=== PATIENT | female | born 1945 | race Caucasian/White ===

== ENCOUNTER → 2018-01-29 09:02 | Outpatient (CLI) | payer OTHER, SELFPAY ==
[2018-01-29 10:05] LABS: Cholesterol 148 mg/dL (140-199); Glucose 90 mg/dL (80-110); HDL Cholesterol 53 mg/dL (40-60); LDL Cholesterol Calculated 70 mg/dL (<100); Triglycerides 124 mg/dL (35-150)
== END ==
PROVIDERS: Visit Provider Family Medicine
DX: R73.01 Impaired fasting glucose (principal); E78.5 Hyperlipidemia, unspecified
CPT/HCPCS: 36415; 80061; 82947

== ENCOUNTER → 2018-02-14 09:23 | Outpatient (CLI) | payer OTHER, SELFPAY ==
[2018-02-14 10:52] LABS: Alanine Aminotransferase 28 IU/L (9-52); Albumin 4.6 g/dL (3.5-5.0); Albumin Globulin Ratio 1.6 (1.0-2.8); Alkaline Phosphatase 63 U/L (38-126); Aspartate Aminotransferase 48 IU/L (14-36); BUN Creatinine Ratio 26.7 (6-22); Bilirubin Total 0.5 mg/dL (0.2-1.3); Blood Urea Nitrogen 24 mg/dL (7-17); Calcium 10.2 mg/dL (8.4-10.2); Carbon Dioxide 33 mmol/L (22-32); Chloride 99 mmol/L (98-107); Estimated Glomerular Filt Rate > 60.0 mL/min (>60); Globulin 2.8 g/dL (1.7-4.1); Glucose 91 mg/dL (80-110); HEMOLYSIS < 15 (0-50); Potassium 4.3 mmol/L (3.4-5.1); Sodium 144 mmol/L (137-145); Total Protein 7.4 g/dL (6.3-8.2)
[2018-02-14 11:23] LABS: Thyroid Stimulating Hormone 1.51 uIU/mL (0.47-4.68)
[2018-02-14 20:11] LABS: Hemoglobin A1C% w Est Avg Glu 5.6 % (4.0-6.0)
== END ==
PROVIDERS: PCP Registered Nurse; Visit Provider Registered Nurse
DX: E66.9 Obesity, unspecified (principal); E03.9 Hypothyroidism, unspecified; I10 Essential (primary) hypertension
CPT/HCPCS: 36415; 80053; 83036; 84443

== ENCOUNTER → 2018-03-28 09:11 | Outpatient (CLI) | payer OTHER, SELFPAY ==
--- NOTE | 2018-03-28 09:14 | DI.MG.S_ITS ---
BILATERAL DIGITAL SCREENING MAMMOGRAM 3D/2D WITH CAD: 03/28/2018 CLINICAL: Routine screening. Comparison is made to exams dated: 03/16/2017 mammogram, 03/05/2015 mammogram, and 03/07/2016 mammogram - [facility]. The tissue of both breasts is heterogeneously dense. This may lower the sensitivity of mammography. Current study was also evaluated with a Computer Aided Detection (CAD) system. There are stable benign post operative findings in the left breast. There also is a benign biopsy clip in the right breast. No significant masses, calcifications, or other findings are seen in either breast. There has been no significant interval change. IMPRESSION: There is no mammographic evidence of malignancy. A 1 year screening mammogram is recommended. NOTE: For mammograms, a report in lay terms will be sent to the patient. Approximately 15% of breast malignancies will not be visualized mammographically. In the management of a palpable breast mass, a negative mammogram must not discourage biopsy of a clinically suspicious lesion. Electronically Signed By: Manuel mejias/sheila:03/28/2018 12:32:00 letter sent: Normal Exam ACR BI-RADS Category 2: Benign Finding(s) 3342F
== END ==
PROVIDERS: PCP Registered Nurse; Visit Provider Registered Nurse
DX: Z12.31 Encounter for screening mammogram for malignant neoplasm of breast (principal)
CPT/HCPCS: 77063; 77067

== ENCOUNTER → 2018-05-25 08:53 | Outpatient (CLI) | payer MEDICARE, SELFPAY ==
[2018-05-25 10:09] LABS: Alanine Aminotransferase 37 IU/L (9-52); Aspartate Aminotransferase 31 IU/L (14-36)
== END ==
PROVIDERS: PCP Registered Nurse; Visit Provider Registered Nurse
DX: R74.8 Abnormal levels of other serum enzymes (principal)
CPT/HCPCS: 36415; 84450; 84460

== ENCOUNTER → 2018-06-29 12:21 | Outpatient (CLI) | payer MEDICARE, SELFPAY ==
--- NOTE | 2018-06-29 12:24 | DI.RAD.S_ITS ---
PROCEDURE: XR KNEE RT 3V INDICATIONS: Right knee pain TECHNIQUE: 3 views of the knee were acquired. COMPARISON: [facility], KNEE 3V RIGHT, 04/11/2017, 20:53. [facility], KNEE 3V RIGHT, 07/01/2010, 11:15. FINDINGS: Bones: No fractures or dislocations but there is mild to moderate medial compartment joint space narrowing, consistent with mild to moderate osteoarthritis in this area. No trauma found. No suspicious bony lesions. Soft tissues: No joint effusion. No suspicious soft tissue calcifications. 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 Dictated by: Pacheco Eden M.D. on 06/29/2018 at 13:29 Approved by: Pacheco Eden M.D. on 06/29/2018 at 13:30
== END ==
PROVIDERS: PCP Registered Nurse; Visit Provider Registered Nurse
DX: M25.561 Pain in right knee (principal); M17.11 Unilateral primary osteoarthritis, right knee
CPT/HCPCS: 73562

== ENCOUNTER → 2018-10-09 09:38 | Outpatient (CLI) | payer MEDICARE, SELFPAY ==
[2018-10-09 11:41] LABS: Creatinine Urine Random 84.4 mg/dL
[2018-10-09 11:48] LABS: Microalbumi Creatinin Ratio Ur 7.1 ug/mg CR (<30); Microalbumin Urine Random < 0.6 mg/dL (0-1.6)
== END ==
PROVIDERS: PCP Registered Nurse; Visit Provider Registered Nurse
DX: I10 Essential (primary) hypertension (principal)
CPT/HCPCS: 82043; 82570

== ENCOUNTER → 2019-02-26 12:17 | Outpatient (CLI) | payer MEDICARE, SELFPAY ==
[2019-02-26 14:50] LABS: Thyroid Stimulating Hormone 1.65 uIU/mL (0.47-4.68)
== END ==
PROVIDERS: PCP Registered Nurse; Visit Provider Nurse Practitioner
DX: E03.9 Hypothyroidism, unspecified (principal)
CPT/HCPCS: 36415; 84443

== ENCOUNTER 2019-03-19 08:39 | Emergency (ER) | payer MEDICARE, SELFPAY ==
--- NOTE | 2019-03-19 08:43 | ED.ABDPAIN ---
HPI - Abdominal Pain General Chief Complaint: Abdominal Pain Stated Complaint: irritable bowel syndrome Time Seen by Provider: 03/19/19 08:42 Source: patient Mode of arrival: Ambulatory Limitations: no limitations History of Present Illness HPI narrative: 73-year-old female former smoker with history of IBS presents with a few days of episodes of generalized abdominal cramping pain. She denies provocation, palliation or radiation. She denies any fever chills or vomiting but has been nauseated. She denies any change in bowel habits nor urinary complaints such as dysuria, frequency or urgency. She states that her symptoms started after eating a bunch of fried food on Monday, food which she knows she should not eat. Her normal medications for IBS are not working. MD complaint: abdominal pain Onset (ago): day(s) Pain Consistency: intermittent Location: diffuse Severity: moderate Quality: cramping Radiation: none Relieving factors: nothing Exacerbating factors: nothing Associated symptoms: nausea Related Data Home Medications Medication Instructions Recorded Confirmed ASPIRIN (Aspirin Low Dose) 81 mg PO QDAY #0 07/01/10 01/30/19 B-complex with vitamin C 1 tab PO DAILY 02/14/18 01/30/19 ascorbic acid (vitamin C) 500 mg mg PO cap 02/14/18 01/30/19 capsule ryjumil-[id number]-bsoy tab PO tab 02/14/18 01/30/19 cholecalciferol (vitamin D3) 1,000 1,000 unit PO DAILY 02/14/18 01/30/19 unit capsule omega-3 fatty acids 1,000 mg 1,000 mg PO DAILY 02/14/18 01/30/19 capsule Previous Rx's Medication Instructions Recorded valacyclovir 1 gram tablet 1,000 mg PO Q DAY #90 tab 03/21/18 cholestyramine (with sugar) 4 gram 4 gram PO BID PRN #20 each 07/06/18 powder for susp in a packet omeprazole 20 mg capsule,delayed 20 mg PO DAILY #90 cap 07/06/18 release simvastatin 10 mg tablet 10 mg PO Q DAY #90 tab 07/11/18 diazepam 5 mg tablet 5 mg PO .COMPLEX PRN #2 tab 01/30/19 levothyroxine 25 mcg tablet 25 mcg PO DAILY #90 tab 02/26/19 dicyclomine 20 mg tablet 20 mg PO QID PRN #60 tab 03/15/19 hyoscyamine sulfate 0.125 mg PO BID-QID PRN #20 tab 03/19/19 Allergies Allergy/AdvReac Type Severity Reaction Status Date / Time codeine [CODEINE] Allergy Mild NAUSEA, Verified 01/30/19 09:18 VOMITING morphine [MORPHINE] Allergy Mild VOMITING Verified 01/30/19 09:18 Review of Systems Constitutional Constitutional: Denies chills, Denies fatigue, Denies fever(s), Denies frequent falls, Denies lethargy and Denies weakness Eyes Eyes: Denies change in vision, Denies eye discharge, Denies irritation and Denies loss of vision ENT Ears, Nose, Mouth, and Throat: Denies change in voice, Denies dizziness, Denies neck pain, Denies sore throat and Denies throat swelling Cardiovascular Cardiovascular: Denies chest pain, Denies irregular heart rhythm, Denies lightheadedness, Denies palpitations, Denies dyspnea, Denies dyspnea on exertion and Denies orthopnea Respiratory Respiratory: Denies cough, Denies dyspnea, Denies dyspnea on exertion and Denies wheezing Gastrointestinal Gastrointestinal: Reports abdominal pain, Denies change in bowel habits, Denies diarrhea, Reports nausea and Denies vomiting Genitourinary Genitourinary: Denies hematuria, Denies flank pain, Denies urinary incontinence and Denies urinary urgency Musculoskeletal Musculoskeletal: Denies back pain, Denies muscle weakness, Denies neck pain, Denies numbness and Denies tingling Integumentary/Breasts Skin/Breast: Denies pruritus, Denies erythema, Denies rash and Denies wounds Neurologic Neurologic: Denies behavioral changes, Denies confusion, Denies dizziness, Denies frequent falls, Denies loss of vision, Denies numbness, Denies tingling and Denies weakness Psychiatric Psychiatric: Denies anxiety, Denies behavioral changes, Denies confusion, Denies depression, Denies homicidal ideation and Denies suicidal ideation Endocrine Endocrine: Denies fatigue, Denies flushing and Denies palpitations Hematologic/Lymphatic Hematologic/Lymphatic: Denies easy bruising Allergic/Immunologic Allergic/Immunologic: Denies urticaria, Denies throat swelling and Denies wheezing Patient History Medical History Abnormal Pap smear of cervix (Resolved ~2009) Anxiety (Chronic) Carpal tunnel syndrome (Chronic ~2006) Chicken pox (Resolved ~1950) Depression (Chronic) Diverticular disease (Chronic) Foot pain (Chronic ~2012) Hearing loss (Chronic ~11/2014) Herpes (Resolved) Hyperlipidemia (Chronic) Hypertension (Chronic) Kidney disease (Chronic) Macular degeneration (Chronic) Measles (Resolved) Osteoarthritis (Chronic) Rheumatoid arthritis (Chronic) Surgical History Anesthesia (Resolved) Fractures (Resolved ~1980) History of carpal tunnel repair (~2006) History of esophagogastroduodenoscopy (EGD) (12/12/16) History of neck surgery (Resolved ~1993) History of shoulder surgery (Resolved ~1993) Left fibular fracture (Resolved ~2015) Status post arthroscopy (~2007) Status post breast biopsy (~1993) Status post breast biopsy (10/01/12) Status post breast biopsy (10/02/13) Status post bunionectomy (12/18/12) Status post hysterectomy (~1980) Status post rotator cuff repair (~2007) Family History Brother Age: 76 Hypertension Father Leukemia Pneumonia Mother No problems noted. Grandmother Diabetes mellitus Social History Smoking Status: Former smoker alcohol intake: former substance use type: does not use Smoking Status: Former smoker Exam Narrative Exam Narrative: GENERAL: [73] year old patient appears stated age. Well-nourished, well-developed patient, in mild distress. HEAD: Atraumatic. Normocephalic. EYES: Pupils equal round and reactive. Extraocular motions intact. No scleral icterus. No injection or drainage. ENT: Nose without bleeding, purulent drainage. Throat without erythema, tonsillar hypertrophy or exudate. Airway patent. NECK: Trachea midline. Non tender CARDIOVASCULAR: Regular rate and rhythm without murmurs, gallops, or rubs. RESPIRATORY: Clear to auscultation. Breath sounds equal bilaterally. No wheezes, rales, or rhonchi. GASTROINTESTINAL: Abdomen soft, non-tender, nondistended. EXTREMITIES: No edema or joint tenderness. BACK: Nontender without deformity or crepitance. No flank tenderness. NEURO: AOx3. SKIN: No rash or erythema of visible areas Initial Vital Signs Initial Vital Signs: Vital Signs Temperature 97.5 F L 03/19/19 08:59 Pulse Rate 90 03/19/19 08:59 Respiratory Rate 13 03/19/19 08:59 Blood Pressure 119/71 03/19/19 08:59 Pulse Oximetry 99 03/19/19 08:59 Course Orders Ordered: ED Orders 03/19/19 09:20 Complete Blood Count AUTO DIFF Stat Comprehensive Metabolic Panel Stat Lipase Stat 03/19/19 09:52 XR acute abdomen series Stat Discontinued Medications Sodium Chloride (Normal Saline 0.9%) 1,000 mls @ 1,000 mls/hr IV BOLUS ONE Stop: 03/19/19 10:50 Last Infusion: 03/19/19 12:33 Dose: 1,000 mls/hr Documented by: Admin: 03/19/19 10:39 Dose: 1,000 mls/hr Documented by: BTONER Vital Signs Vital signs: Vital Signs - 8 hr 03/19/19 08:59 03/19/19 11:58 Temperature 97.5 F L Pulse Rate 90 67 Respiratory Rate 13 17 Blood Pressure 119/71 Blood Pressure [Right Arm] 121/60 Pulse Oximetry 99 96 MDM - Abdominal Pain Lab Data Result diagrams: 03/19/19 09:20 03/19/19 09:20 Labs: Lab Results 03/19/19 03/19/19 Range/Units 09:20 09:20 WBC 11.0 (4.5-11.0) X10^3/uL RBC 4.59 (4.0-5.2) X10^6/uL Hgb 15.0 (12.0-16.0) g/dL Hct 44.4 (36-46) % MCV 96.9 (80-100) fL MCH 32.8 (26-34) PG MCHC 33.8 (30-36) % RDW 13.2 (11.6-14.8) % Plt Count 329 (150-400) X10^3/uL Neut % (Auto) 57.3 (50-75) % Lymph % (Auto) 33.7 (25-40) % Morton % (Auto) 6.5 (3-14) % Eos % (Auto) 1.6 L (2-4) % Baso % (Auto) 0.9 (0-2) % Neut # (Auto) 6300 (3721-1379) /uL Lymph # (Auto) 3700 (8259-3737) /uL Morton # (Auto) 700 (0-900) /uL Eos # (Auto) 200 (0-450) /uL Baso # (Auto) 100 (0-100) /uL Sodium 140 (137-145) mmol/L Potassium 3.9 (3.4-5.1) mmol/L Chloride 102 (98-107) mmol/L Carbon Dioxide 27 (22-32) mmol/L BUN 18 H (7-17) mg/dL Creatinine 0.90 (0.52-1.04) mg/dL Estimated GFR > 60.0 (>60) mL/min BUN/Creatinine Ratio 20.0 (6-22) Glucose 104 (80-110) mg/dL Calcium 10.0 (8.4-10.2) mg/dL Total Bilirubin 0.9 (0.2-1.3) mg/dL AST 29 (14-36) IU/L ALT 16 (<35) IU/L Alkaline Phosphatase 74 (38-126) U/L Total Protein 7.7 (6.3-8.2) g/dL Albumin 4.7 (3.5-5.0) g/dL Globulin 3.0 (1.7-4.1) g/dL Albumin/Globulin Ratio 1.6 (1.0-2.8) Lipase 105 (23-300) U/L Imaging Data Abdominal x-ray: Radiologist's impression: [address] [id number] XRay Report Signed Patient: Ninfa Aranda RUBI#: [id number] : 5Acct:[id number] Age/Sex: 73 / FDate of Service: 03/19/19 Loc: ED Accession Number: [id number] Procedure: XR acute abdomen series Ordering Provider: Tl Mann D.O. PROCEDURE: XR ACUTE ABDOMEN SERIES INDICATIONS: Abdominal pain TECHNIQUE: One view chest and two views of the abdomen were acquired. COMPARISON: [facility], ABDOMEN ACUTE SERIES, 02/05/2016, 10:29. FINDINGS: Surgical changes and devices: Surgical clips project over the left apex. Chest: Lungs are clear. Heart size is normal. No pleural effusions. No pneumoperitoneum. Abdomen: Bowel gas pattern is normal. No suspicious calcifications. Visualized solid organ contours appear normal. Bones: No suspicious bony lesions. IMPRESSION: No acute process. Dictated by: Elizabeth Padilla M.D. on 03/19/2019 at 10:26 Approved by: Elizabeth Padilla M.D. on 03/19/2019 at 10:27 [facility] Narrative Medical decision making narrative: Multiple etiologies for patient's symptoms considered including: [IBS versus gallbladder disease versus bowel obstruction versus other] Patient's symptoms improved or duration of stay with above-stated therapies. Findings and discharge diagnosis discussed with patient/family followed by verbalization of understanding Return precautions discussed with patient/family whom verbalize understanding. Discharge Plan Departure Patient Disposition: Home Clinical Impression: IBS (irritable bowel syndrome) Qualifiers: Irritable bowel syndrome type: unspecified Qualified Code(s): K58.9 - Irritable bowel syndrome without diarrhea Discharge Date/Time: 03/19/19 12:34 Instructions: DI for Abdominal Pain-Adult Activity Restrictions/Additional Instructions: 1. Drink plenty of fluids with frequent small sips. 2. For the next 24 hours a clear liquid diet is advised. After that please employ a brat diet which would include bananas, rice, apples, toast. 3. Please take medications as directed. DO NOT TAKE THIS NEW PRESCRIPTION WITH YOUR DICYCLOMINE, they work similarly and could result in overdose if taking togther. Please stop the dicyclomine for the next few days and try this new prescription instead. 4. Please follow-up with your doctor in the next 1-2 days. Call the office for an appointment. 5. Please return to the emergency Department for any worsening or persistent symptoms, such as increasing pain or fever. Prescriptions: New hyoscyamine sulfate 0.125 mg tablet 0.125 mg PO BID-QID PRN (Reason: dyspepsia) Qty: 20 RF: 0 No Action ASPIRIN (Aspirin Low Dose) 81 mg PO QDAY Qty: 0 RF: 0 valacyclovir 1 gram tablet 1,000 mg PO Q DAY Qty: 90 RF: 3 simvastatin [Zocor] 10 mg tablet 10 mg PO Q DAY Qty: 90 RF: 3 diazepam 5 mg tablet 5 mg PO .COMPLEX PRN (Reason: anxiety) Qty: 2 RF: 0 levothyroxine 25 mcg tablet 25 mcg PO DAILY Qty: 90 RF: 3 dicyclomine 20 mg tablet 20 mg PO QID PRN (Reason: abdominal discomfort) Qty: 60 RF: 0 cholestyramine (with sugar) 4 gram powder in packet 4 gram PO BID PRN (Reason: ingestion of fatty meal) Qty: 20 RF: 0 omeprazole 20 mg capsule,delayed release(DR/EC) 20 mg PO DAILY Qty: 90 RF: 3 ascorbic acid (vitamin C) 500 mg capsule PO RF: 0 omega-3 fatty acids [Fish Oil Concentrate] 1,000 mg capsule 1,000 mg PO DAILY RF: 0 cholecalciferol (vitamin D3) 1,000 unit capsule 1,000 unit PO DAILY RF: 0 B-complex with vitamin C [Super B Complex-Vitamin C] tablet 1 tab PO DAILY RF: 0 strhtqi-jifbfqqfx-yeoe tablet PO RF: 0 Referrals: Lizabeth Rico ARNP [Primary Care Provider] -
[2019-03-19 08:59] VITALS: BP 119/71; PULSE 90; RESP 13; TEMP 36.4; O2SAT 99
--- NOTE | 2019-03-19 09:52 | DI.RAD.S_ITS ---
PROCEDURE: XR ACUTE ABDOMEN SERIES INDICATIONS: Abdominal pain TECHNIQUE: One view chest and two views of the abdomen were acquired. COMPARISON: [facility], , ABDOMEN ACUTE SERIES, 02/05/2016, 10:29. FINDINGS: Surgical changes and devices: Surgical clips project over the left apex. Chest: Lungs are clear. Heart size is normal. No pleural effusions. No pneumoperitoneum. Abdomen: Bowel gas pattern is normal. No suspicious calcifications. Visualized solid organ contours appear normal. Bones: No suspicious bony lesions. IMPRESSION: No acute process. Dictated by: Elizabeth Padilla M.D. on 03/19/2019 at 10:26 Approved by: Elizabeth Padilla M.D. on 03/19/2019 at 10:27
[2019-03-19 10:01] LABS: Add Manual Diff / Slide Review NO; Basophils Absolute Auto 100 /uL (0-100); Basophils Percent Auto 0.9 % (0-2); Eosinophils Absolute Auto 200 /uL (0-450); Eosinophils Percent Auto 1.6 % (2-4); Hematocrit 44.4 % (36-46); Lymphocytes Absolute Auto 3700 /uL (1100-4500); Lymphocytes Percent Auto 33.7 % (25-40); Mean Corpuscular HGB Conc 33.8 % (30-36); Mean Corpuscular Hemoglobin 32.8 PG (26-34); Mean Corpuscular Volume 96.9 fL (80-100); Monocytes Absolute Auto 700 /uL (0-900); Monocytes Percent Auto 6.5 % (3-14); Neutrophils Absolute Auto 6300 /uL (1500-7000); Neutrophils Percent Auto 57.3 % (50-75); Platelet Count 329 X10^3/uL (150-400); Red Blood Cell Count 4.59 X10^6/uL (4.0-5.2); Red Cell Distribution Width 13.2 % (11.6-14.8)
[2019-03-19 10:06] LABS: Alanine Aminotransferase 16 IU/L (<35); Albumin 4.7 g/dL (3.5-5.0); Albumin Globulin Ratio 1.6 (1.0-2.8); Alkaline Phosphatase 74 U/L (38-126); Aspartate Aminotransferase 29 IU/L (14-36); Bilirubin Total 0.9 mg/dL (0.2-1.3); Blood Urea Nitrogen 18 mg/dL (7-17); Carbon Dioxide 27 mmol/L (22-32); Chloride 102 mmol/L (98-107); Estimated Glomerular Filt Rate > 60.0 mL/min (>60); Glucose 104 mg/dL (80-110); HEMOLYSIS 27 (0-50); Lipase 105 U/L (23-300); Potassium 3.9 mmol/L (3.4-5.1); Sodium 140 mmol/L (137-145); Total Protein 7.7 g/dL (6.3-8.2)
[2019-03-19] MEDS: SODIUM CHLORIDE 0.9% 1,000 ML 1000 ML IV (10:39)
[2019-03-19 11:58] VITALS: BP 121/60; PULSE 67; RESP 17; O2SAT 96
== END 2019-03-19 12:34 | disposition home or self-care (01) ==
PROVIDERS: Emergency Provider Emergency Medicine; PCP Registered Nurse
DX: K58.9 Irritable bowel syndrome, unspecified (principal)
CPT/HCPCS: 36415; 74022; 80053; 83690; 85025; 96360; 99284

== ENCOUNTER → 2019-04-05 07:55 | Outpatient (CLI) | payer MEDICARE, SELFPAY ==
--- NOTE | 2019-04-05 | DI.MG.S_ITS ---
BILATERAL DIGITAL SCREENING MAMMOGRAM 3D/2D WITH CAD: 04/05/2019 CLINICAL: Routine screening. Comparison is made to exams dated: 03/16/2017 mammogram, 03/28/2018 mammogram, 03/07/2016 mammogram, 03/05/2015 mammogram, and 03/03/2014 mammogram - [facility]. The tissue of both breasts is heterogeneously dense. This may lower the sensitivity of mammography. Current study was also evaluated with a Computer Aided Detection (CAD) system. There is a biopsy clip in the right breast. There also are benign post operative findings in the left breast. No significant masses, calcifications, or other findings are seen in either breast. There has been no significant interval change. IMPRESSION: There is no mammographic evidence of malignancy. A 1 year screening mammogram is recommended. This exam was interpreted at Station ID: [id number]. NOTE: For mammograms, a report in lay terms will be sent to the patient. Approximately 15% of breast malignancies will not be visualized mammographically. In the management of a palpable breast mass, a negative mammogram must not discourage biopsy of a clinically suspicious lesion. Electronically Signed By: Doiran morgan/sheila:04/05/2019 13:32:54 letter sent: Normal Exam ACR BI-RADS Category 2: Benign Finding(s) 3342F
== END ==
PROVIDERS: PCP Registered Nurse; Visit Provider Registered Nurse
DX: Z12.31 Encounter for screening mammogram for malignant neoplasm of breast (principal)
CPT/HCPCS: 77063; 77067

== ENCOUNTER 2019-09-04 08:44 | Emergency (ER) | payer MEDICARE, SELFPAY ==
[2019-09-04 08:45] VITALS: BP 141/73; PULSE 78; RESP 20; TEMP 36.4; O2SAT 97; BMI 32.5
--- NOTE | 2019-09-04 08:49 | ED_ITS ---
HPI - General Adult General Chief complaint: Fall Stated complaint: Fall Time Seen by Provider: 09/04/19 08:45 Source: patient Mode of arrival: Wheelchair Limitations: no limitations History of Present Illness HPI narrative: 73-year-old female brought in by wheelchair after the patient was leaving the doctor's office here at the hospital and slipped. Injured her right upper leg. Patient states she had a recent diagnosis of a hamstring injury and she thinks that she may have her to that more. Does not appear that she fell completely to the ground or hit her head. Not on anticoagulation. Was unable to walk after the fall. No ankle or knee pain. No back pain. Difficult to obtain specific HPI or review of systems secondary to patient's discomfort. Related Data Home Medications Medication Instructions Recorded Confirmed ASPIRIN (Aspirin Low Dose) 81 mg PO QDAY #0 07/01/10 08/27/19 B-complex with vitamin C 1 tab PO DAILY 02/14/18 08/27/19 ascorbic acid (vitamin C) 500 mg mg PO cap 02/14/18 08/27/19 capsule [id number]-qrrmdnxdf-fdfv tab PO tab 02/14/18 08/27/19 cholecalciferol (vitamin D3) 25 1,000 unit PO DAILY 02/14/18 08/27/19 mcg (1,000 unit) capsule omega-3 fatty acids 1,000 mg 1,000 mg PO DAILY 02/14/18 08/27/19 capsule Previous Rx's Medication Instructions Recorded omeprazole 20 mg capsule,delayed 20 mg PO DAILY #90 cap 07/06/18 release hyoscyamine sulfate 0.125 mg PO BID-QID PRN #20 tab 03/19/19 levothyroxine 25 mcg tablet 25 mcg PO DAILY #90 tab 04/22/19 simvastatin 10 mg tablet 10 mg PO Q DAY #90 tab 04/22/19 cholestyramine (with sugar) 4 gram 4 gram PO BID PRN #20 each 04/30/19 powder for susp in a packet valacyclovir 1 gram tablet 1,000 mg PO Q DAY #90 tab 06/28/19 dicyclomine 20 mg tablet See Rx Instructions .ROUTE 07/29/19 .COMPLEX #60 tablet cyclobenzaprine 10 mg PO TID PRN #14 tab 09/04/19 ondansetron 4 mg PO Q6H PRN #14 tab 09/04/19 oxycodone-acetaminophen [Percocet] 1 tab PO Q4-6H PRN #14 tab 09/04/19 Allergies Allergy/AdvReac Type Severity Reaction Status Date / Time codeine [CODEINE] Allergy Mild NAUSEA, Verified 08/27/19 14:51 VOMITING morphine [MORPHINE] Allergy Mild VOMITING Verified 08/27/19 14:51 Review of Systems Constitutional Constitutional: Denies headache(s) ENT Ears, Nose, Mouth, and Throat: Denies headache(s) Musculoskeletal Comments: Right upper leg pain Integumentary/Breasts Skin/Breast: Denies lesions and Denies rash Neurologic Neurologic: Denies headache(s) Hematologic/Lymphatic Hematologic/Lymphatic: Denies easy bleeding and Denies easy bruising Patient History Medical History Abnormal Pap smear of cervix (Resolved ~2009) Anxiety (Chronic) Carpal tunnel syndrome (Chronic ~2006) Chicken pox (Resolved ~1949) Depression (Chronic) Diverticular disease (Chronic) Foot pain (Chronic ~2012) Hearing loss (Chronic ~11/2014) Herpes (Resolved) Hyperlipidemia (Chronic) Hypertension (Chronic) Kidney disease (Chronic) Macular degeneration (Chronic) Measles (Resolved) Osteoarthritis (Chronic) Rheumatoid arthritis (Chronic) Surgical History Anesthesia (Resolved) Fractures (Resolved ~1980) History of carpal tunnel repair (~2006) History of esophagogastroduodenoscopy (EGD) (12/12/16) History of neck surgery (Resolved ~1993) History of shoulder surgery (Resolved ~1993) Left fibular fracture (Resolved ~2015) Status post arthroscopy (~2007) Status post breast biopsy (~1993) Status post breast biopsy (10/01/12) Status post breast biopsy (10/02/13) Status post bunionectomy (12/18/12) Status post hysterectomy (~1980) Status post rotator cuff repair (~2007) Family History Brother Age: 76 Hypertension Father Leukemia Pneumonia Mother No problems noted. Grandmother Diabetes mellitus Social History Smoking Status: Former smoker alcohol intake: former substance use type: does not use Smoking Status: Former smoker Substance Use Type: does not use Exam Initial Vital Signs Initial Vital Signs: Vital Signs Temperature 97.6 F 09/04/19 08:45 Pulse Rate 78 09/04/19 08:45 Respiratory Rate 20 09/04/19 08:45 Blood Pressure 141/73 H 09/04/19 08:45 Pulse Oximetry 97 09/04/19 08:45 Const General: No comfortable (Uncomfortable) Limitations: other limitations (Pain) Resp Effort & Inspection: normal respiratory effort Skin Lesions: no lesions Rashes: no rashes Extrem Other: Right ankle and right knee unremarkable. Patient not tender to palpation in the anterior portion of the right thigh however does have tenderness to palpation posteriorly. Initially unable to do hip exam secondary to patient's discomfort Psych Appearance: grossly normal and well kempt Procedures Orthopedic Splinting/Casting Injury #1: Side: right Lower Extremity Injury Location: knee Lower Extremity Immobilizer: knee immobilizer Other Orthopedic Equipment: walker Post splinting neuro exam: no change Post splinting vascular exam: no change Placed by: Nursing Course Orders Ordered: ED Orders 09/04/19 08:47 XR femur RT min 2V Stat XR hip w pel if done RT 2V Stat Discontinued Medications Cyclobenzaprine HCl (Flexeril) 10 mg PO NOW ONE Stop: 09/04/19 09:57 Last Admin: 09/04/19 10:01 Dose: 10 mg Documented by: EDUARDO Hydromorphone HCl (Dilaudid) 1 mg IM NOW ONE Stop: 09/04/19 08:51 Last Admin: 09/04/19 09:21 Dose: 1 mg Documented by: EDUARDO Vital Signs Vital signs: Vital Signs - 8 hr 09/04/19 08:45 09/04/19 09:25 09/04/19 10:10 Temperature 97.6 F Pulse Rate 78 72 65 Respiratory Rate 20 18 16 Blood Pressure 141/73 H Blood Pressure [Right Arm] 114/62 120/58 L Pulse Oximetry 97 93 93 Medical Decision Making Imaging Data Extremity x-ray #1: Radiologist's Impression: [address] [address] XRay Report Signed Patient: Ninfa Aranda#: [id number] : 5Acct:[id number] Age/Sex: 73 / FDate of Service: 09/04/19 Loc: ED Accession Number: [id number] Procedure: XR hip w pel if done RT 2V Ordering Provider: Tru Flores D.O. PROCEDURE: XR HIP W PEL IF DONE RT 2V INDICATIONS: Pain after fall TECHNIQUE: AP pelvis with lateral view(s) of the right hip(s). COMPARISON: None. FINDINGS: Bones: No fractures or dislocations. Pelvic ring appears intact. No suspicious bony lesions. Soft tissues: The visualized bowel gas pattern is normal. No suspicious soft tissue calcifications. IMPRESSION: No evidence acute bony abnormality of the pelvis and right hip. If clinical suspicion and/or symptoms persist, further assessment with repeat plain films, or advanced imaging (e.g., CT, MRI, or bone scan) may be helpful for further assessment. Dictated by: Matti Zepeda M.D. on 09/04/2019 at 9:39 Approved by: Matti Zepeda M.D. on 09/04/2019 at 9:40 Extremity x-ray #2: Radiologist's Impression: [place] [address] XRay Report Signed Patient: Ninfa Aranda R#: [id number] : 5Acct:[id number] Age/Sex: 73 / FDate of Service: 09/04/19 Loc: ED Accession Number: [id number] Procedure: XR femur RT min 2V Ordering Provider: Tru Flores D.O. PROCEDURE: XR FEMUR RT MIN 2V INDICATIONS: pain after fall TECHNIQUE: 2 views of the femur were acquired. COMPARISON: None. FINDINGS: Bones: No fractures or dislocations. No suspicious bony lesions. Soft tissues: No suspicious soft tissue calcifications or masses. IMPRESSION: No evidence acute bony abnormality of the right femur. If clinical suspicion and/or symptoms persist, further assessment with repeat plain films, or advanced imaging (e.g., CT, MRI, or bone scan) may be helpful for further assessment. Dictated by: Matti Zepeda M.D. on 09/04/2019 at 9:35 Approved by: Matti Zepeda M.D. on 09/04/2019 at 9:37 MDM Narrative Medical decision making narrative: No fractures were noted on the x-rays. Was difficult to obtain a complete hamstring exam secondary to patient's discomfort. Does appear that she has tenderness over the mid muscle belly of the semi tendinosis muscle. Given the fact there were no fractures patient can ambulate as normal. She was placed in a knee immobilizer for comfort and given crutches. Will treat with pain medications. She was given return precautions and follow- up instructions. She expressed understanding and agreement. Discharge Plan Departure Patient Disposition: Home Clinical Impression: Right hamstring muscle strain Qualifiers: Encounter type: initial encounter Qualified Code(s): S76.311A - Strain of muscle, fascia and tendon of the posterior muscle group at thigh level, right thigh, initial encounter Instructions: Hamstrings Strain Activity Restrictions/Additional Instructions: You can use the knee immobilizer and a walker as needed. There were no fractures on any of the x-rays so you can walk on your right leg as tolerated. Recommend you contact your primary provider for a follow-up so that a more thorough exam can be performed after the initial pain at the injury has improved and so that you can discuss any potential further radiologic studies such as an MRI and potential referrals to see specialist such as Orthopedics. You can use the pain medication as needed. They were electronically transmitted to [facility] Prescriptions: New oxycodone-acetaminophen [Percocet] 5-325 mg tablet 1 tab PO Q4-6H PRN (Reason: pain) Qty: 14 RF: 0 ondansetron 4 mg tablet,disintegrating 4 mg PO Q6H PRN (Reason: nausea and vomiting) Qty: 14 RF: 0 cyclobenzaprine 10 mg tablet 10 mg PO TID PRN (Reason: muscle spasm) Qty: 14 RF: 0 No Action ASPIRIN (Aspirin Low Dose) 81 mg PO QDAY Qty: 0 RF: 0 levothyroxine 25 mcg tablet 25 mcg PO DAILY Qty: 90 RF: 3 simvastatin [Zocor] 10 mg tablet 10 mg PO Q DAY Qty: 90 RF: 3 cholestyramine (with sugar) 4 gram powder in packet 4 gram PO BID PRN (Reason: ingestion of fatty meal) Qty: 20 RF: 1 valacyclovir 1 gram tablet 1,000 mg PO Q DAY Qty: 90 RF: 3 dicyclomine 20 mg tablet See Rx Instructions .ROUTE .COMPLEX Qty: 60 RF: 0 omeprazole 20 mg capsule,delayed release(DR/EC) 20 mg PO DAILY Qty: 90 RF: 3 ascorbic acid (vitamin C) 500 mg capsule PO RF: 0 omega-3 fatty acids [Fish Oil Concentrate] 1,000 mg capsule 1,000 mg PO DAILY RF: 0 cholecalciferol (vitamin D3) 1,000 unit capsule 1,000 unit PO DAILY RF: 0 B-complex with vitamin C [Super B Complex-Vitamin C] tablet 1 tab PO DAILY RF: 0 nmrvzgf-trckegski-bgqx tablet PO RF: 0 hyoscyamine sulfate 0.125 mg tablet 0.125 mg PO BID-QID PRN (Reason: dyspepsia) Qty: 20 RF: 0 Referrals: Lizabeth Rico ARNP [Primary Care Provider] -
[2019-09-04] MEDS: HYDROMORPHONE 1 MG INJ IM ×2 (09:21→11:14)
[2019-09-04 09:25] VITALS: BP 114/62; PULSE 72; RESP 18; O2SAT 93
[2019-09-04] MEDS: CYCLOBENZAPRINE 10 MG TABLET PO (10:01)
[2019-09-04 10:10] VITALS: BP 120/58; PULSE 65; RESP 16; O2SAT 93
--- NOTE | 2019-09-04 10:14 | PC.NURSE ---
Pt reports pain 10/10 in right hamstring area. IM dilaudid given in Right Deltoid. Pt reported some relief, though now having spasms. MD notified and orders for muscle relaxer/given. Imaging back/reviewed. Spouse at bedside
[2019-09-04 11:10] VITALS: BP 114/65; PULSE 69; RESP 18; O2SAT 92
[2019-09-04] MEDS: ONDANSETRON 4 MG ODT SL ×2 (11:44→12:31)
--- NOTE | 2019-09-04 11:44 | PC.NURSE ---
Pt feeling naueated,Dr Flores ordered 4mg zofran ODT
[2019-09-04 11:57] VITALS: BP 113/58; PULSE 63; RESP 12; O2SAT 93
--- NOTE | 2019-09-04 12:32 | PC.NURSE ---
Pt began vomiting,Dr Flores ordered 4mg odt zofran
[2019-09-04 12:55] VITALS: BP 115/75; PULSE 65; RESP 16; O2SAT 96
== END 2019-09-04 13:05 | disposition home or self-care (01) ==
PROVIDERS: Emergency Provider Emergency Medicine; PCP Registered Nurse
DX: S76.311A Strain of muscle, fascia and tendon of the posterior muscle group at thigh level, right thigh, initial encounter (principal); W19.XXXA Unspecified fall, initial encounter
CPT/HCPCS: 73502; 73552; 96372; 99283; 99284; J1170

== ENCOUNTER 2019-09-12 07:02 | Inpatient (IN) | payer MEDICARE, SELFPAY ==
[2019-09-12] VITALS (16 sets, daily range): BP systolic 111–139; BP diastolic 55–74; PULSE 81–96; RESP 7–35; TEMP 36.1–37.2; O2SAT 88–98; BMI 33.6
--- NOTE | 2019-09-12 07:28 | ED_ITS ---
HPI - SOB/Dyspnea General Chief Complaint: Shortness of Breath/Dyspnea Stated Complaint: trouble breathing x1 day Time Seen by Provider: 09/12/19 07:07 Source: patient Mode of arrival: Ambulatory Limitations: no limitations History of Present Illness HPI Narrative: Patient is 73-year-old female who presents with sudden-onset shortness of breath which started last evening around 10:00 p.m.. She denies any traveling fever chills or cough. She says she has difficult time breathing worse with exertion but is having hard time at rest as well. She was seen and evaluated here 1 week ago for a pulled hamstring after she slipped at the doctor's office she has been in a knee immobilizer since then. She has been mo ving around. She is also complaining of some right-sided chest pain as well. MD Complaint: shortness of breath Onset (ago): hour(s) Severity: moderate Treatment prior to arrival: none Related Data Home oxygen amount: none Home Medications Medication Instructions Recorded Confirmed B-complex with vitamin C 1 tab PO DAILY 02/14/18 09/12/19 ascorbic acid (vitamin C) 500 mg 500 mg PO DAILY cap 02/14/18 09/12/19 capsule dquqgxd-dadrevxcr-awkj 1 tab PO DAILY tab 02/14/18 09/12/19 cholecalciferol (vitamin D3) 25 1,000 unit PO DAILY 02/14/18 09/12/19 mcg (1,000 unit) capsule omega-3 fatty acids 1,000 mg 1,000 mg PO DAILY 02/14/18 09/12/19 capsule simvastatin [Zocor] 10 mg PO QAM 09/12/19 09/12/19 Previous Rx's Medication Instructions Recorded omeprazole 20 mg capsule,delayed 20 mg PO DAILY #90 cap 07/06/18 release hyoscyamine sulfate 0.125 mg PO BID-QID PRN #20 tab 03/19/19 levothyroxine 25 mcg tablet 25 mcg PO DAILY #90 tab 04/22/19 cholestyramine (with sugar) 4 gram 4 gram PO BID PRN #20 each 04/30/19 powder for susp in a packet valacyclovir 1 gram tablet 1,000 mg PO Q DAY #90 tab 06/28/19 dicyclomine 20 mg tablet See Rx Instructions .ROUTE 07/29/19 .COMPLEX #60 tablet ondansetron 4 mg PO Q6H PRN #14 tab 09/04/19 cyclobenzaprine 10 mg tablet 10 mg PO TID PRN #14 tab 09/06/19 oxycodone-acetaminophen 5 mg-325 1 tab PO Q4-6H PRN #14 tab 09/06/19 mg tablet Allergies Allergy/AdvReac Type Severity Reaction Status Date / Time codeine [CODEINE] Allergy Mild NAUSEA, Verified 09/06/19 08:10 VOMITING morphine [MORPHINE] Allergy Mild VOMITING Verified 09/06/19 08:10 Review of Systems Review of Systems Narrative: GENERAL: Denies chills, fatigue, malaise, fever, sweats, travel HEENT: Denies sinus pain, ear pain, sore throat, difficulty swallowing, neck pain RESPIRATORY: See HPI CARDIOVASCULAR: Denies chest pain, palpitations, orthopnea, edema GASTROINTESTINAL: Denies nausea, vomiting, abdominal pain, diarrhea, constipation, melena. : Denies dysuria, frequency, incontinence, hematuria, urinary retention, flank pain. MUSCULOSKELETAL: Denies weakness, joint pain, or bony pain SKIN: No rash, no erythema, no pruritus NEUROLOGIC: Denies weakness, dizziness, headache, numbness, change in speech, confusion PSYCHIATRIC: No concerning psychosocial issues. 12 point review of systems is negative except for those stated above and HPI Patient History Medical History Abnormal Pap smear of cervix (Resolved ~2009) Anxiety (Chronic) Carpal tunnel syndrome (Chronic ~2006) Chicken pox (Resolved ~1949) Depression (Chronic) Diverticular disease (Chronic) Foot pain (Chronic ~2012) Hearing loss (Chronic ~11/2014) Herpes (Resolved) Hyperlipidemia (Chronic) Hypertension (Chronic) Kidney disease (Chronic) Macular degeneration (Chronic) Measles (Resolved) Osteoarthritis (Chronic) Rheumatoid arthritis (Chronic) Surgical History Anesthesia (Resolved) Fractures (Resolved ~1980) History of carpal tunnel repair (~2006) History of esophagogastroduodenoscopy (EGD) (12/12/16) History of neck surgery (Resolved ~1993) History of shoulder surgery (Resolved ~1993) Left fibular fracture (Resolved ~2015) Status post arthroscopy (~2007) Status post breast biopsy (~1993) Status post breast biopsy (10/01/12) Status post breast biopsy (10/02/13) Status post bunionectomy (12/18/12) Status post hysterectomy (~1980) Status post rotator cuff repair (~2007) Family History Brother Age: 76 Hypertension Father Leukemia Pneumonia Mother No problems noted. Grandmother Diabetes mellitus Social History Smoking Status: Former smoker alcohol intake: former substance use type: does not use Smoking Status: Former smoker Substance Use Type: does not use Exam Initial Vital Signs Initial Vital Signs: Vital Signs Pulse Rate 94 H 09/12/19 07:15 Respiratory Rate 24 09/12/19 07:15 Blood Pressure 139/64 09/12/19 07:15 Pulse Oximetry 94 09/12/19 07:15 GENERAL: Alert elderly female in mild distress HEENT: Head atraumatic,EOMI, pupils reactive, face symmetric, moist mucous membranes CARDIOVASCULAR: Regular rate and rhythm without murmurs, rubs or gallops. RESPIRATORY: Decreased breath sounds bilaterally no wheezing rales mild tachypnea ABDOMEN: Soft, nontender. Normoactive bowel sounds all 4 quadrants. No guarding or rebound. EXTREMITIES: Normal range of motion, no clubbing or edema. Neurovascularly intact. Right leg in knee immobilizer minimal swelling distal pedal pulse int act NEUROLOGICAL: Alert and oriented x4.Normal gait and speech. Cranial nerves II through XII grossly intact. SKIN: Warm, dry, no laceration, no petechiae, no rashes or lesions. Course Orders Ordered: ED Orders 09/12/19 07:23 Complete Blood Count AUTO DIFF Stat Comprehensive Metabolic Panel Stat Lipase Stat NT-proBNP (BNP-Adult 18+) Stat Partial Thromboplastin Time Stat Prothrombin Time INR Stat Troponin & CK Cardiac Panel Stat 09/12/19 07:26 XR chest 1V Stat 09/12/19 09:11 CT angio chest PE protocol Stat 09/12/19 15:45 PTT [Partial Thromboplastin Time] Q6H 09/12/19 21:45 PTT [Partial Thromboplastin Time] Q6H 09/13/19 03:45 PTT [Partial Thromboplastin Time] Q6H 09/13/19 05:00 Hemoglobin and Hematocrit DAILY Heparin Sodium/Dextrose (Heparin Drip) 25,000 unit in 500 mls @ 24 mls/hr IV CONT MALACHI; Protocol Last Admin: 09/12/19 09:57 Dose: 1,200 units/hr, 24 mls/hr Documented by: CHIDI Discontinued Medications Heparin Sodium (Porcine) (Heparin) 5,800 unit 80 unit/kg (5800 unit) IV NOW ONE Stop: 09/12/19 09:36 Last Admin: 09/12/19 09:58 Dose: 5,800 unit Documented by: CHIDI Hydromorphone HCl (Dilaudid) 0.5 mg IV NOW ONE Stop: 09/12/19 07:27 Last Admin: 09/12/19 07:38 Dose: 0.5 mg Documented by: CATHIE Hydromorphone HCl (Dilaudid) 0.5 mg IV NOW ONE Stop: 09/12/19 09:12 Last Admin: 09/12/19 09:18 Dose: 0.5 mg Documented by: CATHIE Hydromorphone HCl (Dilaudid) 0.5 mg IV NOW ONE Stop: 09/12/19 11:54 Last Admin: 09/12/19 11:57 Dose: 0.5 mg Documented by: CHIDI Ondansetron HCl (Zofran) 4 mg IV NOW ONE Stop: 09/12/19 07:27 Last Admin: 09/12/19 07:38 Dose: 4 mg Documented by: CATHIE Vital Signs Vital signs: Vital Signs - 8 hr 09/12/19 07:15 09/12/19 07:28 09/12/19 07:30 Temperature 97.0 F L Pulse Rate 94 H 96 H 81 Respiratory Rate 24 22 22 Blood Pressure 139/64 Blood Pressure [Left Arm] 139/64 120/55 L Pulse Oximetry 94 94 88 L 09/12/19 07:45 09/12/19 07:52 09/12/19 08:15 Temperature Pulse Rate 93 H 92 H 93 H Respiratory Rate 17 7 L 24 Blood Pressure Blood Pressure [Left Arm] 125/61 125/61 113/62 Pulse Oximetry 95 95 98 09/12/19 08:49 09/12/19 09:13 09/12/19 10:15 Temperature Pulse Rate 85 89 96 H Respiratory Rate 17 26 H 35 H Blood Pressure Blood Pressure [Left Arm] 125/60 126/67 111/73 Pulse Oximetry 94 98 96 MDM - SOB/Dyspnea Lab Data Attestation: I reviewed the patient's lab results. Result diagrams: 09/12/19 07:23 09/12/19 07:23 Labs: Lab Results 09/12/19 09/12/19 09/12/19 Range/Units 07:23 07:23 07:23 WBC 9.6 (4.5-11.0) X10^3/uL RBC 4.11 (4.0-5.2) X10^6/uL Hgb 13.7 (12.0-16.0) g/dL Hct 39.9 (36-46) % MCV 96.9 (80-100) fL MCH 33.2 (26-34) PG MCHC 34.3 (30-36) % RDW 13.8 (11.6-14.8) % Plt Count 321 (150-400) X10^3/uL Neut % (Auto) 51.7 (50-75) % Lymph % (Auto) 36.6 (25-40) % [place] % (Auto) 7.8 (3-14) % Eos % (Auto) 3.5 (2-4) % Baso % (Auto) 0.4 (0-2) % Neut # (Auto) 5000 (3195-1975) /uL Lymph # (Auto) 3500 (1506-1041) /uL [place] # (Auto) 700 (0-900) /uL Eos # (Auto) 300 (0-450) /uL Baso # (Auto) 0 (0-100) /uL PT 13.1 H (10.1-12.7) SECONDS INR 1.1 (0.9-1.3) APTT 36 (26.4-36.2) SECONDS Sodium 140 (137-145) mmol/L Potassium 4.1 (3.4-5.1) mmol/L Chloride 103 (98-107) mmol/L Carbon Dioxide 27 (22-32) mmol/L BUN 24 H (7-17) mg/dL Creatinine 0.94 (0.52-1.04) mg/dL Estimated GFR 58.2 L (>60) mL/min BUN/Creatinine Ratio 25.5 H (6-22) Glucose 115 H (80-110) mg/dL Calcium 10.1 (8.4-10.2) mg/dL Total Bilirubin 0.8 (0.2-1.3) mg/dL AST 24 (14-36) IU/L ALT 14 (<35) IU/L Alkaline Phosphatase 76 (38-126) U/L Total Creatine Kinase 47 (30-135) U/L CK-MB (CK-2) TNP CK-MB (CK-2) Rel Index TNP Troponin I < 0.012 (0.01-0.034) ng/mL NT-Pro-B Natriuret Pep 38 (<125) pg/mL Total Protein 8.0 (6.3-8.2) g/dL Albumin 4.4 (3.5-5.0) g/dL Globulin 3.6 (1.7-4.1) g/dL Albumin/Globulin Ratio 1.2 (1.0-2.8) Lipase 140 (23-300) U/L Imaging Data Chest x-ray: Radiologist's Impression: PROCEDURE: XR CHEST 1V INDICATIONS: short of breath TECHNIQUE: One view of the chest was acquired. COMPARISON: [facility], , CHEST 2 VIEW, 05/22/2017, 20:12. FINDINGS: Surgical changes and devices: None. Lungs and pleura: Lungs are reduced in volume but no pneumonia is found. No pleural effusions or pneumothorax. Mediastinum: Mediastinal contours appear normal. Heart size is normal. Bones and chest wall: No suspicious bony lesions. Overlying soft tissues appear unremarkable. IMPRESSION: Reduced inspiration, no pneumonia. Dictated by: Pacheco Eden M.D. on 09/12/2019 at 8:10 CT scan - chest: Radiologist's Impression: PROCEDURE: CT ANGIO CHEST PE PROTOCOL INDICATIONS: short of breath TECHNIQUE: After the administration of intravenous contrast, 2 mm thick sections acquired from the pulmonary apices to the posterior costophrenic angles. 3-dimensional maximum intensity projection (MIP) coronal and sagittal reformats were then acquired through the thorax. For radiation dose reduction, the following was used: automated exposure control, adjustment of mA and/or kV according to patient size. COMPARISON: [facility], CT, PE STUDY (CTA CHEST), 05/24/2017, 8:31. [facility], CR, XR CHEST 1V, 09/12/2019, 7:46. FINDINGS: Image quality: Excellent. Pulmonary arteries: Segmental and subsegmental pulmonary emboli in the right lung, (4/52, 51, 31). Mild to moderate emboli burden. RV: 3.7 cm diameter. LV: 4.8 cm diameter. RV LV ratio: 0.8. Lungs and pleura: Moderate basilar dependent airspace opacity. Small pulmonary nodule measuring 3 mm, (5/74), unchanged. No pleural effusions or pneumothorax. Central and peripheral airways are patent. Mediastinum: Heart size is normal, without pericardial effusion. No mediastinal or hilar adenopathy. Thoracic aorta is normal in caliber and enhancement. Esophagus is normal in caliber, without hiatal hernia. Bones and chest wall: No suspicious bony lesions. Bone island in the right h umerus. Ribs and thoracic spine appear intact throughout. No axillary or supraclavicular adenopathy. Abdomen: Visualized upper abdominal solid organs appear normal in the early arterial phase of enhancement. Small well circumscribed hepatic hypodensities are unchanged and have the appearance of benign cyst or hemangioma. Gallbladder is distended. IMPRESSION: 1.Segmental and subsegmental pulmonary emboli in the right lung. Mild to moderate emboli burden. No right heart strain demonstrated. 2. Moderate basilar dependent airspace opacities. This most likely represents atelectasis. Pneumonia could have a similar appearance. Dictated by: Dorian Almanza M.D. on 09/12/2019 at 9:13 ECG Data Attestation: I personally reviewed and interpreted this ECG as follows: Prior ECG tracings: not available for review Interpretation: Sinus rhythm artifact noted rate [address] changes no T-wave inversions no priors to compare MDM Narrative Medical decision making narrative: The patient is hemodynamically stable without signs a right sided heart strain. She does require some oxygen level drops to 89% while resting. I spoken with Dr. sethi who agrees for observation. Discharge Plan Departure Patient Disposition: Admitted as Observation Clinical Impression: Pulmonary emboli Qualifiers: Pulmonary embolism type: multiple subsegmental (without acute cor pulmonale) Qualified Code(s): I26.94 - Multiple subsegmental pulmonary emboli without acute cor pulmonale Admit Date/Time: 09/12/19 10:58 Admit Provider: Edward Sethi
[2019-09-12 07:35] LABS: Add Manual Diff / Slide Review NO; Basophils Absolute Auto 0 /uL (0-100); Basophils Percent Auto 0.4 % (0-2); Eosinophils Absolute Auto 300 /uL (0-450); Eosinophils Percent Auto 3.5 % (2-4); Hematocrit 39.9 % (36-46); Hemoglobin 13.7 g/dL (12.0-16.0); Lymphocytes Absolute Auto 3500 /uL (1100-4500); Lymphocytes Percent Auto 36.6 % (25-40); Mean Corpuscular HGB Conc 34.3 % (30-36); Mean Corpuscular Hemoglobin 33.2 PG (26-34); Mean Corpuscular Volume 96.9 fL (80-100); Monocytes Absolute Auto 700 /uL (0-900); Monocytes Percent Auto 7.8 % (3-14); Neutrophils Absolute Auto 5000 /uL (1500-7000); Neutrophils Percent Auto 51.7 % (50-75); Platelet Count 321 X10^3/uL (150-400); Red Blood Cell Count 4.11 X10^6/uL (4.0-5.2); Red Cell Distribution Width 13.8 % (11.6-14.8); White Blood Cell Count 9.6 X10^3/uL (4.5-11.0)
[2019-09-12] MEDS: HYDROMORPHONE 0.5 MG INJ IV ×4 (07:38→17:36)
[2019-09-12] MEDS: ONDANSETRON 4 MG/2 ML INJ IV (07:38)
[2019-09-12 07:39] LABS: INR 1.1 (0.9-1.3); Prothrombin Time 13.1 SECONDS (10.1-12.7)
[2019-09-12 07:41] LABS: PTT Partial Thromboplastin Tim 36 SECONDS (26.4-36.2)
[2019-09-12 07:43] LABS: Alanine Aminotransferase 14 IU/L (<35); Albumin 4.4 g/dL (3.5-5.0); Albumin Globulin Ratio 1.2 (1.0-2.8); Alkaline Phosphatase 76 U/L (38-126); Aspartate Aminotransferase 24 IU/L (14-36); BUN Creatinine Ratio 25.5 (6-22); Bilirubin Total 0.8 mg/dL (0.2-1.3); Blood Urea Nitrogen 24 mg/dL (7-17); Calcium 10.1 mg/dL (8.4-10.2); Carbon Dioxide 27 mmol/L (22-32); Chloride 103 mmol/L (98-107); Creatine Kinase 47 U/L (30-135); Estimated Glomerular Filt Rate 58.2 mL/min (>60); Globulin 3.6 g/dL (1.7-4.1); Glucose 115 mg/dL (80-110); HEMOLYSIS < 15 (0-50); Lipase 140 U/L (23-300); Potassium 4.1 mmol/L (3.4-5.1); Sodium 140 mmol/L (137-145)
[2019-09-12 07:55] LABS: NT-proBNP (BNP-Adult 18+) 38 pg/mL (<125); Troponin I < 0.012 ng/mL (0.01-0.034)
--- NOTE | 2019-09-12 09:11 | DI.CT.S_ITS ---
PROCEDURE: CT ANGIO CHEST PE PROTOCOL INDICATIONS: short of breath TECHNIQUE: After the administration of intravenous contrast, 2 mm thick sections acquired from the pulmonary apices to the posterior costophrenic angles. 3-dimensional maximum intensity projection (MIP) coronal and sagittal reformats were then acquired through the thorax. For radiation dose reduction, the following was used: automated exposure control, adjustment of mA and/or kV according to patient size. COMPARISON: [facility], CT, PE STUDY (CTA CHEST), 05/24/2017, 8:31. [facility], CR, XR CHEST 1V, 09/12/2019, 7:46. FINDINGS: Image quality: Excellent. Pulmonary arteries: Segmental and subsegmental pulmonary emboli in the right lung, (4/52, 51, 31). Mild to moderate emboli burden. RV: 3.7 cm diameter. LV: 4.8 cm diameter. RV LV ratio: 0.8. Lungs and pleura: Moderate basilar dependent airspace opacity. Small pulmonary nodule measuring 3 mm, (5/74), unchanged. No pleural effusions or pneumothorax. Central and peripheral airways are patent. Mediastinum: Heart size is normal, without pericardial effusion. No mediastinal or hilar adenopathy. Thoracic aorta is normal in caliber and enhancement. Esophagus is normal in caliber, without hiatal hernia. Bones and chest wall: No suspicious bony lesions. Bone island in the right humerus. Ribs and thoracic spine appear intact throughout. No axillary or supraclavicular adenopathy. Abdomen: Visualized upper abdominal solid organs appear normal in the early arterial phase of enhancement. Small well circumscribed hepatic hypodensities are unchanged and have the appearance of benign cyst or hemangioma. Gallbladder is distended. IMPRESSION: 1.Segmental and subsegmental pulmonary emboli in the right lung. Mild to moderate emboli burden. No right heart strain demonstrated. 2. Moderate basilar dependent airspace opacities. This most likely represents atelectasis. Pneumonia could have a similar appearance. Dictated by: Dorian Almanza M.D. on 09/12/2019 at 9:13 Approved by: Dorian Almanza M.D. on 09/12/2019 at 9:27
[2019-09-12] MEDS: HEPARIN DRIP 25,000 UNIT/500 ML IV.SOLN 24 UNIT IV (09:57)
[2019-09-12] MEDS: HEPARIN 5,000 UNIT/ML VIAL 5800 UNIT IV (09:58)
--- NOTE | 2019-09-12 11:39 | PC.NURSE ---
report called to Nayeli at 1322 and she was busy. To call me back.
--- NOTE | 2019-09-12 12:05 | PC.NURSE ---
patient complained of burning in left AC IV so I discontinued it.
--- NOTE | 2019-09-12 12:44 | DI.ECHO.S_ITS ---
[facility]---------+ [facility] +---------+ : : [address] : : : : [id number] : : : : Phone: [phone] Echocardiogram Report + + :Name: JAY MONTE Study Date: 09/12/2019 Height: 58 in : :[facility] Weight: 160 lb: : Gender: Female BSA: 1.7 m2 : :: 1945 Age: 73 yrs : :Reason For Study: Bilateral PE, Eval right heart starin : :Ordering Physician: Isa : :Hospitalist Performed By: Julianne Kong : :Referring: SUSAN TRUJILLO : + + Interpretation Summary The left ventricular ejection fraction is normal. There are no focal wall motion abnormalities. Diastolic parameters suggest a relaxation abnormality of the left ventricle, consistent with probable normal filling pressures. The left ventricular cavity is small. RV size is within normal limits but may be borderline dilated given patient's body habitus and comparing to the LV size. Right ventricular systolic function is mildly reduced. Pulmonary artery pressures cannot be estimated because of the lack of a measurable TR jet velocity but the IVC suggests a CVP of around 3 mmHg. There is no prior echocardiogram noted for this patient. Procedure: A two-dimensional transthoracic echocardiogram with color flow and Doppler was performed. The study quality was technically adequate. There is no prior echocardiogram noted for this patient. The patient was in normal sinus rhythm during the exam. Left Ventricle: The left ventricular cavity is small. There is normal left ventricular wall thickness. The ejection fraction is estimated to be 60-65%. The left ventricular ejection fraction is normal. There are no focal wall motion abnormalities. Diastolic parameters suggest a relaxation abnormality of the left ventricle, consistent with probable normal filling pressures. Right Ventricle: RV size is within normal limits but may be borderline dilated given patient's body habitus and comparing to the LV size. Right ventricular systolic function is mildly reduced. Atria: The left atrial size is normal. The right atrium is normal in size. There is no Doppler evidence for an interatrial shunt. Mitral Valve: The mitral valve is normal in structure and function. There is trace mitral regurgitation. Aortic Valve: The aortic valve is trileaflet. The aortic valve opens well. There is no aortic valve stenosis. No aortic regurgitation is present. Tricuspid Valve: The tricuspid valve is normal in structure and function. There is a trace or physiologic amount of tricuspid regurgitation. Pulmonary artery pressures cannot be estimated because of the lack of a measurable TR jet velocity but the IVC suggests a CVP of around 3 mmHg. Pulmonic Valve: The pulmonic valve is not well seen, but is grossly normal. There is no pulmonic valvular regurgitation. Great Vessels: The aortic root is normal size. The dimensions of the ascending aorta are normal. The IVC is of normal diameter and collapses greater than 50% with a sniff. This suggests a low right atrial pressure of 3 mm Hg. Pericardium/ Pleura There is no pericardial effusion. There is no pleural effusion. MMode/2D Measurements & Calculations LVIDd: 3.7 cm LVOT diam: 2.0 cm LVIDs: 2.4 cm Ao root diam: 2.8 cm FS: 35.2 % asc Aorta Diam: 2.7 cm IVSd: 0.78 cm Ao Arch Diam (Prox Trans): 1.9 cm LVPWd: 0.69 cm LV llanes. diameter/BSA (cm/m^2): 2.2 LV sys. diameter/BSA (cm/m^2): 1.4 LA A2 area: 13.7 cm2 RA long axis: 3.6 cm LA A4 area: 11.1 cm2 RA area: 7.8 cm2 LA length (vol): 4.2 cm RA vol: 14.3 ml LA vol: 31.2 ml RA : 8.6 ml/m2 LA vol index: 18.9 ml/m2 IVC diam: 0.76 cm RVD1 (basal): 2.6 cm TAPSE: 1.4 cm Doppler Measurements & Calculations Ao V2 max: 134.0 cm/sec LVOT Max Gurinder: 100.6 cm/sec Ao V2 mean: 88.4 cm/sec LV V1 max P.1 mmHg Ao max P.2 mmHg LV V1 VTI: 16.5 cm Ao mean P.6 mmHg DEBRA(I,D): 2.3 cm2 Ao V2 VTI: 21.9 cm DEBRA(V,D): 2.3 cm2 sev ratio: 0.75 DEBRA indexed to BSA (cm^2/m^2): 1.4 MV E max gurinder: 54.1 cm/sec PA V2 max: 70.8 cm/sec MV A max gurinder: 88.3 cm/sec PA V2 mean: 48.1 cm/sec MV E/A: 0.61 PA mean P.1 mmHg Med Peak E' Gurinder: 4.6 cm/sec E/E' med: 11.7 Lat Peak E' Gurinder: 8.6 cm/sec E/E' lat: 6.3 E/e' average: 9.0 MV dec time: 0.23 sec SV(LVOT): 50.1 ml Electronically signed by: Danis Willson M.D. on Reading Physician:09/12/2019 08:26 PM
--- NOTE | 2019-09-12 13:19 | PC.NURSE ---
Pt to room 214 via stretcher from ER and transferred to bed via slider board. Pt is awake alert and oriented. Denies nausea or shortness of breath. States she has pain to her right lower chest with deep inspiration. Trialed O2 off but Pt O2 sat decreases to mid eighties with any movement or speech. Pt oriented to room, call light, bed controls and tv controls. Pt bed alarm for safety and Pt agrees not to try and get up with out assistance and understands that she is on bedrest. Pt able to void via bedpan. Dr. Sethi in to see Pt and discuss care plan. Pt now having an echo performed and denies needs at this time.
--- NOTE | 2019-09-12 13:53 | P.HP_ITS ---
History of Present Illness History of Present Illness Date Patient Seen: 09/12/19 Time Patient Seen: 12:30 Chief complaint: trouble breathing x1 day Narrative: This is a 73 year old female with PMH of hypothyroidism, HLD, IBS, recent R hamstring injury in knee immobilizer who presented with acute onset of shortness of breath and pleuritic chest pain starting yesterday evening. It continued this morning and she felt like she couldn't breathe so decided to come into the ED. Chest pain is right-sided, lateral, and without radiation. It is worse with inspiration. Nothing seems to make it better except for pain medication given in the ED, which still did not last very long. She denies any palpitations but does feel short of breath currently at rest. She denies any prior history of blood clots, and due to the recent hamstring injury she has not been as mobile as she usually is. She does complain of some a bilateral lower extremity swelling as well as calf pain, with the right being slightly worse than the left. She denies any fevers, chills, headache, vision changes, dyspnea on exertion prior to last evening, recent palpitations, nausea, vomiting, abdominal pain. In the emergency room, vitals were notable for mild tachypnea with a rate into the 30s and mild hypoxemia into the upper 80s responsive to minimal supplemental oxygen. EKG showed normal sinus rhythm. Chest x-ray was unremarkable except for reduced lung volumes. CTA chest showed segmental and subsegmental pulmonary emboli in the right lung. Mild to moderate embolic burden, but No right heart strain demonstrated. There are also moderate basilar dependent airspace opacities likely appliance service representative of atelectasis. Initial laboratory evaluation was unremarkable including basic chemistries, CBC. Her troponin was negative, and her BNP was 38. Patient was admitted to the medicine service under observation status for pulmonary embolism, with mild hypoxia. Patient History Medical History Abnormal Pap smear of cervix (Resolved ~2009) Anxiety (Chronic) Carpal tunnel syndrome (Chronic ~2006) Chicken pox (Resolved ~1949) Depression (Chronic) Diverticular disease (Chronic) Foot pain (Chronic ~2012) Hearing loss (Chronic ~11/2014) Herpes (Resolved) Hyperlipidemia (Chronic) Hypertension (Chronic) Kidney disease (Chronic) Macular degeneration (Chronic) Measles (Resolved) Osteoarthritis (Chronic) Rheumatoid arthritis (Chronic) Surgical History Anesthesia (Resolved) Fractures (Resolved ~1980) History of carpal tunnel repair (~2006) History of esophagogastroduodenoscopy (EGD) (12/12/16) History of neck surgery (Resolved ~1993) History of shoulder surgery (Resolved ~1993) Left fibular fracture (Resolved ~2015) Status post arthroscopy (~2007) Status post breast biopsy (~1993) Status post breast biopsy (10/01/12) Status post breast biopsy (10/02/13) Status post bunionectomy (12/18/12) Status post hysterectomy (~1980) Status post rotator cuff repair (~2007) Family & Social History Family History Brother Age: 76 Hypertension Father Leukemia Pneumonia Mother No problems noted. Grandmother Diabetes mellitus Safety & Behavioral: Feels Safe in Current Yes Environment Been Physically Hurt or No Threatened By a Person Suicidal Ideation Description None Suicide Plan Description No Plan Tobacco & Substance use: Smoking Status Former smoker alcohol intake former alcohol intake frequency holiday/special occasion Substance Use Type does not use Meds Home Medications and Allergies Home Medications Medication Instructions Recorded Confirmed Type B-complex with vitamin C 1 tab PO DAILY 02/14/18 09/12/19 History ascorbic acid (vitamin C) 500 mg 500 mg PO DAILY cap 02/14/18 09/12/19 History capsule [id number] 1 tab PO DAILY tab 02/14/18 09/12/19 History cholecalciferol (vitamin D3) 25 1,000 unit PO DAILY 02/14/18 09/12/19 History mcg (1,000 unit) capsule omega-3 fatty acids 1,000 mg 1,000 mg PO DAILY 02/14/18 09/12/19 History capsule omeprazole 20 mg capsule,delayed 20 mg PO DAILY #90 cap 07/06/18 09/12/19 Rx release hyoscyamine sulfate 0.125 mg PO BID-QID PRN #20 tab 03/19/19 09/12/19 Rx levothyroxine 25 mcg tablet 25 mcg PO DAILY #90 tab 04/22/19 09/12/19 Rx cholestyramine (with sugar) 4 gram 4 gram PO BID PRN #20 each 04/30/19 09/12/19 Rx powder for susp in a packet valacyclovir 1 gram tablet 1,000 mg PO Q DAY #90 tab 06/28/19 09/12/19 Rx dicyclomine 20 mg tablet See Rx Instructions .ROUTE 07/29/19 09/12/19 Rx .COMPLEX #60 tablet ondansetron 4 mg PO Q6H PRN #14 tab 09/04/19 09/12/19 Rx cyclobenzaprine 10 mg tablet 10 mg PO TID PRN #14 tab 09/06/19 09/12/19 Rx oxycodone-acetaminophen 5 mg-325 1 tab PO Q4-6H PRN #14 tab 09/06/19 09/12/19 Rx mg tablet simvastatin [Zocor] 10 mg PO QAM 09/12/19 09/12/19 History Allergies Allergy/AdvReac Type Severity Reaction Status Date / Time codeine [CODEINE] Allergy Mild NAUSEA, Verified 09/06/19 08:10 VOMITING morphine [MORPHINE] Allergy Mild VOMITING Verified 09/06/19 08:10 Review of Systems Review of Systems Narrative: All other systems reviewed with the patient and are negative unless otherwise stated. Exam Vital Signs (past 8 hours): - 09/12/19 07:15 09/12/19 07:28 09/12/19 07:30 Temperature 97.0 F L Pulse Rate 94 H 96 H 81 Respiratory Rate 24 22 22 Blood Pressure 139/64 Blood Pressure [Left Arm] 139/64 120/55 L Pulse Oximetry 94 94 88 L 09/12/19 07:45 09/12/19 07:52 09/12/19 08:15 Temperature Pulse Rate 93 H 92 H 93 H Respiratory Rate 17 7 L 24 Blood Pressure Blood Pressure [Left Arm] 125/61 125/61 113/62 Pulse Oximetry 95 95 98 09/12/19 08:49 09/12/19 09:13 09/12/19 10:15 Temperature Pulse Rate 85 89 96 H Respiratory Rate 17 26 H 35 H Blood Pressure Blood Pressure [Left Arm] 125/60 126/67 111/73 Pulse Oximetry 94 98 96 09/12/19 11:30 09/12/19 12:05 09/12/19 12:10 Temperature 98.0 F Pulse Rate 81 83 86 Respiratory Rate 31 H 18 20 Blood Pressure 121/74 Blood Pressure [Left Arm] 116/64 118/63 Pulse Oximetry 93 94 95 09/12/19 13:51 Temperature Pulse Rate 81 Respiratory Rate 31 H Blood Pressure 116/64 Blood Pressure [Left Arm] Pulse Oximetry 93 Oxygen Delivery Method Nasal Cannula Oxygen Flow Rate 2 Narrative Exam Narrative: GENERAL APPEARANCE: Well developed, well nourished, in no acute distress. SKIN: Inspection of the skin reveals no rashes, ulcerations or petechiae. HEENT: Normocephalic atraumatic, extraocular muscles are intact, oropharynx is clear and mucous membranes are moist, neck is supple without adenopathy NECK: Supple and symmetric. There was no thyroid enlargement, and no tenderness, or masses were felt. CHEST: Normal AP diameter and normal contour without any kyphoscoliosis. LUNGS: Auscultation of the lungs revealed no wheezes, rhonchi, or rales. CARDIOVASCULAR: There was a regular rate and rhythm without any murmurs, gallops, rubs. Peripheral pulses were 2+ and symmetric. ABDOMEN: Soft and nontender with normal bowel sounds. No ascites was noted. MUSCULOSKELETAL: Bilateral calf tenderness with right greater than left. Muscle strength and tone were normal. EXTREMITIES: No cyanosis, clubbing or edema. NEUROLOGIC: Alert and oriented x 3. Normal affect. Gait was normal. Strength is +5/5 in the Upper Extremities and Lower Extremities Bilaterally. Sensation to touch was normal. Objective ECG Impression: Normal sinus rhythm Labs Result Diagrams: 09/12/19 07:23 09/12/19 07:23 Labs: Laboratory Results - last 24 hr 09/12/19 09/12/19 09/12/19 07:23 07:23 07:23 WBC 9.6 RBC 4.11 Hgb 13.7 Hct 39.9 MCV 96.9 MCH 33.2 MCHC 34.3 RDW 13.8 Plt Count 321 Neut % (Auto) 51.7 Lymph % (Auto) 36.6 [place] % (Auto) 7.8 Eos % (Auto) 3.5 Baso % (Auto) 0.4 Neut # (Auto) 5000 Lymph # (Auto) 3500 [place] # (Auto) 700 Eos # (Auto) 300 Baso # (Auto) 0 PT 13.1 H INR 1.1 APTT 36 Sodium 140 Potassium 4.1 Chloride 103 Carbon Dioxide 27 BUN 24 H Creatinine 0.94 Estimated GFR 58.2 L BUN/Creatinine Ratio 25.5 H Glucose 115 H Calcium 10.1 Total Bilirubin 0.8 AST 24 ALT 14 Alkaline Phosphatase 76 Total Creatine Kinase 47 CK-MB (CK-2) TNP CK-MB (CK-2) Rel Index TNP Troponin I < 0.012 NT-Pro-B Natriuret Pep 38 Total Protein 8.0 Albumin 4.4 Globulin 3.6 Albumin/Globulin Ratio 1.2 Lipase 140 Assessment & Plan Assessment & Plan narrative: This is a 73 year old female with PMH of hypothyroidism, HLD, IBS, recent R hamstring injury in knee immobilizer who presented with acute onset of shortness of breath and pleuritic chest pain starting yesterday evening. Patient was admitted to the medicine service under observation status for pulmonary embolism, with mild hypoxia. 1. Acute hypoxic respiratory failure, present on admission -likely secondary to pulmonary embolism in combination with her atelectasis. She seems to desaturate more with movement but is still requiring minimal supplemental oxygen at rest. -will work to treat her pleuritic chest pain, treat underlying pulmonary embolism, and encourage incentive spirometry. -supplemental oxygen to maintain an oxygen greater than 90%, but no greater than 96% while on supplemental therapy. 2. Pulmonary embolism, acute, present on admission - CTA chest showed segmental and subsegmental pulmonary emboli in the right lung. Mild to moderate embolic burden, but No right heart strain demonstrated. There are also moderate basilar dependent airspace opacities likely appliance service representative of atelectasis. -initial troponin negative -echocardiogram currently pending -patient was started on heparin infusion the emergency room. Repeat PTT was 192. Therapeutic Lovenox will be started once heparin infusion is off for an hour given elevated PTT result. -continue therapeutic Lovenox at 1 milligram/kilogram b.i.d. -transition to Eliquis or Xarelto likely tomorrow assuming unremarkable TTE. -will check bilateral venous lower extremity ultrasound to evaluate for DVT. 3. Hypothyroidism,, chronic -patient is currently without symptoms of hypothyroidism -will continue home levothyroxine at 25 mcg 4. Right hamstring injury -continue pain management with Tylenol as needed, cyclobenzaprine as needed, and oxycodone 5-10 mg q.3 hours as needed both for hamstring as well as pleuritic chest pain. Code: Patient with POLST form stating DNR with comfort measures, however current discussion with patient she would be interested in resuscitation and possible intubation if needed and there is a chance of recovery. Will leave patient as full code. Surrogate decision maker she states is her partner, Camila Oconnor. DVT: Now on Lovenox Dispo: Admitted under observation status for pulmonary embolism. Quality VTE Deep Vein Thrombosis/Pulmonary Embolism Present on Admission: Yes
--- NOTE | 2019-09-12 13:57 | DI.US.S_ITS ---
PROCEDURE: US PERIPH VENOUS LOW EXTREM BI INDICATIONS: DVT TECHNIQUE: Real-time imaging, as well as color and pulse Doppler interrogation, were performed of the deep veins of both legs from the inguinal ligament to the popliteal fossa. COMPARISON: None. FINDINGS: Right: The common femoral, femoral and popliteal veins are normally compressible, and free of intraluminal thrombus. Color and pulse Doppler demonstrate normal phasic intravascular flow. There is normal augmentation response to distal compression maneuver. Left: The common femoral, femoral and popliteal veins are normally compressible, and free of intraluminal thrombus. Color and pulse Doppler demonstrate normal phasic intravascular flow. There is normal augmentation response to distal compression maneuver. IMPRESSION: No evidence of deep vein thrombosis of the bilateral lower extremities. Dictated by: Logan Roach M.D. on 09/12/2019 at 15:52 Approved by: Logan Roach M.D. on 09/12/2019 at 15:55
[2019-09-12] MEDS: OXYCODONE IR 10 MG TABLET PO ×3 (15:04→22:36)
[2019-09-12 16:18] LABS: PTT Partial Thromboplastin Tim 192 SECONDS (26.4-36.2)
[2019-09-12] MEDS: ENOXAPARIN 80 MG/0.8 ML SYRINGE 75 MG SUBCUT ×2 (17:36→20:55)
[2019-09-12] MEDS: HYDROMORPHONE 2 MG INJ 1 MG IV (21:58)
[2019-09-13] VITALS (10 sets, daily range): BP systolic 109–124; BP diastolic 62–73; PULSE 84–93; RESP 18–20; TEMP 36.6–37.3; O2SAT 76–94
[2019-09-13] MEDS: OXYCODONE IR 10 MG TABLET PO ×2 (02:30→05:39)
--- NOTE | 2019-09-13 02:45 | PC.NURSE ---
Addendum entered by Lizett Uribe R.N. 09/13/19 05:44: Able to sleep after taking Flexeril. States pain this morning is 9/10 so medicated with Oxycodone. Addendum entered by Lizett Uribe R.N. 09/13/19 03:30: Continues to have pain with deep breathing so medicated with Flexeril Original Note: Patient is alert and oriented. Breath sounds with inspiratory crackles in bilateral middle lobes and diminished with crackles in right LL. Oxygen at 2.5L/min per NC with sat of 91% at rest but drops to 75% with activity; on continuous oximetry. Has stabbing 10/10 pain with deep breathing; medicated with Oxycodone. HRR; telemetry reading was SR. Denies nausea. BT present and abdomen is soft; patient reports she has not had a BM x 6 days. Voiding per bedpan without dysuria, frequency or urgency. Is able to move self in bed. Currently is not getting out of bed so gait is not assessed. Recent injury to right hamstring making it difficult to walk. Fall risk score is high; bed alarm is activated.
[2019-09-13] MEDS: CYCLOBENZAPRINE 10 MG TABLET PO ×3 (03:28→16:02)
[2019-09-13] MEDS: LEVOTHYROXINE 25 MCG TABLET PO (05:39)
[2019-09-13 06:07] LABS: Add Manual Diff / Slide Review NO; Basophils Absolute Auto 100 /uL (0-100); Basophils Percent Auto 0.7 % (0-2); Eosinophils Absolute Auto 300 /uL (0-450); Eosinophils Percent Auto 2.5 % (2-4); Hemoglobin 12.6 g/dL (12.0-16.0); Lymphocytes Absolute Auto 3300 /uL (1100-4500); Lymphocytes Percent Auto 26.4 % (25-40); Mean Corpuscular Hemoglobin 32.8 PG (26-34); Mean Corpuscular Volume 96.5 fL (80-100); Monocytes Absolute Auto 1200 /uL (0-900); Monocytes Percent Auto 9.3 % (3-14); Neutrophils Absolute Auto 7600 /uL (1500-7000); Neutrophils Percent Auto 61.1 % (50-75); Platelet Count 321 X10^3/uL (150-400); Red Blood Cell Count 3.84 X10^6/uL (4.0-5.2); Red Cell Distribution Width 13.4 % (11.6-14.8); White Blood Cell Count 12.4 X10^3/uL (4.5-11.0)
[2019-09-13 06:11] LABS: BUN Creatinine Ratio 22.9 (6-22); Blood Urea Nitrogen 22 mg/dL (7-17); Calcium 9.4 mg/dL (8.4-10.2); Carbon Dioxide 27 mmol/L (22-32); Chloride 99 mmol/L (98-107); Estimated Glomerular Filt Rate 56.8 mL/min (>60); Glucose 106 mg/dL (80-110); HEMOLYSIS < 15 (0-50); Potassium 4.1 mmol/L (3.4-5.1); Sodium 134 mmol/L (137-145)
[2019-09-13] MEDS: ENOXAPARIN 80 MG/0.8 ML SYRINGE 75 MG SUBCUT ×2 (08:20→20:40)
[2019-09-13] MEDS: OXYCODONE IR 5 MG TABLET PO ×2 (08:21→16:02)
[2019-09-13] MEDS: SIMVASTATIN 10 MG TABLET PO (08:21)
[2019-09-13] MEDS: SODIUM CHLORIDE 0.9% FLUSH 10 ML IV ×2 (08:22→20:40)
--- NOTE | 2019-09-13 12:51 | PC.NURSE ---
Day shift note: Patient sitting up in bed, O2 at 1.5 L via NC, O2 sats between 90-94%. Occasional desat to 88% while repositioning in bed, self resolves. C/O pain to right anterior chest, described as an ache and sharp with inspiration. States breathing effort is unchanged from day of admission. Speaking in full sentences. Medicated with Oxycodone 5 mg and Flexeril as needed with adequate relief. Performing IS. NSR on TELE. Decreased PO intake, encourage fluid intake. Pillow supporting RLE due to discomfort to right hamstring, states has been present for weeks, unchanged. CMS intact. Discussed options for BM. Using Bedpan in bed, able to change positions independently. Call light within reach, calls appropriately for staff assist. at bedside for lunch, providing supportive care.
--- NOTE | 2019-09-13 13:59 | PM.PN.1 ---
Subjective Subjective Date Patient Seen: 09/13/19 Time Patient Seen: 14:00 Interval history: This is a 73 year old female with PMH of hypothyroidism, HLD, IBS, recent R hamstring injury in knee immobilizer who presented with acute onset of shortness of breath and pleuritic chest pain found to have R lung PE with moderate clot burden and hypoxemia. She still compains of R pleuritic chest pain and shortness of breath. Pain medications somewhat help, but she still has pain upon minimal inspiration. Oxygenation improves with deep breathing, but this is difficult due to pain and she is still requiring 1.5 L at rest. She has been started on Lovenox. PT was ordered today given R hamstring injury. Changed to inpatient status. Exam Vital Signs (past 8 hours): - 09/13/19 08:12 09/13/19 09:18 09/13/19 11:45 Temperature 98.8 F Pulse Rate 88 91 H Respiratory Rate 20 20 Blood Pressure 116/72 124/73 Pulse Oximetry 93 90 L 92 Oxygen Delivery Method Nasal Cannula Oxygen Flow Rate 1.5 Narrative Exam Narrative: GENERAL APPEARANCE: Well developed, well nourished, in no acute distress. SKIN: Inspection of the skin reveals no rashes, ulcerations or petechiae. HEENT: Normocephalic atraumatic, extraocular muscles are intact, oropharynx is clear and mucous membranes are moist, neck is supple without adenopathy NECK: Supple and symmetric. There was no thyroid enlargement, and no tenderness, or masses were felt. CHEST: Normal AP diameter and normal contour without any kyphoscoliosis. LUNGS: Auscultation of the lungs revealed no wheezes, rhonchi, or rales. CARDIOVASCULAR: There was a regular rate and rhythm without any murmurs, gallops, rubs. Peripheral pulses were 2+ and symmetric. ABDOMEN: Soft and nontender with normal bowel sounds. No ascites was noted. MUSCULOSKELETAL: Bilateral calf tenderness with right greater than left. Muscle strength and tone were normal. EXTREMITIES: No cyanosis, clubbing or edema. NEUROLOGIC: Alert and oriented x 3. Normal affect. Gait was normal. Strength is +5/5 in the Upper Extremities and Lower Extremities Bilaterally. Sensation to touch was normal. Objective Labs Result Diagrams: 09/13/19 05:35 09/13/19 05:35 Labs: Laboratory Results - last 24 hr 09/12/19 09/13/19 09/13/19 15:46 05:35 05:35 WBC 12.4 H RBC 3.84 L Hgb 12.6 Hct 37.0 MCV 96.5 MCH 32.8 MCHC 34.0 RDW 13.4 Plt Count 321 Neut % (Auto) 61.1 Lymph % (Auto) 26.4 [place] % (Auto) 9.3 Eos % (Auto) 2.5 Baso % (Auto) 0.7 Neut # (Auto) 7600 H Lymph # (Auto) 3300 [place] # (Auto) 1200 H Eos # (Auto) 300 Baso # (Auto) 100 APTT 192 H* D Sodium 134 L Potassium 4.1 Chloride 99 Carbon Dioxide 27 BUN 22 H Creatinine 0.96 Estimated GFR 56.8 L BUN/Creatinine Ratio 22.9 H Glucose 106 Calcium 9.4 Assessment & Plan Assessment & Plan narrative: This is a 73 year old female with PMH of hypothyroidism, HLD, IBS, recent R hamstring injury in knee immobilizer who presented with acute onset of shortness of breath and pleuritic chest pain starting yesterday evening. Patient was admitted to the medicine service under observation status for pulmonary embolism, with mild hypoxia. 1. Acute hypoxic respiratory failure, present on admission -likely secondary to pulmonary embolism in combination with her atelectasis due to pleuritic pain. She seems to desaturate more with movement but is still requiring minimal supplemental oxygen at rest. -will work to treat her pleuritic chest pain, treat underlying pulmonary embolism, and encourage incentive spirometry. -supplemental oxygen to maintain an oxygen greater than 90%, but no greater than 96% while on supplemental therapy. 2. Pulmonary embolism, acute, present on admission - CTA chest showed segmental and subsegmental pulmonary emboli in the right lung. Mild to moderate embolic burden, but No right heart strain demonstrated. There are also moderate basilar dependent airspace opacities likely abrasives sales representative of atelectasis. -initial troponin negative -echocardiogram showing possible decrease in R systolic function. Discussed with cardiology building construction superintendent whom recommended repeat echocardiogram in a couple of months. If she develops hemodynamic instability or severe hypoxemia, could consider transfer for possible interventional therapy but not at this time. -patient was started on heparin infusion the emergency room. Repeat PTT was 192. Therapeutic Lovenox will be started once heparin infusion is off for an hour given elevated PTT result. Will repeat coags tomorrow. -continue therapeutic Lovenox at 1 milligram/kilogram b.i.d. -transition to Eliquis or Xarelto prior to discharge. -US LE negative for DVT. 3. Hypothyroidism,, chronic -patient is currently without symptoms of hypothyroidism -will continue home levothyroxine at 25 mcg 4. Right hamstring injury -continue pain management with Tylenol as needed, cyclobenzaprine as needed, and oxycodone 5-10 mg q.3 hours as needed both for hamstring as well as pleuritic chest pain. Code: Patient with POLST form stating DNR with comfort measures, however current discussion with patient she would be interested in resuscitation and possible intubation if needed and there is a chance of recovery. Will leave patient as full code. Surrogate decision maker she states is her partner, Spencer Oconnor. DVT: Now on Lovenox Dispo: Changed to inpatient for PE with hypoxemia. Quality VTE Deep Vein Thrombosis/Pulmonary Embolism Present on Admission: Yes
--- NOTE | 2019-09-13 14:00 | CM.DANOTE ---
Addendum entered by Stephanie Mak LPN 09/13/19 14:22: See that Dr. Sethi did order PT this afternoon. Will be following up tomorrow. Original Note: Discharge Planning/Care Management DCP: assessment: case received and met with pt during Team Bedside Rounds. Introduced self and role. Pt is a 73 year old female who admitted yesterday to care of hospitalist team. PCP: Dr. Austin Dunne. Pt confirms she is now established with Dr. Dunne as prior PCP is leaving the practice. [facility] Admission status: INPT: confirmed by UR RN Manuel Pt notes she is typically functionally independent in the community; this only changing with a recent injury to her R hamstring (see template below for more details). Dr. Sethi states he is treating pt for PE with hypoxia and anticipates pt will be here this weekend. P: will be following. Unclear yet if PT is involved. Advanced directive, confirm from FAMILY Start: 09/12/19 13:23 Freq: Q24H Status: Active Protocol: Document 09/12/19 14:32 CM (Rec: 09/12/19 14:33 CM [id number]) Advance Directive, confirm on record Time 14:32 Person contacted PT-states her advanced directive is on file w/clinic Copy received No CM Discharge Assessment Start: 09/13/19 13:54 Freq: Status: Active Protocol: Document 09/13/19 13:54 ITV (Rec: 09/13/19 14:00 ITV [id number]) Discharge Planning Assessment Advance Directives? Yes: POLST History Provided By Patient Prior Living Arrangements House Household Members significant other Comment Spencer Oconnor. Is patient alert and oriented? Yes DME Already Rented / Owned FWW / Walker Comment has been using a 4ww, issued to her in the ER after an injury to her R hamstring. She also has a splint for that leg which is in her hospital room. Review Status In Process
[2019-09-13] MEDS: ACETAMINOPHEN 325 MG TABLET 650 MG PO (16:02)
--- NOTE | 2019-09-13 16:41 | PC.NURSE ---
Addendum entered by Nataly Stanley R.N. 09/13/19 23:17: Benadryl given to pt per request for itching. Now resting quietly in bed without signs of distress or discomfort. 1.5L oxygen per NC continuous pulse oximeter 92%. Addendum entered by Nataly Stanley R.N. 09/13/19 18:05: Spouse visiting with pt. Pt's pain reassessed @ 10/10. Offered additional narcotics which pt declines at this time. Original Note: Pt awake and alert in bed. 02 @ 1.5 Liters with oxygen saturation level 94% per continuous monitor. Admits to right rib cage/thoracic pain 11/10. Administered meds as per emar. Pt is able to change own positions in bed. Bed rest.
[2019-09-13] MEDS: diphenhydrAMINE 25 MG TABLET PO (19:05)
[2019-09-14] VITALS (11 sets, daily range): BP systolic 118–148; BP diastolic 57–71; PULSE 81–92; RESP 16–20; TEMP 36.2–37.2; O2SAT 73–96
--- NOTE | 2019-09-14 00:06 | PC.NURSE ---
Addendum entered by Lizett Uribe R.N. 09/14/19 02:49: Discovered that O2 extension tubing had become disconnected. Once reconnected, able to reduce oxygen back to 1.5L/min. Addendum entered by Lizett Uribe R.N. 09/14/19 02:42: Continues to desat down into 70's with 30 second rebound back to low 90's with cycle repeating about every 2 minutes. Have now titrated up to 6L/min. Patient is not mouth breathing. Denies any worsening SOB and is able to speak in complete sentences and shows no sign or respiratory distress. RT contacted and will be up to assess patient. Addendum entered by Lizett Uribe R.N. 09/14/19 02:01: Oximetry alarming frequently with sats dropping down as low as 73% but rebounds back to > 90% with deep breathing. Oxygen increased and is now on 4L/min. Medicated with Oxycodone for 6/10 right chest/rib pain. Original Note: Bed alarm going off and found patient [facility] to bathroom; states she had to urinate urgently. Had removed oxygen and when back to bed RA sat was initially 84%. Placed back on oxygen at 1.5L/min with sat now at 93%; is on continuous oximetry. Patient is alert and oriented. Breath sounds diminished throughout. Still states having pain with deep breathing but declines offer of pain medication. HRR with last recorded telemetry reading of SR. Denies nausea. Still has not had BM and states it has now been 7 days; will accept prune juice in a.m. Has muscle weakness/difficulty walking related to right hamstring injury. Fall risk score is high and bed alarm is activated.
[2019-09-14] MEDS: OXYCODONE IR 5 MG TABLET PO ×3 (02:00→14:41)
[2019-09-14 05:56] LABS: Add Manual Diff / Slide Review NO; Basophils Absolute Auto 100 /uL (0-100); Basophils Percent Auto 1.3 % (0-2); Eosinophils Absolute Auto 300 /uL (0-450); Eosinophils Percent Auto 3.5 % (2-4); Hematocrit 35.9 % (36-46); Hemoglobin 12.1 g/dL (12.0-16.0); Lymphocytes Absolute Auto 2700 /uL (1100-4500); Lymphocytes Percent Auto 28.3 % (25-40); Mean Corpuscular HGB Conc 33.6 % (30-36); Mean Corpuscular Hemoglobin 32.7 PG (26-34); Mean Corpuscular Volume 97.3 fL (80-100); Monocytes Absolute Auto 800 /uL (0-900); Monocytes Percent Auto 8.7 % (3-14); Neutrophils Absolute Auto 5600 /uL (1500-7000); Neutrophils Percent Auto 58.2 % (50-75); Platelet Count 346 X10^3/uL (150-400); Red Blood Cell Count 3.69 X10^6/uL (4.0-5.2); Red Cell Distribution Width 13.1 % (11.6-14.8); White Blood Cell Count 9.7 X10^3/uL (4.5-11.0)
[2019-09-14 06:01] LABS: INR 1.2 (0.9-1.3); Prothrombin Time 13.6 SECONDS (10.1-12.7)
[2019-09-14 06:04] LABS: PTT Partial Thromboplastin Tim 41 SECONDS (26.4-36.2)
[2019-09-14 06:06] LABS: BUN Creatinine Ratio 16.5 (6-22); Blood Urea Nitrogen 15 mg/dL (7-17); Calcium 9.3 mg/dL (8.4-10.2); Carbon Dioxide 32 mmol/L (22-32); Chloride 100 mmol/L (98-107); Estimated Glomerular Filt Rate > 60.0 mL/min (>60); Glucose 116 mg/dL (80-110); HEMOLYSIS < 15 (0-50); Potassium 4.4 mmol/L (3.4-5.1); Sodium 136 mmol/L (137-145)
[2019-09-14] MEDS: LEVOTHYROXINE 25 MCG TABLET PO (06:10)
[2019-09-14] MEDS: SIMVASTATIN 10 MG TABLET PO (09:14)
[2019-09-14] MEDS: CYCLOBENZAPRINE 10 MG TABLET PO ×3 (09:14→21:48)
[2019-09-14] MEDS: ENOXAPARIN 80 MG/0.8 ML SYRINGE 75 MG SUBCUT ×2 (09:15→21:48)
[2019-09-14] MEDS: SODIUM CHLORIDE 0.9% FLUSH 10 ML IV ×2 (09:15→21:49)
--- NOTE | 2019-09-14 11:05 | PT.IIE ---
Surgical History (Last Reviewed 09/12/19 @ 07:31 by Marilou Negro DO) Anesthesia (Resolved) Fractures (Resolved ~1980) History of carpal tunnel repair (~2006) History of esophagogastroduodenoscopy (EGD) (12/12/16) History of neck surgery (Resolved ~1993) History of shoulder surgery (Resolved ~1993) Left fibular fracture (Resolved ~2015) Status post arthroscopy (~2007) Status post breast biopsy (~1993) Status post breast biopsy (10/01/12) Status post breast biopsy (10/02/13) Status post bunionectomy (12/18/12) Status post hysterectomy (~1980) Status post rotator cuff repair (~2007) Medical History (Last Reviewed 09/12/19 @ 07:31 by Marilou Negro DO) Abnormal Pap smear of cervix (Resolved ~2009) Anxiety (Chronic) Carpal tunnel syndrome (Chronic ~2006) Chicken pox (Resolved ~1949) Depression (Chronic) Diverticular disease (Chronic) Foot pain (Chronic ~2012) Hearing loss (Chronic ~11/2014) Herpes (Resolved) Hyperlipidemia (Chronic) Hypertension (Chronic) Kidney disease (Chronic) Macular degeneration (Chronic) Measles (Resolved) Osteoarthritis (Chronic) Rheumatoid arthritis (Chronic) Physical Therapy Inpatient Evaluation/Re-Eval M1 PT/OT-IP Prior Functional Status Start: 09/14/19 12:50 Freq: NEEDED Status: Active Protocol: Document 09/14/19 11:05 AB (Rec: 09/14/19 13:13 AB [id number]) Medical Review Prior Functional Status Medical History Reviewed Yes Communication able to make needs known Mobility and Gait pt stated that she is independent with all mobilities and ambulation without AD Prior Functional Level (Other details) pt stated that a few weeks ago , she stepped on to the end of the garden hose and head a snap behind her R leg but did not think anything was wrong until she felt pain. stated that it was getting better but then when she went to see her primary doctor, she had a lot of pain on her RLE that she kind of slipped but she did not fall on the floor but was against a wall. pt was brought to the ER and was sent home with a R knee immobilizer for hamstring strain and a FWW. pt stated that she got a referral to see an orthopedic doctor but then started to has SOB a few days ago until currently admitted here in the hospital for R lung PE. Social History Household Members spouse,significant other Living Arrangements House Number of Floors (Floors) One Floor Number of Stairs To Enter/Railing? 2 platform steps to enter Home Environment High Toilet,Walk in Shower, Built-In Shower Seat Home Equipment Hand Held Shower,Grab Bars Near Toilet,Grab Bars In Shower M2 PT-IP Current Condition Start: 09/14/19 12:50 Freq: NEEDED Status: Active Protocol: Document 09/14/19 11:05 AB (Rec: 09/14/19 13:13 AB [id number]) Physical Therapy Current Condition Current Condition Evaluation Date 09/14/19 Treatment Diagnosis PE; generalized weakness Onset Date 09/12/19 Precautions Brace R knee immobilizer: as needed per ER MD order dated 09/04/19 Weight Bearing Status Weight Bearing Status Weight Bear as Tolerated Allowed Weight Bearing Amount (enter % RLE WBAT per ER MD order dated or #) (%) 09/04/19 M3 PT-IP Subjective Start: 09/14/19 12:50 Freq: NEEDED Status: Active Protocol: Document 09/14/19 11:05 AB (Rec: 09/14/19 13:13 AB [id number]) Subjective Physical Therapy Visit Type Type Initial Evaluation Visit Start Time 11:03 Visit Stop Time 11:43 Total Visit Minutes 40 Notes pt admitted for PE on R lung. pt started on levonox at ~ 1730. PT eval order received and informed MD regarding initiating PT and pt has not received Levonox for at least 48 hours yet. MD cleared pt and wants PT to start. Talked to nurse and stated that pt's INR is therapeutic level and is also ready for PT to start. Number of SHANK STITCHER Visits 0 Physical Therapy Visit Comments Patient Comments pt agreeable to do PT and wants to walk to the toilet and not use the bedpan Therapy Pain Assessment Pain When Pain Assessed During Mobility Pain Present Pain Present Pain Reported Location Right Chest Scale Used pain scale not stated Pain Behaviors Holding Area,[place] Pain Management Techniques Modification of Treatment,Re- positioning,Timing of Activity with Medications M4 PT-IP Mobility and Gait Start: 09/14/19 12:50 Freq: NEEDED Status: Active Protocol: Document 09/14/19 11:05 AB (Rec: 09/14/19 13:13 AB [id number]) PT-Bed Mobility Assessment Supine to Sit Supine to Sit Standby Assistance,Head of Bed Elevated Scooting Scooting to Edge of Bed Standby Assistance PT-Transfer Assessment Sit to and From Stand Sit to and from Stand Minimal Assistance,1 Person Assistance,Use of Upper Extremities Equipment Transfer Assistive Device Front Wheeled Walker Orthotic/Prosthetic Devices or Brace: No Transfers Transfer Destination Toilet Transfer Technique ambulated using FWW Transfer Ability Level of Assist Minimal Assistance,1 Person Assistance,Use of Upper Extremities Comments Mobility Comments assisted pt with putting R knee immobilizer on. completed supine to sit SBA with HOB elevated. pt can be impulsive. pt was able to sit on EOB SBA. completed sit to stand min A and cues and ambulated to the toilet using FWW min A and cues. completed sit to stand from the toilet using grab bar min A and ambulated to the chair using FWW min A. positioned pt on chair. O2 sat 94%. call light and table placed within reach . Gait Assessment Gait Gait Assistance Required: Minimum Assistance Distance (Feet) 10 Able to Maintain Weight Bearing Status Yes During Gait Assistive Devices Assistive Device Gait Belt,Front Wheeled Walker Orthotic/Prosthetic Devices or Brace: No Gait Deviations General Gait Pattern Decreased Stride Length, Decreased Feet Clearance Factors Limiting Gait Function Factors Limiting Gait Function Decreased Activity Tolerance, Decreased Strength,Pain,Poor Balance,Poor Safety Awareness, Respiratory Distress PT-Balance Assessment Sitting Balance and Reactions Static Sitting Balance Ability Good Dynamic Sitting Balance Ability Good Standing Balance and Reactions Static Standing Balance Ability Fair Dynamic Standing Balance Ability Fair Device Used FWW M5 PT-IP Objective Assessments Start: 09/14/19 12:50 Freq: NEEDED Status: Active Protocol: Document 09/14/19 11:05 AB (Rec: 09/14/19 13:13 AB [id number]) Orientation Orientation/Cognition Level of Alertness Alert Orientation Name,Place,Situation Language Function Ability Hard of Hearing Gross Range of Motion Lower Extremity ROM Assessment Within Functional Limits Strength Lower Extremity Strength Assessment Within Functional Limits Coordination Assessment Gross Coordination Gross Coordination WNL Sensation Assessment Sensation Gross Sensation WNL Muscle Tone Muscle Tone WNL Yes M6 PT-IP Treatment Start: 09/14/19 12:50 Freq: NEEDED Status: Active Protocol: Document 09/14/19 11:05 AB (Rec: 09/14/19 13:13 AB [id number]) Physical Therapy Treatment Education Education Provided Safety M7 PT-IP Assessment and Plan Start: 09/14/19 12:50 Freq: NEEDED Status: Active Protocol: Document 09/14/19 11:05 (Rec: 09/14/19 13:13 AB [id number]) PT Summary Assessment and Plan Potential Rehabilitation Potential Good Status of Condition at Evaluation Stable Summary Impairments Pain,ROM,Strength,Balance, Coordination,Sensation,Tone, Cognition,Bed Mobility, Transfers,Gait,Activity Tolerance Assessment Summary pt requiring min A with mobility but with decrease activity tolerance with c/o R chest pain with mobility . O2 sat stable at 90-94% with O2 on. pt will likely progress during hospital stay. will conduct caregiver training if needed and will complete stair climbing training. pt will need a f/u consult for her hamstring strain and pt is concerned that it is worse since she re-injured it. pt will required either homehealth PT or outpt PT depending on level of mobility and tolerance upon d/c. Goals Bed Mobility Goal Independent Transfer Goal Independent,Front Wheeled Walker Gait Goal Independent,Front Wheel Walker Gait Distance 150 Other Goals up/down 2 platform steps using FWW SBA Days to Meet Goals 5 Frequency of Treatment Frequency Of Treatment Once a Day Treatment Plan Physical Therapy Treatment Plan Bed Mobility Training,Transfer Training,Gait Training, Therapeutic Exercise,Balance Retraining,Discharge Planning, Hot or Cold Pack,Neuromuscular Re-ed Recommendations To Nursing Amount of Assist Needed 1 Person Assist Discharge Recommendations PT Discharge Recommendations Home with Assistance,Home Health,Outpatient PT Transportation Needs at Discharge Private Vehicle
--- NOTE | 2019-09-14 12:37 | CM.DPC ---
Addendum entered by Stephanie Mak LPN 09/14/19 12:49: Confirmed that admission status is INPT: as of 09/11: confirmed by UR RN team. Original Note: DCP: continued: Met with pt and her partner Wu (Spencer) at bedside during Team Bedside Rounds. Dr. Joshua gave ok for pt to have PT (had been on hold/see her note). Hermelinda was updated and did still have questions and was going to follow up with Dr. Joshua later. Full dx and POC remain in process. Dr. Joshua told pt her would be back later today to see her and had a clearer plan. P: follow again tomorrow. Pt is planning d/c to home setting when stable for same but will follow as needs at d/c are clearer.
--- NOTE | 2019-09-14 15:23 | PC.NURSE ---
Day shift note: Received patient on O2 at 1.5 L via NC, noted during lunch while sitting in chair O2 sats 98%. Decreased O2 at 1L via NC, O2 sat 94% at rest. Ambulated from chair to BR with FWW, steady gait. Reports breathing effort, slightly improved from previous day. Encouraging PO fluids and IS use while in bed. Calls appropriately for staff assistance. Notified Dr. Joshua regarding last BM, new orders obtained.
[2019-09-14] MEDS: polyethylene glycoL 3350 17 GM POWD.PACK PO (15:59)
[2019-09-14] MEDS: BISACODYL 5 MG TABLET 10 MG PO (15:59)
--- NOTE | 2019-09-14 16:14 | PM.PN.1 ---
Subjective Subjective Date Patient Seen: 09/14/19 Interval history: This is a 73 year old female with PMH of hypothyroidism, HLD, IBS, recent R hamstring injury in knee immobilizer who presented with acute onset of shortness of breath and pleuritic chest pain found to have R lung PE with moderate clot burden and hypoxemia. We were able to wean down O2 to 1 L at rest. She has significant right pleuritic chest pain. PT to see patient for R hamstring injury. Additionally patient has been constipated with no BM for the past 5-7 days after started on Percocet for her hamstring injury. Exam Vital Signs (past 8 hours): - 09/14/19 08:51 09/14/19 13:00 09/14/19 15:30 Temperature 98.2 F 98.8 F Pulse Rate 85 92 H Respiratory Rate 16 19 Blood Pressure 138/58 L 119/60 Pulse Oximetry 92 96 93 Oxygen Delivery Method Nasal Cannula Oxygen Flow Rate 1 Narrative Exam Narrative: General: Alert and pleasant female Lungs: Bibasilar crackles Heart: Regular rhythm Abdomen: Soft Extremities: No edema Skin: No rash or petechiae Neurological: Nonfocal Objective Labs Result Diagrams: 09/14/19 05:38 09/14/19 05:38 Labs: Laboratory Results - last 24 hr 09/14/19 09/14/19 09/14/19 05:38 05:38 05:38 WBC 9.7 RBC 3.69 L Hgb 12.1 Hct 35.9 L MCV 97.3 MCH 32.7 MCHC 33.6 RDW 13.1 Plt Count 346 Neut % (Auto) 58.2 Lymph % (Auto) 28.3 [place] % (Auto) 8.7 Eos % (Auto) 3.5 Baso % (Auto) 1.3 Neut # (Auto) 5600 Lymph # (Auto) 2700 [place] # (Auto) 800 Eos # (Auto) 300 Baso # (Auto) 100 PT 13.6 H INR 1.2 APTT 41 H D Sodium 136 L Potassium 4.4 Chloride 100 Carbon Dioxide 32 BUN 15 Creatinine 0.91 Estimated GFR > 60.0 BUN/Creatinine Ratio 16.5 Glucose 116 H Calcium 9.3 Assessment & Plan Assessment & Plan narrative: This is a 73 year old female with PMH of hypothyroidism, HLD, IBS, recent R hamstring injury in knee immobilizer who presented with acute onset of shortness of breath and pleuritic chest pain due to acute pulmonary embolism. 1. Acute hypoxic respiratory failure, present on admission -likely secondary to pulmonary embolism in combination with her atelectasis due to pleuritic pain. She seems to desaturate more with movement but is still requiring minimal supplemental oxygen at rest. -will work to treat her pleuritic chest pain, treat underlying pulmonary embolism, and encourage incentive spirometry. -supplemental oxygen to maintain an oxygen greater than 90%, but no greater than 96% while on supplemental therapy. 2. Pulmonary embolism, acute, present on admission - CTA chest showed segmental and subsegmental pulmonary emboli in the right lung. Mild to moderate embolic burden, but No right heart strain demonstrated. There are also moderate basilar dependent airspace opacities likely dermatology sales representative of atelectasis. -initial troponin negative -echocardiogram showing possible decrease in R systolic function. Discussed with cardiology ribbon blocker whom recommended repeat echocardiogram in a couple of months. If she develops hemodynamic instability or severe hypoxemia, could consider transfer for possible interventional therapy but not at this time. -patient was started on heparin infusion the emergency room. Repeat PTT was 192. Now on therapeutic Lovenox. -continue therapeutic Lovenox at 1 milligram/kilogram b.i.d. -transition to Eliquis or Xarelto prior to discharge. -US LE negative for DVT. -oxycodone as needed for pleuritic pain 3. Hypothyroidism,, chronic -patient is currently without symptoms of hypothyroidism -will continue home levothyroxine at 25 mcg 4. Right hamstring injury -continue pain management with Tylenol as needed, cyclobenzaprine as needed, and oxycodone 5-10 mg q.3 hours as needed both for hamstring as well as pleuritic chest pain. -PT consult 5. Opioid induced constipation -minimize opioid use for pleuritic pain and hamstring injury -senna q.d., MiraLax as needed Code: Patient with POLST form stating DNR with comfort measures, however current discussion with patient she would be interested in resuscitation and possible intubation if needed and there is a chance of recovery. Will leave patient as full code. Surrogate decision maker she states is her partner, Spencer Oconnor. DVT: on Lovenox Dispo: Changed to inpatient for PE with hypoxemia. Continue inpatient management of acute PE with hypoxic respiratory failure. Possibly patient can discharge home tomorrow. Quality VTE Deep Vein Thrombosis/Pulmonary Embolism Present on Admission: Yes
--- NOTE | 2019-09-14 18:57 | PC.NURSE ---
Assumed care of pt at 1500. Pt resting in bed during bedside hand-off. Reports pain medication given at approx 1440 effective and denies pain. Crackles and diminished lung sounds. 1L NC sats 93-95%. Advised pt to notify staff if pleuritic pain retuns of has difficulty breathing. Enc to reposition for pressure injury prevention. Bed alarm on. Calling appropriately for needs.
[2019-09-14] MEDS: SENNOSIDES 8.6 MG TABLET 17.2 MG PO (21:48)
--- NOTE | 2019-09-14 23:45 | PC.NURSE ---
Patient is alert and oriented. Breath sounds diminished with inspiratory crackles in right mid/lower lobes. Oxygen at 1L/min per NC with sat of 93%. After being up to bathroom sat was 86%; on continuous oximetry. HRR and telemetry reading was last recorded as SR. Denies nausea. BT present and is passing flatus. Abdomen is soft and non tender but patient still has not had BM x 7 days; bowel regimen started earlier today. Voiding on toilet; denies dysuria, frequency or urgency. Is able to turn self in bed. Assisted to bathroom with walker and 1 assist; weak/pain in right LE due to hamstring injury. States leg/chest pain are 5/10 but improved after receiving Flexeril earlier and declines additional pain medication at this time.
[2019-09-15 03:30] VITALS: BP 128/70; PULSE 101; RESP 24; TEMP 36.7; O2SAT 94
[2019-09-15] MEDS: LEVOTHYROXINE 25 MCG TABLET PO (06:04)
[2019-09-15 06:11] LABS: BUN Creatinine Ratio 19.7 (6-22); Blood Urea Nitrogen 14 mg/dL (7-17); Calcium 9.1 mg/dL (8.4-10.2); Carbon Dioxide 30 mmol/L (22-32); Chloride 101 mmol/L (98-107); Estimated Glomerular Filt Rate > 60.0 mL/min (>60); Glucose 98 mg/dL (80-110); HEMOLYSIS < 15 (0-50); Potassium 4.1 mmol/L (3.4-5.1); Sodium 137 mmol/L (137-145)
[2019-09-15 06:12] LABS: Add Manual Diff / Slide Review NO; Basophils Absolute Auto 100 /uL (0-100); Eosinophils Absolute Auto 300 /uL (0-450); Eosinophils Percent Auto 3.2 % (2-4); Hematocrit 34.9 % (36-46); Lymphocytes Absolute Auto 2600 /uL (1100-4500); Lymphocytes Percent Auto 30.9 % (25-40); Mean Corpuscular HGB Conc 34.4 % (30-36); Mean Corpuscular Hemoglobin 33.2 PG (26-34); Mean Corpuscular Volume 96.6 fL (80-100); Monocytes Absolute Auto 800 /uL (0-900); Monocytes Percent Auto 9.2 % (3-14); Neutrophils Absolute Auto 4700 /uL (1500-7000); Neutrophils Percent Auto 55.7 % (50-75); Platelet Count 356 X10^3/uL (150-400); Red Blood Cell Count 3.61 X10^6/uL (4.0-5.2); Red Cell Distribution Width 13.4 % (11.6-14.8); White Blood Cell Count 8.4 X10^3/uL (4.5-11.0)
[2019-09-15 08:38] VITALS: BP 123/62; PULSE 90; RESP 16; TEMP 36.7; O2SAT 92
[2019-09-15] MEDS: ENOXAPARIN 80 MG/0.8 ML SYRINGE 75 MG SUBCUT (08:55)
[2019-09-15] MEDS: SIMVASTATIN 10 MG TABLET PO (08:56)
[2019-09-15] MEDS: SODIUM CHLORIDE 0.9% FLUSH 10 ML IV (08:56)
[2019-09-15 09:00] VITALS: O2SAT 97
--- NOTE | 2019-09-15 11:09 | PT.IPTN ---
Physical Therapy Treatment Note M2 PT-IP Current Condition Start: 09/14/19 12:50 Freq: NEEDED Status: Active Protocol: Document 09/14/19 11:05 AB (Rec: 09/14/19 13:13 AB [id number]) Physical Therapy Current Condition Current Condition Evaluation Date 09/14/19 Treatment Diagnosis PE; generalized weakness Onset Date 09/12/19 Precautions Brace R knee immobilizer: as needed per ER MD order dated 09/04/19 Weight Bearing Status Weight Bearing Status Weight Bear as Tolerated Allowed Weight Bearing Amount (enter % RLE WBAT per ER MD order dated or #) (%) 09/04/19 M3 PT-IP Subjective Start: 09/14/19 12:50 Freq: NEEDED Status: Active Protocol: Document 09/15/19 10:38 LJ (Rec: 09/15/19 11:09 LJ [id number]) Subjective Physical Therapy Visit Type Type Treatment Note Visit Start Time 10:38 Visit Stop Time 10:48 Total Visit Minutes 10 Physical Therapy Visit Comments Patient Comments Pt willing to work with PT M4 PT-IP Mobility and Gait Start: 09/14/19 12:50 Freq: NEEDED Status: Active Protocol: Document 09/15/19 10:38 LJ (Rec: 09/15/19 11:09 LJ [id number]) PT-Bed Mobility Assessment Supine to Sit Supine to Sit Independent,Head of Bed Elevated Scooting Scooting to Edge of Bed Independent PT-Transfer Assessment Sit to and From Stand Sit to and from Stand Independent,Use of Upper Extremities Equipment Transfer Assistive Device None,Gait Belt Transfers Transfer Destination Bed Transfer Technique ambulated w/o AD Transfer Ability Level of Assist Independent,Use of Upper Extremities Comments Mobility Comments Pt able to get into and out of bed using UEs to push up from bed independently. Gait Assessment Gait Gait Assistance Required: Standby Assistance Distance (Feet) 10 Able to Maintain Weight Bearing Status Yes During Gait Assistive Devices Assistive Device Gait Belt Gait Deviations General Gait Pattern Decreased Stride Length, Decreased Feet Clearance Factors Limiting Gait Function Factors Limiting Gait Function Decreased Activity Tolerance, Decreased Strength,Pain,Poor Balance,Respiratory Distress Comments Gait Comments Pt got up from bed and walked w/o AD to platform step in her room to trial getting into and out of her house. She easily stepped up onto the step with handhold on wall to simulate environment at home. Stair Climbing Assessment Evaluation Level of Assist On Stairs Independent,Standby Assistance Devices Stair Climbing Assistive Devices None Technique/Endurance Stair Climbing Direction Ascend and Descend Stair Climbing Technique Step to Step Number of Steps Climbed 2 Stair Climbing Set # Repetitions (reps) 2 Comments Stair Climbing Comments Platform step was placed by a wall to recreate home environment. Pt stepped up onto the step holding onto wall then back down going backwards x2. Stated theinis how she and her have been doing it since her injury to the hamstring M5 PT-IP Objective Assessments Start: 09/14/19 12:50 Freq: NEEDED Status: Active Protocol: Document 09/14/19 11:05 AB (Rec: 09/14/19 13:13 AB [id number]) Orientation Orientation/Cognition Level of Alertness Alert Orientation Name,Place,Situation Language Function Ability Hard of Hearing Gross Range of Motion Lower Extremity ROM Assessment Within Functional Limits Strength Lower Extremity Strength Assessment Within Functional Limits Coordination Assessment Gross Coordination Gross Coordination WNL Sensation Assessment Sensation Gross Sensation WNL Muscle Tone Muscle Tone WNL Yes M6 PT-IP Treatment Start: 09/14/19 12:50 Freq: NEEDED Status: Active Protocol: Document 09/15/19 10:38 LJ (Rec: 09/15/19 11:09 LJ [id number]) Physical Therapy Treatment Education Education Provided Safety M7 PT-IP Assessment and Plan Start: 09/14/19 12:50 Freq: NEEDED Status: Active Protocol: Document 09/15/19 10:38 LJ (Rec: 09/15/19 11:09 LJ [id number]) PT Summary Assessment and Plan Potential Rehabilitation Potential Good Status of Condition at Evaluation Stable Summary Impairments Pain,ROM,Strength,Balance, Coordination,Sensation,Tone, Gait,Activity Tolerance Assessment Summary Pt performed ambulation in room from bed to platform and back to bed w/o AD for a total of about 10'. She was safe going up and down step using wall for left handhold. She returned to and got into bed independently. She is safe for DC to home with assistance Treatment Plan Physical Therapy Treatment Plan Bed Mobility Training,Transfer Training,Gait Training, Therapeutic Exercise,Balance Retraining,Discharge Planning, Hot or Cold Pack,Neuromuscular Re-ed Recommendations To Nursing Amount of Assist Needed 1 Person Assist Discharge Recommendations PT Discharge Recommendations Home with Assistance,Home Health,Outpatient PT
--- NOTE | 2019-09-15 11:31 | CM.DPC ---
DCP: continued: met again with pt in Team Bedside Rounds. Pt is now off the oxygen. Dr. Joshua explained that pt was ready for d/c today and will need another ECHO followup in a few month. Pt did well with PT this morning. Home today with partner Gib and PCP followup.
--- NOTE | 2019-09-15 11:36 | PC.NURSE ---
Day shift note: Patient discharged home as ordered. Maintained O2 sats at 93-94 % on RA. Ambulating in room with SBA/FWW. PT training eval prior to discharge. Discussed importance of F/U with PMD Dr. Dunne and Cardiology for repeat echo. Discussed importance of taking Eliquis as prescribed and information regarding s/e and precautions. Patient verbalized understanding of instructions. Discharged home via private vehicle with .
[2019-09-15 11:43] VITALS: BP 134/70; PULSE 93; RESP 20; TEMP 36.7; O2SAT 93
--- NOTE | 2019-09-15 15:37 | PM.DS.1 ---
History of Present Illness History of Present Illness Chief complaint: trouble breathing x1 day Narrative: This is a 73 year old female with PMH of hypothyroidism, HLD, IBS, recent R hamstring injury in knee immobilizer who presented with acute onset of shortness of breath and pleuritic chest pain starting yesterday evening. It continued this morning and she felt like she couldn't breathe so decided to come into the ED. Chest pain is right-sided, lateral, and without radiation. It is worse with inspiration. Nothing seems to make it better except for pain medication given in the ED, which still did not last very long. She denies any palpitations but does feel short of breath currently at rest. She denies any prior history of blood clots, and due to the recent hamstring injury she has not been as mobile as she usually is. She does complain of some a bilateral lower extremity swelling as well as calf pain, with the right being slightly worse than the left. She denies any fevers, chills, headache, vision changes, dyspnea on exertion prior to last evening, recent palpitations, nausea, vomiting, abdominal pain. In the emergency room, vitals were notable for mild tachypnea with a rate into the 30s and mild hypoxemia into the upper 80s responsive to minimal supplemental oxygen. EKG showed normal sinus rhythm. Chest x-ray was unremarkable except for reduced lung volumes. CTA chest showed segmental and subsegmental pulmonary emboli in the right lung. Mild to moderate embolic burden, but No right heart strain demonstrated. There are also moderate basilar dependent airspace opacities likely bilingual inside sales representative of atelectasis. Initial laboratory evaluation was unremarkable including basic chemistries, CBC. Her troponin was negative, and her BNP was 38. Patient was admitted to the medicine service under observation status for pulmonary embolism, with mild hypoxia. Discharge Providers Provider Date of admission: 09/12/19 10:58 Discharge Date: 09/15/19 Primary care physician: Ashvin Dunne DO Consults: 09/13/19 13:59 Consult to Physical Therapy Evaluate & Treat Comment: Physician Instructions: Evaluate and Treat Discharge provider: Jarret Joshua MD Summary Hospital Course Discharge Diagnosis: 1. Acute pulmonary embolism, segmental and subsegmental, right lung 2. Acute hypoxic respiratory failure secondary to 1, resolved 3. Recent right hamstring injury 4. Opioid induced constipation Hospital Course: This is a 73 year old female with PMH of hypothyroidism, HLD, IBS, recent R hamstring injury in knee immobilizer who presented with acute onset of shortness of breath and pleuritic chest pain due to acute pulmonary embolism. 1. Acute hypoxic respiratory failure, present on admission -secondary to pulmonary embolism in combination with her atelectasis due to pleuritic pain. -patient was requiring 1-2 L O2 which we were able to titrate off -O2 sat 94% room air morning of discharge 2. Pulmonary embolism, acute, present on admission -risk factor of recent right hamstring injury with relative immobility - CTA chest showed segmental and subsegmental pulmonary emboli in the right lung. Mild to moderate embolic burden, but No right heart strain demonstrated. There are also moderate basilar dependent airspace opacities likely bilingual inside sales representative of atelectasis. -US LE negative for DVT. -echocardiogram showing possible decrease in R systolic function. Discussed with cardiology account liaison hospice whom recommended repeat echocardiogram in a couple of months. If she develops hemodynamic instability or severe hypoxemia, could consider transfer for possible interventional therapy but not at this time. -patient was started on heparin infusion the emergency room then switched to Lovenox -discharged on Eliquis, recommend continue anticoagulation therapy for minimum of 3 months -dyspnea and pleuritic pain improving during hospital stay -follow-up with PCP 3. Hypothyroidism,, chronic -will continue home levothyroxine at 25 mcg 4. Right hamstring injury -continue pain management with Tylenol as needed, cyclobenzaprine as needed, and oxycodone 5-10 mg q.3 hours as needed both for hamstring as well as pleuritic chest pain. -assessed by PT 5. Opioid induced constipation -minimize opioid use for pleuritic pain and hamstring injury -senna q.d., MiraLax as needed Exam Vital Signs (past 8 hours): - 09/15/19 08:38 09/15/19 09:00 09/15/19 11:43 Temperature 98.0 F 98.1 F Pulse Rate 90 93 H Respiratory Rate 16 20 Blood Pressure 123/62 134/70 Pulse Oximetry 92 97 93 Oxygen Delivery Method Nasal Cannula Oxygen Flow Rate 0.5 Objective Labs Result Diagrams: 09/15/19 04:45 09/15/19 04:45 Labs: Laboratory Results - last 24 hr 09/15/19 09/15/19 04:45 04:45 WBC 8.4 RBC 3.61 L Hgb 12.0 Hct 34.9 L MCV 96.6 MCH 33.2 MCHC 34.4 RDW 13.4 Plt Count 356 Neut % (Auto) 55.7 Lymph % (Auto) 30.9 Mclennan % (Auto) 9.2 Eos % (Auto) 3.2 Baso % (Auto) 1.0 Neut # (Auto) 4700 Lymph # (Auto) 2600 Mclennan # (Auto) 800 Eos # (Auto) 300 Baso # (Auto) 100 Sodium 137 Potassium 4.1 Chloride 101 Carbon Dioxide 30 BUN 14 Creatinine 0.71 Estimated GFR > 60.0 BUN/Creatinine Ratio 19.7 Glucose 98 Calcium 9.1 Discharge Plan Discharge Plan Patient Disposition: Home Discharge comment: You were admitted due to right lung pulmonary embolism and respiratory failure. You are being discharged on Eliquis. Stop aspirin and avoid aspirin type pain relievers while on Eliquis. You will need to continue on Eliquis for 3 to 6 months (3 months may be sufficient if you are back to normal level of physical activity in regards to your hamstring injury). Your ECHO showed right heart strain and it's recommended to have a repeat ECHO in 2 to 3 months. Discharge orders & Medications Prescriptions: New Eliquis 5 mg tablet 5 mg PO BID Qty: 60 RF: 0 Continued levothyroxine 25 mcg tablet 25 mcg PO DAILY Qty: 90 RF: 3 cholestyramine (with sugar) 4 gram powder in packet 4 gram PO BID PRN (Reason: ingestion of fatty meal) Qty: 20 RF: 1 valacyclovir 1 gram tablet 1,000 mg PO Q DAY Qty: 90 RF: 3 dicyclomine 20 mg tablet See Rx Instructions .ROUTE .COMPLEX Qty: 60 RF: 0 omeprazole 20 mg capsule,delayed release(DR/EC) 20 mg PO DAILY Qty: 90 RF: 3 ascorbic acid (vitamin C) 500 mg capsule 500 mg PO DAILY RF: 0 omega-3 fatty acids [Fish Oil Concentrate] 1,000 mg capsule 1,000 mg PO DAILY RF: 0 cholecalciferol (vitamin D3) 1,000 unit capsule 1,000 unit PO DAILY RF: 0 B-complex with vitamin C [Super B Complex-Vitamin C] tablet 1 tab PO DAILY RF: 0 excchxy-lpueedqli-stht tablet 1 tab PO DAILY RF: 0 oxycodone-acetaminophen [Percocet] 5-325 mg tablet 1 tab PO Q4-6H PRN (Reason: pain) Qty: 14 RF: 0 cyclobenzaprine 10 mg tablet 10 mg PO TID PRN (Reason: muscle spasm) Qty: 14 RF: 0 hyoscyamine sulfate 0.125 mg tablet 0.125 mg PO BID-QID PRN (Reason: dyspepsia) Qty: 20 RF: 0 ondansetron 4 mg tablet,disintegrating 4 mg PO Q6H PRN (Reason: nausea and vomiting) Qty: 14 RF: 0 simvastatin [Zocor] 10 mg tablet 10 mg PO QAM RF: 0 Follow up/Referrals: Ashvin Dunne DO [Primary Care Provider] - Discharge Health Status Multidrug resistant organism: No MDRO Diet/Activity/Treatments Diet: Diet as Tolerated Visit Report/Discharge Packet Instructions: Pulmonary Embolism, DI for Pulmonary Embolism, Apixaban Visit Report Forms: Patient Portal/API, Stroke Signs & Symptoms Discharge Data Primary Care Provider: Ashvin Dunne Discharges patient from system. Discharge Date/Time: 09/15/19 11:30 Quality VTE Deep Vein Thrombosis/Pulmonary Embolism Present on Admission: Yes
== END 2019-09-15 11:30 | disposition home or self-care (01) | DRG 189 ==
LOC: ED 10:46 → AC 11:18
PROVIDERS: Admitting Provider Internal Medicine; Emergency Provider Emergency Medicine; PCP Family Medicine; Referring Provider Emergency Medicine; Visit Provider Internal Medicine
DX: J96.01 Acute respiratory failure with hypoxia (principal); I26.94 Multiple subsegmental thrombotic pulmonary emboli without acute cor pulmonale; J98.11 Atelectasis; E03.9 Hypothyroidism, unspecified; E78.5 Hyperlipidemia, unspecified; S76.301A Unspecified injury of muscle, fascia and tendon of the posterior muscle group at thigh level, right thigh, initial encounter; K59.03 Drug induced constipation; T40.605A Adverse effect of unspecified narcotics, initial encounter; X58.XXXA Exposure to other specified factors, initial encounter
CPT/HCPCS: 36415; 71045; 71275; 80048; 80053; 82550; 83690; 83880; 84484; 85025; 85610; 85730; 93005; 93306; 93970; 94760; 94762; 96365; 96366; 96375; 96376; 97116; 97161; 97530; 99285; J1170; J1644; J1650; J2405; Q9967

== ENCOUNTER → 2019-09-21 10:27 | Outpatient (CLI) | payer MEDICARE, SELFPAY ==
[2019-09-12 12:56] VITALS: BMI 33.6
== END ==
PROVIDERS: PCP Nurse Practitioner; Referring Provider Registered Nurse; Visit Provider Registered Nurse
DX: R19.7 Diarrhea, unspecified (principal)
CPT/HCPCS: 87177

== ENCOUNTER → 2019-09-26 14:59 | Outpatient (CLI) | payer MEDICARE, SELFPAY ==
[2019-09-12 12:56] VITALS: BMI 33.6
--- NOTE | 2019-09-26 15:01 | DI.RAD.S_ITS ---
PROCEDURE: XR CHEST 2V INDICATIONS: SHORTNESS OF BREATH TECHNIQUE: 2 views of the chest were acquired. COMPARISON: [facility], CT, CT ANGIO CHEST PE PROTOCOL, 09/12/2019, 8:51. [facility], CR, XR CHEST 1V, 09/12/2019, 7:46. [facility], CR, CHEST 2 VIEW, 05/22/2017, 20:12. FINDINGS: Surgical changes and devices: None. Lungs and pleura: Lungs are clear. No pleural effusions or pneumothorax. Mediastinum: Mediastinal contours are normal. Heart size is normal. Bones and chest wall: No suspicious bony abnormalities. Soft tissues appear unremarkable. IMPRESSION: Normal for age, no evidence of focal ischemic injury to the lung parenchyma in this patient with reported prior recent pulmonary embolus. Dictated by: Pacheco Eden M.D. on 09/26/2019 at 15:44 Approved by: Pacheco Eden M.D. on 09/26/2019 at 15:45
[2019-09-26 16:25] LABS: Add Manual Diff / Slide Review NO; Basophils Absolute Auto 100 /uL (0-100); Basophils Percent Auto 0.7 % (0-2); Eosinophils Absolute Auto 200 /uL (0-450); Hemoglobin 14.8 g/dL (12.0-16.0); Lymphocytes Absolute Auto 4100 /uL (1100-4500); Lymphocytes Percent Auto 40.8 % (25-40); Mean Corpuscular HGB Conc 34.5 % (30-36); Mean Corpuscular Hemoglobin 33.4 PG (26-34); Mean Corpuscular Volume 96.8 fL (80-100); Monocytes Absolute Auto 600 /uL (0-900); Monocytes Percent Auto 5.8 % (3-14); Neutrophils Absolute Auto 5100 /uL (1500-7000); Neutrophils Percent Auto 50.7 % (50-75); Platelet Count 497 X10^3/uL (150-400); Red Blood Cell Count 4.44 X10^6/uL (4.0-5.2); Red Cell Distribution Width 13.6 % (11.6-14.8); White Blood Cell Count 10.1 X10^3/uL (4.5-11.0)
[2019-09-26 16:49] LABS: Alanine Aminotransferase 16 IU/L (<35); Albumin 4.8 g/dL (3.5-5.0); Albumin Globulin Ratio 1.7 (1.0-2.8); Alkaline Phosphatase 68 U/L (38-126); Aspartate Aminotransferase 25 IU/L (14-36); BUN Creatinine Ratio 17.6 (6-22); Bilirubin Total 0.4 mg/dL (0.2-1.3); Blood Urea Nitrogen 15 mg/dL (7-17); Carbon Dioxide 30 mmol/L (22-32); Chloride 103 mmol/L (98-107); Estimated Glomerular Filt Rate > 60.0 mL/min (>60); Globulin 2.9 g/dL (1.7-4.1); Glucose 84 mg/dL (80-110); HEMOLYSIS < 15 (0-50); Potassium 4.8 mmol/L (3.4-5.1); Sodium 140 mmol/L (137-145); Total Protein 7.7 g/dL (6.3-8.2)
== END ==
PROVIDERS: PCP Nurse Practitioner; Referring Provider Physician Assistant; Visit Provider Physician Assistant
DX: R06.02 Shortness of breath (principal); R53.83 Other fatigue
CPT/HCPCS: 36415; 71046; 80053; 85025; 87635

== ENCOUNTER → 2019-09-26 15:36 | Outpatient (CLI) | payer MEDICARE, SELFPAY ==
[2019-09-12 12:56] VITALS: BMI 33.6
[2019-09-27 13:09] LABS: COVID19 Sendout Not Detected (Not Detected)
== END ==
PROVIDERS: PCP Nurse Practitioner; Visit Provider Physician Assistant
DX: R06.02 Shortness of breath (principal); R53.83 Other fatigue
CPT/HCPCS: 87635

== ENCOUNTER → 2019-09-28 09:07 | Outpatient (CLI) | payer MEDICARE, SELFPAY ==
[2019-09-12 12:56] VITALS: BMI 33.6
[2019-09-29 11:44] LABS: Calcium 10.2 mg/dL (8.7-10.3); Parathyroid Hormone, Intact 23 pg/mL (15-65)
== END ==
PROVIDERS: PCP Nurse Practitioner; Referring Provider Nurse Practitioner; Visit Provider Nurse Practitioner
DX: E83.52 Hypercalcemia (principal); R53.83 Other fatigue
CPT/HCPCS: 36415; 82310; 83970

== ENCOUNTER → 2019-11-05 10:45 | Outpatient (CLI) | payer MEDICARE, SELFPAY ==
[2019-09-12 12:56] VITALS: BMI 33.6
[2019-11-05 12:22] LABS: BUN Creatinine Ratio 25.7 (6-22); Blood Urea Nitrogen 19 mg/dL (7-17); Estimated Glomerular Filt Rate > 60.0 mL/min (>60)
== END ==
PROVIDERS: PCP Nurse Practitioner; Referring Provider Otolaryngology; Visit Provider Otolaryngology
DX: J98.01 Acute bronchospasm (principal); R49.0 Dysphonia
CPT/HCPCS: 36415; 82565; 84520

== ENCOUNTER → 2019-11-07 10:36 | Outpatient (CLI) | payer MEDICARE, SELFPAY ==
[2019-09-12 12:56] VITALS: BMI 33.6
--- NOTE | 2019-11-07 10:55 | DI.CT.S_ITS ---
PROCEDURE: CT SOFT TISSUE NECK W CON INDICATIONS: Paralysis of vocal cords and larynx, unspecified TECHNIQUE: After the administration of intravenous contrast, 3.0 mm axial sections acquired from the sella to the aortic arch. Additional oblique axial 3.0 mm sections acquired through the pharynx. 3 mm thick coronal and sagittal reformats were generated. For radiation dose reduction, the following was used: automated exposure control. COMPARISON: [facility], CT, CT ANGIO CHEST PE PROTOCOL, 09/12/2019, 8:51. FINDINGS: Image quality: Degraded by beam hardening artifact related to metallic dental hardware. Lymph nodes: No enlarged lymph nodes seen throughout the neck. Vessels: Visualized vasculature appears patent. Neck spaces: The oropharynx, nasopharynx, and pharynx demonstrate no mucosal lesions. There is prominence of the piriform sinuses bilaterally and medialization of the true vocal cords, right greater than left. No thyroarytenoid muscle or posterior cricoarytenoid muscle atrophy. The epiglottis, vallecula, and tongue base all appear normal. Extramucosal spaces appear unremarkable. Glands: The parotid and submandibular glands appear normal. Thyroid gland is normal. Miscellaneous: Visualized brain and orbits appear normal. Lung apices appear clear. Superficial soft tissues appear normal. Bones: No suspicious bony lesions. Spine degenerative disc disease and facet arthropathy. Visualized sinuses and mastoids appear unremarkable. IMPRESSION: 1. Medialization of the vocal cords and prominence of the piriform sinuses compatible with vocal cord paralysis. 2. No laryngeal, subglottic, spine or upper chest abnormal mass. 3. No lymphadenopathy based on size criteria. Dictated by: Chana Emmanuel MD, PhD on 11/07/2019 at 14:15 Approved by: Chana Emmanuel MD, PhD on 11/07/2019 at 14:31
== END ==
PROVIDERS: PCP Nurse Practitioner; Referring Provider Nurse Practitioner; Visit Provider Otolaryngology
DX: J38.02 Paralysis of vocal cords and larynx, bilateral (principal)
CPT/HCPCS: 70491; Q9967

== ENCOUNTER → 2019-12-28 08:39 | Outpatient (CLI) | payer MEDICARE, SELFPAY ==
[2019-09-12 12:56] VITALS: BMI 33.6
[2019-12-28 10:00] LABS: Blood Urea Nitrogen 21 mg/dL (7-17); Calcium 9.7 mg/dL (8.4-10.2); Carbon Dioxide 34 mmol/L (22-32); Chloride 100 mmol/L (98-107); Estimated Glomerular Filt Rate > 60.0 mL/min (>60); Glucose 98 mg/dL (80-110); HEMOLYSIS 21 (0-50); Potassium 4.4 mmol/L (3.4-5.1); Sodium 140 mmol/L (137-145)
== END ==
PROVIDERS: PCP Family Medicine; Referring Provider Internal Medicine; Visit Provider Internal Medicine
DX: I26.09 Other pulmonary embolism with acute cor pulmonale (principal)
CPT/HCPCS: 36415; 80048

== ENCOUNTER → 2020-02-13 10:00 | Outpatient (CLI) | payer MEDICARE, SELFPAY ==
[2019-09-12 12:56] VITALS: BMI 33.6
[2020-02-13 12:00] LABS: Hemoglobin A1C% w Est Avg Glu 5.6 % (4.0-6.0)
[2020-02-13 12:11] LABS: Alanine Aminotransferase 20 IU/L (<35); Albumin 4.8 g/dL (3.5-5.0); Albumin Globulin Ratio 1.4 (1.0-2.8); Alkaline Phosphatase 71 U/L (38-126); Aspartate Aminotransferase 26 IU/L (14-36); BUN Creatinine Ratio 28.1 (6-22); Bilirubin Total 0.7 mg/dL (0.2-1.3); Blood Urea Nitrogen 25 mg/dL (7-17); Calcium 10.3 mg/dL (8.4-10.2); Carbon Dioxide 31 mmol/L (22-32); Chloride 102 mmol/L (98-107); Cholesterol 192 mg/dL (140-199); Estimated Glomerular Filt Rate > 60.0 mL/min (>60); Globulin 3.4 g/dL (1.7-4.1); Glucose 99 mg/dL (80-110); HDL Cholesterol 69 mg/dL (40-60); HEMOLYSIS < 15 (0-50); LDL Cholesterol Calculated 101 mg/dL (<100); Potassium 3.8 mmol/L (3.4-5.1); Sodium 140 mmol/L (137-145); Total Protein 8.2 g/dL (6.3-8.2); Triglycerides 111 mg/dL (35-150)
[2020-02-13 12:46] LABS: Thyroid Stimulating Hormone 1.89 uIU/mL (0.47-4.68)
[2020-02-13 15:08] LABS: Creatinine Urine Random 27.8 mg/dL
[2020-02-13 15:12] LABS: Microalbumin Urine Random < 0.6 mg/dL (0-1.6)
== END ==
PROVIDERS: PCP Nurse Practitioner; Referring Provider Nurse Practitioner; Visit Provider Nurse Practitioner
DX: E03.9 Hypothyroidism, unspecified (principal); E66.9 Obesity, unspecified; E78.5 Hyperlipidemia, unspecified; K76.0 Fatty (change of) liver, not elsewhere classified; R63.4 Abnormal weight loss
CPT/HCPCS: 36415; 80053; 80061; 82043; 82570; 83036; 84443

== ENCOUNTER → 2020-02-24 10:09 | Outpatient (CLI) | payer MEDICARE, SELFPAY ==
[2020-02-18 15:06] VITALS: BMI 33.6
[2020-02-24 11:31] LABS: Calcium 10.1 mg/dL (8.4-10.2)
[2020-02-25 06:36] LABS: Parathyroid Hormone Int 34 pg/mL (15-65)
== END ==
PROVIDERS: PCP Nurse Practitioner; Referring Provider Nurse Practitioner; Visit Provider Nurse Practitioner
DX: E03.9 Hypothyroidism, unspecified (principal); E83.52 Hypercalcemia
CPT/HCPCS: 36415; 82310; 83970

== ENCOUNTER → 2020-05-27 15:03 | Outpatient (CLI) | payer OTHER, SELFPAY ==
[2020-02-18 15:06] VITALS: BMI 33.6
--- NOTE | 2020-05-27 15:05 | DI.MG.S_ITS ---
BILATERAL DIGITAL SCREENING MAMMOGRAM 3D/2D WITH CAD: 05/27/2020 CLINICAL: Routine screening. Comparison is made to exams dated: 04/05/2019 mammogram, 03/28/2018 mammogram, 03/16/2017 mammogram, and 03/07/2016 mammogram - [facility]. The tissue of both breasts is heterogeneously dense. This may lower the sensitivity of mammography. Current study was also evaluated with a Computer Aided Detection (CAD) system. There is a possible new asymmetry in the left breast at 4 o'clock middle depth. No other significant masses, calcifications, or other findings are seen in either breast. IMPRESSION: INCOMPLETE: NEEDS ADDITIONAL IMAGING EVALUATION The possible new asymmetry in the left breast is indeterminate. Additional views with possible ultrasound are recommended. This exam was interpreted at Station ID: [id number]. NOTE: For mammograms, a report in lay terms will be sent to the patient. Approximately 15% of breast malignancies will not be visualized mammographically. In the management of a palpable breast mass, a negative mammogram must not discourage biopsy of a clinically suspicious lesion. Electronically Signed By: Jolanta dennis/sheila:05/27/2020 16:58:27 letter sent: Additional Imaging Needed ACR BI-RADS Category 0: Incomplete [id number]
== END ==
PROVIDERS: PCP Nurse Practitioner; Referring Provider Nurse Practitioner; Visit Provider Nurse Practitioner
DX: M81.0 Age-related osteoporosis without current pathological fracture (principal); Z12.31 Encounter for screening mammogram for malignant neoplasm of breast
CPT/HCPCS: 77063; 77067; 77080

== ENCOUNTER → 2020-06-11 13:33 | Outpatient (CLI) | payer OTHER, SELFPAY ==
[2020-02-18 15:06] VITALS: BMI 33.6
--- NOTE | 2020-06-11 13:34 | DI.MG.S_ITS ---
UNILATERAL LEFT DIGITAL DIAGNOSTIC MAMMOGRAM 3D/2D WITH ADDITIONAL VIEWS: 06/11/2020 CLINICAL: Additional evaluation requested from prior study. Comparison is made to exams dated: 05/27/2020 mammogram, 04/05/2019 mammogram, and 03/28/2018 mammogram - [facility]. The tissue of left breast is heterogeneously dense. This may lower the sensitivity of mammography. The oval equal density focal asymmetry with indistinct margins in the left breast at 4 o'clock middle depth is less prominent on additional views. No other significant masses or calcifications are seen in the breast. IMPRESSION: INCOMPLETE: NEEDS ADDITIONAL IMAGING EVALUATION The oval equal density focal asymmetry in the left breast is indeterminate. An ultrasound is recommended. There is no abnormality seen in the left breast to correspond with the palpable abnormality in the upper outer quadrant, however, ultrasound is recommended. Ultrasound will be performed immediately following the current exam. This exam was interpreted at Station ID: [id number]. NOTE: For mammograms, a report in lay terms will be sent to the patient. Approximately 15% of breast malignancies will not be visualized mammographically. In the management of a palpable breast mass, a negative mammogram must not discourage biopsy of a clinically suspicious lesion. Electronically Signed By: Manuel Garcia M.D. ddp/:06/11/2020 14:08:21 ACR BI-RADS Category 0: Incomplete [id number]
--- NOTE | 2020-06-11 13:34 | DI.US.S_ITS ---
LIMITED ULTRASOUND OF LEFT BREAST: 06/11/2020 CLINICAL: Palpable right breast lump and focal pain. Comparison is made to exams dated: 06/11/2020 mammogram, 05/27/2020 mammogram, and 04/05/2019 mammogram - [facility]. Color flow and real-time ultrasound of the left breast 2 o'clock and 4 o'clock regions were performed on the areas of interest. There is a 0.4 cm x 0.4 cm x 0.4 cm oval cyst in the left breast at 4 o'clock middle depth. This oval cyst is anechoic with a well-defined boundary and posterior acoustic enhancement. This may correlate with mammography findings. Color flow imaging demonstrates that there is no vascularity present. No additional discrete mass identified at the 4:00 region. No discrete cystic or solid mass lesion identified in the area of palpable abnormality. IMPRESSION: BENIGN There is no sonographic evidence of malignancy. The 0.4 cm x 0.4 cm x 0.4 cm oval cyst in the left breast is consistent with a simple cyst and is benign. There is no abnormality seen in the left breast to correspond with the palpable abnormality at 2 o'clock, however, clinical followup is recommended. A 1 year screening mammogram is recommended. This exam was interpreted at Station ID: [id number]. Electronically Signed By: Manuel mejias/:06/11/2020 15:12:47 letter sent: Clinical Evaluation Ultrasound BI-RADS: 2 Benign
== END ==
PROVIDERS: PCP Nurse Practitioner; Referring Provider Nurse Practitioner; Visit Provider Nurse Practitioner
DX: R92.8 Other abnormal and inconclusive findings on diagnostic imaging of breast (principal); N64.4 Mastodynia; N60.02 Solitary cyst of left breast
CPT/HCPCS: 76642; 77065; G0279

== ENCOUNTER → 2020-07-20 12:35 | Outpatient (CLI) | payer OTHER, SELFPAY ==
[2020-06-30 10:44] VITALS: BMI 33.6
--- NOTE | 2020-07-20 | PATH_ITS ---
Note [facility] Accession Number: [id number] TESTS RESULT FLAG UNITS REF RANGE LAB Clinician Provided Cytology Information No. of containers..01 Other (Miscellaneous) 01 LEFT [id number] CYS DIAGNOSIS: 01 LEFT BREAST CYST, 4:00, 1CMFN, FINE NEEDLE ASPIRATION. INADEQUATE, INSUFFICIENT CELLS FOR STUDY. THIS INTERPRETATION INCLUDES EVALUATION OF A CELL BLOCK. Pathologist ICD10: 01 N60.09 Details: 74-year-old female history of chronic anticoagulation asthma here for evaluation of left breast pain. She has had significant left breast pain for the past 4 months. Workup has included a diagnostic mammogram followed by a left breast ultrasound. LIMITED ULTRASOUND OF LEFT BREAST: 06/11/2020 There is a 0.4 cm x 0.4 cm x 0.4 cm oval cyst in the left breast at 4 0'clock middle depth. This oval cyst is anechoic with a well-defined boundary and posterior acoustic enhancement IMPRESSION: BENIGN There is no sonographic evidence of malignancy. The 0.4 cm x 0.4 cm x 0.4 cm oval cyst in the left breast is consistent with a simple cyst and is benign. Antonio Gomez MD, Pathologist NPI- [id number] Steven Montoya, Coal Weigher ([facility]) 01 22 CC, COLORLESS, CLEAR RECEIVED: IN FORMALIN WITH WHITE CAP CONTAINER. /EVYU 07/22/2020 1059 Local FLAG LEGEND: L-Low Normal,H-High Normal,LL-Alert Low,HH-Alert High <-Panic Low,>-Panic High,A-Abnormal,AA-Critical Abnormal Performed at: 01 =Z [facility] [address], [place] [address] Manuel Adair MD, Specimen Comment: A courtesy copy of this report has been sent to [phone] Performed at: 01 [facility] [address], [place], [place] [id number] MD Manuel Adair MD Phone: [phone]
--- NOTE | 2020-07-20 12:37 | DI.US.S_ITS ---
ULTRASOUND GUIDED ASPIRATION LEFT BREAST WITH POST ULTRASOUND IMAGIN07/20/2020 CLINICAL: Left breast cyst aspiration. Correlation is made to exams dated: 06/11/2020 ultrasound, 06/11/2020 mammogram, 05/27/2020 mammogram, 04/05/2019 mammogram, 03/28/2018 mammogram, and 03/16/2017 mammogram - [facility]. The structure of concern was previously measured as 4 mm overall, and it appears to have reduced in size as noted below. An aspiration was performed for the concerning 0.2 cm x 0.3 cm x 0.4 cm circumscribed oval cystic versus solid mass located in the left breast at 4 o'clock anterior depth. This was described on the previous ultrasound report. The skin was prepped in the usual manner. Local anesthetic was administered to the access site. The abnormality was approached from the lateral aspect. A 25 gauge needle was percutaneously placed with multiple passes into the abnormality under ultrasound guidance, during aspiration. Once the needle was documented to be in the correct location, 0.2 cc of fluid was aspirated. A sterile dressing was applied to the access site. Post procedure ultrasound imaging was obtained. The aspirated fluid was sent for cytological analysis. IMPRESSION: ASPIRATION BENIGN Aspiration of the 0.4 cm cyst in the left breast anterior depth was successful. Minimal fluid/aspirate was obtained. Fluid aspirated demonstrated insufficient cells for interpretation. However, the cyst collapsed completely with aspiration and no mural nodule is seen post aspiration. These findings are in keeping with a benign etiology. Recommend returning to screening mammogram. This exam was interpreted at Station ID: [id number]. Pacheco Almanza M.D. [facility]07/24/2020 09:21:52
== END ==
PROVIDERS: PCP Family Medicine; Referring Provider Surgery; Visit Provider Surgery
DX: N60.02 Solitary cyst of left breast (principal)
CPT/HCPCS: 10005

== ENCOUNTER → 2021-02-03 09:12 | Outpatient (CLI) | payer OTHER, SELFPAY ==
[2020-06-30 10:44] VITALS: BMI 33.6
[2021-02-03 13:13] LABS: COVID19 -Nasal RAPID Negative (Negative)
== END ==
PROVIDERS: PCP Family Medicine; Visit Provider Nurse Practitioner Family
DX: Z20.822 Contact with and (suspected) exposure to COVID-19 (principal)
CPT/HCPCS: 87635; C9803

== ENCOUNTER 2021-02-05 12:40 | Day surgery (SDC) | payer OTHER, SELFPAY ==
[2020-06-30 10:44] VITALS: BMI 33.6
--- NOTE | 2021-02-05 | PATH_ITS ---
[facility] Accession Number: [id number] . 01 Material submitted: . colon - CECUM POLYP 2 MM . 02 Diagnosis: Cecal Polyp, 2 mm, Biopsy: Tubular adenoma. MRV 02/09/2021 1156 Local . 02 Electronically signed: . Farshad Jones MD, PhD, Pathologist NPI- [id number] . 01 Gross description: . CECUM POLYP 2 MM: Received in formalin is 1 fragment(s) of jackson, soft tissue measuring 0.4 x 0.3 x 0.2 cm submitted entirely in 1 cassette(s) /QBJ 02/06/2021 0827 Local . 02 Pathologist provided ICD-10: D12.0 . 02 CPT . 301031 Performed at: 01 [facility] Cytology [address] [place] [address], [place], [place] [id number] MD Manuel Aadir MD Phone: [phone] Performed at: [address] [facility] [address] [place], [place] [id number] MD Maria Elena Gonzalez MD Phone: [phone]
--- NOTE | 2021-02-05 12:16 | PM.HP.1 ---
History of Present Illness History of Present Illness Date Patient Seen: 02/05/21 Chief complaint: SCREENING COLONOSCOPY Narrative: 75 year old female comes in today for consideration of a screening colonoscopy. This is her 3rd lifetime colonoscopy. She has a history of colon polyps, records not available at time of dictation. There have been no lower GI symptoms suggesting disease such as change in bowel habits, bleeding, abdominal pain or anemia. There's been no family history of colon cancer or colon polyps. Overall health issues have been stable, including no major cardiac events for at least 6 weeks. PCP: Dr. Chairez Time spent on Discharge and Coordination of post-hospital care: 35 minutes Patient History Medical History Abnormal Pap smear of cervix (~2009) Anxiety Carpal tunnel syndrome (~2006) Cerumen impaction Change in voice Chicken pox (~1949) Chronic anticoagulation Depression Diverticular disease DVT (deep venous thrombosis) Fatigue Foot pain (~2012) Hearing loss (~11/2014) Herpes Hyperlipidemia Hypertension Kidney disease Macular degeneration Mass of right foot Measles Osteoarthritis Pulmonary emboli Rheumatoid arthritis Right foot pain Right-sided heart failure Shortness of breath Superficial bruising Trigger finger Vocal cord paralysis Weight loss Surgical History Anesthesia Fractures (~1980) History of carpal tunnel repair (~2006) History of esophagogastroduodenoscopy (EGD) (12/12/16) History of neck surgery (~1993) History of shoulder surgery (~1993) Left fibular fracture (~2015) Status post arthroscopy (~2007) Status post breast biopsy (~1993) Status post breast biopsy (10/01/12) Status post breast biopsy (10/02/13) Status post bunionectomy (12/18/12) Status post hysterectomy (~1980) Status post rotator cuff repair (~2007) Family & Social History Family History Brother Age: 78 Hypertension Father Leukemia Pneumonia Mother No problems noted. Grandmother Diabetes mellitus Social History: household members significant other Tobacco & Substance use: Smoking Status Former smoker alcohol intake former alcohol intake frequency holiday/special occasion Substance Use Type does not use Meds Home Medications and Allergies Home Medications Medication Instructions Recorded Confirmed Type ascorbic acid (vitamin C) 500 mg 500 mg PO DAILY cap 02/14/18 02/05/21 History capsule hltroul-mfulbpcao-ejhi tablet 1 tab PO DAILY tab 02/14/18 02/05/21 History omega-3 fatty acids 1,000 mg 1,000 mg PO DAILY 02/14/18 02/05/21 History capsule (Fish Oil Concentrate) cholestyramine (with sugar) 4 gram 4 gram PO BID PRN #20 each 04/30/19 02/05/21 Rx powder for susp in a packet valacyclovir 1 gram tablet 1,000 mg PO Q DAY #90 tab 06/28/19 02/05/21 Rx albuterol sulfate 90 mcg/actuation See Rx Instructions INHALATION Q6H 01/20/20 02/05/21 Rx aerosol inhaler (Ventolin HFA) PRN #8.5 gram dicyclomine 20 mg tablet See Rx Instructions .ROUTE 01/20/20 07/29/20 Rx .COMPLEX #60 tablet levothyroxine 25 mcg tablet 25 mcg PO DAILY #90 tab 01/20/20 02/05/21 Rx simvastatin 10 mg tablet (Zocor) 10 mg PO QAM #90 tab 01/20/20 02/05/21 Rx varicella-zoster glycoE vacc-[id number] 0.5 ml IM ONCE #1 each 01/20/20 07/29/20 Rx adj(PF) 50 mcg/0.5 mL IM susp, kit (Shingrix (PF)) gabapentin 100 mg capsule 100 mg PO BEDTIME #90 cap 05/11/20 02/05/21 Rx cholecalciferol (vitamin D3) 25 3,000 unit PO DAILY cap 07/01/20 02/05/21 History mcg (1,000 unit) capsule aspirin 81 mg PO DIRECTED 02/05/21 02/05/21 History Allergies Allergy/AdvReac Type Severity Reaction Status Date / Time codeine [CODEINE] Allergy Mild NAUSEA, Verified 07/29/20 11:15 VOMITING morphine [MORPHINE] Allergy Mild VOMITING Verified 07/29/20 11:15 Review of Systems Review of Systems Narrative: All remaining ROS were reviewed and negative except as addressed. Exam Narrative Exam Narrative: GENERAL: Alert and oriented, appearing stated age and in no acute distress. HEENT: Head normocephalic/atraumatic. Extraocular movements intact. LUNGS: Clear to ausculation bilaterally, no wheezes, rhonchi or rales. CV: Normal S1 and S2 with regular rate and rhythm, no audible murmurs, rubs or gallops. ABDOMEN: Soft, non-tender, non-distended, no organomegaly. Positive bowel sounds. EXTREMITIES: No clubbing, cyanosis, or edema. NEURO: Cranial nerves II through XII grossly intact, no focal deficits. PSYCH: Alert and oriented x 3. SKIN: No concerning lesions. Assessment & Plan Assessment & Plan narrative: 1. History of colon polyps 2. Screening for colon cancer Plan for colonoscopy. The nature and character of the procedure as well as anticipated results were discussed. The possibility of not completing the procedure was also discussed. Possible complications including aspiration pneumonia, bleeding, perforation and reaction to medications either for sedation or preparation and missed lesions were discussed. Questions were answered and proceeding to the colonoscopy was elected. Informed consent signed. I sincerely appreciate the referral allowing me to participate in this patient's care. Please contact me with any questions or concerns.
--- NOTE | 2021-02-05 12:22 | PM.OP.COLON ---
Operative Date/Time/Diagnoses Date of procedure: 02/05/21 Procedure Notes Procedure in detail: ENDOSCOPIST: Graciela Carpio MD Sedation RN: Xochilt Echevarria RN Sedation start time: 1:46 p.m. Sedation end time: 2:16 p.m. PROCEDURE: Colonoscopy with biopsy, cold INDICATIONS: 1. History of colon polyps 2. Screening for colon cancer MEDICATION: Levsin 0.125 mg sublingual, incremental doses of Versed and fentanyl until appropriate level sedation achieved. ASA CLASS: 2 CECAL WITHDRAWAL TIME: 11 minutes COMPLICATIONS: None. EXTENT OF PROCEDURE: Cecum. QUALITY OF PREP: Good with portions of liquid stool. PROCEDURE: Prior to insertion of the colonoscope, a digital rectal examination was accomplished with circumferential palpation of the distal rectal mucosa without significant findings being noted. The high-definition pediatric colonoscope was passed into the rectum in the usual fashion and advanced over to the cecum without difficulty. The ileocecal valve, appendiceal stoma, and medial wall all could be inspected and a 2 mm polyp was seen and removed with cold biopsy forceps. ASCENDING COLON: As the colonoscope was withdrawn, care was taken to expose and inspect the haustral folds and minor diverticulosis seen. HEPATIC FLEXURE: Minor diverticulosis, otherwise, normal, polyps, or other abnormalities. TRANSVERSE COLON: Minor diverticulosis, otherwise, normal, polyps, or other abnormalities. DESCENDING COLON: Minor diverticulosis, otherwise, normal, polyps, or other abnormalities. SIGMOID COLON: Minor diverticulosis, otherwise, normal, polyps, or other abnormalities. RECTUM: Normal. J maneuver was produced. There was no significant perianal disease. The J maneuver was broken. The remainder of the rectum was inspected and there was no external hemorrhoid disease. The scope was withdrawn. IMPRESSION: 1. Cecal polyp x1, 2 mm, removed with cold biopsy forceps PLAN: 1. Follow-up in clinic status post pathology results. The possibility of a missed lesion including a malignancy has been discussed with the patient previously. Potential alarm symptoms have been discussed and should be reported immediately.
[2021-02-05 13:09] VITALS: BP 124/78; PULSE 81; RESP 16; TEMP 36.4; O2SAT 97
[2021-02-05] MEDS: LACTATED RINGERS 1,000 ML 200 ML IV (13:22)
[2021-02-05] MEDS: HYOSCYAMINE 0.125 MG TABLET PO (13:39)
[2021-02-05] MEDS: ONDANSETRON 4 MG/2 ML INJ IV (14:19)
[2021-02-05] MEDS: fentaNYL 250 MCG/5 ML INJ IV (14:19)
[2021-02-05] MEDS: MIDAZOLAM 5 MG/5 ML VIAL IV (14:20)
[2021-02-05 14:22] VITALS: BP 116/70; PULSE 72; RESP 16; TEMP 36.6; O2SAT 97
[2021-02-05 14:25] VITALS: BP 130/76; PULSE 69; RESP 18; O2SAT 97
[2021-02-05 14:30] VITALS: BP 120/78; PULSE 65; RESP 16; O2SAT 95
[2021-02-05 14:35] VITALS: BP 121/58; PULSE 64; RESP 12; TEMP 36.2; O2SAT 98
[2021-02-05 14:40] VITALS: BP 105/64; PULSE 62; RESP 16; TEMP 36.4; O2SAT 95
== END 2021-02-05 15:02 | disposition home or self-care (01) ==
PROVIDERS: PCP Family Medicine; Referring Provider Student in an Organized Health Care Education/Training Program; Visit Provider Student in an Organized Health Care Education/Training Program
PROC: 0DJD8ZZ Inspection of Lower Intestinal Tract, Via Natural or Artificial Opening Endoscopic (ICD-10-PCS; CPT 45378; principal; 2021-02-05 13:45)
DX: Z12.11 Encounter for screening for malignant neoplasm of colon (principal); Z86.010 Personal history of colon polyps; K57.30 Diverticulosis of large intestine without perforation or abscess without bleeding; D12.0 Benign neoplasm of cecum
CPT/HCPCS: 45380; J2250; J2405; J3010

== ENCOUNTER 2021-06-26 11:16 | Emergency (ER) | payer OTHER, SELFPAY ==
[2020-06-30 10:44] VITALS: BMI 33.6
[2021-06-26] VITALS (16 sets, daily range): BP systolic 135–147; BP diastolic 66–78; PULSE 62–82; RESP 18–39; O2SAT 67–100; BMI 31.8
--- NOTE | 2021-06-26 11:28 | DI.RAD.S_ITS ---
PROCEDURE: XR CHEST 1V INDICATIONS: chest pain TECHNIQUE: One view of the chest was acquired. COMPARISON: [facility], , CHEST 2 VIEW, 05/22/2017, 20:12. [facility], CR, XR CHEST 1V, 09/12/2019, 7:46. [facility], CR, XR CHEST 2V, 09/26/2019, 14:58. FINDINGS: Surgical changes and devices: Postoperative change of the right shoulder is seen, including truncation of the right distal clavicle. Postoperative clips are seen within the left supraclavicular region. Lungs and pleura: An incomplete inspiratory result is noted, causing a crowded appearance to the lung markings. No focal infiltrates are seen. No pneumothorax or significant pleural effusions are seen. Mediastinum: Mediastinal contours appear normal. Heart size is normal. Atherosclerotic calcification of the aortic arch is noted. Bones and chest wall: No suspicious bony lesions. Age-appropriate bony degenerative changes are seen. Overlying soft tissues appear unremarkable. IMPRESSION: Unremarkable portable chest study for age, with note made of postoperative and degenerative change. Dictated by: Rex Edwards M.D. on 06/26/2021 at 11:05 Approved by: Rex Edwards M.D. on 06/26/2021 at 11:06
[2021-06-26 12:32] LABS: Alanine Aminotransferase 15 IU/L (<35); Albumin 4.6 g/dL (3.5-5.0); Albumin Globulin Ratio 1.4 (1.0-2.8); Alkaline Phosphatase 57 U/L (38-126); Aspartate Aminotransferase 33 IU/L (14-36); BUN Creatinine Ratio 26.3 (6-22); Bilirubin Total 0.6 mg/dL (0.2-1.3); Blood Urea Nitrogen 21 mg/dL (7-17); Calcium 9.9 mg/dL (8.4-10.2); Carbon Dioxide 25 mmol/L (22-32); Chloride 107 mmol/L (98-107); Creatine Kinase 149 U/L (30-135); Estimated Glomerular Filt Rate > 60.0 mL/min (>60); Globulin 3.3 g/dL (1.7-4.1); Glucose 97 mg/dL (80-110); Lipase 110 U/L (23-300); Potassium 4.3 mmol/L (3.4-5.1); Sodium 140 mmol/L (137-145); Total Protein 7.9 g/dL (6.3-8.2)
[2021-06-26 12:35] LABS: Add Manual Diff / Slide Review NO; Basophils Absolute Auto 100 /uL (0-100); Eosinophils Absolute Auto 300 /uL (0-450); Eosinophils Percent Auto 3.6 % (2-4); Hematocrit 44.5 % (36-46); Lymphocytes Absolute Auto 3500 /uL (1100-4500); Lymphocytes Percent Auto 41.9 % (25-40); Mean Corpuscular HGB Conc 33.8 % (30-36); Mean Corpuscular Hemoglobin 32.6 PG (26-34); Mean Corpuscular Volume 96.2 fL (80-100); Monocytes Absolute Auto 700 /uL (0-900); Monocytes Percent Auto 8.4 % (3-14); Neutrophils Absolute Auto 3800 /uL (1500-7000); Neutrophils Percent Auto 45.1 % (50-75); Platelet Count 296 X10^3/uL (150-400); Red Blood Cell Count 4.62 X10^6/uL (4.0-5.2); White Blood Cell Count 8.3 X10^3/uL (4.5-11.0)
[2021-06-26 12:42] LABS: Troponin I < 0.012 ng/mL (0.01-0.034)
[2021-06-26 12:47] LABS: CKMB % Relative Index 1.4 % (1.5-5.0); Creatine Kinase MB 2.11 ng/mL (<2.37)
[2021-06-26 12:55] LABS: HEMOLYSIS 67 (0-50)
[2021-06-26 15:13] LABS: COVID19 - ADMIT (NP swab/PCR) Negative (Negative)
--- NOTE | 2021-06-26 15:58 | ED_ITS ---
HPI - URI/Sore Throat General Chief Complaint: Upper Respiratory Symptoms Stated Complaint: Chest tightness- thinks pnuemonia, hx of it Time Seen by Provider: 06/26/21 13:19 Source: patient Mode of arrival: Ambulatory Limitations: no limitations History of Present Illness HPI Narrative: The patient presents with URI symptoms discharged 4 days ago. She has no current headache or sore throat. She is concerned about slight discomfort in her upper chest. She has no history of coronary artery disease, she has no palpitations. She denies RAD, she has used albuterol in the past with respiratory illness. She is not wheezing. She has no peripheral edema, she has no history of CHF. Related Data Home Medications Medication Instructions Recorded Confirmed ascorbic acid (vitamin C) 500 mg 500 mg PO DAILY cap 02/14/18 02/05/21 capsule aituyyc-bhvrljawh-slqv tablet 1 tab PO DAILY tab 02/14/18 02/05/21 omega-3 fatty acids 1,000 mg 1,000 mg PO DAILY 02/14/18 02/05/21 capsule (Fish Oil Concentrate) cholecalciferol (vitamin D3) 25 3,000 unit PO DAILY cap 07/01/20 02/05/21 mcg (1,000 unit) capsule aspirin 81 mg PO DIRECTED 02/05/21 02/05/21 Previous Rx's Medication Instructions Recorded cholestyramine (with sugar) 4 gram 4 gram PO BID PRN #20 each 04/30/19 powder for susp in a packet valacyclovir 1 gram tablet 1,000 mg PO Q DAY #90 tab 06/28/19 albuterol sulfate 90 mcg/actuation See Rx Instructions INHALATION Q6H 01/20/20 aerosol inhaler (Ventolin HFA) PRN #8.5 gram dicyclomine 20 mg tablet See Rx Instructions .ROUTE 01/20/20 .COMPLEX #60 tablet levothyroxine 25 mcg tablet 25 mcg PO DAILY #90 tab 01/20/20 simvastatin 10 mg tablet (Zocor) 10 mg PO QAM #90 tab 01/20/20 varicella-zoster glycoE vacc-[id number] 0.5 ml IM ONCE #1 each 01/20/20 adj(PF) 50 mcg/0.5 mL IM susp, kit (Shingrix (PF)) gabapentin 100 mg capsule 100 mg PO BEDTIME #90 cap 05/11/20 ondansetron HCl 4 mg tablet 4 mg PO Q6H PRN #5 tab 02/05/21 (Zofran) Allergies Allergy/AdvReac Type Severity Reaction Status Date / Time codeine [CODEINE] Allergy Mild NAUSEA, Verified 06/26/21 11:24 VOMITING morphine [MORPHINE] Allergy Mild VOMITING Verified 06/26/21 11:24 Review of Systems Constitutional Constitutional: Reports as per HPI, Denies chills, Denies fatigue, Denies fever(s) and Denies headache(s) Eyes Eyes: Denies eye discharge and Denies irritation ENT Ears, Nose, Mouth, and Throat: Denies dysphagia, Denies vertigo, Denies dizziness, Denies headache(s), Denies neck pain, Denies sinus pain, Reports sinus pressure, Denies sore throat and Denies throat swelling Cardiovascular Comments: Slight chest tightness. No palpitations. Respiratory Comments: No dyspnea. No orthopnea. No wheezes. Gastrointestinal Gastrointestinal: Denies abdominal pain, Denies cramping and Denies dysphagia Genitourinary Genitourinary: Denies dysuria and Denies flank pain Musculoskeletal Musculoskeletal: Denies arthralgias and Denies neck pain Comments: No lower extremity edema. Integumentary/Breasts Skin/Breast: Denies pruritus, Denies lesions and Denies rash Neurologic Neurologic: Denies confusion, Denies vertigo, Denies dizziness and Denies headache(s) Psychiatric Psychiatric: Denies confusion Endocrine Endocrine: Denies fatigue Hematologic/Lymphatic On Anticoagulants: No Allergic/Immunologic Allergic/Immunologic: Denies throat swelling Patient History Medical History Abnormal Pap smear of cervix (~2009) Anxiety Carpal tunnel syndrome (~2006) Cerumen impaction Change in voice Chicken pox (~1949) Chronic anticoagulation Depression Diverticular disease DVT (deep venous thrombosis) Fatigue Foot pain (~2012) Hearing loss (~11/2014) Herpes Hyperlipidemia Hypertension Kidney disease Macular degeneration Mass of right foot Measles Osteoarthritis Pulmonary emboli Rheumatoid arthritis Right foot pain Right-sided heart failure Shortness of breath Superficial bruising Trigger finger Vocal cord paralysis Weight loss Surgical History Anesthesia Fractures (~1980) History of carpal tunnel repair (~2006) History of esophagogastroduodenoscopy (EGD) (12/12/16) History of neck surgery (~1993) History of shoulder surgery (~1993) Left fibular fracture (~2015) Status post arthroscopy (~2007) Status post breast biopsy (~1993) Status post breast biopsy (10/01/12) Status post breast biopsy (10/02/13) Status post bunionectomy (12/18/12) Status post hysterectomy (~1980) Status post rotator cuff repair (~2007) Family History Brother Age: 78 Hypertension Father Leukemia Pneumonia Mother No problems noted. Grandmother Diabetes mellitus Social History marital status: unmarried,living together household members: significant other occupational status: previously employed Smoking Status: Former smoker alcohol intake: former substance use type: does not use Smoking Status: Former smoker alcohol intake frequency: holidays/special occasions only Substance Use Type: does not use Exam Initial Vital Signs Initial Vital Signs: Vital Signs Pulse Rate 71 06/26/21 11:24 Respiratory Rate 20 06/26/21 11:24 Pulse Oximetry 97 06/26/21 11:24 Const General: cooperative, healthy appearing and comfortable HENOK Head: normal to inspection, normocephalic and atraumatic Face and sinus: sinuses nontender Mouth: oral mucosae normal Throat: posterior oropharynx normal Eyes General: appearance normal, both eyes and all related structures Neck Neck: No lymphadenopathy and No JVD Chest Chest: normal inspection of the chest Resp Effort & Inspection: normal respiratory effort Auscultation: clear to auscultation bilaterally Cardio Rate: regular rate Rhythm: regular rhythm Heart Sounds: S1 normal and S2 normal Back/Spine/Pelvis Back: normal to inspection, No back tenderness and No CVA tenderness Skin General: no rashes or lesions noted Neuro General: patient alert, patient awake and no focal motor deficits Extrem General: normal to inspection, full ROM and no calf tenderness Psych Mental Status: mental status grossly normal Course Course Course Narrative: The patient's workup is rather benign, other than 5 beat V-tach. This was an isolated episode of hours of cardiac monitoring. Her EKG is normal. Lab evaluation including electrolytes is normal. She has no significant cardiac or respiratory findings. She has no cardiac history. I reviewed the case with the hospitalist, . Giving the overall normal pattern, the concern is less than. Electrolytes are normal. The thought is that the inflammatory process associated with her URI may be contributing to the cardiac irritation. She is asymptomatic and hemodynamically stable at the time of discharge. She is advised to follow-up with a PCM. Orders Ordered: ED Orders 06/26/21 11:28 XR chest 1V Stat EKG-12 Lead Stat 06/26/21 12:00 Complete Blood Count AUTO DIFF Stat Comprehensive Metabolic Panel Stat Lipase Stat Magnesium Stat Troponin & CK Cardiac Panel Stat 06/26/21 12:30 COVID19 - ADMIT (SHOW HOST OR HOSTESS swab/PCR) Stat 06/26/21 14:43 EKG-12 Lead Stat Vital Signs Vital signs: Vital Signs - 8 hr 06/26/21 11:24 06/26/21 12:56 06/26/21 13:00 Pulse Rate 71 71 65 Respiratory Rate 20 31 H 38 H Blood Pressure Pulse Oximetry 97 97 97 06/26/21 13:30 06/26/21 14:02 06/26/21 14:04 Pulse Rate 65 82 66 Respiratory Rate 39 H 33 H 23 Blood Pressure 147/66 H Pulse Oximetry 95 98 06/26/21 14:30 06/26/21 15:00 06/26/21 15:10 Pulse Rate 66 72 72 Respiratory Rate 34 H 33 H 26 H Blood Pressure 143/69 H Pulse Oximetry 97 100 97 06/26/21 15:30 06/26/21 16:00 06/26/21 16:34 Pulse Rate 68 70 62 Respiratory Rate 32 H 26 H 30 H Blood Pressure 135/74 136/78 Pulse Oximetry 95 97 67 L 06/26/21 16:35 06/26/21 17:00 06/26/21 17:30 Pulse Rate 63 68 69 Respiratory Rate 18 36 H 31 H Blood Pressure 144/76 H Pulse Oximetry 99 95 95 MDM - URI/Sore Throat Lab Data Result diagrams: 06/26/21 12:00 06/26/21 12:00 Labs: Lab Results 06/26/21 06/26/21 06/26/21 Range/Units 12:00 12:00 12:30 WBC 8.3 (4.5-11.0) X10^3/uL RBC 4.62 (4.0-5.2) X10^6/uL Hgb 15.0 (12.0-16.0) g/dL Hct 44.5 (36-46) % MCV 96.2 (80-100) fL MCH 32.6 (26-34) PG MCHC 33.8 (30-36) % RDW 14.0 (11.6-14.8) % Plt Count 296 (150-400) X10^3/uL Neut % (Auto) 45.1 L (50-75) % Lymph % (Auto) 41.9 H (25-40) % Crosby % (Auto) 8.4 (3-14) % Eos % (Auto) 3.6 (2-4) % Baso % (Auto) 1.0 (0-2) % Neut # (Auto) 3800 (2845-7510) /uL Lymph # (Auto) 3500 (3460-8587) /uL Crosby # (Auto) 700 (0-900) /uL Eos # (Auto) 300 (0-450) /uL Baso # (Auto) 100 (0-100) /uL Sodium 140 (137-145) mmol/L Potassium 4.3 (3.4-5.1) mmol/L Chloride 107 (98-107) mmol/L Carbon Dioxide 25 (22-32) mmol/L BUN 21 H (7-17) mg/dL Creatinine 0.80 (0.52-1.04) mg/dL Estimated GFR > 60.0 (>60) mL/min BUN/Creatinine Ratio 26.3 H (6-22) Glucose 97 (80-110) mg/dL Calcium 9.9 (8.4-10.2) mg/dL Magnesium 2.0 (1.6-2.3) mg/dL Total Bilirubin 0.6 (0.2-1.3) mg/dL AST 33 (14-36) IU/L ALT 15 (<35) IU/L Alkaline Phosphatase 57 (38-126) U/L Total Creatine Kinase 149 H (30-135) U/L CK-MB (CK-2) 2.11 (<2.37) ng/mL CK-MB (CK-2) Rel Index 1.4 L (1.5-5.0) % Troponin I < 0.012 (0.01-0.034) ng/mL Total Protein 7.9 (6.3-8.2) g/dL Albumin 4.6 (3.5-5.0) g/dL Globulin 3.3 (1.7-4.1) g/dL Albumin/Globulin Ratio 1.4 (1.0-2.8) Lipase 110 (23-300) U/L SARS-CoV-2 (PCR) Negative (Negative) Imaging Data Chest x-ray: Radiologist's Impression: Normal ECG Data Attestation: I personally reviewed and interpreted this ECG as follows: (Normal sinus rhythm, rate 66 beats per minute. Q-waves in inferior leads. Normal intervals. No acute ST T wave changes. No ectopy. Brief episode of 5 beat V- tach on several hours of cardiac monitoring.) Discharge Plan Departure Patient Disposition: Home Clinical Impression: Viral upper respiratory illness, Arrhythmia Instructions: Common Cold Activity Restrictions/Additional Instructions: You appear to have a common head cold. There is no evidence of pneumonia. You had a very brief run of abnormal heartbeats, this is probably related to the activation of your current illness, there is no other obvious suggestion of cardiac issues. I suggest you follow-up with physician, to discuss the clinical finding here. Your heart seems fine which her doctor may want to do additional testing Return here as necessary. Prescriptions: No Action cholestyramine (with sugar) 4 gram powder in packet 4 gram PO BID PRN (Reason: ingestion of fatty meal) Qty: 20 1RF Rx Instructions: administer w/meal; avoid other meds within 1hr before or 4-6hr after dose valacyclovir 1 gram tablet 1,000 mg PO Q DAY Qty: 90 3RF Label Comments: takes every other day by choice levothyroxine 25 mcg tablet 25 mcg PO DAILY Qty: 90 3RF Rx Instructions: Take one tablet once a day on an empty stomach 30 minutes before breakfast. simvastatin [Zocor] 10 mg tablet 10 mg PO QAM Qty: 90 3RF gabapentin 100 mg capsule 100 mg PO BEDTIME Qty: 90 3RF Rx Instructions: Take 1 capsule at bedtime for sleeplessness, may increase as tolerated to 300mg/night over 1 week. ascorbic acid (vitamin C) 500 mg capsule 500 mg PO DAILY 0RF Label Comments: 1 year omega-3 fatty acids [Fish Oil Concentrate] 1,000 mg capsule 1,000 mg PO DAILY 0RF tduqncd-jsorsmkrd-eujt tablet 1 tab PO DAILY 0RF cholecalciferol (vitamin D3) 25 mcg (1,000 unit) capsule 3,000 unit PO DAILY 0RF dicyclomine 20 mg tablet See Rx Instructions .ROUTE .COMPLEX Qty: 60 1RF Dose Instruction: TAKE 1 TABLET BY MOUTH FOUR TIMES DAILY NEEDED FOR ABDOMINAL DISCOMFORT Rx Instructions: TAKE 1 TABLET BY MOUTH FOUR TIMES DAILY NEEDED FOR ABDOMINAL DISCOMFORT Shingrix (PF) 50 mcg/0.5 mL suspension for reconstitution 0.5 ml IM ONCE Qty: 1 0RF Rx Instructions: as a single dose albuterol sulfate [Ventolin HFA] 90 mcg/actuation HFA aerosol inhaler See Rx Instructions INHALATION Q6H PRN (Reason: shortness of breath or wheezing) Qty: 8.5 3RF Label Comments: 1-2 years Rx Instructions: 1-2 puffs inhaled every 6 hours as needed for SOB or wheezing aspirin 81 mg PO DIRECTED 0RF ondansetron HCl [Zofran] 4 mg tablet 4 mg PO Q6H PRN (Reason: nausea and vomiting) Qty: 5 0RF Referrals: Jcarlos Chairez MD [Primary Care Provider] -
== END 2021-06-26 18:11 | disposition home or self-care (01) ==
PROVIDERS: Emergency Provider Emergency Medicine; PCP Family Medicine
DX: J06.9 Acute upper respiratory infection, unspecified (principal); B97.89 Other viral agents as the cause of diseases classified elsewhere; I49.9 Cardiac arrhythmia, unspecified; Z87.891 Personal history of nicotine dependence; Z20.822 Contact with and (suspected) exposure to COVID-19
CPT/HCPCS: 36415; 71045; 80053; 82550; 82553; 83690; 83735; 84484; 85025; 87635; 93005; 99284; C9803

== ENCOUNTER → 2021-07-02 10:35 | Outpatient (CLI) | payer OTHER, SELFPAY ==
[2020-06-30 10:44] VITALS: BMI 33.6
--- NOTE | 2021-07-02 10:36 | DI.MG.S_ITS ---
BILATERAL DIGITAL SCREENING MAMMOGRAM 3D/2D WITH CAD: 07/02/2021 CLINICAL: Routine screening. Comparison is made to exams dated: 06/11/2020 ultrasound, 06/11/2020 mammogram, 05/27/2020 mammogram, and 04/05/2019 mammogram - [facility]. The tissue of both breasts is heterogeneously dense. This may lower the sensitivity of mammography. Current study was also evaluated with a Computer Aided Detection (CAD) system. There are benign calcifications in the right breast. No significant masses, calcifications, or other findings are seen in either breast. There has been no significant interval change. IMPRESSION: BENIGN There is no mammographic evidence of malignancy. A 1 year screening mammogram is recommended. This exam was interpreted at Station ID: [id number]. NOTE: For mammograms, a report in lay terms will be sent to the patient. Approximately 15% of breast malignancies will not be visualized mammographically. In the management of a palpable breast mass, a negative mammogram must not discourage biopsy of a clinically suspicious lesion. Electronically Signed By: Laura jiménez/sheila:07/02/2021 13:36:40 letter sent: Normal Exam ACR BI-RADS Category 2: Benign Finding(s) 3342F
== END ==
PROVIDERS: PCP Family Medicine; Referring Provider Family Medicine; Visit Provider Family Medicine
DX: Z12.31 Encounter for screening mammogram for malignant neoplasm of breast (principal)
CPT/HCPCS: 77063; 77067

== ENCOUNTER → 2021-10-26 18:35 | Outpatient (ROUT) | payer OTHER, SELFPAY ==
[2020-06-30 10:44] VITALS: BMI 33.6
== END ==
PROVIDERS: PCP Family Medicine; Visit Provider Family Medicine
DX: N89.8 Other specified noninflammatory disorders of vagina (principal)
CPT/HCPCS: 87070; 87205

== ENCOUNTER 2022-06-18 11:53 | Emergency (ER) | payer OTHER, SELFPAY ==
[2020-06-30 10:44] VITALS: BMI 33.6
[2022-06-18 11:57] VITALS: BP 110/72; PULSE 99; RESP 20; TEMP 37.1; O2SAT 100; BMI 33.6
--- NOTE | 2022-06-18 12:02 | DI.RAD.S_ITS ---
PROCEDURE: XR CHEST 2V INDICATIONS: cough, sob TECHNIQUE: 2 views of the chest were acquired. COMPARISON: [facility], CR, XR CHEST 1V, 06/26/2021, 11:46. FINDINGS: Surgical changes and devices: Bone anchor in the right humeral head. Surgical clips in the left neck. Lungs and pleura: Lungs are clear. No pleural effusions or pneumothorax. Mediastinum: Mediastinal contours are normal. Heart size is normal. Bones and chest wall: No suspicious bony abnormalities. Soft tissues appear unremarkable. IMPRESSION: No acute cardiopulmonary findings. Dictated by: Ortiz Martinez M.D. on 06/18/2022 at 11:30 Approved by: Ortiz Martinez M.D. on 06/18/2022 at 11:32
[2022-06-18 12:16] LABS: COVID19 -Nasal RAPID POSITIVE (Negative)
[2022-06-18 12:19] VITALS: BP 130/76; PULSE 70; RESP 16; O2SAT 99
[2022-06-18 13:31] VITALS: BP 122/78; PULSE 80; RESP 15; O2SAT 98
--- NOTE | 2022-06-18 13:31 | ED.URI ---
HPI - URI/Sore Throat <Maria Elena Dawkins, [facility] - Last Filed: 06/18/22 14:26> General Chief Complaint: Upper Respiratory Symptoms Stated Complaint: shortness of breath, coughing, fever Time Seen by Provider: 06/18/22 13:03 Source: patient Mode of arrival: Ambulatory History of Present Illness HPI Narrative: This is a 76-year-old female presents emergency department complaining of cough, congestion, intermittent shortness of breath for the last 2 days. States that her has COVID and they just got back from [place], she took a COVID test at home yesterday and it was negative. She is not anticoagulated, does not have significant medical history. Denies history of asthma or COPD. She denies vomiting, fever chills. She denies difficulty breathing or wheezing. Related Data Home Medications Medication Instructions Recorded Confirmed ascorbic acid (vitamin C) 500 mg 500 mg PO DAILY 02/14/18 02/05/21 capsule lonjlel-ehnccatyn-iibh tablet 1 tab PO DAILY 02/14/18 02/05/21 omega-3 fatty acids 1,000 mg 1,000 mg PO DAILY 02/14/18 02/05/21 capsule (Fish Oil Concentrate) cholecalciferol (vitamin D3) 25 3,000 unit PO DAILY 07/01/20 02/05/21 mcg (1,000 unit) capsule aspirin 81 mg PO DIRECTED 02/05/21 02/05/21 Previous Rx's Medication Instructions Recorded cholestyramine (with sugar) 4 gram 4 gram PO BID PRN ingestion of 04/30/19 powder for susp in a packet fatty meal #20 ea valacyclovir 1 gram tablet 1,000 mg PO Q DAY HSV #90 tabs 06/28/19 albuterol sulfate 90 mcg/actuation See Rx Instructions inhalation Q6H 01/20/20 aerosol inhaler (Ventolin HFA) PRN shortness of breath or wheezing #8.5 grams dicyclomine 20 mg tablet See Rx Instructions .Route 01/20/20 .COMPLEX #60 tabs levothyroxine 25 mcg tablet 25 mcg PO DAILY #90 tabs 01/20/20 simvastatin 10 mg tablet (Zocor) 10 mg PO QAM #90 tabs 01/20/20 varicella-zoster glycoE [id number] 0.5 ml IM ONCE #1 ea 01/20/20 adj(PF) 50 mcg/0.5 mL IM susp, kit (Shingrix (PF)) gabapentin 100 mg capsule 100 mg PO BEDTIME #90 caps 05/11/20 ondansetron HCl 4 mg tablet 4 mg PO Q6H PRN nausea and 02/05/21 (Zofran) vomiting #5 tabs benzocaine 15 mg-menthol 3.6 mg 1 karen mucous membrane Q3-4H PRN 06/18/22 lozenges (Cepacol Sore Throat sore throat #16 ea (benzocaine-menthol)) benzonatate 200 mg capsule 200 mg PO BID PRN cough #14 caps 06/18/22 nirmatrelvir 300 mg (150 mg See Rx Instructions PO .COMPLEX 06/18/22 x2)-ritonavir 100 mg tablet,dose #30 ea pack(EUA) (Paxlovid) Allergies Allergy/AdvReac Type Severity Reaction Status Date / Time codeine [CODEINE] Allergy Mild NAUSEA, Verified 06/18/22 12:01 VOMITING morphine [MORPHINE] Allergy Mild VOMITING Verified 06/18/22 12:01 Review of Systems <NAVI Mcdowell - Last Filed: 06/18/22 14:26> Review of Systems ROS Unobtainable: All systems reviewed & are unremarkable except as noted in HPI and below Patient History <NAVI Mcdowell - Last Filed: 06/18/22 14:26> Medical History Abnormal Pap smear of cervix (~2009) Anxiety Carpal tunnel syndrome (~2006) Cerumen impaction Change in voice Chicken pox (~1949) Chronic anticoagulation Depression Diverticular disease DVT (deep venous thrombosis) Fatigue Foot pain (~2012) Hearing loss (~11/2014) Herpes Hyperlipidemia Hypertension Kidney disease Macular degeneration Mass of right foot Measles Osteoarthritis Pulmonary emboli Rheumatoid arthritis Right foot pain Right-sided heart failure Shortness of breath Superficial bruising Trigger finger Vocal cord paralysis Weight loss Surgical History Anesthesia Fractures (~1980) History of carpal tunnel repair (~2006) History of esophagogastroduodenoscopy (EGD) (12/12/16) History of neck surgery (~1993) History of shoulder surgery (~1993) Left fibular fracture (~2015) Status post arthroscopy (~2007) Status post breast biopsy (~1993) Status post breast biopsy (10/01/12) Status post breast biopsy (10/02/13) Status post bunionectomy (12/18/12) Status post hysterectomy (~1980) Status post rotator cuff repair (~2007) Family History Brother Age: 79 Hypertension Father Leukemia Pneumonia Mother No problems noted. Grandmother Diabetes mellitus Social History marital status: unmarried,living together household members: significant other occupational status: previously employed Smoking Status: Former smoker alcohol intake: former substance use type: does not use Smoking Status: Former smoker alcohol intake frequency: holidays/special occasions only Substance Use Type: does not use Exam <NAVI Mcdowell - Last Filed: 06/18/22 14:26> Narrative Exam Narrative: Reviewed vitals signs and nursing notes. General: cooperative, in no acute distress, well groomed HEENT: symmetrical facial expressions, moist mucous membranes, neck is supple CV: regular rate and rhythm, warm extremities Respiratory: Without abnormal breath sounds, normal work of breathing, without tachypnea increased work of breathing or hypoxia. Occasional cough nonproductive GI: abdomen soft, nontender to palpation in all quadrants, nondistended, without masses, rebound tenderness or CVA tenderness bilaterally. MSK: moves all extremities, neurovascularly intact, no weakness, normal tone Skin: brisk capillary refill, without rash or wound Neuro: normal speech and cognition, A&O x3, ambulatory, clear speech Initial Vital Signs Initial Vital Signs: Vital Signs Temperature 98.8 F 06/18/22 11:57 Pulse Rate 99 H 06/18/22 11:57 Respiratory Rate 20 06/18/22 11:57 Blood Pressure 110/72 06/18/22 11:57 Pulse Oximetry 100 06/18/22 11:57 Oxygen Delivery Method Room Air 06/18/22 11:57 <Maricruz Cuenca DO - Last Filed: 06/19/22 13:20> Initial Vital Signs Initial Vital Signs: Vital Signs Temperature 98.8 F 06/18/22 11:57 Pulse Rate 99 H 06/18/22 11:57 Respiratory Rate 20 06/18/22 11:57 Blood Pressure 110/72 06/18/22 11:57 Pulse Oximetry 100 06/18/22 11:57 Oxygen Delivery Method Room Air 06/18/22 11:57 Course <NAVI Mcdowell - Last Filed: 06/18/22 14:26> Orders Ordered: ED Orders 06/18/22 12:02 XR chest 2V Stat 06/18/22 12:03 COVID19 -Nasal RAPID Stat Vital Signs Vital signs: Vital Signs - 8 hr 06/18/22 11:57 06/18/22 12:19 06/18/22 13:31 Temperature 98.8 F Pulse Rate 99 H 70 80 Respiratory Rate 20 16 15 Blood Pressure 110/72 130/76 122/78 Pulse Oximetry 100 99 98 Oxygen Delivery Method Room Air Room Air Room Air <Maricruz Cuenca DO - Last Filed: 06/19/22 13:20> Orders Ordered: ED Orders 06/18/22 12:02 XR chest 2V Stat 06/18/22 12:03 COVID19 -Nasal RAPID Stat Vital Signs Vital signs: Vital Signs - 8 hr 06/18/22 11:57 06/18/22 12:19 06/18/22 13:31 Temperature 98.8 F Pulse Rate 99 H 70 80 Respiratory Rate 20 16 15 Blood Pressure 110/72 130/76 122/78 Pulse Oximetry 100 99 98 Oxygen Delivery Method Room Air Room Air Room Air MDM - URI/Sore Throat <NAVI Mcdowell - Last Filed: 06/18/22 14:26> Lab Data Labs: Lab Results 06/18/22 Range/Units 12:03 SARS-CoV-2 (PCR) Positive H (Negative) Imaging Data Chest x-ray: Radiologist's Impression: PROCEDURE:? XR CHEST 2V ? INDICATIONS:? cough, sob ? TECHNIQUE:? 2 views of the chest were acquired.? ? COMPARISON:? [facility], , XR CHEST 1V, 06/26/2021, 11:46. ? FINDINGS:? ? Surgical changes and devices:? Bone anchor in the right humeral head.? Surgical clips in the left neck. ? Lungs and pleura:? Lungs are clear.? No pleural effusions or pneumothorax.? ? Mediastinum:? Mediastinal contours are normal.? Heart size is normal.? ? Bones and chest wall:? No suspicious bony abnormalities.? Soft tissues appear unremarkable.? ? IMPRESSION:? No acute cardiopulmonary findings. ? ? Dictated by: Ortiz Martinez M.D. on 06/18/2022 at 11:30 ? ? Approved by: Ortiz Martinez M.D. on 06/18/2022 at 11:32 ? MDM Narrative Medical decision making narrative: Chief Complaint: Cough, congestion, COVID exposure Independent historian: Patient Differential diagnoses include but are not limited to: Upper respiratory viral infection including COVID, influenza, and others, pneumonia-bacterial or viral, croup, pertussis, asthma/reactive airway exacerbation, allergic reaction, pharyngitis, bronchitis, GERD, postnasal drip. Respiratory PCR: Positive for COVID-19 Do not suspect underlying cardiopulmonary process. Patient is nontoxic appearing and not in need of emergent medical intervention. Patient is tolerating p.o., Other possible diagnosis' considered: viral URI, influenza, COVID, pharyngitis, GERD, bronchitis, asthma, pertussis, medication side effect, postnasal discharge, sinusitis, appendicitis, dehydration. Recommended rest, hydration, tylenol and NSAIDS for fever and/or pain. Return to ED for worsening symptoms such as SOB, chest pain, inability to take adequate oral fluids, fever, or productive cough. I have independently reviewed the patient's vital signs and nursing notes as well as prior records if available. Pertinent lab findings reviewed: COVID PCR is positive Pertinent Imaging reviewed: Chest x-ray is negative for focal consolidation or other cardiopulmonary abnormality Patient has had 2 days of symptoms, has a history of hyperlipidemia, and is concerned about pneumonia since she is been hospitalized for it in the past. Will treat her with Paxlovid due to her age, BMI, and comorbid conditions. She understands to cut her statin in half or take it every other day, she was given Tessalon Perles, Cepacol throat lozenges for her symptoms and encouraged to stay hydrated, use Mucinex for productive cough as needed, follow up with her regular doctor and return to the emergency department for new or worsening symptoms. She takes baby aspirin daily and is encouraged to continue doing so. Social considerations that may affect disposition: none Questions are addressed and there is agreement with the plan and for follow-up. Patient is appropriate for outpatient management. MIPS: This encounter doesn't have any diagnosis' associated with MIPS criteria. <Maricruz Cuenca, DO - Last Filed: 06/19/22 13:20> Lab Data Labs: Lab Results 06/18/22 Range/Units 12:03 SARS-CoV-2 (PCR) Positive H (Negative) Discharge Plan Departure Patient Disposition: Home Clinical Impression: COVID-19 Instructions: COVID-19 Activity Restrictions/Additional Instructions: *You have been diagnosed with COVID-19. I am sorry for your symptoms, please use Mucinex for productive cough, Flonase nasal spray as needed for congestion, Zyrtec or Claritin for runny nose or sinus congestion, Tylenol and leave as needed for pain or fever. Please drink plenty of fluids, I prescribed for you a medication called Paxlovid to take for COVID for the next 5 days. Please cut your simvastatin in half or take it every other day. Follow-up with Dr. Chairez as needed. It was nice to meet you I hope you feel better soon. *What to do: *Please continue to take your regular medications as directed. [ x] New medication prescriptions sent to your pharmacy: [[facility] ] [ ] New medication written as a paper prescription [ ] No new medications given *Please follow up with your primary care provider in 2-3 days, call for an appointment. Let them know you were seen in the Emergency Department and that we asked that you be seen for follow-up. We will electronically transmit a record of today's note if your PCP is in our system *If you do not have a primary care provider please contact [phone] to establish care with one of the [facility] primary care providers. *Return to Emergency Department if you should have any new, worsening, or concerning symptoms, such as [fever greater than 101F, chills, worsening pain, persistent vomiting or other bothersome symptoms]. Prescriptions: New Paxlovid (EUA) 300 mg (150 mg x 2)-100 mg tablets,dose pack See Rx Instructions .ROUTE .COMPLEX Qty: 30 0RF Rx Instructions: take TWO 150 mg tablets of nirmatrelvir with ONE 100 mg tablet of ritonavir twice daily for 5 days Cepacol Sore Throat (jennifer-men) 15-3.6 mg lozenge 1 karen mucous membrane Q3-4H PRN (Reason: sore throat) Qty: 16 0RF benzonatate 200 mg capsule 200 mg PO BID PRN (Reason: cough) Qty: 14 0RF No Action cholestyramine (with sugar) 4 gram powder in packet 4 gram PO BID PRN (Reason: ingestion of fatty meal) Qty: 20 1RF Rx Instructions: administer w/meal; avoid other meds within 1hr before or 4-6hr after dose valacyclovir 1 gram tablet 1,000 mg PO Q DAY Qty: 90 3RF Patient Comments: takes every other day by choice levothyroxine 25 mcg tablet 25 mcg PO DAILY Qty: 90 3RF Rx Instructions: Take one tablet once a day on an empty stomach 30 minutes before breakfast. simvastatin [Zocor] 10 mg tablet 10 mg PO QAM Qty: 90 3RF gabapentin 100 mg capsule 100 mg PO BEDTIME Qty: 90 3RF Rx Instructions: Take 1 capsule at bedtime for sleeplessness, may increase as tolerated to 300mg/night over 1 week. ascorbic acid (vitamin C) 500 mg capsule 500 mg PO DAILY Patient Comments: 1 year omega-3 fatty acids [Fish Oil Concentrate] 1,000 mg capsule 1,000 mg PO DAILY xhmicwr-kgcllythi-mecv tablet 1 tab PO DAILY cholecalciferol (vitamin D3) 25 mcg (1,000 unit) capsule 3,000 unit PO DAILY dicyclomine 20 mg tablet See Rx Instructions .ROUTE .COMPLEX Qty: 60 1RF Dose Instruction: TAKE 1 TABLET BY MOUTH FOUR TIMES DAILY NEEDED FOR ABDOMINAL DISCOMFORT Rx Instructions: TAKE 1 TABLET BY MOUTH FOUR TIMES DAILY NEEDED FOR ABDOMINAL DISCOMFORT Shingrix (PF) 50 mcg/0.5 mL suspension for reconstitution 0.5 ml IM ONCE Qty: 1 0RF Rx Instructions: as a single dose albuterol sulfate [Ventolin HFA] 90 mcg/actuation HFA aerosol inhaler See Rx Instructions INHALATION Q6H PRN (Reason: shortness of breath or wheezing) Qty: 8.5 3RF Patient Comments: 1-2 years Rx Instructions: 1-2 puffs inhaled every 6 hours as needed for SOB or wheezing aspirin 81 mg PO DIRECTED ondansetron HCl [Zofran] 4 mg tablet 4 mg PO Q6H PRN (Reason: nausea and vomiting) Qty: 5 0RF Referrals: Jcarlos Chairez MD [Primary Care Provider] - Stand Alone Forms: Patient Portal/API <Maricruz Cuenca DO - Last Filed: 06/19/22 13:20> Cosign ED Attending Cosignature Attestation: I was immediately available in the department for consultation. Supervised by Maricruz Cuenca DO
== END 2022-06-18 13:33 | disposition home or self-care (01) ==
PROVIDERS: Emergency Medicine; Emergency Provider Nurse Practitioner Critical Care Medicine; PCP Family Medicine
DX: U07.1 COVID-19 (principal)
CPT/HCPCS: 71046; 87635; 99283; C9803

== ENCOUNTER → 2022-07-06 07:47 | Outpatient (CLI) | payer OTHER, SELFPAY ==
[2020-06-30 10:44] VITALS: BMI 33.6
--- NOTE | 2022-07-06 | DI.MG.S_ITS ---
BILATERAL DIGITAL SCREENING MAMMOGRAM 3D/2D WITH CAD: 07/06/2022 CLINICAL: Routine screening. Comparison is made to exams dated: 07/02/2021 mammogram, 05/27/2020 mammogram, and 04/05/2019 mammogram - [facility]. Both breasts are heterogeneously dense, which may obscure small masses (category c / 51-75% glandular tissue). Current study was also evaluated with a Computer Aided Detection (CAD) system. There are benign calcifications in the right breast. No significant masses, calcifications, or other findings are seen in either breast. There has been no significant interval change. IMPRESSION: BENIGN There is no mammographic evidence of malignancy. A 1 year screening mammogram is recommended. Based on the Tyrer Cuzick model (a risk assessment model) the patient's lifetime risk is 2.7% and her 10 year risk is 0.0%. According to the ACR, ACS, and NCCN guidelines, an annual breast MRI exam along with mammogram is recommended if the patient's lifetime risk is 20% or greater. This exam was interpreted at Station ID: [id number]. NOTE: For mammograms, a report in lay terms will be sent to the patient. Approximately 15% of breast malignancies will not be visualized mammographically. In the management of a palpable breast mass, a negative mammogram must not discourage biopsy of a clinically suspicious lesion. Electronically Signed By: Kemar donahue/sheila:07/06/2022 08:40:58 letter sent: Normal Exam ACR BI-RADS Category 2: Benign Finding(s) 3342F
== END ==
PROVIDERS: PCP Family Medicine; Referring Provider Family Medicine; Visit Provider Family Medicine
DX: Z12.31 Encounter for screening mammogram for malignant neoplasm of breast (principal)
CPT/HCPCS: 77063; 77067

== ENCOUNTER 2022-11-16 06:00 | Emergency (ER) | payer OTHER, SELFPAY ==
[2020-06-30 10:44] VITALS: BMI 33.6
[2022-11-16] VITALS (11 sets, daily range): BP systolic 112–136; BP diastolic 56–68; PULSE 67–102; RESP 11–29; TEMP 36.7; O2SAT 89–98; BMI 32.8
--- NOTE | 2022-11-16 06:08 | DI.RAD.S_ITS ---
PROCEDURE: XR CHEST 1V INDICATIONS: eval for pneumonia TECHNIQUE: One view of the chest was acquired. COMPARISON: [facility], CR, XR CHEST 2V, 06/18/2022, 12:00. [facility], CR, XR CHEST 1V, 06/26/2021, 11:46. FINDINGS: Surgical changes and devices: None. Lungs and pleura: Question a nodule or artifact in the left lower lung zone. No pleural effusions or pneumothorax. Mediastinum: Mediastinal contours appear normal. Heart size is normal. Bones and chest wall: No suspicious bony lesions. Overlying soft tissues appear unremarkable. IMPRESSION: 1. No acute cardiopulmonary disease. 2. Question a nodule or artifact in the left lower lung zone. Consider a standard two view chest or chest CT for follow-up. No significant discrepancy with the highway administrative engineer radiology preliminary report. Dictated by: Cora Dobbs M.D. on 11/16/2022 at 8:15 Approved by: Cora Dobbs M.D. on 11/16/2022 at 8:17
--- NOTE | 2022-11-16 06:36 | ED.GENADULT ---
HPI - General Adult <Tru Flores DO - Last Filed: 11/16/22 21:32> General Chief complaint: Shortness of Breath/Dyspnea Stated complaint: possible phenomonia Time Seen by Provider: 11/16/22 06:08 Source: patient Mode of arrival: Ambulatory Limitations: no limitations History of Present Illness HPI narrative: Patient is a 76-year-old female. Has had approximately 5 days of URI like symptoms to include sinus congestion and a sore throat and a cough. She states that over the past day or so she is felt like her breathing has gotten worse. Has had subjective fevers. No vomiting. No abdominal pain. No chest pain. She is had pneumonia in the past and she was concerned about that diagnosis because of how she feels today. She is also had a pulmonary embolism in the past. It was several years ago after she injured her hamstring. She is just on a baby aspirin. She is no underlying lung pathology to include COPD or emphysema. Related Data Home Medications Medication Instructions Recorded Confirmed ascorbic acid (vitamin C) 500 mg 500 mg PO DAILY 02/14/18 02/05/21 capsule futaomz-wueuyptwl-salo tablet 1 tab PO DAILY 02/14/18 02/05/21 omega-3 fatty acids 1,000 mg 1,000 mg PO DAILY 02/14/18 02/05/21 capsule (Fish Oil Concentrate) cholecalciferol (vitamin D3) 25 3,000 unit PO DAILY 07/01/20 02/05/21 mcg (1,000 unit) capsule aspirin 81 mg PO DIRECTED 02/05/21 02/05/21 Previous Rx's Medication Instructions Recorded cholestyramine (with sugar) 4 gram 4 gram PO BID PRN ingestion of 04/30/19 powder for susp in a packet fatty meal #20 ea valacyclovir 1 gram tablet 1,000 mg PO Q DAY HSV #90 tabs 06/28/19 albuterol sulfate 90 mcg/actuation See Rx Instructions inhalation Q6H 01/20/20 aerosol inhaler (Ventolin HFA) PRN shortness of breath or wheezing #8.5 grams dicyclomine 20 mg tablet See Rx Instructions .Route 01/20/20 .COMPLEX #60 tabs levothyroxine 25 mcg tablet 25 mcg PO DAILY #90 tabs 01/20/20 simvastatin 10 mg tablet (Zocor) 10 mg PO QAM #90 tabs 01/20/20 varicella-zoster glycoE [id number] 0.5 ml IM ONCE #1 ea 01/20/20 adj(PF) 50 mcg/0.5 mL IM susp, kit (Shingrix (PF)) gabapentin 100 mg capsule 100 mg PO BEDTIME #90 caps 05/11/20 ondansetron HCl 4 mg tablet 4 mg PO Q6H PRN nausea and 02/05/21 (Zofran) vomiting #5 tabs benzocaine 15 mg-menthol 3.6 mg 1 karen mucous membrane Q3-4H PRN 06/18/22 lozenges (Cepacol Sore Throat sore throat #16 ea (benzocaine-menthol)) benzonatate 200 mg capsule 200 mg PO BID PRN cough #14 caps 06/18/22 nirmatrelvir 300 mg (150 mg See Rx Instructions PO .COMPLEX 06/18/22 x2)-ritonavir 100 mg tablet,dose #30 ea pack (Paxlovid) albuterol sulfate 90 mcg/actuation 2 puff inhalation Q4-6H PRN 11/16/22 aerosol inhaler shortness of breath or wheezing #8.5 grams benzonatate 200 mg capsule 200 mg PO BID-TID PRN cough #20 11/16/22 caps hydrocodone-homatropine 5 mg-1.5 5 ml PO Q6H PRN cough #100 mL 11/16/22 mg/5 mL (5 mL) oral syrup Allergies Allergy/AdvReac Type Severity Reaction Status Date / Time codeine [CODEINE] Allergy Mild NAUSEA, Verified 06/18/22 12:01 VOMITING morphine [MORPHINE] Allergy Mild VOMITING Verified 06/18/22 12:01 Review of Systems <Tru Flores DO - Last Filed: 11/16/22 21:32> Constitutional Constitutional: Reports system reviewed and no additional complaints, except as documented Cardiovascular Cardiovascular: Reports system reviewed and no additional complaints, except as documented Respiratory Respiratory: Reports system reviewed and no additional complaints, except as documented Gastrointestinal Gastrointestinal: Reports system reviewed and no additional complaints, except as documented Integumentary/Breasts Skin/Breast: Reports system reviewed and no additional complaints, except as documented Neurologic Neurologic: Reports system reviewed and no additional complaints, except as documented Patient History <Tru Flores DO - Last Filed: 11/16/22 21:32> Medical History Abnormal Pap smear of cervix (~2009) Anxiety Carpal tunnel syndrome (~2006) Cerumen impaction Change in voice Chicken pox (~1949) Chronic anticoagulation Depression Diverticular disease DVT (deep venous thrombosis) Fatigue Foot pain (~2012) Hearing loss (~11/2014) Herpes Hyperlipidemia Hypertension Kidney disease Macular degeneration Mass of right foot Measles Osteoarthritis Pulmonary emboli Rheumatoid arthritis Right foot pain Right-sided heart failure Shortness of breath Superficial bruising Trigger finger Vocal cord paralysis Weight loss Surgical History Anesthesia Fractures (~1980) History of carpal tunnel repair (~2006) History of esophagogastroduodenoscopy (EGD) (12/12/16) History of neck surgery (~1993) History of shoulder surgery (~1993) Left fibular fracture (~2015) Status post arthroscopy (~2007) Status post breast biopsy (~1993) Status post breast biopsy (10/01/12) Status post breast biopsy (10/02/13) Status post bunionectomy (12/18/12) Status post hysterectomy (~1980) Status post rotator cuff repair (~2007) Family History Brother Age: 79 Hypertension Father Leukemia Pneumonia Mother No problems noted. Grandmother Diabetes mellitus Social History marital status: unmarried,living together household members: significant other occupational status: previously employed Smoking Status: Former smoker alcohol intake: former substance use type: does not use Smoking Status: Former smoker alcohol intake frequency: holidays/special occasions only Substance Use Type: does not use Exam <Tru Flores DO - Last Filed: 11/16/22 21:32> Initial Vital Signs Initial Vital Signs: Vital Signs Temperature 98.1 F 11/16/22 06:07 Pulse Rate 100 H 11/16/22 06:07 Respiratory Rate 18 11/16/22 06:07 Blood Pressure 136/67 11/16/22 06:07 Pulse Oximetry 93 11/16/22 06:07 Oxygen Delivery Method Room Air 11/16/22 06:07 Const General: cooperative, comfortable, diaphoretic and No ill appearing HENMT Head: normal to inspection and normocephalic Resp Effort & Inspection: normal respiratory effort Auscultation: clear to auscultation bilaterally Cardio Rate: regular rate Rhythm: regular rhythm GI Inspection: normal to inspection Skin General: no rashes or lesions noted Extrem General: No edema <Marilou Negro, DO - Last Filed: 11/16/22 11:12> Initial Vital Signs Initial Vital Signs: Vital Signs Temperature 98.1 F 11/16/22 06:07 Pulse Rate 100 H 11/16/22 06:07 Respiratory Rate 18 11/16/22 06:07 Blood Pressure 136/67 11/16/22 06:07 Pulse Oximetry 93 11/16/22 06:07 Oxygen Delivery Method Room Air 11/16/22 06:07 Course <Tru Flores, DO - Last Filed: 11/16/22 21:32> Orders Ordered: Discontinued Medications Albuterol/Ipratropium (Albuterol/Ipratropium 3 Ml Ampul) 3 ml INH NOW ONE Stop: 11/16/22 07:22 Last Admin: 11/16/22 07:31 Dose: 3 ml Documented By: EDWARD Vital Signs Vital signs: Vital Signs - 8 hr 11/16/22 06:07 11/16/22 06:50 11/16/22 06:31 Temperature 98.1 F Pulse Rate 100 H Respiratory Rate 18 Blood Pressure 136/67 113/68 Pulse Oximetry 93 89 L Oxygen Delivery Method Room Air Room Air Oxygen Flow Rate 11/16/22 06:31 11/16/22 06:51 11/16/22 07:36 Temperature Pulse Rate 83 67 Respiratory Rate 11 L Blood Pressure Pulse Oximetry 92 95 98 Oxygen Delivery Method Nasal Cannula Nasal Cannula Oxygen Flow Rate 2 2 11/16/22 07:00 11/16/22 07:00 11/16/22 07:30 Temperature Pulse Rate 67 68 Respiratory Rate 20 18 Blood Pressure 112/56 L Pulse Oximetry 93 96 Oxygen Delivery Method Oxygen Flow Rate 11/16/22 07:48 11/16/22 07:48 11/16/22 08:00 Temperature Pulse Rate 77 Respiratory Rate 29 H Blood Pressure 128/63 122/64 Pulse Oximetry 94 Oxygen Delivery Method Room Air Oxygen Flow Rate 11/16/22 08:00 11/16/22 08:26 11/16/22 08:24 Temperature Pulse Rate 81 102 H Respiratory Rate 26 H Blood Pressure 131/61 Pulse Oximetry 94 94 Oxygen Delivery Method Oxygen Flow Rate 11/16/22 08:24 Temperature Pulse Rate 84 Respiratory Rate 14 Blood Pressure Pulse Oximetry 95 Oxygen Delivery Method Oxygen Flow Rate <Marilou Negro DO - Last Filed: 11/16/22 11:12> Orders Ordered: Discontinued Medications Albuterol/Ipratropium (Albuterol/Ipratropium 3 Ml Ampul) 3 ml INH NOW ONE Stop: 11/16/22 07:22 Last Admin: 11/16/22 07:31 Dose: 3 ml Documented By: EDWARD Vital Signs Vital signs: Vital Signs - 8 hr 11/16/22 06:07 11/16/22 06:50 11/16/22 06:31 Temperature 98.1 F Pulse Rate 100 H Respiratory Rate 18 Blood Pressure 136/67 113/68 Pulse Oximetry 93 89 L Oxygen Delivery Method Room Air Room Air Oxygen Flow Rate 11/16/22 06:31 11/16/22 06:51 11/16/22 07:36 Temperature Pulse Rate 83 67 Respiratory Rate 11 L Blood Pressure Pulse Oximetry 92 95 98 Oxygen Delivery Method Nasal Cannula Nasal Cannula Oxygen Flow Rate 2 2 11/16/22 07:00 11/16/22 07:00 11/16/22 07:30 Temperature Pulse Rate 67 68 Respiratory Rate 20 18 Blood Pressure 112/56 L Pulse Oximetry 93 96 Oxygen Delivery Method Oxygen Flow Rate 11/16/22 07:48 11/16/22 07:48 11/16/22 08:00 Temperature Pulse Rate 77 Respiratory Rate 29 H Blood Pressure 128/63 122/64 Pulse Oximetry 94 Oxygen Delivery Method Room Air Oxygen Flow Rate 11/16/22 08:00 11/16/22 08:26 11/16/22 08:24 Temperature Pulse Rate 81 102 H Respiratory Rate 26 H Blood Pressure 131/61 Pulse Oximetry 94 94 Oxygen Delivery Method Oxygen Flow Rate 11/16/22 08:24 Temperature Pulse Rate 84 Respiratory Rate 14 Blood Pressure Pulse Oximetry 95 Oxygen Delivery Method Oxygen Flow Rate Medical Decision Making <DO Rubens Damon Last Filed: 11/16/22 21:32> Lab Data 11/16/22 07:32 11/16/22 07:32 Labs: Lab Results 11/16/22 11/16/22 11/16/22 Range/Units 06:42 07:32 07:32 WBC 10.1 (4.5-11.0) X10^3/uL RBC 4.63 (4.0-5.2) X10^6/uL Hgb 14.9 (12.0-16.0) g/dL Hct 44.4 (36-46) % MCV 95.9 (80-100) fL MCH 32.3 (26-34) PG MCHC 33.7 (30-36) % RDW 13.9 (11.6-14.8) % Plt Count 286 (150-400) X10^3/uL Neut % (Auto) 63.3 (50-75) % Lymph % (Auto) 25.3 (25-40) % Kendall % (Auto) 6.5 (3-14) % Eos % (Auto) 3.4 (2-4) % Baso % (Auto) 1.5 (0-2) % Neut # (Auto) 6400 (9347-2819) /uL Lymph # (Auto) 2500 (1638-2247) /uL Kendall # (Auto) 700 (0-900) /uL Eos # (Auto) 300 (0-450) /uL Baso # (Auto) 200 H (0-100) /uL D-Dimer (<500) ng/ml Sodium 140 (137-145) mmol/L Potassium 4.0 (3.4-5.1) mmol/L Chloride 104 (98-107) mmol/L Carbon Dioxide 29 (22-32) mmol/L BUN 20 H (7-17) mg/dL Creatinine 0.86 (0.52-1.04) mg/dL Estimated GFR > 60 (>60) mL/min BUN/Creatinine Ratio 23.3 H (6-22) Glucose 135 H (80-110) mg/dL Calcium 9.5 (8.4-10.2) mg/dL Total Bilirubin 0.6 (0.2-1.3) mg/dL AST 23 (14-36) IU/L ALT 19 (<35) IU/L Alkaline Phosphatase 74 (38-126) U/L Total Creatine Kinase 58 (30-135) U/L Troponin I < 0.012 (0.01-0.034) ng/mL NT-Pro-B Natriuret Pep (<450) pg/mL Total Protein 7.4 (6.3-8.2) g/dL Albumin 4.3 (3.5-5.0) g/dL Globulin 3.1 (1.7-4.1) g/dL Albumin/Globulin Ratio 1.4 (1.0-2.8) Lipase 348 H (23-300) U/L Procalcitonin 0.06 (<0.5) ng/mL Chlamy pneumoniae PCR Not detected (Not Detect) Adenovirus (PCR) Not detected (Not Detect) B. pertussis DNA (PCR) Not detected (Not Detecte) B.parapertussis DNA PCR Not detected (Not Detecte) Coronavirus OC43 (PCR) Not detected (Not Detect) Coronavirus HKU1 (PCR) Not detected (Not Detect) Coronavirus 229E (PCR) Not detected (Not Detect) SARS-CoV-2 (PCR) Not detected (Not Detecte) Coronavirus NL63 (PCR) Not detected (Not Detect) Human Metapneumovir PCR Not detected (Not Detect) Influenza Type A (PCR) Not detected (Not Detect) Influenza Type B (PCR) Not detected (Not Detect) M. pneumoniae (PCR) Not detected (Not Detect) Parainfluenza 1 (PCR) Not detected (Not Detect) Parainfluenza 2 (PCR) Not detected (Not Detect) Parainfluenza 3 (PCR) Not detected (Not Detect) Parainfluenza 4 (PCR) Not detected (Not Detect) RSV (PCR) Not detected (Not Detect) Entero/Rhino (PCR) Detected H (Not Detect) 11/16/22 11/16/22 Range/Units 07:32 07:32 WBC (4.5-11.0) X10^3/uL RBC (4.0-5.2) X10^6/uL Hgb (12.0-16.0) g/dL Hct (36-46) % MCV (80-100) fL MCH (26-34) PG MCHC (30-36) % RDW (11.6-14.8) % Plt Count (150-400) X10^3/uL Neut % (Auto) (50-75) % Lymph % (Auto) (25-40) % Kendall % (Auto) (3-14) % Eos % (Auto) (2-4) % Baso % (Auto) (0-2) % Neut # (Auto) (3860-1843) /uL Lymph # (Auto) (4988-5261) /uL Kendall # (Auto) (0-900) /uL Eos # (Auto) (0-450) /uL Baso # (Auto) (0-100) /uL D-Dimer 450 (<500) ng/ml Sodium (137-145) mmol/L Potassium (3.4-5.1) mmol/L Chloride (98-107) mmol/L Carbon Dioxide (22-32) mmol/L BUN (7-17) mg/dL Creatinine (0.52-1.04) mg/dL Estimated GFR (>60) mL/min BUN/Creatinine Ratio (6-22) Glucose (80-110) mg/dL Calcium (8.4-10.2) mg/dL Total Bilirubin (0.2-1.3) mg/dL AST (14-36) IU/L ALT (<35) IU/L Alkaline Phosphatase (38-126) U/L Total Creatine Kinase (30-135) U/L Troponin I (0.01-0.034) ng/mL NT-Pro-B Natriuret Pep 49 (<450) pg/mL Total Protein (6.3-8.2) g/dL Albumin (3.5-5.0) g/dL Globulin (1.7-4.1) g/dL Albumin/Globulin Ratio (1.0-2.8) Lipase (23-300) U/L Procalcitonin (<0.5) ng/mL Chlamy pneumoniae PCR (Not Detect) Adenovirus (PCR) (Not Detect) B. pertussis DNA (PCR) (Not Detecte) B.parapertussis DNA PCR (Not Detecte) Coronavirus OC43 (PCR) (Not Detect) Coronavirus HKU1 (PCR) (Not Detect) Coronavirus 229E (PCR) (Not Detect) SARS-CoV-2 (PCR) (Not Detecte) Coronavirus NL63 (PCR) (Not Detect) Human Metapneumovir PCR (Not Detect) Influenza Type A (PCR) (Not Detect) Influenza Type B (PCR) (Not Detect) M. pneumoniae (PCR) (Not Detect) Parainfluenza 1 (PCR) (Not Detect) Parainfluenza 2 (PCR) (Not Detect) Parainfluenza 3 (PCR) (Not Detect) Parainfluenza 4 (PCR) (Not Detect) RSV (PCR) (Not Detect) Entero/Rhino (PCR) (Not Detect) MDM Narrative Medical decision making narrative: Patient does have a history and physical exam that is most consistent with some sort of respiratory illness. She is had coughing. Is somewhat diaphoretic. Has had sinus congestion and a sore throat. She does have a significant respiratory history to include pneumonia and also pulmonary embolism. She denies chest pain. Chest x-ray is ordered. Respiratory panel was ordered. Care turned over to day provider to follow-up on results and disposition. <Marilou Negro, - Last Filed: 11/16/22 11:12> Lab Data Labs: Lab Results 11/16/22 11/16/22 11/16/22 Range/Units 06:42 07:32 07:32 WBC 10.1 (4.5-11.0) X10^3/uL RBC 4.63 (4.0-5.2) X10^6/uL Hgb 14.9 (12.0-16.0) g/dL Hct 44.4 (36-46) % MCV 95.9 (80-100) fL MCH 32.3 (26-34) PG MCHC 33.7 (30-36) % RDW 13.9 (11.6-14.8) % Plt Count 286 (150-400) X10^3/uL Neut % (Auto) 63.3 (50-75) % Lymph % (Auto) 25.3 (25-40) % Kendall % (Auto) 6.5 (3-14) % Eos % (Auto) 3.4 (2-4) % Baso % (Auto) 1.5 (0-2) % Neut # (Auto) 6400 (2398-9883) /uL Lymph # (Auto) 2500 (2334-2760) /uL Kendall # (Auto) 700 (0-900) /uL Eos # (Auto) 300 (0-450) /uL Baso # (Auto) 200 H (0-100) /uL D-Dimer (<500) ng/ml Sodium 140 (137-145) mmol/L Potassium 4.0 (3.4-5.1) mmol/L Chloride 104 (98-107) mmol/L Carbon Dioxide 29 (22-32) mmol/L BUN 20 H (7-17) mg/dL Creatinine 0.86 (0.52-1.04) mg/dL Estimated GFR > 60 (>60) mL/min BUN/Creatinine Ratio 23.3 H (6-22) Glucose 135 H (80-110) mg/dL Calcium 9.5 (8.4-10.2) mg/dL Total Bilirubin 0.6 (0.2-1.3) mg/dL AST 23 (14-36) IU/L ALT 19 (<35) IU/L Alkaline Phosphatase 74 (38-126) U/L Total Creatine Kinase 58 (30-135) U/L Troponin I < 0.012 (0.01-0.034) ng/mL NT-Pro-B Natriuret Pep (<450) pg/mL Total Protein 7.4 (6.3-8.2) g/dL Albumin 4.3 (3.5-5.0) g/dL Globulin 3.1 (1.7-4.1) g/dL Albumin/Globulin Ratio 1.4 (1.0-2.8) Lipase 348 H (23-300) U/L Procalcitonin 0.06 (<0.5) ng/mL Chlamy pneumoniae PCR Not detected (Not Detect) Adenovirus (PCR) Not detected (Not Detect) B. pertussis DNA (PCR) Not detected (Not Detecte) B.parapertussis DNA PCR Not detected (Not Detecte) Coronavirus OC43 (PCR) Not detected (Not Detect) Coronavirus HKU1 (PCR) Not detected (Not Detect) Coronavirus 229E (PCR) Not detected (Not Detect) SARS-CoV-2 (PCR) Not detected (Not Detecte) Coronavirus NL63 (PCR) Not detected (Not Detect) Human Metapneumovir PCR Not detected (Not Detect) Influenza Type A (PCR) Not detected (Not Detect) Influenza Type B (PCR) Not detected (Not Detect) M. pneumoniae (PCR) Not detected (Not Detect) Parainfluenza 1 (PCR) Not detected (Not Detect) Parainfluenza 2 (PCR) Not detected (Not Detect) Parainfluenza 3 (PCR) Not detected (Not Detect) Parainfluenza 4 (PCR) Not detected (Not Detect) RSV (PCR) Not detected (Not Detect) Entero/Rhino (PCR) Detected H (Not Detect) 11/16/22 11/16/22 Range/Units 07:32 07:32 WBC (4.5-11.0) X10^3/uL RBC (4.0-5.2) X10^6/uL Hgb (12.0-16.0) g/dL Hct (36-46) % MCV (80-100) fL MCH (26-34) PG MCHC (30-36) % RDW (11.6-14.8) % Plt Count (150-400) X10^3/uL Neut % (Auto) (50-75) % Lymph % (Auto) (25-40) % Kendall % (Auto) (3-14) % Eos % (Auto) (2-4) % Baso % (Auto) (0-2) % Neut # (Auto) (7726-6146) /uL Lymph # (Auto) (3368-0096) /uL Kendall # (Auto) (0-900) /uL Eos # (Auto) (0-450) /uL Baso # (Auto) (0-100) /uL D-Dimer 450 (<500) ng/ml Sodium (137-145) mmol/L Potassium (3.4-5.1) mmol/L Chloride (98-107) mmol/L Carbon Dioxide (22-32) mmol/L BUN (7-17) mg/dL Creatinine (0.52-1.04) mg/dL Estimated GFR (>60) mL/min BUN/Creatinine Ratio (6-22) Glucose (80-110) mg/dL Calcium (8.4-10.2) mg/dL Total Bilirubin (0.2-1.3) mg/dL AST (14-36) IU/L ALT (<35) IU/L Alkaline Phosphatase (38-126) U/L Total Creatine Kinase (30-135) U/L Troponin I (0.01-0.034) ng/mL NT-Pro-B Natriuret Pep 49 (<450) pg/mL Total Protein (6.3-8.2) g/dL Albumin (3.5-5.0) g/dL Globulin (1.7-4.1) g/dL Albumin/Globulin Ratio (1.0-2.8) Lipase (23-300) U/L Procalcitonin (<0.5) ng/mL Chlamy pneumoniae PCR (Not Detect) Adenovirus (PCR) (Not Detect) B. pertussis DNA (PCR) (Not Detecte) B.parapertussis DNA PCR (Not Detecte) Coronavirus OC43 (PCR) (Not Detect) Coronavirus HKU1 (PCR) (Not Detect) Coronavirus 229E (PCR) (Not Detect) SARS-CoV-2 (PCR) (Not Detecte) Coronavirus NL63 (PCR) (Not Detect) Human Metapneumovir PCR (Not Detect) Influenza Type A (PCR) (Not Detect) Influenza Type B (PCR) (Not Detect) M. pneumoniae (PCR) (Not Detect) Parainfluenza 1 (PCR) (Not Detect) Parainfluenza 2 (PCR) (Not Detect) Parainfluenza 3 (PCR) (Not Detect) Parainfluenza 4 (PCR) (Not Detect) RSV (PCR) (Not Detect) Entero/Rhino (PCR) (Not Detect) Imaging Data Chest x-ray: Radiologist's Impression: PROCEDURE:? XR CHEST 1V ? INDICATIONS:? eval for pneumonia ? TECHNIQUE:? One view of the chest was acquired.? ? COMPARISON:? [facility], , XR CHEST 2V, 06/18/2022, 12:00.? [facility], , XR CHEST 1V, 06/26/2021, 11:46. ? FINDINGS:? ? Surgical changes and devices:? None.? ? Lungs and pleura:? Question a nodule or artifact in the left lower lung zone.? No pleural effusions or pneumothorax.? ? Mediastinum:? Mediastinal contours appear normal.? Heart size is normal.? ? Bones and chest wall:? No suspicious bony lesions.? Overlying soft tissues appear unremarkable.? ? IMPRESSION:? ? 1. No acute cardiopulmonary disease. 2. Question a nodule or artifact in the left lower lung zone.? Consider a standard two view chest or chest CT for follow-up. ? No significant discrepancy with the [facility] radiology preliminary report. ? ? ? Dictated by: Cora Dobbs M.D. on 11/16/2022 at 8:15 ? ? ECG Data Interpretation: Normal sinus rhythm rate 69 ME interval 156 QRS [address] changes T-wave inversions no Q-waves similar to prior MDM Narrative Medical decision making narrative: Patient does have a history and physical exam that is most consistent with some sort of respiratory illness. She is had coughing. Is somewhat diaphoretic. Has had sinus congestion and a sore throat. She does have a significant respiratory history to include pneumonia and also pulmonary embolism. She denies chest pain. Chest x-ray is ordered. Respiratory panel was ordered. Care turned over to day provider to follow-up on results and disposition. Dr. Negro-patient signed out to me by Dr. Flores if seen evaluated patient myself. He is now requiring 2 L of oxygen maintaining an oxygen saturation 94%. He has coughing with deep breaths. Reports feeling ill for the last few days. Reports that she was admitted for and 2019 with a pneumonia and probably developed pulmonary embolism at that time but she does not remember. She is given a DuoNeb treatment which she can not report any significant improvement however she is now 92% on room air. She has upper respiratory like symptoms positive for entero/rhinovirus. BNP and D-dimer both negative along with troponin. No significant leukocytosis NIRAJ electrolyte abnormality. She ambulated in the department without hypoxia. She is taught how to use an inhaler we will give her some cough medicine and supportive care only. No need for admission Discharge Plan Departure Patient Disposition: Home Clinical Impression: Upper respiratory infection Instructions: DI for Viral Upper Respiratory Infection -- Adult Activity Restrictions/Additional Instructions: *You have been diagnosed with upper respiratory infection *What to do: At this time no need for antibiotics. Stay home rest and hydrate. Treat fever as needed. This can last up to 10-14 days hopefully start feeling better soon *Continue to take medications as directed--> sent to [place] Albuterol inhaler 1-2 puffs every 4 hours if needed for coughing spells or shortness of breath Cough syrup at nighttime to help sleep (this has hydrocodone) Benzonatate 200 mg 2 to 3 times a day if needed for coughing Motrin 600 mg every 6 hours if needed for [id number]-[id number] pain or fever Tylenol 650 every 6 hours if needed for jbyb-fx-kdombzho pain or fever *Follow up with your primary care provider in 2-3 days or call [phone] *Return to ER if you should have chest pain shortness of breath not tolerating fluids or any new, worsening or concerning symptoms CONTROLLED SUBSTANCE DISCHARGE (Narcotoic/benzodiazepine/Flexeril/Phenergan) 1. You have been prescribed narcotic medications, it does have acetaminophen/Tylenol/paracetamol in it, DO NOT TAKE MORE THAN 4,00mg in 24 hours of Tylenol. TRAMADOL DOES NOT CONTAIN TYLENOL 2. Please understand that we cannot provide further refills of narcotics, benzodiazepines or controlled substances through the ED and her pain management will need to be through your provider. 3. While on these medications you cannot drive or operate heavy machinery. 4. You cannot sign legal documents or perform any duties such as this. 5. As long as you're taking opiate pain medications he should also be taking a stool softener such as Colace, Dulcolax, MiraLAX or prune juice, to help avoid constipation. Prescriptions: New hydrocodone-homatropine 5-1.5 mg/5 mL (5 mL) syrup 5 ml PO Q6H PRN (Reason: cough) Qty: 100 0RF albuterol sulfate 90 mcg/actuation HFA aerosol inhaler 2 puff INHALATION Q4-6H PRN (Reason: shortness of breath or wheezing) Qty: 8.5 0RF benzonatate 200 mg capsule 200 mg PO BID-TID PRN (Reason: cough) Qty: 20 0RF No Action cholestyramine (with sugar) 4 gram powder in packet 4 gram PO BID PRN (Reason: ingestion of fatty meal) Qty: 20 1RF Rx Instructions: administer w/meal; avoid other meds within 1hr before or 4-6hr after dose valacyclovir 1 gram tablet 1,000 mg PO Q DAY Qty: 90 3RF Patient Comments: takes every other day by choice levothyroxine 25 mcg tablet 25 mcg PO DAILY Qty: 90 3RF Rx Instructions: Take one tablet once a day on an empty stomach 30 minutes before breakfast. simvastatin [Zocor] 10 mg tablet 10 mg PO QAM Qty: 90 3RF gabapentin 100 mg capsule 100 mg PO BEDTIME Qty: 90 3RF Rx Instructions: Take 1 capsule at bedtime for sleeplessness, may increase as tolerated to 300mg/night over 1 week. ascorbic acid (vitamin C) 500 mg capsule 500 mg PO DAILY Patient Comments: 1 year omega-3 fatty acids [Fish Oil Concentrate] 1,000 mg capsule 1,000 mg PO DAILY psmpxju-rpyojhcho-jxuh tablet 1 tab PO DAILY cholecalciferol (vitamin D3) 25 mcg (1,000 unit) capsule 3,000 unit PO DAILY dicyclomine 20 mg tablet See Rx Instructions .ROUTE .COMPLEX Qty: 60 1RF Dose Instruction: TAKE 1 TABLET BY MOUTH FOUR TIMES DAILY NEEDED FOR ABDOMINAL DISCOMFORT Rx Instructions: TAKE 1 TABLET BY MOUTH FOUR TIMES DAILY NEEDED FOR ABDOMINAL DISCOMFORT Shingrix (PF) 50 mcg/0.5 mL suspension for reconstitution 0.5 ml IM ONCE Qty: 1 0RF Rx Instructions: as a single dose albuterol sulfate [Ventolin HFA] 90 mcg/actuation HFA aerosol inhaler See Rx Instructions INHALATION Q6H PRN (Reason: shortness of breath or wheezing) Qty: 8.5 3RF Patient Comments: 1-2 years Rx Instructions: 1-2 puffs inhaled every 6 hours as needed for SOB or wheezing aspirin 81 mg PO DIRECTED ondansetron HCl [Zofran] 4 mg tablet 4 mg PO Q6H PRN (Reason: nausea and vomiting) Qty: 5 0RF Paxlovid 300 mg (150 mg x 2)-100 mg tablets,dose pack See Rx Instructions .ROUTE .COMPLEX Qty: 30 0RF Rx Instructions: take TWO 150 mg tablets of nirmatrelvir with ONE 100 mg tablet of ritonavir twice daily for 5 days Cepacol Sore Throat (jennifer-men) 15-3.6 mg lozenge 1 karen mucous membrane Q3-4H PRN (Reason: sore throat) Qty: 16 0RF benzonatate 200 mg capsule 200 mg PO BID PRN (Reason: cough) Qty: 14 0RF Referrals: Jcarlos Chairez MD [Primary Care Provider] - Stand Alone Forms: Patient Portal/API
[2022-11-16] MEDS: ALBUTEROL/IPRATROPIUM 3 ML AMPUL INH (07:31)
[2022-11-16 07:43] LABS: Add Manual Diff / Slide Review NO; Basophils Absolute Auto 200 /uL (0-100); Basophils Percent Auto 1.5 % (0-2); Eosinophils Absolute Auto 300 /uL (0-450); Eosinophils Percent Auto 3.4 % (2-4); Hematocrit 44.4 % (36-46); Hemoglobin 14.9 g/dL (12.0-16.0); Lymphocytes Absolute Auto 2500 /uL (1100-4500); Lymphocytes Percent Auto 25.3 % (25-40); Mean Corpuscular HGB Conc 33.7 % (30-36); Mean Corpuscular Hemoglobin 32.3 PG (26-34); Mean Corpuscular Volume 95.9 fL (80-100); Monocytes Absolute Auto 700 /uL (0-900); Monocytes Percent Auto 6.5 % (3-14); Neutrophils Absolute Auto 6400 /uL (1500-7000); Neutrophils Percent Auto 63.3 % (50-75); Platelet Count 286 X10^3/uL (150-400); Red Blood Cell Count 4.63 X10^6/uL (4.0-5.2); Red Cell Distribution Width 13.9 % (11.6-14.8); White Blood Cell Count 10.1 X10^3/uL (4.5-11.0)
[2022-11-16 07:49] LABS: D Dimer 450 ng/ml (<500)
[2022-11-16 07:52] LABS: Alanine Aminotransferase 19 IU/L (<35); Albumin 4.3 g/dL (3.5-5.0); Albumin Globulin Ratio 1.4 (1.0-2.8); Alkaline Phosphatase 74 U/L (38-126); Aspartate Aminotransferase 23 IU/L (14-36); BUN Creatinine Ratio 23.3 (6-22); Bilirubin Total 0.6 mg/dL (0.2-1.3); Blood Urea Nitrogen 20 mg/dL (7-17); Calcium 9.5 mg/dL (8.4-10.2); Carbon Dioxide 29 mmol/L (22-32); Chloride 104 mmol/L (98-107); Creatine Kinase 58 U/L (30-135); Estimated Glomerular Filt Rate > 60 mL/min (>60); Globulin 3.1 g/dL (1.7-4.1); Glucose 135 mg/dL (80-110); HEMOLYSIS 15 (0-50); Lipase 348 U/L (23-300); Sodium 140 mmol/L (137-145); Total Protein 7.4 g/dL (6.3-8.2)
[2022-11-16 08:01] LABS: NT-proBNP (BNP-Adult 18+) 49 pg/mL (<450)
[2022-11-16 08:03] LABS: Troponin I < 0.012 ng/mL (0.01-0.034)
[2022-11-16 08:08] LABS: Procalcitonin 0.06 ng/mL (<0.5)
[2022-11-16 08:14] LABS: Adenovirus Not Detected (Not Detect); B. parapertussis Not Detected (Not Detecte); Bordetella pertussis Not Detected (Not Detecte); Chlamydophila pneumoniae Not Detected (Not Detect); Coronavirus 229E Not Detected (Not Detect); Coronavirus HKU1 Not Detected (Not Detect); Coronavirus NL 63 Not Detected (Not Detect); Coronavirus OC43 Not Detected (Not Detect); Human Metapneumovirus Not Detected (Not Detect); Human Rhinovirus/Enterovirus Detected (Not Detect); Influenza A Not Detected (Not Detect); Influenza B Not Detected (Not Detect); Mycoplasma pneumoniae Not Detected (Not Detect); Parainfluenza Virus 1 Not Detected (Not Detect); Parainfluenza Virus 2 Not Detected (Not Detect); Parainfluenza Virus 3 Not Detected (Not Detect); Parainfluenza Virus 4 Not Detected (Not Detect); Respiratory Syncytial Virus Not Detected (Not Detect); SARS- CoV-2 Not Detected (Not Detecte)
== END 2022-11-16 09:00 | disposition home or self-care (01) ==
PROVIDERS: Emergency Medicine; Emergency Provider Emergency Medicine; PCP Family Medicine
DX: J06.9 Acute upper respiratory infection, unspecified (principal); B34.8 Other viral infections of unspecified site; R05.9 Cough, unspecified; Z79.82 Long term (current) use of aspirin; Z20.822 Contact with and (suspected) exposure to COVID-19
CPT/HCPCS: 36415; 71045; 80053; 82550; 83690; 83880; 84145; 84484; 85025; 85379; 87633; 93005; 94640; 99284

== ENCOUNTER → 2022-12-01 09:39 | Outpatient (CLI) | payer OTHER, SELFPAY ==
[2020-06-30 10:44] VITALS: BMI 33.6
--- NOTE | 2022-12-01 | DI.CT.S_ITS ---
PROCEDURE: CT CHEST WO CON INDICATIONS: Solitary pulmonary nodule TECHNIQUE: Noncontrast 5 mm thick sections acquired from the pulmonary apices to the posterior costophrenic angles. 1 mm lung window, 5 mm thick coronal and sagittal and 7 mm axial MIP reformats were then acquired. For radiation dose reduction, the following was used: automated exposure control, adjustment of mA and/or kV according to patient size. COMPARISON: [facility], CT, CT ANGIO CHEST PE PROTOCOL, 09/12/2019, 8:51. [facility], CR, XR CHEST 1V, 11/16/2022, 6:09. FINDINGS: Image quality: Excellent. Lungs and pleura: No acute air space opacities. No pleural effusions or pneumothorax. Central and peripheral airways are patent and normal in caliber. Mild platelike atelectasis in the left lower lobe Mediastinum: Heart size is normal. No pericardial effusion. No mediastinal adenopathy by size criteria. Thoracic aorta and central pulmonary arteries are normal in size. Esophagus is normal in caliber. No hiatal hernia. Bones and chest wall: No suspicious bony lesions. No vertebral body compression fractures. No axillary or supraclavicular adenopathy by size criteria. Thyroid gland unremarkable . Abdomen: Visualized upper abdominal solid organs and bowel loops appear normal in the absence of contrast. Nonspecific hypodensities in the liver measure up to 1.6 cm IMPRESSION: Minimal left basilar platelike atelectasis without pulmonary nodule. Finding the prior chest x-ray was artifactual. Nonspecific hypodensities in the liver probably reflects cyst. Consider follow-up ultrasound confirmation Approved by: Andrea Mckay M.D. on 12/01/2022 at 14:53
== END ==
PROVIDERS: PCP Family Medicine; Referring Provider Registered Nurse; Visit Provider Registered Nurse
DX: R91.1 Solitary pulmonary nodule (principal)
CPT/HCPCS: 71250

== ENCOUNTER → 2023-02-16 09:11 | Outpatient (CLI) | payer OTHER, SELFPAY ==
[2020-06-30 10:44] VITALS: BMI 33.6
--- NOTE | 2023-02-16 | DI.RAD.S_ITS ---
PROCEDURE: XR HIP W PEL IF DONE LT 2V INDICATIONS: HIP PAIN TECHNIQUE: AP pelvis with lateral view(s) of the left hip(s). COMPARISON: [facility], , XR HIP W PEL IF DONE RT 2V, 09/04/2019, 8:53. FINDINGS: Bones: No fractures or dislocations. Pelvic ring appears intact. No suspicious bony lesions. Lower lumbar spondylosis. Degenerative changes of the left hip with mild joint space narrowing. Soft tissues: The visualized bowel gas pattern is normal. No suspicious soft tissue calcifications. IMPRESSION: Left hip without acute fracture or malalignment. Degenerative changes of the left hip with mild joint space narrowing. Lower lumbar spondylosis. Dictated by: Emmanuel Cosme M.D. on 02/16/2023 at 11:09 Approved by: Emmanuel Cosme M.D. on 02/16/2023 at 11:10
--- NOTE | 2023-02-16 | DI.RAD.S_ITS ---
PROCEDURE: XR KNEE LT 3V INDICATIONS: KNEE PAIN TECHNIQUE: 3 views of the knee were acquired. COMPARISON: [facility], CR, XR KNEE RT 3V, 06/29/2018, 12:35. FINDINGS: Bones: No fractures or dislocations. No suspicious bony lesions. Moderate tricompartmental degenerative changes of the left knee. Marginal osteophyte formation. Soft tissues: Small left joint effusion. No suspicious soft tissue calcifications. IMPRESSION: Left knee without acute fracture or malalignment. Moderate tricompartmental degenerative changes of the left knee. Small joint effusion. Dictated by: Emmanuel Cosme M.D. on 02/16/2023 at 11:10 Approved by: Emmanuel Cosme M.D. on 02/16/2023 at 11:11
== END ==
PROVIDERS: PCP Registered Nurse; Referring Provider Registered Nurse; Visit Provider Registered Nurse
DX: M47.816 Spondylosis without myelopathy or radiculopathy, lumbar region (principal); M25.462 Effusion, left knee; M25.562 Pain in left knee; M25.551 Pain in right hip
CPT/HCPCS: 73502; 73562

== ENCOUNTER 2023-03-07 07:53 | Emergency (ER) | payer OTHER, SELFPAY ==
[2020-06-30 10:44] VITALS: BMI 33.6
[2023-03-07] VITALS (7 sets, daily range): BP systolic 125–174; BP diastolic 65–87; PULSE 64–89; RESP 18–20; TEMP 36.9–37; O2SAT 96–98; BMI 33.4
--- NOTE | 2023-03-07 08:40 | DI.CT.S_ITS ---
PROCEDURE: CT ABDOMEN PELVIS W CON INDICATIONS: L groin pain since january, worse movement, painful w/ palp TECHNIQUE: After the administration of intravenous contrast, axial sections acquired from the lung bases to the pubic symphysis. Coronal and sagittal reformats were performed. For radiation dose reduction, the following was used: automated exposure control, adjustment of mA and/or kV according to patient size. COMPARISON: [facility], CT, ABDOMEN/PELVIS WITH CONTRAST, 03/01/2016, 9:12. FINDINGS: Image quality: Excellent. Lung bases: Unremarkable. Heart: No significant findings. ABDOMEN: Liver: Numerous small cysts are again noted. No suspicious masses.. Gallbladder: Unremarkable without calcified gallstones noted. Biliary ducts: Unremarkable. Pancreas: Unremarkable. Spleen: Unremarkable. Adrenal Glands: Unremarkable. Kidneys and Ureters: Unremarkable. Stomach and Bowel: Relatively advanced sigmoid diverticulosis without evidence of diverticulitis. No obstructing or constricting lesions. Peritoneum: No abnormal intraperitoneal fluid. No free air. Ventral Wall: No hernias. Abdominal Nodes: No retroperitoneal or mesenteric adenopathy by size criteria. Vessels: Aorta and inferior vena cava are normal in size. PELVIS: Pelvic Organs: Uterus is surgically absent. No adnexal masses. Bladder: Unremarkable. Pelvic Nodes: No enlarged lymph nodes. Miscellaneous: There is a very small fat containing right inguinal hernia. Question very small left inguinal hernia containing fat. This is not definite. Bones: Lumbar degenerative change. No lytic or blastic bony lesions. No compression fractures. IMPRESSION: 1. There is possible small fat containing left inguinal hernia. This is not definite. Suggest correlation with limited ultrasound. 2. Relatively advanced sigmoid diverticulosis without evidence of diverticulitis. Dictated by: Matti Zepeda M.D. on 03/07/2023 at 9:51 Approved by: Matti Zepeda M.D. on 03/07/2023 at 10:12
--- NOTE | 2023-03-07 08:41 | ED.LOWEXIN ---
HPI - Extremity Injury (Lower) General Chief Complaint: Extremity Injury, Lower Stated Complaint: L side pain in groin area, hip pain Time Seen by Provider: 03/07/23 08:32 Source: patient Mode of arrival: Ambulatory Limitations: no limitations History of Present Illness HPI Narrative: This is a 77-year-old female with history of IBS, hypothyroidism, dyslipidemia who presents with persistent left groin pain since January. Patient states it started after having event where they were making a lot of sour crowd she was on her feet for a long period of time it has become increasingly persistent. She states it has been coming increasingly painful. She has not noticed any skin changes redness swelling or other changes. She states it is in the right groin stays pretty localized to that area does not radiate down her leg but she is noticed some increased pain in her knee. She states she did have x-ray of her hip and pelvis a knee in January. She was told she had a tendinitis in that area. She denies any trauma or falls at any point. She states no back pain. She denies numbness tingling or weakness. She states it is difficult to lift her leg secondary to pain. She states she can her leg otherwise it is just very painful. She states no difficulty with moving her lower leg. Patient states no lumps or bumps. She has not had any fevers or chills, no chest pain or shortness of breath, she is had so much pain she is felt nauseated at times. She denies any abdominal otherwise, no black or bloody stools. She states she does facilitate between diarrhea and constipation from her IBS. She is had normal urination. No incontinence. Patient states she is taking Tylenol, leave for pain management and has not been able to control her pain. She tried to set up a follow up appointment today could not be seen. She has been referred to PT and is going to see them on March 20. Patient states former smoker, occasional alcohol, no recreational drugs. Her primary care is Lizabeth Rico. Related Data Home Medications Medication Instructions Recorded Confirmed ascorbic acid (vitamin C) 500 mg 500 mg PO DAILY 02/14/18 02/05/21 capsule [id number]-lhwemanjn-rezb tablet 1 tab PO DAILY 02/14/18 02/05/21 omega-3 fatty acids 1,000 mg 1,000 mg PO DAILY 02/14/18 02/05/21 capsule (Fish Oil Concentrate) cholecalciferol (vitamin D3) 25 3,000 unit PO DAILY 07/01/20 02/05/21 mcg (1,000 unit) capsule aspirin 81 mg PO DIRECTED 02/05/21 02/05/21 Previous Rx's Medication Instructions Recorded cholestyramine (with sugar) 4 gram 4 gram PO BID PRN ingestion of 04/30/19 powder for susp in a packet fatty meal #20 ea valacyclovir 1 gram tablet 1,000 mg PO Q DAY HSV #90 tabs 06/28/19 albuterol sulfate 90 mcg/actuation See Rx Instructions inhalation Q6H 01/20/20 aerosol inhaler (Ventolin HFA) PRN shortness of breath or wheezing #8.5 grams dicyclomine 20 mg tablet See Rx Instructions .Route 01/20/20 .COMPLEX #60 tabs levothyroxine 25 mcg tablet 25 mcg PO DAILY #90 tabs 01/20/20 simvastatin 10 mg tablet (Zocor) 10 mg PO QAM #90 tabs 01/20/20 varicella-zoster glycoE [id number] 0.5 ml IM ONCE #1 ea 01/20/20 adj(PF) 50 mcg/0.5 mL IM susp, kit (Shingrix (PF)) gabapentin 100 mg capsule 100 mg PO BEDTIME #90 caps 05/11/20 ondansetron HCl 4 mg tablet 4 mg PO Q6H PRN nausea and 02/05/21 (Zofran) vomiting #5 tabs benzocaine 15 mg-menthol 3.6 mg 1 karen mucous membrane Q3-4H PRN 06/18/22 lozenges (Cepacol Sore Throat sore throat #16 ea (benzocaine-menthol)) benzonatate 200 mg capsule 200 mg PO BID PRN cough #14 caps 06/18/22 nirmatrelvir 300 mg (150 mg See Rx Instructions PO .COMPLEX 06/18/22 x2)-ritonavir 100 mg tablet,dose #30 ea pack (Paxlovid) albuterol sulfate 90 mcg/actuation 2 puff inhalation Q4-6H PRN 11/16/22 aerosol inhaler shortness of breath or wheezing #8.5 grams benzonatate 200 mg capsule 200 mg PO BID-TID PRN cough #20 11/16/22 caps hydrocodone-homatropine 5 mg-1.5 5 ml PO Q6H PRN cough #100 mL 11/16/22 mg/5 mL (5 mL) oral syrup ondansetron 4 mg disintegrating 4 mg PO Q6H PRN nausea and 03/07/23 tablet vomiting #10 tabs oxycodone 5 mg tablet 5 mg PO Q6H PRN pain #14 tabs 03/07/23 Allergies Allergy/AdvReac Type Severity Reaction Status Date / Time codeine [CODEINE] Allergy Mild NAUSEA, Verified 06/18/22 12:01 VOMITING morphine [MORPHINE] Allergy Mild VOMITING Verified 06/18/22 12:01 Review of Systems Review of Systems ROS Unobtainable: All systems reviewed & are unremarkable except as noted in HPI and below Patient History Medical History Vocal cord paralysis Right foot pain Mass of right foot Right-sided heart failure DVT (deep venous thrombosis) Weight loss Change in voice Shortness of breath Fatigue Superficial bruising Chronic anticoagulation Pulmonary emboli Cerumen impaction Trigger finger Abnormal Pap smear of cervix (~2009) Kidney disease Hypertension Hyperlipidemia Rheumatoid arthritis Osteoarthritis Depression Anxiety Measles Herpes Chicken pox (~1949) Diverticular disease Macular degeneration Hearing loss (~11/2014) Foot pain (~2012) Carpal tunnel syndrome (~2006) Surgical History Anesthesia History of neck surgery (~1993) History of shoulder surgery (~1993) Left fibular fracture (~2015) Fractures (~1980) History of esophagogastroduodenoscopy (EGD) (12/12/16) Status post breast biopsy (10/02/13) Status post rotator cuff repair (~2007) History of carpal tunnel repair (~2006) Status post bunionectomy (12/18/12) Status post hysterectomy (~1980) Status post arthroscopy (~2007) Status post breast biopsy (10/01/12) Status post breast biopsy (~1993) Family History Brother Age: 80 Hypertension Father Leukemia Pneumonia Mother No problems noted. Grandmother Diabetes mellitus Social History marital status: unmarried,living together household members: significant other occupational status: previously employed Smoking Status: Former smoker alcohol intake: former substance use type: does not use Smoking Status: Former smoker alcohol intake frequency: holidays/special occasions only Substance Use Type: does not use Exam Narrative Exam Narrative: GENERAL: Alert and oriented x three, female in moderate distress. HEENT: Head normocephalic, atraumatic, EOMI, pupils reactive, face symmetric, moist mucous membranes NECK: Supple, full range of motion CARDIOVASCULAR: Regular rate and rhythm without murmurs, rubs or gallops. RESPIRATORY: Breath sounds equal bilaterally, no wheezes rales or rhonchi. ABDOMEN: Soft, nontender. Normoactive bowel sounds all 4 quadrants. No guarding or rebound, rigidity, no mass, patient does have left inguinal tenderness. Secondary to habitus little bit difficult exam but no obvious hernia is palpated. But is in the proper location. Patient does not have any warmth, erythema or other skin changes. No blister or rash. : No CVA tenderness BACK: No cervical, thoracic or lumbar vertebral point tenderness. Patient has normal range of motion, patient will assist her left leg up at the hip secondary to pain but she can stand and move without issue otherwise. She states it is more secondary to pain she does not have weakness. Muscle strength is 5/5 in lower extremities, Dorsalis pedis and tibialis pulses are 2+ and lower extremities. Sensation is intact in the lower extremities. EXTREMITIES: Normal range of motion, no clubbing or edema. Neurovascularly intact. NEUROLOGICAL: Cranial nerves II through XII grossly intact. Moving all extremities SKIN: Warm, dry, no petechiae, no rashes or lesions. Initial Vital Signs Initial Vital Signs: Vital Signs Temperature 98.4 F 03/07/23 08:07 Pulse Rate 89 03/07/23 08:07 Respiratory Rate 18 03/07/23 08:07 Blood Pressure 125/72 03/07/23 08:07 Pulse Oximetry 98 03/07/23 08:07 Oxygen Delivery Method Room Air 03/07/23 08:07 Course Orders Ordered: ED Orders 03/07/23 08:40 CT abdomen pelvis w con Stat 03/07/23 09:04 CBC Auto Diff [Complete Blood Count AUTO DIFF] Stat CMP [Comprehensive Metabolic Panel] Stat Lipase Stat Discontinued Medications Fentanyl (Fentanyl 100 Mcg/2 Ml Inj) 25 mcg IV NOW ONE Stop: 03/07/23 09:37 Last Admin: 03/07/23 09:40 Dose: 25 mcg Documented By: YANNA Ketorolac Tromethamine (Ketorolac 30 Mg/Ml Vial) 15 mg IV NOW ONE Stop: 03/07/23 08:41 Last Admin: 03/07/23 09:10 Dose: 15 mg Documented By: YANNA Ondansetron HCl (Ondansetron 4 Mg/2 Ml Inj) 4 mg IV NOW ONE Stop: 03/07/23 09:37 Last Admin: 03/07/23 09:41 Dose: 4 mg Documented By: YANNA Vital Signs Vital signs: Vital Signs - 8 hr 03/07/23 08:07 03/07/23 09:24 03/07/23 09:25 Temperature 98.4 F Pulse Rate 89 77 Respiratory Rate 18 Blood Pressure 125/72 172/81 H Pulse Oximetry 98 97 Oxygen Delivery Method Room Air 03/07/23 09:25 03/07/23 09:30 03/07/23 09:31 Temperature Pulse Rate 77 75 Respiratory Rate Blood Pressure 142/65 H Pulse Oximetry 96 97 Oxygen Delivery Method 03/07/23 09:31 03/07/23 09:47 03/07/23 09:47 Temperature Pulse Rate 75 69 Respiratory Rate Blood Pressure 140/74 Pulse Oximetry 96 97 Oxygen Delivery Method 03/07/23 11:00 Temperature 98.6 F Pulse Rate 64 Respiratory Rate 20 Blood Pressure 174/87 H Pulse Oximetry 98 Oxygen Delivery Method Room Air MDM - Extremity Injury (Lower) Lab Data 03/07/23 09:04 03/07/23 09:04 Labs: Lab Results 03/07/23 Range/Units 09:04 WBC 9.2 (4.5-11.0) X10^3/uL RBC 4.47 (4.0-5.2) X10^6/uL Hgb 14.2 (12.0-16.0) g/dL Hct 42.5 (36-46) % MCV 94.9 (80-100) fL MCH 31.7 (26-34) PG MCHC 33.4 (30-36) % RDW 13.8 (11.6-14.8) % Plt Count TNP Neut % (Auto) 45.0 L (50-75) % Lymph % (Auto) 41.9 H (25-40) % [place] % (Auto) 7.4 (3-14) % Eos % (Auto) 4.6 H (2-4) % Baso % (Auto) 1.1 (0-2) % Neut # (Auto) 4100 (8368-6216) /uL Lymph # (Auto) 3900 (9543-3267) /uL [place] # (Auto) 700 (0-900) /uL Eos # (Auto) 400 (0-450) /uL Baso # (Auto) 100 (0-100) /uL Platelet Estimate Adequate on smear RBC Morphology Normal morphology Sodium 140 (137-145) mmol/L Potassium 4.3 (3.4-5.1) mmol/L Chloride 105 (98-107) mmol/L Carbon Dioxide 27 (22-32) mmol/L BUN 21 H (7-17) mg/dL Creatinine 0.67 (0.52-1.04) mg/dL Estimated GFR > 60 (>60) mL/min BUN/Creatinine Ratio 31.3 H (6-22) Glucose 104 (80-110) mg/dL Calcium 10.3 H (8.4-10.2) mg/dL Total Bilirubin 0.7 (0.2-1.3) mg/dL AST 24 (14-36) IU/L ALT 18 (<35) IU/L Alkaline Phosphatase 72 (38-126) U/L Total Protein 7.9 (6.3-8.2) g/dL Albumin 4.5 (3.5-5.0) g/dL Globulin 3.4 (1.7-4.1) g/dL Albumin/Globulin Ratio 1.3 (1.0-2.8) Lipase 131 (23-300) U/L [facility] Narrative Medical decision making narrative: 77-year-old female with 2 months of left groin pain after standing for a prolonged period of time. Patient states very painful with movement. Somewhat better when she still but she is not been able to control her pain. She does not recall any trauma she did have x-rays in January which she states were negative. She has not had any other neurologic or vascular changes in her exam other than being tender in the left inguinal area is overall benign. Plan for labs, CT imaging to evaluate bones, soft tissue for possible hernia versus other cause. There is no obvious signs of infection or changes but she is quite tender in that area. Patient's labs overall are appropriate CBC shows elevated lymphocytes low neutrophils. But normal white count, hemoglobin and platelets. CMP shows normal electrolytes BUN 21 creatinine 0.6, calcium slightly elevated at 10.3, otherwise normal LFTs. CT abdomen and pelvis shows numerous small cysts in the liver, diverticulosis of the sigmoid but without evidence of diverticulitis, no adenopathy noted. Small fat containing right inguinal hernia and possible small left inguinal fat containing hernia not definite. Discussed findings with patient I suspect she does have a fat containing inguinal hernia on the left. She is quite tender in this area was not easily palpable secondary to habitus. Discussed patient should follow-up was given referral to General surgery. Pain management she does not have any obstructive changes or symptoms consistent with having bowel involvement. Discharge Plan Departure Patient Disposition: Home Clinical Impression: Inguinal hernia Instructions: Groin Hernia -- Adult Activity Restrictions/Additional Instructions: Your workup today shows inguinal hernia on the right and left. I suspect this is the source of your pain, the hernia has but no signs of bowel entrapment or involvement. Referral is included below to follow up with General surgery for possible repair. Based on your symptoms and pain I think this would be helpful to you. You may take Tylenol and/ibuprofen every 6 hours as needed for pain. If in adequate you can take oxycodone 1-2 tablets every 6 hours as needed. This medication can make you sleepy do not drive, perform hazardous activities or make any major decisions while taking it. This medication will make you constipated please take a stool softener once to twice daily until stools are soft and regular. Oxycodone is a narcotic I would recommend taking Zofran 1 tablet 20 minutes prior to any narcotics to prevent nausea or vomiting. Prescription sent to [facility] in [place]. Please return for fevers, rapidly worsening pain, black or bloody stools or inability to have a bowel movement new abdominal back or flank pain, persistent vomiting or other new or concerning changes. Prescriptions: New ondansetron 4 mg tablet,disintegrating 4 mg PO Q6H PRN (Reason: nausea and vomiting) Qty: 10 0RF oxycodone 5 mg tablet 5 mg PO Q6H PRN (Reason: pain) Qty: 14 0RF No Action cholestyramine (with sugar) 4 gram powder in packet 4 gram PO BID PRN (Reason: ingestion of fatty meal) Qty: 20 1RF Rx Instructions: administer w/meal; avoid other meds within 1hr before or 4-6hr after dose valacyclovir 1 gram tablet 1,000 mg PO Q DAY Qty: 90 3RF Patient Comments: takes every other day by choice levothyroxine 25 mcg tablet 25 mcg PO DAILY Qty: 90 3RF Rx Instructions: Take one tablet once a day on an empty stomach 30 minutes before breakfast. simvastatin [Zocor] 10 mg tablet 10 mg PO QAM Qty: 90 3RF gabapentin 100 mg capsule 100 mg PO BEDTIME Qty: 90 3RF Rx Instructions: Take 1 capsule at bedtime for sleeplessness, may increase as tolerated to 300mg/night over 1 week. ascorbic acid (vitamin C) 500 mg capsule 500 mg PO DAILY Patient Comments: 1 year omega-3 fatty acids [Fish Oil Concentrate] 1,000 mg capsule 1,000 mg PO DAILY qyeosut-onmisqpty-xvvs tablet 1 tab PO DAILY cholecalciferol (vitamin D3) 25 mcg (1,000 unit) capsule 3,000 unit PO DAILY dicyclomine 20 mg tablet See Rx Instructions .ROUTE .COMPLEX Qty: 60 1RF Dose Instruction: TAKE 1 TABLET BY MOUTH FOUR TIMES DAILY NEEDED FOR ABDOMINAL DISCOMFORT Rx Instructions: TAKE 1 TABLET BY MOUTH FOUR TIMES DAILY NEEDED FOR ABDOMINAL DISCOMFORT Shingrix (PF) 50 mcg/0.5 mL suspension for reconstitution 0.5 ml IM ONCE Qty: 1 0RF Rx Instructions: as a single dose albuterol sulfate [Ventolin HFA] 90 mcg/actuation HFA aerosol inhaler See Rx Instructions INHALATION Q6H PRN (Reason: shortness of breath or wheezing) Qty: 8.5 3RF Patient Comments: 1-2 years Rx Instructions: 1-2 puffs inhaled every 6 hours as needed for SOB or wheezing hydrocodone-homatropine 5-1.5 mg/5 mL (5 mL) syrup 5 ml PO Q6H PRN (Reason: cough) Qty: 100 0RF albuterol sulfate 90 mcg/actuation HFA aerosol inhaler 2 puff INHALATION Q4-6H PRN (Reason: shortness of breath or wheezing) Qty: 8.5 0RF benzonatate 200 mg capsule 200 mg PO BID-TID PRN (Reason: cough) Qty: 20 0RF aspirin 81 mg PO DIRECTED ondansetron HCl [Zofran] 4 mg tablet 4 mg PO Q6H PRN (Reason: nausea and vomiting) Qty: 5 0RF Paxlovid 300 mg (150 mg x 2)-100 mg tablets,dose pack See Rx Instructions .ROUTE .COMPLEX Qty: 30 0RF Rx Instructions: take TWO 150 mg tablets of nirmatrelvir with ONE 100 mg tablet of ritonavir twice daily for 5 days Cepacol Sore Throat (jennifer-men) 15-3.6 mg lozenge 1 karen mucous membrane Q3-4H PRN (Reason: sore throat) Qty: 16 0RF benzonatate 200 mg capsule 200 mg PO BID PRN (Reason: cough) Qty: 14 0RF Referrals: Kurtis Perry MD [Physician] - Lizabeth Rico ARNP [Primary Care Provider] - Stand Alone Forms: Patient Portal/API
--- NOTE | 2023-03-07 09:00 | PC.NURSE ---
[facility] her because she has been having ongoing pain in her groin and hip area. pt has seen her PCP for this in december but the pain has increased so much that she just couldn't take it anymore and couldn't get in to see her doctor until late march. pt describes pain as 8/10 throbbing pain. Pt had pain when transferring from wheelchair and difficulty bearing weight on the left side. [employer] intact. A&Ox4.
[2023-03-07] MEDS: KETOROLAC 30 MG/ML VIAL 15 MG IV (09:10)
[2023-03-07 09:18] LABS: Basophils Absolute Auto 100 /uL (0-100); Basophils Percent Auto 1.1 % (0-2); Eosinophils Absolute Auto 400 /uL (0-450); Eosinophils Percent Auto 4.6 % (2-4); Hematocrit 42.5 % (36-46); Hemoglobin 14.2 g/dL (12.0-16.0); Lymphocytes Absolute Auto 3900 /uL (1100-4500); Lymphocytes Percent Auto 41.9 % (25-40); Mean Corpuscular HGB Conc 33.4 % (30-36); Mean Corpuscular Hemoglobin 31.7 PG (26-34); Mean Corpuscular Volume 94.9 fL (80-100); Monocytes Absolute Auto 700 /uL (0-900); Monocytes Percent Auto 7.4 % (3-14); Neutrophils Absolute Auto 4100 /uL (1500-7000); Red Blood Cell Count 4.47 X10^6/uL (4.0-5.2); Red Cell Distribution Width 13.8 % (11.6-14.8); White Blood Cell Count 9.2 X10^3/uL (4.5-11.0)
[2023-03-07 09:20] LABS: Add Manual Diff / Slide Review SLIDE REVIEW
[2023-03-07 09:21] LABS: Alanine Aminotransferase 18 IU/L (<35); Albumin 4.5 g/dL (3.5-5.0); Albumin Globulin Ratio 1.3 (1.0-2.8); Alkaline Phosphatase 72 U/L (38-126); Aspartate Aminotransferase 24 IU/L (14-36); BUN Creatinine Ratio 31.3 (6-22); Bilirubin Total 0.7 mg/dL (0.2-1.3); Blood Urea Nitrogen 21 mg/dL (7-17); Calcium 10.3 mg/dL (8.4-10.2); Carbon Dioxide 27 mmol/L (22-32); Chloride 105 mmol/L (98-107); Estimated Glomerular Filt Rate > 60 mL/min (>60); Globulin 3.4 g/dL (1.7-4.1); Glucose 104 mg/dL (80-110); HEMOLYSIS 17 (0-50); Lipase 131 U/L (23-300); Potassium 4.3 mmol/L (3.4-5.1); Sodium 140 mmol/L (137-145); Total Protein 7.9 g/dL (6.3-8.2)
[2023-03-07 09:26] LABS: RBC Morphology Normal Morphology
[2023-03-07 09:27] LABS: Platelet Estimate Adequate on smear
[2023-03-07] MEDS: fentaNYL 100 MCG/2 ML INJ 25 MCG IV (09:40)
[2023-03-07] MEDS: ONDANSETRON 4 MG/2 ML INJ IV (09:41)
== END 2023-03-07 11:02 | disposition home or self-care (01) ==
PROVIDERS: Emergency Provider Emergency Medicine; Family Provider Registered Nurse; PCP Registered Nurse
DX: K40.90 Unilateral inguinal hernia, without obstruction or gangrene, not specified as recurrent (principal)
CPT/HCPCS: 74177; 80053; 83690; 85025; 96374; 96375; 99284; J1885; J2405; J3010; Q9967

== ENCOUNTER 2023-03-10 14:31 | Day surgery (SDC) | payer OTHER, SELFPAY ==
[2023-03-08 16:17] VITALS: BMI 33.6
[2023-03-09 08:49] VITALS: BMI 33.4
[2023-03-10] VITALS (11 sets, daily range): BP systolic 113–148; BP diastolic 58–100; PULSE 65–91; RESP 12–19; TEMP 36.3–36.8; O2SAT 90–100; BMI 33.4
[2023-03-10] MEDS: ACETAMINOPHEN 325 MG TABLET 975 MG PO (15:32)
--- NOTE | 2023-03-10 16:28 | PM.PREOP ---
Pre-operative Note Interval Note History & Physical reviewed/Exam performed by Physician: Yes Changes to H&P: No H&P completed within 30 days and has changed as indicated here:: Plan Laparoscopic left inguinal hernia repair for symptomatic left inguinal hernia. Overview of the operation discussed. Operative risks including hemorrhage, infection, reoccurrence, intestinal injury and discussed. She provides her consent to proceed.
[2023-03-10] MEDS: CEFAZOLIN 2 GM/100 ML PREMIX 100 ML IV (16:53)
--- NOTE | 2023-03-10 17:19 | SUR.OPER ---
Supine on padded OR bed, head on pillow, arms padded and tucked at sides, legs uncrossed, safety belt at thigh, tape over blanket over lower legs .
[2023-03-10] MEDS: BUPIVACAINE 0.25% (PF) VIAL 30 ML INJ (17:24)
[2023-03-10] MEDS: LACTATED RINGERS 1,000 ML 42 ML IV (17:59)
--- NOTE | 2023-03-10 18:15 | PM.OP.1 ---
Operative Date/Time/Diagnoses Date of procedure: 03/10/23 Time of procedure: 18:16 Pre-op diagnosis: Left inguinal hernia Post-op diagnosis: same Procedure & Clinicians Procedure: Laparoscopic repair of left inguinal hernia Same procedure as scheduled: Yes Indications: Symptomatic left inguinal hernia Surgeon: Hernandez Ladd Anesthesia Type: General Operative Notes Findings: Left femoral defect. No right sided inguinal hernia. Estimated Blood Loss (mL): 20 Procedure in detail: The patient was brought to the operating room and placed supine on the table. Bilateral sequential compression devices were applied. General anesthesia was induced and they were intubated with an endotracheal tube. A portillo cath was placed in sterile fashion. They received 900g clindaymycin prior to skin incision. They were prepped and draped in sterile fashion. A time out was performed to ensure the correct patient, procedure and necessary equipment within the operating room. The skin was infiltrated with 0.25% bupivicaine. A 1 cm supra umbilical midline incision was made. The fascia was sharply incised and the abdomen entered traumatically. A 10mm balloon port was placed and pneumoperitoneum was established at 15mm Hg. Inspection of the abdomen demonstrated no evidence of injury upon entry. Two 5 mm ports were then placed under direct visualization in the right and left lower quadrant lateral to the rectus muscle. A left femoral defect was observed. No right inguinal hernia observed.The peritoneum 4 cm superior to the deep inguinal ring between the medial umbilical ligament and the anterior superior iliac spine was incised. The medial preperitoneal dissection was carried out into the space of Retzius bluntly, the bladder was swept inferiorly, the pubis and Esau's ligament were identified. Next attention was turned towards the lateral aspect of the peritoneal flap. There was no indirect or direct defect. The defect was femoral hernia containing omentum. The omentum was reduced out of the femoral space. A preperitoneal pocket was developed to accomodate the mesh. A large Bard 3D Max mesh was then placed into the abdomen and positioned such that the myopectineal orifice was completely covered with good overlap on all sides. The peritoneal flap was then repositioned back to its original position and a running V lock suture was used to close the peritoneum such that no bowel could herniate into the preperitoneal space. The area was examined for hemostasis. The 5mm trocars were removed under direct visualization and pneumoperitoneum was deflated through the umbilical trocar, The fascia at the umbilicus was closed with 0-Vicryl in figure of 8 fashion, skin closed with 4-0 Monocyl followed by Dermabond. The sponge and instrument count at the end of the case was correct. The patient emerged from anaesthesia was extubated and transferred to recovery in stable condition.
[2023-03-10] MEDS: KETOROLAC 30 MG/ML VIAL 15 MG IV (18:26)
[2023-03-10] MEDS: BENZOCAINE/MENTHOL 1 LOZ PKT 1 EACH PO ×2 (18:30→19:08)
[2023-03-10] MEDS: TRAMADOL 50 MG TABLET PO (18:31)
[2023-03-10] MEDS: fentaNYL 100 MCG/2 ML INJ IV ×2 (18:55→19:00)
[2023-03-10] MEDS: PHENAZOPYRIDINE 100 MG TABLET 200 MG PO (18:57)
== END 2023-03-10 19:40 | disposition home or self-care (01) ==
PROVIDERS: Family Provider Registered Nurse; PCP Registered Nurse; Referring Provider Surgery; Visit Provider Surgery
PROC: 0YQ64ZZ Repair Left Inguinal Region, Percutaneous Endoscopic Approach (ICD-10-PCS; CPT 49650; principal; 2023-03-10 14:45)
DX: K40.90 Unilateral inguinal hernia, without obstruction or gangrene, not specified as recurrent (principal)
CPT/HCPCS: 49650; J0690; J1100; J1885; J2405; J2704; J3010; J3490

== ENCOUNTER → 2023-05-03 09:40 | Outpatient (CLI) | payer OTHER, SELFPAY ==
[2023-03-08 16:17] VITALS: BMI 33.6
--- NOTE | 2023-05-03 09:41 | DI.MRI.S_ITS ---
PROCEDURE: MR PELVIS WO CON INDICATIONS: LEFT GROIN PAIN/SPONDYLOPATHY IN SPINE TECHNIQUE: Noncontrast coronal and axial T1 spin echo and STIR through the bony pelvis. COMPARISON: None. FINDINGS: Image quality: Excellent. Bones: Asymmetric severe left hip joint osteoarthritis is seen with complete loss of joint space, extensive subchondral sclerosis and marginal osteophyte formation. Marrow edema and subcortical cystic changes are noted in left acetabular roof . Marrow edema is also noted in left femoral head and neck extending to intertrochanteric region without definite fracture line or cortical disruption. No other area of abnormal marrow signal. [id number] right hip joint osteoarthritis is seen. No evidence of avascular necrosis of femoral head. Degenerative disc disease in visualized lower lumbar spine is seen. No suspicious bony lesions. Tendons: Distal left gluteus medius and minimus tendinosis is seen. Low-grade partial-thickness tear involving distal left gluteus medius tendon at its insertion on greater trochanter is also seen. Small amount of fluid adjacent to greater trochanter is noted, trochanteric bursitis cannot be excluded. The nearby proximal iliotibial band also appears intact. The iliopsoas tendon appears intact, without adjacent bursal fluid collections or evidence for impingement syndrome. The origin of the hamstring tendon is intact at the ischial tuberosity. Large ifija-bu-[id number] shows global signal abnormality throughout left hip labrum suggestive of extensive left hip labral tear. Soft tissues: Visualized muscles demonstrate normal bulk and internal signal. No joint effusions. No free pelvic fluid. Bladder wall thickness is normal. Genitourinary structures and bowel loops appear normal where visualized. IMPRESSION: 1. Asymmetric severe left hip joint osteoarthritis. Marrow edema and subcortical cystic changes in left acetabular roof. Marrow edema is also seen in left femoral head and neck as above. No definite fracture line is seen. Finding likely represent changes related to osteoarthritis versus stress related changes. Early stress fracture cannot be entirely excluded. Clinical and radiographic follow-up is recommended. No evidence of avascular necrosis of femoral head. Degenerative disc disease in lower lumbar spine. 2. Tendinosis and low-grade partial-thickness tear involving distal left gluteus medius tendon at its insertion on greater trochanter. Distal left gluteus minimus tendinosis. Small amount of fluid within trochanteric bursa, concerning for low-grade bursitis. No other muscle or tendon signal abnormalities. 3. Global signal abnormality throughout left hip labrum suggestive of extensive labral tear. Dictated by: Manpreet Mcdonald M.D. on 05/03/2023 at 22:44 Approved by: Manpreet Mcdonald M.D. on 05/03/2023 at 22:48
--- NOTE | 2023-05-03 09:42 | DI.MRI.S_ITS ---
PROCEDURE: MR LUMBAR SPINE WO CON INDICATIONS: LEFT GROIN PAIN/SPONDYLOPATHY IN SPINE TECHNIQUE: Noncontrast sagittal T1 spin echo and T2 fast echo, sagittal STIR, and T2 fast spin echo through the lumbar spine. In cases with scoliosis, additional coronal T2 fast spin echo may be performed. COMPARISON: [facility], , L-SPINE WITHOUT CONTRAST, 10/22/2009, 7:33. FINDINGS: Image quality: Excellent. Alignment and Curvature: Levocurvature of the lumbar spine. Minimal retrolisthesis of L1 on L2. Mild anterolisthesis of L4 on L5. Bone Marrow: Multilevel Modic type 2 degenerative endplate changes. Marrow is of normal overall signal. No acute vertebral body compression fractures. Spinal Cord: Conus medullaris terminates at the L1 level. Visualized cord demonstrates normal signal and size. Paraspinous Soft Tissues: No paravertebral masses. T12-L1: Disc desiccation and posterior disc bulge. Facet arthropathy. No central canal stenosis. Mild left neural foraminal stenosis. No right neural foraminal stenosis. L1-L2: Disc desiccation height loss. Mild posterior disc bulge. Facet arthropathy. No central canal stenosis. Mild bilateral neural foraminal stenosis. L2-L3: Disc desiccation height loss. Posterior disc bulge with a superimposed inferiorly directed disc extrusion within the right subarticular zone. This results in mild central canal stenosis and severe right lateral recess stenosis with likely impingement of the descending right L3 nerve root. Severe right and mild left neural foraminal stenosis. L3-L4: Disc desiccation and height loss. Posterior disc bulge. Facet arthropathy and thickening of the ligamentum flavum. Epidural lipomatosis. Moderate to severe central canal stenosis. Mild bilateral neural foraminal stenosis. L4-L5: Disc desiccation height loss. Posterior disc bulge with superiorly directed disc extrusion. Facet arthropathy. Mild central canal stenosis. Mild bilateral neural foraminal stenosis. L5-S1: Disc desiccation height loss. Posterior disc bulge. Facet arthropathy. No central canal stenosis. Mild neural foraminal stenosis bilaterally. IMPRESSION: 1. Multilevel degenerative changes of the lumbar spine as described above. 2. Moderate to severe central canal stenosis at L3-L4. 3. Disc extrusion at L2-L3 in the right subarticular zone results in severe narrowing of the right lateral recess and likely impingement of the descending right L3 nerve root. 4. Severe right neural foraminal stenosis at L2-L3. Multilevel mild neural foraminal stenosis at other levels. Dictated by: Kings Perkins M.D. on 05/03/2023 at 11:19 Approved by: Kings Perkins M.D. on 05/03/2023 at 11:26
== END ==
PROVIDERS: Family Provider Registered Nurse; PCP Family Medicine; Referring Provider Family Medicine; Visit Provider Family Medicine
DX: M16.12 Unilateral primary osteoarthritis, left hip (principal); S76.012A Strain of muscle, fascia and tendon of left hip, initial encounter; M47.816 Spondylosis without myelopathy or radiculopathy, lumbar region; M47.817 Spondylosis without myelopathy or radiculopathy, lumbosacral region; M51.26 Other intervertebral disc displacement, lumbar region; M48.061 Spinal stenosis, lumbar region without neurogenic claudication; M48.07 Spinal stenosis, lumbosacral region; M48.8X6 Other specified spondylopathies, lumbar region; R10.32 Left lower quadrant pain; M79.605 Pain in left leg
CPT/HCPCS: 72148; 72195

== ENCOUNTER 2023-05-24 15:00 | Emergency (ER) | payer OTHER, SELFPAY ==
[2023-03-08 16:17] VITALS: BMI 33.6
[2023-05-24] VITALS (14 sets, daily range): BP systolic 139–177; BP diastolic 67–81; PULSE 65–84; RESP 12–25; TEMP 36.4; O2SAT 88–99; BMI 33.2
--- NOTE | 2023-05-24 15:43 | ED_ITS ---
HPI - Chest Pain <Marilou DO Marky - Last Filed: 05/25/23 07:17> General Chief Complaint: Abdominal Pain Stated Complaint: lt upper arm pain Time Seen by Provider: 05/24/23 15:29 Source: patient Mode of arrival: Ambulatory Limitations: no limitations History of Present Illness HPI narrative: Patient 77-year-old female history of diverticulitis, hyperlipidemia hard of hearing, presents today with left upper quadrant pain. She says it is radiating around to her back. It has not going into her chest. She denies any nausea or vomiting. Still has a little bit worse than the last time she would diverticulitis but in the same place. No fever no chills. Started yesterday around 4:00 p.m. has progressively gotten worse Related Data Home Medications Medication Instructions Recorded Confirmed ascorbic acid (vitamin C) 500 mg 500 mg PO DAILY 02/14/18 03/22/23 capsule [id number]-[id number] tablet 1 tab PO DAILY 02/14/18 03/22/23 omega-3 fatty acids 1,000 mg 1,000 mg PO DAILY 02/14/18 03/22/23 capsule (Fish Oil Concentrate) cholecalciferol (vitamin D3) 25 3,000 unit PO DAILY 07/01/20 03/22/23 mcg (1,000 unit) capsule aspirin 81 mg PO DIRECTED 02/05/21 03/22/23 cyclobenzaprine 10 mg tablet 10 mg PO TID PRN pain 03/08/23 03/22/23 dicyclomine 10 mg capsule 10 mg PO Q8H PRN upset stomach 03/08/23 03/22/23 gabapentin 300 mg capsule 300 mg PO DAILY 03/10/23 03/22/23 Previous Rx's Medication Instructions Recorded cholestyramine (with sugar) 4 gram 4 gram PO BID PRN ingestion of 04/30/19 powder for susp in a packet fatty meal #20 ea valacyclovir 1 gram tablet 1,000 mg PO Q DAY HSV #90 tabs 06/28/19 levothyroxine 25 mcg tablet 25 mcg PO DAILY #90 tabs 01/20/20 simvastatin 10 mg tablet (Zocor) 10 mg PO QAM #90 tabs 01/20/20 albuterol sulfate 90 mcg/actuation 2 puff inhalation Q4-6H PRN 08/16/23 aerosol inhaler shortness of breath or wheezing #8.5 grams benzonatate 200 mg capsule 200 mg PO BID-TID PRN cough #20 11/16/22 caps ondansetron 4 mg disintegrating 4 mg PO Q6H PRN nausea and 03/07/23 tablet vomiting #10 tabs acetaminophen 325 mg capsule 650 mg (2 x 325 mg) PO QID PRN 03/10/23 (Tylenol) pain #60 caps docusate sodium 100 mg capsule 100 mg PO BID #30 caps 03/10/23 (Colace) ibuprofen 200 mg tablet 400 mg (2 x 200 mg) PO Q6H #60 tabs 03/10/23 tramadol 50 mg tablet 50 mg PO Q6H PRN pain #15 tabs 03/10/23 ciprofloxacin HCl 500 mg tablet 500 mg PO BID #20 tabs 05/24/23 (Cipro) metronidazole 500 mg tablet 500 mg PO Q8H 10 days #30 tabs 05/24/23 Allergies Allergy/AdvReac Type Severity Reaction Status Date / Time codeine [CODEINE] Allergy Mild NAUSEA, Verified 03/22/23 10:52 VOMITING morphine [MORPHINE] Allergy Mild VOMITING Verified 03/22/23 10:52 hydromorphone [From Dilaudid] AdvReac Severe Drowsy Verified 05/24/23 18:35 Patient History <Marilou Negro, - Last Filed: 05/25/23 07:17> Medical History Vocal cord paralysis Right foot pain Mass of right foot Right-sided heart failure DVT (deep venous thrombosis) Weight loss Change in voice Shortness of breath Fatigue Superficial bruising Chronic anticoagulation Pulmonary emboli Cerumen impaction Trigger finger Abnormal Pap smear of cervix (~2009) Kidney disease Hypertension Hyperlipidemia Rheumatoid arthritis Osteoarthritis Depression Anxiety Measles Herpes Chicken pox (~1949) Diverticular disease Macular degeneration Hearing loss (~11/2014) Foot pain (~2012) Carpal tunnel syndrome (~2006) Surgical History Anesthesia History of neck surgery (~1993) History of shoulder surgery (~1993) Left fibular fracture (~2015) Fractures (~1980) History of esophagogastroduodenoscopy (EGD) (12/12/16) Status post breast biopsy (10/02/13) Status post rotator cuff repair (~2007) History of carpal tunnel repair (~2006) Status post bunionectomy (12/18/12) Status post hysterectomy (~1980) Status post arthroscopy (~2007) Status post breast biopsy (10/01/12) Status post breast biopsy (~1993) Family History Brother Age: 80 Hypertension Father Leukemia Pneumonia Mother No problems noted. Grandmother Diabetes mellitus Social History marital status: unmarried,living together household members: spouse occupational status: previously employed Smoking Status: Never smoker alcohol intake: former substance use type: does not use Smoking Status: Never smoker alcohol intake frequency: holidays/special occasions only Substance Use Type: does not use Exam <Marilou Negro DO - Last Filed: 05/25/23 07:17> Initial Vital Signs Initial Vital Signs: Vital Signs Temperature 97.6 F 05/24/23 15:16 Pulse Rate 84 05/24/23 15:16 Respiratory Rate 18 05/24/23 15:16 Blood Pressure 141/71 H 05/24/23 15:16 Pulse Oximetry 97 05/24/23 15:16 Oxygen Delivery Method Room Air 05/24/23 15:16 GENERAL: Alert 77-year-old female appears uncomfortable and in no acute distress. HEENT: Head atraumatic,EOMI, pupils reactive, face symmetric, moist mucous membranes CARDIOVASCULAR: Regular rate and rhythm without murmurs, rubs or gallops. RESPIRATORY: Breath sounds equal bilaterally, no wheezes rales or rhonchi. ABDOMEN: Soft, tender left upper quadrant no guarding no rebound minimal epigastric pain negative Yu sign no periumbilical nondistended EXTREMITIES: Normal range of motion, no clubbing or edema. Neurovascularly intact NEUROLOGICAL: Alert and oriented x4.Normal gait and speech. SKIN: Warm, dry, no laceration, no petechiae, no rashes or lesions. <Maricruz Carbajal MD - Last Filed: 05/24/23 20:40> Initial Vital Signs Initial Vital Signs: Vital Signs Temperature 97.6 F 05/24/23 15:16 Pulse Rate 84 05/24/23 15:16 Respiratory Rate 18 05/24/23 15:16 Blood Pressure 141/71 H 05/24/23 15:16 Pulse Oximetry 97 05/24/23 15:16 Oxygen Delivery Method Room Air 05/24/23 15:16 Course <Marilou Negro DO - Last Filed: 05/25/23 07:17> Orders Ordered: Discontinued Medications Ciprofloxacin (Ciprofloxacin 250 Mg Tablet) 500 mg PO NOW ONE Stop: 05/24/23 17:46 Last Admin: 05/24/23 20:11 Dose: 500 mg Documented By: OW Hydromorphone HCl (Hydromorphone 0.5 Mg Inj) 0.5 mg IV NOW ONE Stop: 05/24/23 15:56 Last Admin: 05/24/23 16:34 Dose: 0.5 mg Documented By: OW Metoclopramide HCl (Metoclopramide 10 Mg/2 Ml Inj) 10 mg IV NOW ONE Stop: 05/24/23 19:03 Last Admin: 05/24/23 19:05 Dose: 10 mg Documented By: ESTEFANÍA Metronidazole (Metronidazole 500 Mg Tablet) 500 mg PO NOW ONE Stop: 05/24/23 17:46 Last Admin: 05/24/23 20:11 Dose: 500 mg Documented By: OW Ondansetron HCl (Ondansetron 4 Mg/2 Ml Inj) 4 mg IV NOW PRN PRN Reason: Nausea And Vomiting Last Admin: 05/24/23 17:58 Dose: 4 mg Documented By: Admin: 05/24/23 16:32 Dose: 4 mg Documented By: ESTEFANÍA Ondansetron HCl (Ondansetron 4 Mg Odt) 4 mg PO NOW PRN PRN Reason: Nausea And Vomiting Ondansetron HCl (Ondansetron 4 Mg/2 Ml Inj) 4 mg IV NOW ONE Stop: 05/24/23 17:56 Last Admin: 05/24/23 18:17 Dose: Not Given Documented By: ESTEFANÍA Vital Signs Vital signs: Vital Signs - 8 hr 05/24/23 15:16 05/24/23 15:45 05/24/23 16:59 Temperature 97.6 F Pulse Rate 84 78 81 Respiratory Rate 18 18 25 H Blood Pressure 141/71 H 143/67 H 177/81 H Pulse Oximetry 97 98 99 Oxygen Delivery Method Room Air Room Air Room Air Oxygen Flow Rate 05/24/23 17:10 05/24/23 17:30 05/24/23 18:00 Temperature Pulse Rate 69 69 65 Respiratory Rate 12 13 14 Blood Pressure 177/77 H 143/68 H 148/69 H Pulse Oximetry 97 93 96 Oxygen Delivery Method Room Air Room Air Room Air Oxygen Flow Rate 05/24/23 18:30 05/24/23 19:00 05/24/23 19:01 Temperature Pulse Rate 70 81 78 Respiratory Rate 24 22 17 Blood Pressure 139/70 Pulse Oximetry 93 96 97 Oxygen Delivery Method Nasal Cannula Nasal Cannula Oxygen Flow Rate 2 2 05/24/23 19:01 05/24/23 19:30 05/24/23 19:30 Temperature Pulse Rate 78 Respiratory Rate 17 Blood Pressure 160/70 H 151/69 H Pulse Oximetry 91 Oxygen Delivery Method Oxygen Flow Rate 05/24/23 20:00 05/24/23 20:22 05/24/23 20:22 Temperature Pulse Rate 81 81 Respiratory Rate 23 24 Blood Pressure 146/70 H Pulse Oximetry 93 95 Oxygen Delivery Method Oxygen Flow Rate 05/24/23 20:30 Temperature Pulse Rate 83 Respiratory Rate 23 Blood Pressure 162/76 H Pulse Oximetry 88 L Oxygen Delivery Method Room Air Oxygen Flow Rate <Maricruz Carbajal MD - Last Filed: 05/24/23 20:40> Orders Ordered: Discontinued Medications Ciprofloxacin (Ciprofloxacin 250 Mg Tablet) 500 mg PO NOW ONE Stop: 05/24/23 17:46 Last Admin: 05/24/23 20:11 Dose: 500 mg Documented By: OW Hydromorphone HCl (Hydromorphone 0.5 Mg Inj) 0.5 mg IV NOW ONE Stop: 05/24/23 15:56 Last Admin: 05/24/23 16:34 Dose: 0.5 mg Documented By: OW Metoclopramide HCl (Metoclopramide 10 Mg/2 Ml Inj) 10 mg IV NOW ONE Stop: 05/24/23 19:03 Last Admin: 05/24/23 19:05 Dose: 10 mg Documented By: ESTEFANÍA Metronidazole (Metronidazole 500 Mg Tablet) 500 mg PO NOW ONE Stop: 05/24/23 17:46 Last Admin: 05/24/23 20:11 Dose: 500 mg Documented By: ESTEFANÍA Ondansetron HCl (Ondansetron 4 Mg/2 Ml Inj) 4 mg IV NOW PRN PRN Reason: Nausea And Vomiting Last Admin: 05/24/23 17:58 Dose: 4 mg Documented By: Admin: 05/24/23 16:32 Dose: 4 mg Documented By: ESTEFANÍA Ondansetron HCl (Ondansetron 4 Mg Odt) 4 mg PO NOW PRN PRN Reason: Nausea And Vomiting Ondansetron HCl (Ondansetron 4 Mg/2 Ml Inj) 4 mg IV NOW ONE Stop: 05/24/23 17:56 Last Admin: 05/24/23 18:17 Dose: Not Given Documented By: ESTEFANÍA Vital Signs Vital signs: Vital Signs - 8 hr 05/24/23 15:16 05/24/23 15:45 05/24/23 16:59 Temperature 97.6 F Pulse Rate 84 78 81 Respiratory Rate 18 18 25 H Blood Pressure 141/71 H 143/67 H 177/81 H Pulse Oximetry 97 98 99 Oxygen Delivery Method Room Air Room Air Room Air Oxygen Flow Rate 05/24/23 17:10 05/24/23 17:30 05/24/23 18:00 Temperature Pulse Rate 69 69 65 Respiratory Rate 12 13 14 Blood Pressure 177/77 H 143/68 H 148/69 H Pulse Oximetry 97 93 96 Oxygen Delivery Method Room Air Room Air Room Air Oxygen Flow Rate 05/24/23 18:30 05/24/23 19:00 05/24/23 19:01 Temperature Pulse Rate 70 81 78 Respiratory Rate 24 22 17 Blood Pressure 139/70 Pulse Oximetry 93 96 97 Oxygen Delivery Method Nasal Cannula Nasal Cannula Oxygen Flow Rate 2 2 05/24/23 19:01 05/24/23 19:30 05/24/23 19:30 Temperature Pulse Rate 78 Respiratory Rate 17 Blood Pressure 160/70 H 151/69 H Pulse Oximetry 91 Oxygen Delivery Method Oxygen Flow Rate 05/24/23 20:00 05/24/23 20:22 05/24/23 20:22 Temperature Pulse Rate 81 81 Respiratory Rate 23 24 Blood Pressure 146/70 H Pulse Oximetry 93 95 Oxygen Delivery Method Oxygen Flow Rate 05/24/23 20:30 Temperature Pulse Rate 83 Respiratory Rate 23 Blood Pressure 162/76 H Pulse Oximetry 88 L Oxygen Delivery Method Room Air Oxygen Flow Rate MDM - Chest Pain <Marilou Negro DO - Last Filed: 05/25/23 07:17> Lab Data 05/24/23 15:50 05/24/23 16:39 Labs: Lab Results 05/24/23 05/24/23 05/24/23 Range/Units 15:27 15:50 16:39 WBC 11.2 H (4.5-11.0) X10^3/uL RBC 3.85 L (4.0-5.2) X10^6/uL Hgb 12.6 (12.0-16.0) g/dL Hct 37.6 (36-46) % MCV 97.5 (80-100) fL MCH 32.6 (26-34) PG MCHC 33.4 (30-36) % RDW 14.5 (11.6-14.8) % Plt Count TNP Neut % (Auto) 60.2 (50-75) % Lymph % (Auto) 32.4 (25-40) % Hubbard % (Auto) 6.1 (3-14) % Eos % (Auto) 1.0 L (2-4) % Baso % (Auto) 0.3 (0-2) % Neut # (Auto) 6700 (8317-8601) /uL Lymph # (Auto) 3600 (5660-0664) /uL Hubbard # (Auto) 700 (0-900) /uL Eos # (Auto) 100 (0-450) /uL Baso # (Auto) 0 (0-100) /uL Sodium 141 (137-145) mmol/L Potassium 4.0 (3.4-5.1) mmol/L Chloride 102 (98-107) mmol/L Carbon Dioxide 28 (22-32) mmol/L BUN 18 H (7-17) mg/dL Creatinine 0.76 (0.52-1.04) mg/dL Estimated GFR > 60 (>60) mL/min BUN/Creatinine Ratio 23.7 H (6-22) Glucose 95 (80-110) mg/dL Calcium 10.0 (8.4-10.2) mg/dL Total Bilirubin 0.7 (0.2-1.3) mg/dL AST 20 (14-36) IU/L ALT 16 (<35) IU/L Alkaline Phosphatase 70 (38-126) U/L Total Creatine Kinase 46 (30-135) U/L Troponin I < 0.012 (0.01-0.034) ng/mL Total Protein 8.1 (6.3-8.2) g/dL Albumin 4.4 (3.5-5.0) g/dL Globulin 3.7 (1.7-4.1) g/dL Albumin/Globulin Ratio 1.2 (1.0-2.8) Lipase 59 (23-300) U/L Urine RBC 0-1/hpf (0-5/HPF) Urine WBC 1-5/hpf (0-5/HPF) Ur Squamous Epith Cells 5-10 /hpf H (0-5/HPF) Ur Transition Epith Cell 1-5/hpf (0-5/HPF) Urine Bacteria None seen (None) Ur Culture Indicated? Specimen cultured Vol Urine Centrifuged 10ml (spun) Urine Dip Bedside Urine Glucose Negative Bedside Urine Bilirubin - Negative Bedside Urine Ketone - Negative Urine Specific [place] 1.010 Bedside Urine Occult Blood + Bedside Urine pH 6.0 Bedside Urine Protein - Negative Bedside Urine Urobilinogen - Negative Bedside Urine Nitrite - Negative Bedside Urine Leukocytes - Negative Esterase Imaging Data CT scan - abdomen/pelvis: Radiologist's Impression: PROCEDURE: CT ABDOMEN PELVIS W CON INDICATIONS: left upper quad pain hx diverticulitis TECHNIQUE: After the administration of intravenous contrast, axial sections acquired from the lung bases to the pubic symphysis. Coronal and sagittal reformats were performed. For radiation dose reduction, the following was used: automated exposure control, adjustment of mA and/or kV according to patient size. COMPARISON: [facility], CT, CT ABDOMEN PELVIS W CON, 03/07/2023, 9:18. FINDINGS: Image quality: Diagnostic. Lower Chest: No significant findings. ABDOMEN: Liver: Hepatic cysts. Additional subcentimeter hypoattenuating lesions, too small to characterize by CT. Gallbladder: No radiopaque gallstones or wall thickening. Biliary ducts: No biliary dilation. Pancreas: No ductal dilation. Spleen: Size is within normal limits. Adrenal Glands: No adrenal nodules. Kidneys and Ureters: No hydronephrosis. No solid mass. No complex renal cystic lesion which requires follow up. Stomach and Bowel: Colonic wall thickening and pericolonic fat stranding of the descending colon, without evidence perforation. Peritoneum: No abnormal intraperitoneal fluid. No free air. Ventral Wall: No significant ventral hernia. Abdominal Nodes: No retroperitoneal or mesenteric adenopathy by size criteria. Vessels: Aorta and inferior vena cava are normal in size. PELVIS: Pelvic Organs: Unremarkable. Bladder: No bladder wall thickening, accounting for underdistention. Pelvic Nodes: No enlarged lymph nodes. Miscellaneous: No inguinal hernias are seen. Bones: No aggressive osseous abnormality. IMPRESSION: Descending colonic diverticulitis without perforation. Approved by: Delvin Lock M.D. on 05/24/2023 at 17:17 ECG Data Interpretation: Sinus rhythm rate 75 HI interval 164 QRS [address] changes no T-wave inversions MDM Narrative Medical decision making narrative: Patient 77-year-old female history of diverticulitis presents today with left upper quadrant pain similar to prior diverticulitis episodes. Blood work has been reviewed WBC count 11.2, no electrolyte abnormalities no NIRAJ liver function is normal troponin is negative CT abdomen pelvis shows acute descending diverticulitis without complication Patient has diverticulitis likely causing her pain. She is septic there are no complications. She can be treated with antibiotics and pain medication. She has had multiple colonoscopies in the past. Dilaudid has decreased her respiratory effort while sleeping O2 goes down to 84% however once awake it goes right back up to 94% on room air. <Maricruz Carbajal MD - Last Filed: 05/24/23 20:40> Lab Data Labs: Lab Results 05/24/23 05/24/23 05/24/23 Range/Units 15:27 15:50 16:39 WBC 11.2 H (4.5-11.0) X10^3/uL RBC 3.85 L (4.0-5.2) X10^6/uL Hgb 12.6 (12.0-16.0) g/dL Hct 37.6 (36-46) % MCV 97.5 (80-100) fL MCH 32.6 (26-34) PG MCHC 33.4 (30-36) % RDW 14.5 (11.6-14.8) % Plt Count TNP Neut % (Auto) 60.2 (50-75) % Lymph % (Auto) 32.4 (25-40) % Hubbard % (Auto) 6.1 (3-14) % Eos % (Auto) 1.0 L (2-4) % Baso % (Auto) 0.3 (0-2) % Neut # (Auto) 6700 (7715-5550) /uL Lymph # (Auto) 3600 (4950-2189) /uL Hubbard # (Auto) 700 (0-900) /uL Eos # (Auto) 100 (0-450) /uL Baso # (Auto) 0 (0-100) /uL Sodium 141 (137-145) mmol/L Potassium 4.0 (3.4-5.1) mmol/L Chloride 102 (98-107) mmol/L Carbon Dioxide 28 (22-32) mmol/L BUN 18 H (7-17) mg/dL Creatinine 0.76 (0.52-1.04) mg/dL Estimated GFR > 60 (>60) mL/min BUN/Creatinine Ratio 23.7 H (6-22) Glucose 95 (80-110) mg/dL Calcium 10.0 (8.4-10.2) mg/dL Total Bilirubin 0.7 (0.2-1.3) mg/dL AST 20 (14-36) IU/L ALT 16 (<35) IU/L Alkaline Phosphatase 70 (38-126) U/L Total Creatine Kinase 46 (30-135) U/L Troponin I < 0.012 (0.01-0.034) ng/mL Total Protein 8.1 (6.3-8.2) g/dL Albumin 4.4 (3.5-5.0) g/dL Globulin 3.7 (1.7-4.1) g/dL Albumin/Globulin Ratio 1.2 (1.0-2.8) Lipase 59 (23-300) U/L Urine RBC 0-1/hpf (0-5/HPF) Urine WBC 1-5/hpf (0-5/HPF) Ur Squamous Epith Cells 5-10 /hpf H (0-5/HPF) Ur Transition Epith Cell 1-5/hpf (0-5/HPF) Urine Bacteria None seen (None) Ur Culture Indicated? Specimen cultured Vol Urine Centrifuged 10ml (spun) Urine Dip Bedside Urine Glucose Negative Bedside Urine Bilirubin - Negative Bedside Urine Ketone - Negative Urine Specific [place] 1.010 Bedside Urine Occult Blood + Bedside Urine pH 6.0 Bedside Urine Protein - Negative Bedside Urine Urobilinogen - Negative Bedside Urine Nitrite - Negative Bedside Urine Leukocytes - Negative Esterase MDM Narrative Medical decision making narrative: Patient 77-year-old female history of diverticulitis presents today with left upper quadrant pain similar to prior diverticulitis episodes. Blood work has been reviewed WBC count 11.2, no electrolyte abnormalities no NIRAJ liver function is normal troponin is negative CT abdomen pelvis shows acute descending diverticulitis without complication Patient has diverticulitis likely causing her pain. She is septic there are no complications. She can be treated with antibiotics and pain medication. She has had multiple colonoscopies in the past. Dilaudid has decreased her respiratory effort while sleeping O2 goes down to 84% however once awake it goes right back up to 94% on room air. Dr. Carbajal - Patient's saturation stable on room air, even while sleeping patient's saturations remain in the mid 90s. She states she was ready to leave. Antibiotics have already been sent to pharmacy of choice. Discharge Plan Departure Patient Disposition: Home Clinical Impression: Diverticulitis Instructions: Diverticulitis Activity Restrictions/Additional Instructions: *You have been diagnosed with diverticulitis *What to do: At this time you have diverticulitis which can be treated with antibiotics. *Continue to take medications as directed Cipro 500 mg twice a day for 10 days Flagyl 500 mg 3 times a day for 10 days *Follow up with your primary care provider in 2-3 days or call [phone] *Return to ER if you should have increasing pain fever bloody stool [or] any new, worsening or concerning symptoms Prescriptions: New metronidazole 500 mg tablet 500 mg PO Q8H 10 Days Qty: 30 0RF ciprofloxacin HCl [Cipro] 500 mg tablet 500 mg PO BID Qty: 20 0RF No Action cholestyramine (with sugar) 4 gram powder in packet 4 gram PO BID PRN (Reason: ingestion of fatty meal) Qty: 20 1RF Rx Instructions: administer w/meal; avoid other meds within 1hr before or 4-6hr after dose valacyclovir 1 gram tablet 1,000 mg PO Q DAY Qty: 90 3RF Patient Comments: takes every other day by choice levothyroxine 25 mcg tablet 25 mcg PO DAILY Qty: 90 3RF Rx Instructions: Take one tablet once a day on an empty stomach 30 minutes before breakfast. simvastatin [Zocor] 10 mg tablet 10 mg PO QAM Qty: 90 3RF ascorbic acid (vitamin C) 500 mg capsule 500 mg PO DAILY Patient Comments: 1 year omega-3 fatty acids [Fish Oil Concentrate] 1,000 mg capsule 1,000 mg PO DAILY pheamur-wvuroiitn-kkfz tablet 1 tab PO DAILY cholecalciferol (vitamin D3) 25 mcg (1,000 unit) capsule 3,000 unit PO DAILY cyclobenzaprine 10 mg tablet 10 mg PO TID PRN (Reason: pain) dicyclomine 10 mg capsule 10 mg PO Q8H PRN (Reason: upset stomach) albuterol sulfate 90 mcg/actuation HFA aerosol inhaler 2 puff INHALATION Q4-6H PRN (Reason: shortness of breath or wheezing) Qty: 8.5 0RF benzonatate 200 mg capsule 200 mg PO BID-TID PRN (Reason: cough) Qty: 20 0RF ondansetron 4 mg tablet,disintegrating 4 mg PO Q6H PRN (Reason: nausea and vomiting) Qty: 10 0RF gabapentin 300 mg capsule 300 mg PO DAILY tramadol 50 mg tablet 50 mg PO Q6H PRN (Reason: pain) Qty: 15 0RF ibuprofen 200 mg tablet 400 mg PO Q6H Qty: 60 0RF docusate sodium [Colace] 100 mg capsule 100 mg PO BID Qty: 30 0RF acetaminophen [Tylenol] 325 mg capsule 650 mg PO QID PRN (Reason: pain) Qty: 60 0RF aspirin 81 mg PO DIRECTED Referrals: Adam Faria MD [Primary Care Provider] - Stand Alone Forms: Patient Portal/API
--- NOTE | 2023-05-24 15:54 | DI.CT.S_ITS ---
PROCEDURE: CT ABDOMEN PELVIS W CON INDICATIONS: left upper quad pain hx diverticulitis TECHNIQUE: After the administration of intravenous contrast, axial sections acquired from the lung bases to the pubic symphysis. Coronal and sagittal reformats were performed. For radiation dose reduction, the following was used: automated exposure control, adjustment of mA and/or kV according to patient size. COMPARISON: [facility], CT, CT ABDOMEN PELVIS W CON, 03/07/2023, 9:18. FINDINGS: Image quality: Diagnostic. Lower Chest: No significant findings. ABDOMEN: Liver: Hepatic cysts. Additional subcentimeter hypoattenuating lesions, too small to characterize by CT. Gallbladder: No radiopaque gallstones or wall thickening. Biliary ducts: No biliary dilation. Pancreas: No ductal dilation. Spleen: Size is within normal limits. Adrenal Glands: No adrenal nodules. Kidneys and Ureters: No hydronephrosis. No solid mass. No complex renal cystic lesion which requires follow up. Stomach and Bowel: Colonic wall thickening and pericolonic fat stranding of the descending colon, without evidence perforation. Peritoneum: No abnormal intraperitoneal fluid. No free air. Ventral Wall: No significant ventral hernia. Abdominal Nodes: No retroperitoneal or mesenteric adenopathy by size criteria. Vessels: Aorta and inferior vena cava are normal in size. PELVIS: Pelvic Organs: Unremarkable. Bladder: No bladder wall thickening, accounting for underdistention. Pelvic Nodes: No enlarged lymph nodes. Miscellaneous: No inguinal hernias are seen. Bones: No aggressive osseous abnormality. IMPRESSION: Descending colonic diverticulitis without perforation. Approved by: Delvin Lock M.D. on 05/24/2023 at 17:17
[2023-05-24 15:57] LABS: Bacteria Urine None Seen; RBC Urine 0-1/HPF (0-5/HPF); Urine Volume 10mL (spun); WBC Urine 1-5/HPF (0-5/HPF)
[2023-05-24 15:58] LABS: Culture Indicated Urine Specimen Cultured; Squamous Epithelial Cell Urine 5-10 /HPF (0-5/HPF); Transitional Epi Cells Urine 1-5/HPF (0-5/HPF)
[2023-05-24 16:17] LABS: Add Manual Diff / Slide Review NO; Basophils Absolute Auto 0 /uL (0-100); Basophils Percent Auto 0.3 % (0-2); Eosinophils Absolute Auto 100 /uL (0-450); Hematocrit 37.6 % (36-46); Hemoglobin 12.6 g/dL (12.0-16.0); Lymphocytes Absolute Auto 3600 /uL (1100-4500); Lymphocytes Percent Auto 32.4 % (25-40); Mean Corpuscular HGB Conc 33.4 % (30-36); Mean Corpuscular Hemoglobin 32.6 PG (26-34); Mean Corpuscular Volume 97.5 fL (80-100); Monocytes Absolute Auto 700 /uL (0-900); Monocytes Percent Auto 6.1 % (3-14); Neutrophils Absolute Auto 6700 /uL (1500-7000); Neutrophils Percent Auto 60.2 % (50-75); Red Blood Cell Count 3.85 X10^6/uL (4.0-5.2); Red Cell Distribution Width 14.5 % (11.6-14.8); White Blood Cell Count 11.2 X10^3/uL (4.5-11.0)
[2023-05-24 16:23] LABS: Creatine Kinase 46 U/L (30-135)
[2023-05-24] MEDS: ONDANSETRON 4 MG/2 ML INJ IV ×2 (16:32→17:58)
[2023-05-24] MEDS: HYDROMORPHONE 0.5 MG INJ IV (16:34)
[2023-05-24 16:36] LABS: Troponin I < 0.012 ng/mL (0.01-0.034)
[2023-05-24 17:01] LABS: Alanine Aminotransferase 16 IU/L (<35); Albumin 4.4 g/dL (3.5-5.0); Albumin Globulin Ratio 1.2 (1.0-2.8); Alkaline Phosphatase 70 U/L (38-126); Aspartate Aminotransferase 20 IU/L (14-36); BUN Creatinine Ratio 23.7 (6-22); Bilirubin Total 0.7 mg/dL (0.2-1.3); Blood Urea Nitrogen 18 mg/dL (7-17); Carbon Dioxide 28 mmol/L (22-32); Chloride 102 mmol/L (98-107); Estimated Glomerular Filt Rate > 60 mL/min (>60); Globulin 3.7 g/dL (1.7-4.1); Glucose 95 mg/dL (80-110); HEMOLYSIS < 15 (0-50); Lipase 59 U/L (23-300); Sodium 141 mmol/L (137-145); Total Protein 8.1 g/dL (6.3-8.2)
--- NOTE | 2023-05-24 17:52 | PC.NURSE ---
1700: CT reported to RN that patient felt lightheaded in CT while transferring to [facility] and had a near syncopal episode. ED MD made aware. Pt returned to room and requests to use the restroom. After this RN assessed patient and obtained a full set of VS, this Rn assisted pt to bedside commode. Pt able to self transfer and reports continuing to feel dizzy. Pt self transferred back into bed. This Rn will continue to monitor.
--- NOTE | 2023-05-24 18:17 | PC.NURSE ---
1745: Pt fell asleep and her SpO2 dropped to 87% RA. Pt wakes up to verbal stimuli and 2L NC applied to pt. Spouse at bedside. aware.
[2023-05-24] MEDS: METOCLOPRAMIDE 10 MG/2 ML INJ IV (19:05)
--- NOTE | 2023-05-24 19:23 | PC.NURSE ---
Giving pt water to sip on for a PO challenge. Pt tolerating well at this time.
[2023-05-24] MEDS: metroNIDAZOLE 500 MG TABLET PO (20:11)
[2023-05-24] MEDS: CIPROFLOXACIN 250 MG TABLET 500 MG PO (20:11)
--- NOTE | 2023-05-24 20:14 | PC.NURSE ---
2000: This Rn assisted pt to bedside commode. Pt was able to transfer self from [facility] to [facility]. Pt reports feeling mildly dizzy but is requesting to go home.
== END 2023-05-24 20:59 | disposition home or self-care (01) ==
PROVIDERS: Emergency Provider Emergency Medicine; Family Provider Registered Nurse; PCP Family Medicine; Referring Provider Internal Medicine
DX: K57.92 Diverticulitis of intestine, part unspecified, without perforation or abscess without bleeding (principal); R10.9 Unspecified abdominal pain
CPT/HCPCS: 36415; 74177; 80053; 81003; 81015; 82550; 83690; 84484; 85025; 87077; 87086; 87186; 93005; 96374; 96375; 99284; 99285; J1170; J2405; J2765; Q9967

== ENCOUNTER → 2023-05-26 12:22 | Outpatient (CLI) | payer OTHER, SELFPAY ==
[2023-03-08 16:17] VITALS: BMI 33.6
--- NOTE | 2023-05-26 12:23 | DI.RAD.S_ITS ---
Bone Density Report Name: JAY MONTE Age: 77 Sex: Female Ethnicity: White Date of : 1945 Indication: postmenopausal; screening for osteoporosis; secondary osteoporosis; Referring Provider: MONICA CONNORS Study: Bone densitometry was performed. Exam Date: May 26, 2023 Accession number: [id number] Bone Density: Region BMD T-score Z-score Classification AP Spine(L1-L4) 1.081 0.3 2.9 Normal Femoral Neck (Left) 0.764 -0.8 1.5 Normal Total Hip (Left) 0.830 -0.9 1.0 Normal Femoral Neck (Right) 0.691 -1.4 0.8 Osteopenia Total Hip (Right) 0.836 -0.9 1.1 Normal Total Hip Mean 0.833 -0.9 1.1 Normal World Health Organization criteria for BMD impression classify patients as: Normal (T-score at or above -1.0), Osteopenia (T-score between -1.0 and -2.5), or Osteoporosis (T-score at or below -2.5). 10-year Fracture Risk(1): Major Osteoporotic Fracture 12% Hip Fracture 2.5% Reported Risk Factors: [place] (), Neck BMD=0.691, BMI=33.0, secondary osteoporosis (1) FRAX(R) Version 3.08. Fracture probability calculated for an untreated patient. Fracture probability may be lower if the patient has received treatment. Previous Exams: -- Region Exam Age BMD T-score BMD Change BMD Change Date g/cm2 vs Baseline vs Previous -- AP Spine (L1-L4) 05/26/2023 77 1.081 0.3 -0.018 (-1.6%)# -0.016 (-1.5%)# 05/27/2020 74 1.097 0.5 -0.002 (-0.2%) -0.066 (-5.7%)* 01/22/2015 69 1.163 1.1 0.064 (5.9%)* 0.064 (5.9%)* 10/07/2009 63 1.099 0.5 Total Hip(Left) 05/26/2023 77 0.830 -0.9 -0.028 (-3.3%)# -0.014 (-1.6%)# 05/27/2020 74 0.843 -0.8 -0.014 (-1.7%) -0.023 (-2.7%) 01/22/2015 69 0.867 -0.6 0.009 (1.0%) 0.009 (1.0%) 10/07/2009 63 0.858 -0.7 Total Hip(Right) 05/26/2023 77 0.836 -0.9 -0.044 (-5.0%)# 0.003 (0.4%)# 05/27/2020 74 0.833 -0.9 -0.047 (-5.3%)* -0.059 (-6.6%)* 01/22/2015 69 0.892 -0.4 0.012 (1.4%) 0.012 (1.4%) 10/07/2009 63 0.880 -0.5 -- *Denotes significance at 95% confidence level, LSC for AP Spine = 0.022 g/cm2, LSC for Total Hip = 0.027 g/cm2 # Denotes dissimilar scan types or analysis methods Impression: The patient has low bone mass, based on the Right Femoral Neck T-score. The patient has an estimated ten-year risk of hip fracture of 2.5% and an estimated ten-year risk of major fracture of 12%, based on the WHO FRAX algorithm. No significant bone loss was observed. Discussion: BONE DENSITY IS LOW AT ONE OR MORE SKELETAL SITES. This patient's lowest T-score is low at one or more skeletal sites. It meets the World Health Organization's (WHO) criteria for low bone mass (T-score between -1.0 and -2.5). The patient's 10-year risk of fracture as calculated by FRAX is less than the threshold where pharmacological therapy is recommended by the National Osteoporosis Foundation (NOF). However, all treatment decisions require clinical judgment and consideration of individual patient factors, including patient preferences, comorbidities, previous drug use, risk factors not captured in the FRAX model (e.g., frailty, falls, vitamin D deficiency, increased bone turnover, interval significant decline in bone density) and possible under or overestimation of fracture risk by FRAX. The patient should follow a healthful lifestyle (good nutrition with adequate calcium and vitamin D, and appropriate weight-bearing exercise). Follow-Up: Consider repeating this study in 2 to 3 years to reassess this patient's status, or sooner if there is some new clinical indication. Reported by: DORON HARVEY M.D. on 05/26/2023 2:15:00 PM.
== END ==
PROVIDERS: Family Provider Registered Nurse; PCP Family Medicine; Referring Provider Orthopaedic Surgery Adult Reconstructive Orthopaedic Surgery; Visit Provider Orthopaedic Surgery Adult Reconstructive Orthopaedic Surgery
DX: M81.0 Age-related osteoporosis without current pathological fracture (principal)
CPT/HCPCS: 77080

== ENCOUNTER 2023-06-21 08:29 | Day surgery (SDC) | payer OTHER, SELFPAY ==
[2023-03-08 16:17] VITALS: BMI 33.6
[2023-06-15 13:40] VITALS: BMI 33.2
[2023-06-21] VITALS (17 sets, daily range): BP systolic 99–138; BP diastolic 49–83; PULSE 54–95; RESP 10–18; TEMP 36.3–37.3; O2SAT 94–99; BMI 33.4
--- NOTE | 2023-06-21 | DI.RAD.S_ITS ---
PROCEDURE: [id number] W PEL IF PERFORMED INDICATIONS: intra op total left hip TECHNIQUE: Intraoperative views of the left hip COMPARISON: [facility], CR, XR HIP W PEL IF DONE LT 2V, 02/16/2023, 9:20. [facility], [place], XR HIP W PEL IF DONE RT 2V, 09/04/2019, 8:53. FINDINGS: Bones: Intraoperative views of the left hip during total hip arthroplasty. Hardware appears intact and appropriately positioned. IMPRESSION: Intraoperative views of left hip during total hip arthroplasty without evidence of complication. Dictated by: Kings Perkins M.D. on 06/21/2023 at 12:46 Approved by: Knigs Perkins M.D. on 06/21/2023 at 12:46
--- NOTE | 2023-06-21 06:00 | DI.RAD.S_ITS ---
PROCEDURE: XR HIP W PEL IF DONE LT 2V INDICATIONS: CHESTER TECHNIQUE: AP pelvis and lateral view of the hip acquired. COMPARISON: [facility], CR, [id number] W PEL IF PERFORMED, 06/21/2023, 11:37. FINDINGS: Bones: Patient is status post left total hip arthroplasty, with hardware components in expected positions. The hip joint appears congruent. The visualized bony structures appear intact. Soft tissues: Overlying postoperative changes are noted. No suspicious soft tissue densities. IMPRESSION: Expected post-operative appearance of a left total hip arthroplasty. Dictated by: Emmanuel Cosme M.D. on 06/21/2023 at 14:02 Approved by: Emmanuel Cosme M.D. on 06/21/2023 at 14:02
--- NOTE | 2023-06-21 09:13 | SUR.OPER ---
Supine on padded [place] table with bilateral legs secured in padded positioning boots and suspended in positioning spars, operative leg in traction per surgeon. Head on one pillow. Arms secured on padded armboard <90 degrees abduction. Padded perineal post in place per surgeon.
[2023-06-21] MEDS: LACTATED RINGERS 1,000 ML 42 ML IV ×3 (09:20→13:17)
[2023-06-21] MEDS: MELOXICAM 7.5 MG TABLET PO (09:20)
[2023-06-21] MEDS: ACETAMINOPHEN 325 MG TABLET 975 MG PO (09:21)
--- NOTE | 2023-06-21 09:49 | PM.PREOP ---
Pre-operative Note Interval Note History & Physical reviewed/Exam performed by Physician: Yes Changes to H&P: No
[2023-06-21] MEDS: CEFAZOLIN 2 GM/100 ML PREMIX 100 ML IV ×2 (10:20→17:13)
[2023-06-21] MEDS: TRANEXAMIC ACID 1,000 MG VIAL 1000 MG INJ ×2 (10:25→11:50)
[2023-06-21] MEDS: ROPIVACAINE/EPI/CLONIDINE/KET 50 ML SYRINGE INJ (10:48)
--- NOTE | 2023-06-21 11:58 | P.OP_ITS ---
Operative Date/Time/Diagnoses Date of procedure: 06/21/23 Pre-op diagnosis: Left hip osteoarthritis Post-op diagnosis: same Procedure & Clinicians Procedure: Left total hip arthroplasty Same procedure as scheduled: Yes Surgeon: Andrea Brewster Senior Recruitment Consultant: Valeria Pierce Anesthesia Type: General and Local Operative Notes Estimated Blood Loss (mL): 450 Procedure in detail: Implants: Depuy Total Hip Arthroplasty: * Depuy Hawks Gription size 50 cup?with 2 screws * Depuy Actis femoral stem size 4 high offset? * 32 mm +5 ceramic femoral head? Procedure Summary: 77-year-old female with a DEXA scan T-score of-0.9 in her left hip. Based on this assessment I elected to use uncemented fixation for her total hip arthroplasty. She was templated for a size 48 cup and a size 5 stem and ended up 1 size up on the cup side and 1 size down on the stem side. I was able to achieve an appropriate broaching position on the femoral side without a conjoined tendon release. She had good stability, leg length, and offset with the initial trials which matched her preoperative template. These final implants were placed. She has a history of a pulmonary embolism so we will begin her on Eliquis as soon as she discharges from the hospital. As she will be on an oral anticoagulant a jourdan incisional wound VAC device was utilized for her dressing. Procedure in Detail: This patient was seen preoperatively and evaluated for hip pain which was refractory to numerous nonoperative treatment modalities. Their hip pain correlated with radiographic changes demonstrating significant degeneration in the hip joint. The risks and benefits of continued nonoperative management versus operative management were discussed at length and all of the patient?s questions were answered. Additional educational materials providing further details beyond our discussion in clinic were provided via a publicly available patient education video which included the incidence of medical complications associated with total hip arthroplasty, reasons for revision following total hip arthroplasty, and patient satisfaction rates following total hip arthroplasty. That video can be accessed at [email or web address] . With this understanding of the risks inherent to the procedure, the patient elected to move forward with operative management. Following preoperative optimization, the patient was scheduled for surgery. The patient was met in the preoperative holding area the day of the procedure and all questions were an swered. The patient?s nares were swabbed with betadine in order to decolonize them from MRSA. Informed consent was signed and the operative limb was marked with indelible ink.? The patient was brought back to the operating room where anesthesia was induced. The patient was transferred to the Fortine table and all bony prominences were padded. The operative site was prepped and draped in the usual sterile fashion. Prior to incision, tranexamic acid and cefazolin were administered. Operative templating images were displayed demonstrating the anticipated implant sizes and correct operative extremity. A timeout procedure was performed verifying the patient?s identity, medical comorbidities, allergies, relevant medications, anesthesia type and the surgical plan. All present were in agreement. The assistance of a physician bindery library technical assistant was required for positioning, room setup, soft tissue retraction and wound closure. Without this assistance, the procedure would have been significantly more challenging and time consuming.?? A direct anterior approach to the hip was utilized. This was performed with a longitudinal incision through a Heuter interval. The incision was planned 2 cm distal and 2 cm lateral to the ASIS extending towards the lateral patella, in line with the muscle body of the TFL. Following incision, the subcutaneous tissue was dissected while taking care to avoid injury to the lateral femoral cutaneous nerve. The fascia overlying the TFL was identified by dissecting off the overlying fat and identifying perforating vessels to the TFL. The TFL fascia was incised and dissected away from the medial border of the TFL. A cobra retractor was placed over the superior femoral neck between the abductors and the hip capsule and used to reflect the TFL laterally. A [place] self-retainer was then placed in the distal aspect of the wound between the TFL and the rectus femoris. This was tensioned to open up the direct anterior interval and the lateral circumflex vessels were identified and coagulated using electrocautery. The floor of the TFL fascia was incised, exposing the pericapsular fat overlying the hip capsule. A second cobra retractor was placed on the inferior femoral neck. A double-bent soft tissue retractor was placed on the anterior wall of the acetabulum and used to tension the reflected head of rectus femoris, which was then released in order to limit soft tissue tension. A capsulotomy was made in the midline of the anterior hip capsule in line with the femoral neck ending at the vastus tubercle. The double-bent retractor was removed in order to limit the amount of time that a soft tissue retractor remained on the anterior wall and protect the femoral nerve. Tag stitches were placed in the superior and inferior leaflets of the hip capsule. An [place] soft tissue retractor was introduced over the tag stitches and tensioned in the interval between the rectus femoris and the TFL in order to retract and protect those muscles. The cobra retractors were replaced intracapsularly, with one over the superior neck in the pocket created by the base of the greater trochanter and the other on the femoral head. The capsulotomy was extended laterally to the base of the greater trochanter and medially to the lesser trochanter. This required externally rotating the hip. Once the lesser trochanter had been identified, a neck cut was planned according to measurements from preoperative templating. A ruler was cut at the length measured between the superior aspect of the lesser trochanter and the collar of the prosthesis. This line was extended towards the inferior aspect of the lateral cobra retractor to plan a cut which would leave minimal residual femoral neck laterally. The neck was cut at 60 degrees of external rotation along that line. A second cut was performed to remove a large napkin ring and facilitate head extraction. The napkin ring cut and femoral head were removed.?? A broad anterior wall retractor was placed between the labrum and the anterior capsule so that the anterior capsule would prevent capturing and pinching the femoral nerve anteriorly. An additional retractor was placed on the posterior wall. External rotation and traction were applied through the Fortine table so that the cut surface of the femoral neck would not restrict access to the acetabulum. The labrum was excised sharply and the pulvinar was excised with electrocautery to limit bleeding from branches of the obturator artery. Acetabular reamers were selected based on preoperative templating and measurements of the excised femoral head. These were introduced into the acetabulum. Fluoroscopy was utilized to replicate a standing AP pelvis radiograph by centering over the pelvis, rotating until there was appropriate symmetry between the obturator foramen, and introducing caudal tilt to match the position of the pubic symphysis relative to the sacrococcygeal junction according to the patient?s anatomy. Fluoroscopy was utilized to ensure appropriate reaming depth. Once satisfied with the reaming depth corresponding to the preoperative template and the pinch fit between the columns, an appropriate sized acetabular cup was selected which would provide 1 mm of press-fit. This cup was introduced and manipulated until appropriate abduction and anteversion angles were obtained with careful attention to appropriate abduction and anteversion angles as evaluated by the position of the cup relative to the anterior and posterior chow of the acetabulum and the AP fluoroscopy which recreated the patient?s standing radiograph. The cup was impacted into place. Two screws were placed to provide additional fixation. Peripheral osteophytes were removed. The acetabular liner was then placed with care to ensure locking of the locking mechanism.? Attention was then turned to the femur. All retractors were removed, traction was released, a retractor was placed in the interval between the hip capsule and the gluteus minimus, and the hip was externally rotated to 90 degrees. Traction was applied through the Fortine table to tension the lateral capsule and this was released using electrocautery. Traction was released and a Fortine hook was placed posteriorly around the proximal femur at the level of the vastus ridge. The table height was lowered in order to restrict the tension on the anterior structures during hip hyperextension to limit the risk of femoral nerve palsy. With traction off and the hip at 90 degrees of external rotation, the hip was hyperextended and adducted while manually elevating the femur away from the acetabulum with the Fortine hook to ensure it would not be caught behind the greater trochanter. An asymmetric retractor was placed over the calcar and a broad double-pronged retractor was placed over the greater trochanter. The tag stitch capturing the lateral leaflet of the capsule was moved to the medial side, leaving the conjoined and piriformis tendons isolated in the face of the greater trochanter. The hip was externally rotated and elevated. A release of the conjoined tendon was not necessary in order to obtain adequate exposure for broaching. The canal was opened with an opening broach and a rasp was used to remove cancellous bone. A rongeur was used to remove the residual lateral bone at the base of the greater trochanter to avoid placing the stem in varus. The femur was then broached to the appropriate sized stem yielding good rotational fit and fill of the canal as well as appropriate version of the stem trial. Neck and head trials were placed, all retractors were removed and the hip was returned to neutral abduction and extension. I then reduced the hip. An AP pelvis fluoroscopic image matching the preoperative standing radiograph was obtained with both lesser trochanters visible and both hips in 40 degrees of external rotation. This demonstrated equal leg length and slight increase in offset. An AP hip fluoroscopic image was obtained with the hip in neutral rotation which demonstrated good canal fill. Hip stability was evaluated with 90 degrees of external rotation and a 45 degree drop test which demonstrated no instability. I was unable to manually dislocate the hip with vigorous external rotation. The hip was dislocated and I returned to the broaching position. The definitive stem was placed and the trunnion was cleaned and dried. I placed a ceramic head onto the trunnion and impacted it into place on the Tariq taper.?? All retractors were removed and the hip was reduced. A dilute mixture of betadine and peroxide was used to bathe the soft tissues during final fluoroscopic assessment. Appropriate component positioning was confirmed on an AP pelvis radiograph with the operative and nonoperative legs in 40 degrees of external rotation, evaluating leg length and offset. Appropriate stem fill was evaluated on an AP hip radiograph with the operative leg in neutral rotation. No fractures were identified on these radiographs. Stability was satisfactory with a 90 degree external rotation test as well as a 45 degree drop test. The hip was copiously irrigated with pulse lavage. The capsule was closed with absorbable interrupted suture. The TFL fascia was closed with barbed suture while carefully protecting the lateral femoral cutaneous nerve from entrapment. A mixture of Ropivacaine, Epinephrine, Clonidine and Toradol was infiltrated throughout the soft tissues. The skin was closed with 2-0 and 3-0 sutures. Surgical glue was applied and a soft dressing was placed.??The sponge, instrument and needle counts were reported as being correct at the end of the case.??No obvious complications occurred. The patient was transferred from the [facility] back to a stretcher. The patient emerged from anesthesia without difficulty and was taken to the PACU in a stable condition.? Plan for aftercare: * Anterior hip precautions * Weightbearing as tolerated * Mobilization as soon as the patient has recovered from anesthesia. If physical therapists are unavailable at the time the patient is ready to ambulate, then nursing staff should help patient ambulate * Aspirin 81 twice per day for DVT prophylaxis while the patient remains in the hospital. Upon discharge she will transition to Eliquis given her pulmonary embolism history * Maintain jourdan incisional wound VAC until follow up. Once the battery dies, cord can be removed in it can be utilized as a normal dressing * Multimodal pain regimen with no IV opioids ordered * Anticipate discharge home tomorrow morning * Follow up at [facility] in 2 weeks * Detailed postoperative instructions available at [email or web address]
[2023-06-21] MEDS: hydrOXYzine 50 MG/ML INJ 25 MG IM (12:58)
[2023-06-21] MEDS: ONDANSETRON 4 MG/2 ML INJ IV (12:58)
[2023-06-21] MEDS: OXYCODONE IR 5 MG TABLET PO ×4 (13:02→20:43)
[2023-06-21] MEDS: HYDROMORPHONE 1 MG INJ IV (13:17)
--- NOTE | 2023-06-21 14:08 | SUR.PHASEI ---
Pt transferred to room 206 in bed on 2L Oxygen via NC. Alert, oriented. With personal bag, walker and ice machine. SBAR report to Slim FUENTES.
[2023-06-21] MEDS: LACTATED RINGERS 1,000 ML 100 ML IV (14:16)
[2023-06-21] MEDS: IBUPROFEN 600 MG TABLET PO ×2 (14:16→20:07)
--- NOTE | 2023-06-21 15:25 | SUR.PHASEI ---
Pt brought own ice machine from home. Set up in PACU following instructions printed and taped to the top of the ice machine. Pillow case was placed over cold pad. Placed on patient when arrived in PACU. Dr Brewster viewed dressing and ice machine in PACU and was pleased with the cold. Cold removed prior to transfer to the floor. Area red. Upon arrival to the floor and handoff at bedside the skin at the top of the dressing was red upon arrival to floor. See note from Slim FUENTES. Dr Brewster notified.
[2023-06-21] MEDS: ACETAMINOPHEN 325 MG TABLET 650 MG PO ×2 (16:08→21:51)
[2023-06-21] MEDS: GABAPENTIN 300 MG CAPSULE 600 MG PO (16:11)
--- NOTE | 2023-06-21 17:10 | PT-IP ANOTE ---
PT eval order received and EMR reviewed. Checked pt and pt eating dinner. pt stated that she does not feel like she is ready to do PT. provided pt with post-op folder. agreed to do PT tomorrow. informed nurse.
[2023-06-21] MEDS: DOCUSATE 100 MG CAPSULE PO (20:43)
[2023-06-21] MEDS: ASPIRIN EC 81 MG TABLET PO (20:43)
[2023-06-22] MEDS: IBUPROFEN 600 MG TABLET PO ×3 (01:12→13:20)
[2023-06-22 01:22] VITALS: BP 92/51; PULSE 69; RESP 18; TEMP 37.1; O2SAT 94
[2023-06-22] MEDS: CEFAZOLIN 2 GM/100 ML PREMIX 100 ML IV (01:39)
--- NOTE | 2023-06-22 02:51 | PC.NURSE ---
Addendum entered by Lizett Uribe R.N. 06/22/23 04:09: Patient complaining of chest pressure under left breast with no radiation. Further states she has had pain since she was up around 0130 to the [facility] [place] but had not indicated same at that time. BP currently 125/61 with HR of 68. O2 sat 100% on 0.5L/min of oxygen. Is not diaphoretic or SOB. EKG done which is showing SR. Coordinator, Opal, informed and she notified Dr. Rosales with no change in orders. Original Note: Patient is alert and oriented. Breath sounds CTA but did develop some wheezing later on the shift. Was on oxygen at 2L/min per NC with sat of 99% so have been attempting to wean her off oxygen during the night. Just now tried her on RA but was desatting down to 89% so is now back on 0.5L/min and has continuous oximetry on per MD order. HRR but became tachycardic with activity but just into low 100's. BP at start of shift was 125/49 but when up earlier had dropped to 92/51 and now remains low at 99/54 (MAP 87). Is asymptomatic except was shaking when up to BSC shortly after. BT present but has not yet passed flatus. Voiding and denies any dysuria but urinary stream is slow. Is able to move herself in bed except unable to move left LE. Gotten up to BSC with walker and 2 assists but needed help to get left leg in/out of bed. When first up her left knee was buckling but not when up to the second time. Is very weak and tires easily. [place] dressing to left anterior hip is CDI and functioning with some bruising at proximal end of dressing. Is wearing bilateral sofia SCD's. CMS is intact except for being unable to lift her left leg. Is being medicated with scheduled Ibuprofen + Tylenol and did receive oxycodone at 2042 for pain but not repeated later due to low BP. At rest her pain is minimal but increases to 8/10 when getting up to BSC. Fall risk score is moderate and bed alarm is activated.
[2023-06-22] MEDS: LACTATED RINGERS 1,000 ML 100 ML IV (03:08)
[2023-06-22] MEDS: ACETAMINOPHEN 325 MG TABLET 650 MG PO ×2 (03:09→09:11)
[2023-06-22 03:13] VITALS: BP 99/54
[2023-06-22 03:50] VITALS: BP 123/61
[2023-06-22] MEDS: LEVOTHYROXINE 25 MCG TABLET PO (06:08)
[2023-06-22 06:14] LABS: Hematocrit 29.2 % (36-46); Hemoglobin 9.7 g/dL (12.0-16.0)
--- NOTE | 2023-06-22 07:38 | P.DS_ITS ---
History of Present Illness History of Present Illness Chief complaint: Left Total Hip Arthroplasty/Anterior Narrative: Ninfa is a pleasant 77 year old female who is POD#1 s/p left CHESTER by Dr. Brewster. Patient reports overall she is doing well, pain is mild and well controlled with oral pain medication. She has not gotten up out of bed much other than to use the bedside commode. She has been urinating often without issue. Patient lives at home with family who are willing and able to aid in her post-op recovery. She does have two steps up to her front door but no steps within the home. Has post-op pain medication at home already. Has post-op PT scheduled at our [address]. Denies fever, chills, chest pain, SOB, nausea, vomiting. Denies any sensory loss in the LLE. Operative Date/Time/Diagnoses Date of procedure: 06/21/23 Pre-op diagnosis: Left hip osteoarthritis Post-op diagnosis: same Procedure & Clinicians Procedure: Left total hip arthroplasty Same procedure as scheduled: Yes Surgeon: Andrea Brewster Air Conditioning Service Technician: Valeria Pierce Anesthesia Type: General and Local Operative Notes Estimated Blood Loss (mL): 450 Procedure in detail: Implants: Depuy Total Hip Arthroplasty: * Depuy [place] Gription size 50 cup?with 2 screws * Depuy Actis femoral stem size 4 high offset? * 32 mm +5 ceramic femoral head? Discharge Providers Provider Discharge Date: 06/22/23 Primary care physician: Adam Faria MD Consults: 06/21/23 06:00 Consult to Anesthesiology Routine Comment: Consulting Provider: Anesthesiologist Reason for consultation: Regional block for post operative pain control Has provider been notified: No 06/21/23 13:42 Consult to Discharge Planning Routine Comment: Consult to Physical Therapy Evaluate & Treat Comment: Physician Instructions: post op CHESTER protocol Discharge provider: Rozina Rivera PA-C Summary Hospital Course Discharge Diagnosis: left hip OA s/p L CHESTER Hospital Course: Uncomplicated hospital course Exam Vital Signs (past 8 hours): - 06/22/23 01:22 06/22/23 03:13 06/22/23 03:50 Temperature 98.7 F Pulse Rate 69 Respiratory Rate 18 Blood Pressure 92/51 L 99/54 L 123/61 Pulse Oximetry 94 Oxygen Flow Rate 1 Oxygen Delivery Method Nasal Cannula Oxygen Flow Rate 1 Narrative Exam Narrative: Lying in bed comfortably during our interview today. Const General: cooperative, healthy appearing and comfortable Resp Effort & Inspection: normal respiratory effort and able to speak in complete sentences Cardio Rate: regular rate Skin General: no rashes or lesions noted Other: Intact, functioning and clean AUSTIN dressing in place over the left anterior hip. No drainage. There is some mild ecchymosis surrounding the AUSTIN dressing. Neuro General: patient alert, patient awake and patient oriented x3 Extrem Other: Grossly normal alignment, moderate swelling to the left thigh with some mild ecchymosis of the anterior hip. 5/5 strength with DF, PF, EHL. Good AROM of left knee. Calves soft and non-tender. Sensation intact throughout the LLE. Psych Appearance: grossly normal Mental Status: mental status grossly normal Speech and Movement: speech and movement normal Objective Labs 06/22/23 06:05 Labs: Laboratory Results - last 24 hr 06/22/23 06:05 Hgb 9.7 L Hct 29.2 L PFS Medical History (Updated 06/15/23 @ 14:25 by Keily Winters RN) History of COVID-19 (06/2022) Vocal cord paralysis Right foot pain Mass of right foot Right-sided heart failure DVT (deep venous thrombosis) (~09/2019) Weight loss Change in voice Shortness of breath Fatigue Superficial bruising Chronic anticoagulation Pulmonary emboli (~09/2019) Cerumen impaction Trigger finger Abnormal Pap smear of cervix (~2009) Kidney disease Hypertension Hyperlipidemia Rheumatoid arthritis Osteoarthritis Depression Anxiety Measles Herpes Chicken pox (~1949) Diverticular disease Macular degeneration Hearing loss (~11/2014) Foot pain (~2012) Carpal tunnel syndrome (~2006) Surgical History (Updated 06/15/23 @ 14:32 by Keily Winters RN) History of femoral hernia repair (03/10/23) Anesthesia History of neck surgery (~1993) History of shoulder surgery (~1993) Left fibular fracture (~2015) Fractures (~1980) History of esophagogastroduodenoscopy (EGD) (12/12/16) Status post breast biopsy (10/02/13) Status post rotator cuff repair (~2007) History of carpal tunnel repair (~2006) Status post bunionectomy (12/18/12) Status post hysterectomy (~1980) Status post arthroscopy (~2007) Status post breast biopsy (10/01/12) Status post breast biopsy (~1993) Family History Brother Age: 80 Hypertension Father Leukemia Pneumonia Mother No problems noted. Grandmother Diabetes mellitus Social History marital status: unmarried,living together household members: significant other occupational status: previously employed Smoking Status: Never smoker alcohol intake: former substance use type: does not use Discharge Assessment & Plan Assessment and Plan Assessment: Stable s/p L CHESTER Plan of Treatment: Plan to d/c to home today pending PT evaluation and ability to do stairs. 1) Continue multimodal pain management, patient has post-op pain medications at home. Ice to the hip for additional pain control. 2) I have sent an Rx for Eliquis which patient will take BID for 30 days for DVT and PE prophylaxis as patient has a hx of PE. 3) Keep dressing intact, clean and dry until 2 week post-op appointment. May shower over the dressing but no soaking the incision site pools or tubs. No topical ointments or creams to the incision site. 4) Continue to work on mobilization with outpatient PT. Weight bearing as tolerated, maintain anterior hip precautions. Stressed the importance of early and frequent mobilization. 5) Follow up at [facility] in 2 weeks for post-op appointment. All of patients quetsions were answered and she is in agreement with the plan. Discharge Plan Discharge Plan Patient Disposition: Home Provider Discharge Comment: Detailed postoperative instructions available at [email or web address] Discharge orders & Medications Discharge Orders: Discharge (Order); Ordered 06/22/23 Ordered By: Rozina Rivera Prescriptions: New Eliquis 5 mg tablet 5 mg PO BID Qty: 60 0RF acetaminophen 325 mg Tablet 650 mg PO Q6H Qty: 90 0RF docusate sodium 100 mg Capsule 100 mg PO BID Qty: 30 0RF oxycodone 5 mg Tablet 5 mg PO Q4-6H PRN (Reason: Pain, Severe (7-10)) Qty: 30 0RF Continued cholestyramine (with sugar) 4 gram powder in packet 4 gram PO BID PRN (Reason: ingestion of fatty meal) Qty: 20 1RF Rx Instructions: administer w/meal; avoid other meds within 1hr before or 4-6hr after dose levothyroxine 25 mcg tablet 25 mcg PO DAILY Qty: 90 3RF Rx Instructions: Take one tablet once a day on an empty stomach 30 minutes before breakfast. simvastatin [Zocor] 10 mg tablet 10 mg PO QAM Qty: 90 3RF omega-3 fatty acids [Fish Oil Concentrate] 1,000 mg capsule 1,000 mg PO DAILY [id number]-[id number] tablet 1 tab PO DAILY cholecalciferol (vitamin D3) 25 mcg (1,000 unit) capsule 3,000 unit PO DAILY dicyclomine 10 mg capsule 10 mg PO Q8H PRN (Reason: upset stomach) albuterol sulfate 90 mcg/actuation HFA aerosol inhaler 2 puff INHALATION Q4-6H PRN (Reason: shortness of breath or wheezing) Qty: 8.5 0RF ondansetron 4 mg tablet,disintegrating 4 mg PO Q6H PRN (Reason: nausea and vomiting) Qty: 10 0RF gabapentin 300 mg capsule 600 mg PO QPM aspirin 81 mg Capsule 81 mg PO DAILY Qty: 0 oxycodone 5 mg Tablet 5 mg PO BID PRN (Reason: Pain) valacyclovir 1 gram tablet 500 mg PO Q OTHER DAY Patient Comments: takes every other day by choice acetaminophen [Tylenol] 325 mg capsule 500 mg PO QID PRN (Reason: pain) celecoxib [Celebrex] 200 mg Capsule 200 mg PO DAILY trazodone 50 mg Tablet 25 mg PO BEDTIME PRN (Reason: Sleep) Follow up/Referrals: Adam Faria MD [Primary Care Provider] - Andrea Brewster MD [Physician] - As previously scheduled (Follow up as scheduled at [facility] for 2 week post-op appointment. ) Diet/Activity/Treatments Diet: Diet as Tolerated Activity: Weight bearing as tolerated. Maintain anterior hip precautions. Cold/Heat Therapy: Ice to the hip for additional pain control. Skin/Wound/Dressing Care Report to your healthcare provider any signs of infection, such as:: chills, fever, night sweats, unusual drainage and unusual redness Dressing: Keep dressing intact, clean and dry until 2 week post-op appointment. May shower over the dressing but no soaking the incision site pools or tubs. No topical ointments or creams to the incision site. Visit Report/Discharge Packet Instructions: DI for Hip Replacement, DI for Prescription Opioid Use Stand Alone Forms: Patient Portal/API Discharge Data Primary Care Provider: Adam Faria Attending Provider: Andrea Brewster
[2023-06-22 08:00] VITALS: BP 119/71; PULSE 70; RESP 16; TEMP 37.1; O2SAT 94
[2023-06-22] MEDS: CHOLECALCIFEROL (VITAMIN D3) 1,000 UNIT TABLET 3000 UNIT PO (08:31)
[2023-06-22] MEDS: ASPIRIN EC 81 MG TABLET PO (08:31)
[2023-06-22] MEDS: FISH OIL 1,000 MG CAPSULE 1000 MG PO (08:31)
[2023-06-22] MEDS: ATORVASTATIN 20 MG TABLET 10 MG PO (08:31)
[2023-06-22] MEDS: DOCUSATE 100 MG CAPSULE PO (08:32)
--- NOTE | 2023-06-22 09:01 | CM.DANOTE ---
Initial DCP Assessment Visit Note Reviewed EMR and team rounds for status updates. Went to meet with pt to introduce self and role, however she was busy working with PT at the time. Pt resides independently in her own home with her significant other. Her SO and nephew are planning to provide for her care assistance once she discharges back home, which will be later this morning after she works with PT. Family will transport. Plan is for her to f/u with Ortho in 2-weeks, OP PT. Preference is home discharge, no identified home resource needs identified at this time. Payor: [facility] Adv Attending: Dr. Brewster Pt is a 77 year-old F with a hx of osteoarthritis is post-op day 1 in a OPB following her planned L-total hip arthroplasty surgery. Pt is recovering well, is working with therapies this morning and will d/c home with family once this is done. No psychosocial needs are identified for d/c planning support, but will monitor in case of evolving recommendations/needs. Discharge Planning/Care Management CM Discharge Assessment Start: 06/22/23 08:54 Freq: Status: Active Protocol: Document 06/22/23 08:55 DPL (Rec: 06/22/23 09:01 DPL [id number]) Discharge Planning Assessment Assigned Tunnel Man ASHLI Chaves Advance Directives? Yes: and a CRUZ Advance Directives on File Yes History Provided By Medical Record Expected Length of Stay 1 Has Patient been admitted in last 30 No days? Prior Living Arrangements House Household Members significant other Independent with ADL's Yes Is patient alert and oriented? Yes Caregiver for Another No DME Already Rented / Owned FWW / Walker Patient/Family Preference OP PT Therapy Barriers to Discharge No Discharge Plan Home Community Services Physical Therapy Transportation Arrangement Significant Other Referrals Initiated None needed Review Status In Process Please Provide Date Initial DC 06/22/23 Assessment Was Performed Pre-Anesthesia Assessment Start: 06/15/23 13:40 Freq: Status: Complete Protocol: Document 06/15/23 13:40 CAB (Rec: 06/15/23 14:33 CAB [id number]) Pre-Anesthesia Assessment Preferred Name Amanda Patient Information Reviewed Via Phone Assessment Primary Care Provider Adam Faria Comment PCP visit 05/23/23 & clearance form 05/15/23 scanned and in surgery folder Medical Clearance Received Not Applicable Seen Specialist in Last 12 Months Yes Specialist Seen Orthopedist Primary Language [place] Preferred Language [place] Staffing Recruiter Required No Height 147.32 cm Weight 72.121 kg Body Mass Index (BMI) 33.2 Hearing Ability Hearing Impaired,Use of Hearing Aid Visual Assist Magnifying Glass Barriers to Learning None Hx Anesthesia Reactions Yes: PONV, slow to wake up Hx Family Anesthesia Reaction No Hx Malignant Hyperthermia No Hx Blood Transfusions No Hx Blood Transfusion Reaction No Anesthesia Review Requested No Artificial Flowers [place] No alcohol intake former Alcohol Intake Frequency Other: Sober since 2011 Smoking Status Never smoker how long ago did patient quit smoking 1979 Substance Use Type does not use Pain Present Pain Reported Musculoskeletal Symptoms Abnormal Gait,Difficulty Walking,Joint Pain History of Falling (Recent or History of No ) Patient is completely paralyzed or No completely immobile Prosthesis or Orthotic Device Cane Mental Status Oriented to own ability Is patient on oxygen? No Does patient have ROWAN/SOB No Hx Sleep Apnea No CPAP/BIPAP use not prescribed Currently Taking a Beta Brown No Hx Chest Pain No Hx SOB No Hx Syncope or Dizziness No Anti-Coagulant Therapy Yes: ASA for hx of PE-pt will check with PCP if to continue or stop Has a Passenger Coach Driver No Cardiac Testing No Hx Pacemaker/ICD No Pacemaker Rep Required? No Cardiac Clearance Received Not Applicable Diet Type At Home Regular Dysphagia No Gastrointestinal Symptoms Constipation Chronic UTI No Urinary Catheter Present No Hx Urinary Self Catheterization No Diabetes No HgbA1C 5.7 Date 05/15/23 Patient No Lactating No Presence of External or Internal Medical Yes: left toe-plate in 2012 Devices Received a COVID vaccine? Yes: moderna x3 + booster Received all doses? Yes Marital Status Lives With significant other Current Living Arrangements House Number of Floors (Floors) One Floor Support System Significant Other Does the Patient Have Assistance After Yes Surgery Patient Discharge Plan Description Return Home Comment Pt advised overnight length of stay per surgeon Feels Safe in Current Environment Yes Been Physically Hurt or Threatened By a No Person in Current Environment Do you have thoughts of harming yourself None or others? Are you currently considering suicide? No Do you have a plan to hurt yourself or No Plan others? Do You Have Any Spiritual Beliefs That No May Affect Your HC Choices? Do You Have Any Cultural Practices That No May Affect Your HC Choices? Comment Shinto Who Can We Speak to About Patient's Care Family, friends Identifying Code for Release of Patient Declines to issue Information Health Care Proxy/Next of Kin Wu Oconnor (S.O.) Health Care Proxy Emergency Contact Name Wu Oconnor (S.O.) Emergency Contact Advance Directives? Yes: POL Advance Directives on File Yes Power of Cleaner Housekeeping No PAC Instructions Do not shave/clip surgical site,Durable medical equipment ,Medications to take/avoid, Nasal antibiotic,No ETOH/ petroleum product on skin DOS, NPO,Pre-surgical wash,Sensory aids,Sturdy shoes/comfortable clothes,Do not bring valuables and remove jewelry
--- NOTE | 2023-06-22 09:36 | PT.IIE ---
Current Diagnoses Unilateral primary osteoarthritis, left hip (06/21/23) Surgery Performed Operation Date: 06/21/23 09:45 Actual Procedures p Total Hip Arthroplasty/Anterior Approach(Left) - Andrea Brewster MD Surgical History (Last Updated 06/15/23 @ 14:32 by Keily Winters RN) Anesthesia Fractures (~1980) History of carpal tunnel repair (~2006) History of esophagogastroduodenoscopy (EGD) (12/12/16) History of femoral hernia repair (03/10/23) History of neck surgery (~1993) History of shoulder surgery (~1993) Left fibular fracture (~2015) Status post arthroscopy (~2007) Status post breast biopsy (~1993) Status post breast biopsy (10/01/12) Status post breast biopsy (10/02/13) Status post bunionectomy (12/18/12) Status post hysterectomy (~1980) Status post rotator cuff repair (~2007) Medical History (Last Updated 06/15/23 @ 14:25 by Keily Winters RN) Abnormal Pap smear of cervix (~2009) Anxiety Carpal tunnel syndrome (~2006) Cerumen impaction Change in voice Chicken pox (~1949) Chronic anticoagulation Depression Diverticular disease DVT (deep venous thrombosis) (~09/2019) Fatigue Foot pain (~2012) Hearing loss (~11/2014) Herpes History of COVID-19 (06/2022) Hyperlipidemia Hypertension Kidney disease Macular degeneration Mass of right foot Measles Osteoarthritis Pulmonary emboli (~09/2019) Rheumatoid arthritis Right foot pain Right-sided heart failure Shortness of breath Superficial bruising Trigger finger Vocal cord paralysis Weight loss Physical Therapy Inpatient Evaluation/Re-Eval M1 PT/OT-IP Prior Functional Status Start: 06/22/23 08:42 Freq: NEEDED Status: Active Protocol: Document 06/22/23 08:36 MB (Rec: 06/22/23 09:35 MB [id number]) Medical Review Prior Functional Status Medical History Reviewed Yes Diet/Fluid Consistency Regular Communication WNLs Mobility and Gait I Activities of Daily Living and IADL's I Social History Household Members significant other Living Arrangements House Number of Floors (Floors) One Floor Number of Stairs To Enter/Railing? 2 steps with left rail to enter Home Environment Standard Height Toilet,High Toilet,Walk in Shower,Built-In Shower Seat Home Equipment Front Wheel Walker,Grab Bars Near Toilet,Grab Bars In Shower Employment Status Retired M2 PT-IP Current Condition Start: 06/22/23 08:42 Freq: NEEDED Status: Active Protocol: Document 06/22/23 08:36 MB (Rec: 06/22/23 09:35 MB [id number]) Physical Therapy Current Condition Current Condition Evaluation Date 06/22/23 Treatment Diagnosis Left anterior hip replacement M3 PT-IP Subjective Start: 06/22/23 08:42 Freq: NEEDED Status: Active Protocol: Document 06/22/23 08:36 MB (Rec: 06/22/23 09:35 MB [id number]) Subjective Physical Therapy Visit Type Type Initial Evaluation Visit Start Time 08:36 Visit Stop Time 09:14 Number of HAIR SAMPLE MATCHER Visits 0 Physical Therapy Visit Comments Patient Comments Oh no! I just want to get up to the toilet only! Pt with friends nearby and they are initially apprehensive about movement and PT and referred to PT as pain and torture. PT provides education and encouragement. Therapy Pain Assessment Pain When Pain Assessed At Rest Pain Present Pain Present Pain Reported Location left hip Intensity 3 Scale Used Numeric (0 - 10) Description Acute Pain Management Techniques Distraction,Modification of Treatment,Re-positioning, Timing of Activity with Medications M4 PT-IP Mobility and Gait Start: 06/22/23 08:42 Freq: NEEDED Status: Active Protocol: Document 06/22/23 08:36 MB (Rec: 06/22/23 09:35 MB [id number]) PT-Bed Mobility Assessment Supine to Sit Supine to Sit Contact Guard Assistance,1 Person Assistance,Head of Bed Elevated,Bedrails Scooting Scooting to Edge of Bed Contact Guard Assistance PT-Transfer Assessment Sit to and From Stand Sit to and from Stand Contact Guard Assistance,1 Person Assistance,Use of Upper Extremities Equipment Transfer Assistive Device Gait Belt,Front Wheeled Walker Orthotic/Prosthetic Devices or Brace: No Transfers Transfer Destination Toilet Transfer Technique Stepping Transfer Ability Level of Assist Contact Guard Assistance,1 Person Assistance,Use of Upper Extremities Comments Mobility Comments PT places gait belt around pt' s left foot and encourages her to move it to the left OOB. Pt states, nsg has been helping me move. She also mentions that nsg has helped her with cleaning after toileting and PT provides tp and encourages her to try it herself as therapy is here to help her mobilize and be more I post-op left CHESTER. Pt is agreeable to try all these activities with encouragement. Pt requires cues for hand placement and CGA for transfers. Cues for step-to gait wtih RW for stepping to commode. Gait Assessment Gait Gait Assistance Required: Contact Guard Assist Distance (Feet) 30 Able to Maintain Weight Bearing Status Yes During Gait Assistive Devices Assistive Device Gait Belt,Front Wheeled Walker Orthotic/Prosthetic Devices or Brace: No Gait Deviations General Gait Pattern Antalgic,Decreased Stride Length,Decreased Feet Clearance,Flexed Trunk,Step-to Gait Factors Limiting Gait Function Factors Limiting Gait Function Decreased Activity Tolerance, Decreased Strength,Limited Range of Motion,Pain,Poor Balance Comments Gait Comments With encouragement, pt does well with gait and she gait trains 30'x1 and 10'x1 in the room with RW, CGA and PT managing IV pole. PT-Balance Assessment Sitting Balance and Reactions Static Sitting Balance Ability Good Dynamic Sitting Balance Ability Good Standing Balance and Reactions Static Standing Balance Ability Good Dynamic Standing Balance Ability Fair Device Used RW M5 PT-IP Objective Assessments Start: 06/22/23 08:42 Freq: NEEDED Status: Active Protocol: Document 06/22/23 08:36 MB (Rec: 06/22/23 09:35 MB [id number]) Orientation Orientation/Cognition Level of Alertness Alert Orientation Name,Age,Birthday,Month,Date, Year,Day of Week,Place, Situation Language Function Ability No Deficits Noted Safety Awareness Decreased Safety Awareness Memory Description No Deficits Noted Gross Range of Motion Upper Extremity ROM Assessment Within Functional Limits Lower Extremity ROM Assessment Left Impaired Strength Upper Extremity Strength Assessment Within Functional Limits Lower Extremity Strength Assessment Left Impaired Comments Strength Comments No MMT left LE post-op and ankle and knee are functional Other Assessments Other Other Assessments Edema LLE M6 PT-IP Treatment Start: 06/22/23 08:42 Freq: NEEDED Status: Active Protocol: Document 06/22/23 08:36 MB (Rec: 06/22/23 09:35 MB [id number]) Physical Therapy Treatment Exercises Exercises Ankle Pumps,Gluteal Sets,Quad Sets,Heel Slides Education Education Provided Precautions,Weight Bearing Status,Post-Op Packet,Safety Other Treatments Other Treatment Performed PT and pt and significant other discuss use of cryo machine: PT has not used the brand that she has in the room and so PT speaks in generic terms of use of cryo machines, need for slushy water with ice to circulate through as pt thought that they would use frozen water bottles with the machine, reviewed pt wear time and use of ice M7 PT-IP Assessment and Plan Start: 06/22/23 08:42 Freq: NEEDED Status: Active Protocol: Document 06/22/23 08:36 MB (Rec: 06/22/23 09:35 MB [id number]) PT Summary Assessment and Plan Potential Rehabilitation Potential Good Status of Condition at Evaluation Evolving Summary Impairments Pain,ROM,Strength,Balance, Coordination,Bed Mobility, Transfers,Gait,Activity Tolerance Progress Towards Goals Progressing Toward Goals Assessment Summary Pt is s/p left anterior hip replacement last date. She mobilizes pretty well after encouragement for functional mobility and gait tasks this a .m. Short gait in room and toileting on BSC with CGA and set-up assist. Significant other and friend in room for assessment. If she con't in hospital, will attempt stair training next treatment date. Goals Bed Mobility Goal Independent Transfer Goal Independent,Front Wheeled Walker Gait Goal Independent,Front Wheel Walker Gait Distance 100 Other Goals Pt will ascend and descend 2 steps with both hands on left rail and no more than CGA to allow safe home entrance. Days to Meet Goals 2 Frequency of Treatment Frequency Of Treatment Twice a Day Treatment Plan Physical Therapy Treatment Plan Bed Mobility Training,Transfer Training,Gait Training, Therapeutic Exercise,Balance Retraining,Post Op Education, Discharge Planning,Hot or Cold Pack,Neuromuscular Re-ed, Coordination Retraining,Manual Therapy Other Recommendations and Next Treatment Stair training, increase gait Focus Precautions Anterior Hip Precautions No Hip Extension,No Hip External Rotation Weight Bearing Status Weight Bearing Status Weight Bear as Tolerated Recommendations To Nursing Amount of Assist Needed 1 Person Assist Discharge Recommendations PT Discharge Recommendations Home with 24/10 Assist Available,Outpatient PT Transportation Needs at Discharge Private Vehicle
--- NOTE | 2023-06-22 12:45 | PT.IPTN ---
Current Diagnoses Unilateral primary osteoarthritis, left hip (06/21/23) Surgery Performed Operation Date: 06/21/23 09:45 Actual Procedures p Total Hip Arthroplasty/Anterior Approach(Left) - Andrea Brewster MD Physical Therapy Treatment Note M2 PT-IP Current Condition Start: 06/22/23 08:42 Freq: NEEDED Status: Active Protocol: Document 06/22/23 08:36 MB (Rec: 06/22/23 09:35 MB [id number]) Physical Therapy Current Condition Current Condition Evaluation Date 06/22/23 Treatment Diagnosis Left anterior hip replacement M3 PT-IP Subjective Start: 06/22/23 08:42 Freq: NEEDED Status: Active Protocol: Document 06/22/23 11:53 MB (Rec: 06/22/23 12:45 MB [id number]) Subjective Physical Therapy Visit Type Type Treatment Note Visit Start Time 11:53 Visit Stop Time 12:17 Number of MANAGER TELEMARKETING Visits 0 Physical Therapy Visit Comments Patient Comments Pt is agreeable to stair training. Therapy Pain Assessment Pain When Pain Assessed At Rest Pain Present Pain Present Pain Reported Location left hip Intensity 3 Scale Used Numeric (0 - 10) Description Acute Pain Management Techniques Apply Cold,Distraction, Modification of Treatment,Re- positioning,Timing of Activity with Medications M4 PT-IP Mobility and Gait Start: 06/22/23 08:42 Freq: NEEDED Status: Active Protocol: Document 06/22/23 11:53 MB (Rec: 06/22/23 12:45 MB [id number]) PT-Bed Mobility Assessment Supine to Sit Supine to Sit Standby Assistance,1 Person Assistance,Head of Bed Elevated,Bedrails Scooting Scooting to Edge of Bed Standby Assistance PT-Transfer Assessment Sit to and From Stand Sit to and from Stand Standby Assistance,1 Person Assistance,Use of Upper Extremities Equipment Transfer Assistive Device Gait Belt,Front Wheeled Walker Orthotic/Prosthetic Devices or Brace: No Transfers Transfer Destination Chair Transfer Technique Stepping Transfer Ability Level of Assist Standby Assistance,1 Person Assistance,Use of Upper Extremities Comments Mobility Comments PT places gait belt around pt' s left foot pt uses it to move her leg to the right to the EOB. Gait Assessment Gait Gait Assistance Required: Standby Assistance,Contact Guard Assist Distance (Feet) 100 Able to Maintain Weight Bearing Status Yes During Gait Assistive Devices Assistive Device Gait Belt,Front Wheeled Walker Orthotic/Prosthetic Devices or Brace: No Gait Deviations General Gait Pattern Antalgic,Decreased Stride Length,Decreased Feet Clearance,Flexed Trunk,Step-to Gait Factors Limiting Gait Function Factors Limiting Gait Function Decreased Activity Tolerance, Decreased Strength,Limited Range of Motion,Pain,Poor Balance Comments Gait Comments W/c pull behind in hallway and pt performs gait in hallway one time and w/c push back to room. Pt's gait quality is better and with better speed and occ better step-through than a.m. treatment Stair Climbing Assessment Evaluation Level of Assist On Stairs Contact Guard Assistance,1 Person Assistance Devices Stair Climbing Assistive Devices Left Railing Technique/Endurance Stair Climbing Direction Ascend and Descend Stair Climbing Technique Step to Step Number of Steps Climbed 3 Stair Climbing Set # Repetitions (reps) 1 Comments Stair Climbing Comments Pt faces left rail and places both hands on the rail and performs step-to pattern for ascend and descend, ascending first with right foot and descending first with left foot PT-Balance Assessment Sitting Balance and Reactions Static Sitting Balance Ability Good Dynamic Sitting Balance Ability Good Standing Balance and Reactions Static Standing Balance Ability Good Dynamic Standing Balance Ability Good Device Used RW M5 PT-IP Objective Assessments Start: 06/22/23 08:42 Freq: NEEDED Status: Active Protocol: Document 06/22/23 08:36 MB (Rec: 06/22/23 09:35 MB [id number]) Orientation Orientation/Cognition Level of Alertness Alert Orientation Name,Age,Birthday,Month,Date, Year,Day of Week,Place, Situation Language Function Ability No Deficits Noted Safety Awareness Decreased Safety Awareness Memory Description No Deficits Noted Gross Range of Motion Upper Extremity ROM Assessment Within Functional Limits Lower Extremity ROM Assessment Left Impaired Strength Upper Extremity Strength Assessment Within Functional Limits Lower Extremity Strength Assessment Left Impaired Comments Strength Comments No MMT left LE post-op and ankle and knee are functional Other Assessments Other Other Assessments Edema LLE M6 PT-IP Treatment Start: 06/22/23 08:42 Freq: NEEDED Status: Active Protocol: Document 06/22/23 08:36 MB (Rec: 06/22/23 09:35 [id number]) Physical Therapy Treatment Exercises Exercises Ankle Pumps,Gluteal Sets,Quad Sets,Heel Slides Education Education Provided Precautions,Weight Bearing Status,Post-Op Packet,Safety Other Treatments Other Treatment Performed PT and pt and significant other discuss use of cryo machine: PT has not used the brand that she has in the room and so PT speaks in generic terms of use of cryo machines, need for slushy water with ice to circulate through as pt thought that they would use frozen water bottles with the machine, reviewed pt wear time and use of ice M7 PT-IP Assessment and Plan Start: 06/22/23 08:42 Freq: NEEDED Status: Active Protocol: Document 06/22/23 11:53 MB (Rec: 06/22/23 12:45 MB [id number]) PT Summary Assessment and Plan Potential Rehabilitation Potential Good Status of Condition at Evaluation Evolving Summary Impairments Pain,ROM,Strength,Balance, Coordination,Bed Mobility, Transfers,Gait,Activity Tolerance Progress Towards Goals Progressing Toward Goals Assessment Summary Pt does better with walking and performs stair training this treatment and she does well. Goals Bed Mobility Goal Independent Transfer Goal Independent,Front Wheeled Walker Gait Goal Independent,Front Wheel Walker Gait Distance 100 Other Goals Pt will ascend and descend 2 steps with both hands on left rail and no more than CGA to allow safe home entrance. Days to Meet Goals 2 Frequency of Treatment Frequency Of Treatment Twice a Day Treatment Plan Physical Therapy Treatment Plan Bed Mobility Training,Transfer Training,Gait Training, Therapeutic Exercise,Balance Retraining,Post Op Education, Discharge Planning,Hot or Cold Pack,Neuromuscular Re-ed, Coordination Retraining,Manual Therapy Other Recommendations and Next Treatment Stair training, increase gait Focus Precautions Anterior Hip Precautions No Hip Extension,No Hip External Rotation Weight Bearing Status Weight Bearing Status Weight Bear as Tolerated Recommendations To Nursing Amount of Assist Needed 1 Person Assist Discharge Recommendations PT Discharge Recommendations Home with 24/10 Assist Available,Outpatient PT Transportation Needs at Discharge Private Vehicle
== END 2023-06-22 13:41 | disposition home or self-care (01) ==
LOC: OR 08:30 → AC 08:33
PROVIDERS: Family Provider Registered Nurse; PCP Family Medicine; Referring Provider Orthopaedic Surgery Adult Reconstructive Orthopaedic Surgery; Visit Provider Orthopaedic Surgery Adult Reconstructive Orthopaedic Surgery
PROC: (CPT 27130; principal; 2023-06-21 09:45)
DX: M16.12 Unilateral primary osteoarthritis, left hip (principal); Z86.711 Personal history of pulmonary embolism
CPT/HCPCS: 27130; 36415; 73502; 73503; 76000; 85014; 85018; 93005; 97110; 97116; 97161; 97530; C1776; A9270; J0690; J1100; J1170; J2250; J2405; J3010; J3410

== ENCOUNTER → 2023-08-08 09:17 | Outpatient (CLI) | payer OTHER, SELFPAY ==
[2023-06-21 14:21] VITALS: BMI 33.4
--- NOTE | 2023-08-08 09:18 | DI.MG.S_ITS ---
BILATERAL DIGITAL SCREENING MAMMOGRAM 3D/2D WITH CAD: 08/08/2023 CLINICAL: Routine screening. Comparison is made to exams dated: 07/06/2022 mammogram, 07/02/2021 mammogram, 06/11/2020 mammogram, and 05/27/2020 mammogram - [facility]. Both breasts are heterogeneously dense, which may obscure small masses (category c / 51-75% glandular tissue). Current study was also evaluated with a Computer Aided Detection (CAD) system. No significant masses, calcifications, or other findings are seen in either breast. There has been no significant interval change. IMPRESSION: NEGATIVE There is no mammographic evidence of malignancy. A 1 year screening mammogram is recommended. Based on the Tyrer Cuzick model (a risk assessment model) the patient's lifetime risk is 2.4% and her 10 year risk is 0.0%. According to the ACR, ACS, and NCCN guidelines, an annual breast MRI exam along with mammogram is recommended if the patient's lifetime risk is 20% or greater. This exam was interpreted at Station ID: [id number]. NOTE: For mammograms, a report in lay terms will be sent to the patient. Approximately 15% of breast malignancies will not be visualized mammographically. In the management of a palpable breast mass, a negative mammogram must not discourage biopsy of a clinically suspicious lesion. Electronically Signed By: Jason tse/sheila:08/08/2023 10:55:00 letter sent: Normal Exam ACR BI-RADS Category 1: Negative 3341F
== END ==
LOC: MAMMO 09:18
PROVIDERS: Family Provider Registered Nurse; PCP Family Medicine; Referring Provider Family Medicine; Visit Provider Family Medicine
DX: Z12.31 Encounter for screening mammogram for malignant neoplasm of breast (principal); R92.333 Mammographic heterogeneous density, bilateral breasts
CPT/HCPCS: 77063; 77067

== ENCOUNTER 2024-02-21 11:02 | Day surgery (SDC) | payer OTHER, SELFPAY ==
[2023-06-21 14:21] VITALS: BMI 33.4
[2024-02-16 08:53] VITALS: BMI 31.4
[2024-02-21] VITALS (18 sets, daily range): BP systolic 95–150; BP diastolic 42–84; PULSE 70–99; RESP 10–18; TEMP 36.2–36.8; O2SAT 90–99; BMI 31.5; BMI 35.4
[2024-02-21] MEDS: LACTATED RINGERS 1,000 ML 42 ML IV (11:16)
--- NOTE | 2024-02-21 12:20 | PM.PREOP ---
Pre-operative Note Interval Note History & Physical reviewed/Exam performed by Physician: Yes Changes to H&P: No
[2024-02-21] MEDS: SCOPOLAMINE 1 PATCH TOP (12:40)
[2024-02-21] MEDS: CEFAZOLIN 2 GM/100 ML PREMIX 100 ML IV (12:55)
--- NOTE | 2024-02-21 13:02 | SUR.OPER ---
Supine on padded OR bed, head on pillow, arms secured on padded arm boards at <90 degrees abduction, legs uncrossed, safety belt at thigh, tape over blanket over lower legs.
[2024-02-21] MEDS: BUPIVACAINE 0.25% (PF) VIAL 30 ML INJ (13:04)
[2024-02-21] MEDS: ONDANSETRON 4 MG/2 ML INJ IV (13:49)
[2024-02-21] MEDS: hydrOXYzine 50 MG/ML INJ 25 MG IM (13:49)
[2024-02-21] MEDS: fentaNYL 100 MCG/2 ML INJ IV ×3 (13:49→14:05)
[2024-02-21] MEDS: METOCLOPRAMIDE 10 MG/2 ML INJ IV (13:49)
--- NOTE | 2024-02-21 13:56 | PM.OP.1 ---
Operative Date/Time/Diagnoses Date of procedure: 02/21/24 Time of procedure: 13:59 Pre-op diagnosis: ventral hernia 3 cm Post-op diagnosis: same Procedure & Clinicians Procedure: Open repair of 5 cm ventral hernia Same procedure as scheduled: Yes Indications: 78F with a symptomatic reducible ventral hernia here for open elective repair Surgeon: Hernandez Ladd Click Yes if Unassisted: Yes Anesthesia Type: General Operative Notes Findings: 5 cm fascial defect containing small bowel Specimen(s): none sent Estimated Blood Loss (mL): 20 Procedure in detail: Patient was brought to the operating room placed supine on the table. Bilateral lower extremity compression devices were applied. General anesthesia was induced and they were intubated with an endotracheal tube. They received 2 g of Ancef prior to skin incision. They were prepped and draped in sterile fashion. A time-out was performed. A supraumbilical incision was made. The subcutaneous tissues were divided. The ventral hernia was identified and measured total of 5 cm in maximal diameter. The hernia sac was sharply opened and contained small bowel. Using blunt dissection I carefully carefully freed the hernia sac from beneath the fascia defect in order to accomodate the mesh. A Bard Ventralex ST hernia patch 8 x 12 cm was inserted beneath the fascia defect and above the peritoneum in a sublay position with the anti-adhesive surface down. The mesh was anchored in multiple locations using Ethibond suture to the fascia and the fascial defect was closed over the mesh. The subcutaneous tissues were reapproximated using 3 0 Vicry,l skin closed with 4 0 Monocryl followed by the application of Dermabond and Steri-Strips. Sponge instrument count at the end of the operation was correct. Patient tolerated procedure well was extubated and transferred to postoperative care unit in stable condition. Complications: none Post-operative Condition: stable Disposition: observation
[2024-02-21] MEDS: OXYCODONE/ACETAMINOPHEN 5/325 TABLET 1 TAB PO (13:59)
[2024-02-21] MEDS: ACETAMINOPHEN 325 MG TABLET 650 MG PO (14:28)
[2024-02-21] MEDS: KETOROLAC 30 MG/ML VIAL 15 MG IV (15:14)
[2024-02-21] MEDS: TRAMADOL 50 MG TABLET PO (17:04)
[2024-02-21] MEDS: OXYCODONE IR 5 MG TABLET PO (17:38)
[2024-02-21] MEDS: GABAPENTIN 300 MG CAPSULE 600 MG PO (21:54)
[2024-02-21] MEDS: ATORVASTATIN 20 MG TABLET 10 MG PO (21:54)
[2024-02-22] VITALS (8 sets, daily range): BP systolic 80–106; BP diastolic 42–55; PULSE 52–69; RESP 15–16; TEMP 36.1–36.6; O2SAT 92–97
[2024-02-22] MEDS: OXYCODONE IR 5 MG TABLET PO ×2 (05:55→10:09)
[2024-02-22] MEDS: LEVOTHYROXINE 25 MCG TABLET PO (05:55)
--- NOTE | 2024-02-22 10:02 | P.PN_ITS ---
Subjective Subjective Date Patient Seen: 02/22/24 Time Patient Seen: 10:02 Interval history: Pain generally well-controlled Continues to have a oxygen requirement currently on 1-2 L nasal cannula No wound drainage or fever Exam Vital Signs (past 8 hours): - 02/22/24 03:58 02/22/24 04:00 02/22/24 07:44 Temperature 97.0 F L Pulse Rate 52 L 69 Respiratory Rate 16 Blood Pressure 80/46 L 106/55 L Pulse Oximetry 94 97 96 Oxygen Delivery Method Nasal Cannula Oxygen Flow Rate 2 2 Fraction of Inspired Oxygen 02/22/24 07:46 02/22/24 09:46 Temperature Pulse Rate Respiratory Rate Blood Pressure Pulse Oximetry 96 Oxygen Delivery Method Nasal Cannula Nasal Cannula Oxygen Flow Rate 2 Fraction of Inspired Oxygen 28 Fraction of Inspired Oxygen 28 SaO2/FiO2 Ratio 342 Oxygen Delivery Method Nasal Cannula Oxygen Flow Rate 2 Narrative Exam Narrative: General adult woman alert oriented no acute distress Abdomen soft tender to palpation at the incision. [facility] Medical History (Updated 02/16/24 @ 09:21 by Keily Winters RN) CAD (coronary artery disease) History of acute cor pulmonale Asthma History of COVID-19 (06/2022) Vocal cord paralysis Right foot pain Mass of right foot Right-sided heart failure DVT (deep venous thrombosis) (~09/2019) Weight loss Change in voice Shortness of breath Fatigue Superficial bruising Chronic anticoagulation Pulmonary emboli (~09/2019) Cerumen impaction Trigger finger Abnormal Pap smear of cervix (~2009) Kidney disease Hypertension Hyperlipidemia Rheumatoid arthritis Osteoarthritis Depression Anxiety Measles Herpes Chicken pox (~1949) Diverticular disease Macular degeneration Hearing loss (~11/2014) Foot pain (~2012) Carpal tunnel syndrome (~2006) Surgical History (Updated 02/16/24 @ 09:12 by Keily Winters RN) 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) History of femoral hernia repair (03/10/23) Anesthesia History of neck surgery (~1993) History of shoulder surgery (~1993) Left fibular fracture (~2015) Fractures (~1980) History of esophagogastroduodenoscopy (EGD) (12/12/16) Status post breast biopsy (10/02/13) Status post rotator cuff repair (~2007) History of carpal tunnel repair (~2006) Status post bunionectomy (12/18/12) Status post hysterectomy (~1980) Status post arthroscopy (~2007) Status post breast biopsy (10/01/12) Status post breast biopsy (~1993) Family History Brother Age: 81 Hypertension Father Leukemia Pneumonia Mother No problems noted. Grandmother Diabetes mellitus Social History marital status: household members: spouse lives independently: Yes occupational status: previously employed Smoking Status: Former smoker alcohol intake: former substance use type: does not use Assessment & Plan Post-op Postoperative Procedures: Procedures Operation Date: 02/21/24 12:45 Actual Procedure Side Surgeon p Hernia Repair Ventral - 2 cm Hernandez Ladd MD Postoperative status narrative: 78-year-old woman postoperative day 1 status post ventral hernia repair. Respiratory insufficiency- continue incentive spirometry, out of bed ambulate wean O2 as able SCDs Quality VTE Deep Vein Thrombosis/Pulmonary Embolism Present on Admission: No
[2024-02-22] MEDS: valACYclovir 500 MG TABLET PO (10:09)
--- NOTE | 2024-02-22 11:33 | CM.DANOTE ---
Initial DCP Assessment Visit Note Reviewed EMR and team rounds for status updates. Met with pt and her friend at bedside to introduce self and role, pt was found to be alert/oriented, in no apparent discomfort, visiting with her friend. Pt resides independently at baseline with her in their own home here in [place]. Her will be transporting her home later this afternoon. She denies any CM assistance/resource needs at this time. Payor: [facility] Adv Attending: Dr. Ladd Pt is a 78 year-old F post-op day 1 from a ventral hernia obstruction repair. She had developed a painful lump by her ambilicus, which was rated at a 7-10 with exertion or activity. Pt did not have any postoperative concerns, and is being monitored today for some residual respiratory concerns. Pt will d/c after seeing Dr. Ladd again later this afternoon. Discharge Planning/Care Management CM Discharge Assessment Start: 02/22/24 11:30 Freq: Status: Active Protocol: Document 02/22/24 11:30 DPL (Rec: 02/22/24 11:32 DPL [id number]) Discharge Planning Assessment Assigned Breaker Off ASHLI Chaves Advance Directives? Yes: and a POL Advance Directives on File Yes History Provided By Patient,Friend,Medical Record Has Patient been admitted in last 30 No days? Prior Living Arrangements House Household Members spouse Type of transporation used prior to Drives own vehicle admit Independent with ADL's Yes Is patient alert and oriented? Yes Caregiver for Another No DME Already Rented / Owned FWW / Walker Barriers to Discharge No Discharge Plan Home Transportation Arrangement Spouse Referrals Initiated None needed Whiteboard Updated in Patient Room with Yes name and ext. # of Breaker Off Review Status In Process Please Provide Date Initial DC 02/22/24 Assessment Was Performed Pre-Anesthesia Assessment Start: 02/16/24 08:53 Freq: Status: Complete Protocol: Document 02/16/24 08:53 CAB (Rec: 02/16/24 09:22 CAB [id number]) Pre-Anesthesia Assessment PAC Comment Chart review Preferred Name Amanda Patient Information Reviewed Via Chart Review Primary Care Provider Adam Faria Seen Specialist in Last 12 Months Yes Specialist Seen General surgeon,Orthopedist Primary Language Djiboutian Preferred Language Djib[place]ian Train Gate Attendant Required No Height 148.59 cm Weight 69.4 kg Body Mass Index (BMI) 31.4 Hearing Ability Hearing Impaired,Use of Hearing Aid Visual Assist Magnifying Glass Barriers to Learning None Hx Anesthesia Reactions Yes: PONV, slow to wake up Hx Family Anesthesia Reaction No Hx Malignant Hyperthermia No Hx Blood Transfusions No Hx Blood Transfusion Reaction No Anesthesia Review Requested No Traveler Changer No alcohol intake former Alcohol Intake Frequency Other: Sober since 2011 Smoking Status Never smoker how long ago did patient quit smoking 1979 Substance Use Type does not use Pain Present Pain Reported Patient is completely paralyzed or No completely immobile Mental Status Oriented to own ability Is patient on oxygen? No Does patient have ROWAN/SOB No Hx Sleep Apnea No CPAP/BIPAP use not prescribed Currently Taking a Beta Brown No Hx Chest Pain No Hx SOB No Hx Syncope or Dizziness No Anti-Coagulant Therapy Yes: ASA for hx of PE 20 Has a Ap Processor Last cardiology visit 07/15/20 identified - follow up prn per visit Cardiac Testing No Hx Pacemaker/ICD No Pacemaker Rep Required? No Cardiac Clearance Received No Comment Cardiac records scanned and in surgery folder Diet Type At Home Regular Dysphagia No Chronic UTI No Urinary Catheter Present No Hx Urinary Self Catheterization No Diabetes No Patient No Lactating No Presence of External or Internal Medical Yes: left toe-plate in 2012, Devices left hip prosthesis Received a COVID vaccine? Yes: moderna x3 + booster Marital Status Lives With significant other Current Living Arrangements House Patient Discharge Plan Description Return Home Do You Have Any Spiritual Beliefs That No May Affect Your HC Choices? Do You Have Any Cultural Practices That No May Affect Your HC Choices? Emergency Contact Name Wu Oconnor (S.O.) Emergency Contact Advance Directives? Yes: and a POLST Advance Directives on File Yes Power of Trial Court Judge No Power of Trial Court Judge Name Wu Oconnor Power of Trial Court Judge
--- NOTE | 2024-02-22 12:20 | PT.IIE ---
Current Diagnoses Ventral hernia without obstruction or gangrene (02/21/24) Surgery Performed Operation Date: 02/21/24 12:45 Actual Procedures p Hernia Repair Ventral - 2 cm with mesh - Hernandez Ladd MD Surgical History (Last Updated 02/16/24 @ 09:12 by Keily Winters, RN) Anesthesia Fractures (~1980) History of carpal tunnel repair (~2006) History of esophagogastroduodenoscopy (EGD) (12/12/16) History of femoral hernia repair (03/10/23) History of neck surgery (~1993) History of shoulder surgery (~1993) 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) Left fibular fracture (~2015) Status post arthroscopy (~2007) Status post breast biopsy (~1993) Status post breast biopsy (10/01/12) Status post breast biopsy (10/02/13) Status post bunionectomy (12/18/12) Status post hysterectomy (~1980) Status post rotator cuff repair (~2007) Medical History (Last Updated 02/16/24 @ 09:21 by Keily Winters RN) Abnormal Pap smear of cervix (~2009) Anxiety Asthma CAD (coronary artery disease) Carpal tunnel syndrome (~2006) Cerumen impaction Change in voice Chicken pox (~1949) Chronic anticoagulation Depression Diverticular disease DVT (deep venous thrombosis) (~09/2019) Fatigue Foot pain (~2012) Hearing loss (~11/2014) Herpes History of acute cor pulmonale History of COVID-19 (06/2022) Hyperlipidemia Hypertension Kidney disease Macular degeneration Mass of right foot Measles Osteoarthritis Pulmonary emboli (~09/2019) Rheumatoid arthritis Right foot pain Right-sided heart failure Shortness of breath Superficial bruising Trigger finger Vocal cord paralysis Weight loss Physical Therapy Inpatient Evaluation/Re-Eval M1 PT/OT-IP Prior Functional Status Start: 02/22/24 08:30 Freq: NEEDED Status: Active Protocol: Document 02/22/24 11:34 MB (Rec: 02/22/24 12:20 MB [id number]) Medical Review Prior Functional Status Medical History Reviewed Yes Diet/Fluid Consistency Regular Communication WNLs Mobility and Gait I, hip replacement this year and not moving as well Activities of Daily Living and IADL's I Social History Household Members spouse Living Arrangements House Number of Stairs To Enter/Railing? 2 steps with left rail to enter Home Environment Standard Height Toilet,Walk in Shower Home Equipment Shower Seat with Backrest,Hand Held Shower,Hospital Bed,Grab Bars In Shower Employment Status Retired Additional Social History Comment Pt's to borrow pediatric RW from [employer]. Hospital issue walkers are too tall for pt. M2 PT-IP Current Condition Start: 02/22/24 08:30 Freq: NEEDED Status: Active Protocol: Document 02/22/24 11:34 MB (Rec: 02/22/24 12:20 MB [id number]) Physical Therapy Current Condition Current Condition Evaluation Date 02/22/24 Treatment Diagnosis Hernia repair M3 PT-IP Subjective Start: 02/22/24 08:30 Freq: NEEDED Status: Active Protocol: Document 02/22/24 11:34 MB (Rec: 02/22/24 12:20 MB [id number]) Subjective Physical Therapy Visit Type Type Initial Evaluation Visit Start Time 11:34 Visit Stop Time 11:54 Number of ENVIRONMENTAL INTERN Visits 0 Physical Therapy Visit Comments Patient Comments Pt states she just got up and walked with assistance because she knew that it what would get her out of the hospital. Therapy Pain Assessment Pain When Pain Assessed At Rest Pain Present Pain Present Pain Reported M4 PT-IP Mobility and Gait Start: 02/22/24 08:30 Freq: NEEDED Status: Active Protocol: Document 02/22/24 11:34 MB (Rec: 02/22/24 12:20 MB [id number]) PT-Bed Mobility Assessment Rolling Type of Rolling Roll to Right Level of Assist Standby Assistance Supine to Sit Supine to Sit Standby Assistance Sit to Supine Sit to Supine Standby Assistance Scooting Scooting to Edge of Bed Standby Assistance PT-Transfer Assessment Sit to and From Stand Sit to and from Stand Standby Assistance,1 Person Assistance,Use of Upper Extremities Equipment Transfer Assistive Device Gait Belt,Front Wheeled Walker Orthotic/Prosthetic Devices or Brace: No Transfers Transfer Destination Bed Transfer Technique Ambulation Transfer Ability Level of Assist Standby Assistance Comments Mobility Comments Cues for importance in log rolling to help protect abdomen and to push up from the bed Gait Assessment Gait Gait Assistance Required: Standby Assistance Distance (Feet) 100 Able to Maintain Weight Bearing Status Yes During Gait Assistive Devices Assistive Device Gait Belt,Front Wheeled Walker Orthotic/Prosthetic Devices or Brace: No Gait Deviations General Gait Pattern Antalgic,Decreased Stride Length,Flexed Trunk Factors Limiting Gait Function Factors Limiting Gait Function Pain Stair Climbing Assessment Evaluation Level of Assist On Stairs Standby Assistance Devices Stair Climbing Assistive Devices Left Railing Technique/Endurance Stair Climbing Direction Ascend and Descend Stair Climbing Technique Step to Step Number of Steps Climbed 3 Query Text: Stair Climbing Set # Repetitions (reps) 1 Comments Stair Climbing Comments Pt faces rail, both hands on rail, step-to ascend and descend with right foot first ascend and left foot first descend PT-Balance Assessment Sitting Balance and Reactions Static Sitting Balance Ability Normal Dynamic Sitting Balance Ability Good Standing Balance and Reactions Static Standing Balance Ability Good Dynamic Standing Balance Ability Good Device Used RW M5 PT-IP Objective Assessments Start: 02/22/24 08:30 Freq: NEEDED Status: Active Protocol: Document 02/22/24 11:34 MB (Rec: 02/22/24 12:20 MB [id number]) Orientation Orientation/Cognition Level of Alertness Alert Orientation Name,Birthday,Situation Language Function Ability No Deficits Noted Safety Awareness Decreased Safety Awareness Memory Description No Deficits Noted Comments No orientation deficits noted Gross Range of Motion Upper Extremity ROM Assessment Within Functional Limits Lower Extremity ROM Assessment Left Impaired Impairments PT notes some range and function changes in left LE and pt reports this is leftover from THR earlier this year Strength Upper Extremity Strength Assessment Within Functional Limits Lower Extremity Strength Assessment Left Impaired Comments Strength Comments Did not formally assess ROM and MMT post-op Coordination Assessment Gross Coordination Gross Coordination Impaired Assessment Coordination Comments Slow post-op but no real deficits noted Sensation Assessment Comments Sensation Comments No sensory deficits reported Muscle Tone Muscle Tone WNL Yes M6 PT-IP Treatment Start: 02/22/24 08:30 Freq: NEEDED Status: Active Protocol: Document 02/22/24 11:34 MB (Rec: 02/22/24 12:20 MB [id number]) Physical Therapy Treatment Education Education Provided Precautions,Post-Op Packet M7 PT-IP Assessment and Plan Start: 02/22/24 08:30 Freq: NEEDED Status: Active Protocol: Document 02/22/24 11:34 MB (Rec: 02/22/24 12:20 MB [id number]) PT Summary Assessment and Plan Potential Rehabilitation Potential Good Status of Condition at Evaluation Evolving Summary Impairments Pain,ROM,Strength,Balance,Bed Mobility,Transfers,Gait Progress Towards Goals Progressing Toward Goals Assessment Summary Pt is a 78 y/o female s/p hernia repair and she will d/c home with . Her friend is nearby for assessment and stair training. Pt reports understanding of gait with walker and stair training since her left THR earlier this year. She presents with residual range challenges in supine demonstrated today. PT must education and re-educate pt about log rolling to protect abdominal incision today and she is able to perform after education. Also ed pt to push up from the bed. [facility] and that is what they did after hip replacement. RWs to issue here are too tall for pt . No further acute PT needs. D /c PT. Frequency of Treatment Frequency Of Treatment Discharge Precautions Abdominal Surgery Precautions Log Roll,Lifting Restrictions, Gait Belt above Incisional Area Recommendations To Nursing Amount of Assist Needed Standby Assistance Discharge Recommendations PT Discharge Recommendations Home with Assistance Transportation Needs at Discharge Private Vehicle
--- NOTE | 2024-02-22 15:15 | OT.IPNOTE ---
Chart reviewed, this telegraphic typewriter repairer checked in with patient and pt is preparing for discharge. Pt states that she doesn't need further therapy at this time and is ready for discharge home. Will discharge orders.
--- NOTE | 2024-02-22 15:48 | PC.NURSE ---
Pt and spouse agreeable to discharge. Pt able to ambulate in halls with SBA w/ FWW with this RN and PT. IVs discontinued. Education provided on stroke s/s, worsening symptoms, s/s of infection, followup, and medication. Pt wheeled via w/c to private vehicle at approximately 1518.
== END 2024-02-22 15:18 | disposition home or self-care (01) ==
LOC: OR 15:19 → AC 16:59
PROVIDERS: Family Provider Registered Nurse; PCP Family Medicine; Referring Provider Surgery; Visit Provider Surgery
PROC: (CPT 49594; principal; 2024-02-21 12:45)
DX: K43.6 Other and unspecified ventral hernia with obstruction, without gangrene (principal)
CPT/HCPCS: 49594; 82962; 94760; 97161; J0690; J1100; J1885; J2250; J2405; J2704; J2765; J3010; J3410

== ENCOUNTER 2024-02-26 21:27 | Observation (INO) | payer OTHER, SELFPAY ==
[2024-02-21 17:33] VITALS: BMI 35.4
[2024-02-26] VITALS (8 sets, daily range): BP systolic 130–161; BP diastolic 69–78; PULSE 83–89; RESP 20; TEMP 36.4; O2SAT 91–95; BMI 30.9
[2024-02-26 21:53] LABS: Add Manual Diff / Slide Review NO; Basophils Absolute Auto 100 /uL (0-100); Eosinophils Absolute Auto 300 /uL (0-450); Hematocrit 46.5 % (36-46); Hemoglobin 15.5 g/dL (12.0-16.0); Lymphocytes Absolute Auto 3500 /uL (1100-4500); Lymphocytes Percent Auto 40.6 % (25-40); Mean Corpuscular HGB Conc 33.3 % (30-36); Mean Corpuscular Hemoglobin 32.4 PG (26-34); Mean Corpuscular Volume 97.2 fL (80-100); Monocytes Absolute Auto 700 /uL (0-900); Neutrophils Absolute Auto 4000 /uL (1500-7000); Neutrophils Percent Auto 46.4 % (50-75); Platelet Count 332 X10^3/uL (150-400); Red Blood Cell Count 4.79 X10^6/uL (4.0-5.2); Red Cell Distribution Width 14.4 % (11.6-14.8); White Blood Cell Count 8.7 X10^3/uL (4.5-11.0)
[2024-02-26 21:57] LABS: Alanine Aminotransferase 19 IU/L (<35); Albumin 4.6 g/dL (3.5-5.0); Albumin Globulin Ratio 1.4 (1.0-2.8); Alkaline Phosphatase 55 U/L (38-126); Aspartate Aminotransferase 36 IU/L (14-36); BUN Creatinine Ratio 22.5 (6-22); Blood Urea Nitrogen 18 mg/dL (7-17); Calcium 9.6 mg/dL (8.4-10.2); Carbon Dioxide 27 mmol/L (22-32); Chloride 99 mmol/L (98-107); Estimated Glomerular Filt Rate > 60 mL/min (>60); Globulin 3.2 g/dL (1.7-4.1); Glucose 107 mg/dL (80-110); Lipase 144 U/L (23-300); Sodium 134 mmol/L (137-145); Total Protein 7.8 g/dL (6.3-8.2)
[2024-02-26 22:00] LABS: HEMOLYSIS 94 (0-50)
[2024-02-26 22:01] LABS: Potassium 3.7 mmol/L (3.4-5.1)
[2024-02-26] MEDS: ONDANSETRON 4 MG/2 ML INJ IV (22:09)
--- NOTE | 2024-02-26 23:24 | ED_ITS ---
HPI - Nausea/Vomiting/Diarrhea General Chief complaint: Nausea/Vomiting/Diarrhea Stated complaint: Vomiting Time Seen by Provider: 02/26/24 23:24 Source: patient, RN notes reviewed and old records reviewed Mode of arrival: Wheelchair Limitations: no limitations History of Present Illness HPI Narrative: 78-year-old female history of diverticulitis, dyslipidemia with recent open ventral hernia repair on 02/21/2024 here at [facility] with Dr. Ladd. Patient states that is since has not had a bowel movement since last Monday. States she passed flatus yesterday but not really today. She states she has been taking some liquids but has not been taking much in the way of solids. She had some soup today and then started vomiting and had increased pain in her abdomen as well. She has not appreciate a lot of new distention but is uncomfortable. Denies fevers. No chest pain or shortness of breath. No urinary issues reported. Patient states she does have multiple allergies to narcotics several of the make her very nauseated. She states she has been tolerating oral oxycodone. Related Data Home Medications Medication Instructions Recorded Confirmed [id number] tablet 1 tab PO DAILY 02/14/18 02/21/24 cholecalciferol (vitamin D3) 25 3,000 unit PO DAILY 07/01/20 02/21/24 mcg (1,000 unit) capsule aspirin 81 mg capsule 81 mg PO DAILY ##0 02/05/21 02/21/24 gabapentin 300 mg capsule 600 mg PO QPM 03/10/23 02/21/24 valacyclovir 1 gram tablet 500 mg PO Q OTHER DAY HSV 06/15/23 02/21/24 Previous Rx's Medication Instructions Recorded levothyroxine 25 mcg tablet 25 mcg PO DAILY #90 tabs 01/20/20 simvastatin 10 mg tablet (Zocor) 10 mg PO QAM #90 tabs 01/20/20 albuterol sulfate 90 mcg/actuation 2 puff inhalation Q4-6H PRN 11/16/22 aerosol inhaler shortness of breath or wheezing #8.5 grams acetaminophen 325 mg capsule 650 mg (2 x 325 mg) PO QID PRN 02/21/24 (Tylenol) pain #60 caps docusate sodium 100 mg capsule 100 mg PO BID #30 caps 02/21/24 (Colace) tramadol 50 mg tablet 50 mg PO Q6H PRN pain #15 tabs 02/21/24 oxycodone 5 mg tablet 5 mg PO Q8H PRN pain #7 tabs 02/26/24 Allergies Allergy/AdvReac Type Severity Reaction Status Date / Time hydromorphone [From Dilaudid] AdvReac Severe Nausea Verified 02/21/24 11:22 codeine [CODEINE] AdvReac Mild NAUSEA, Verified 02/21/24 11:22 VOMITING morphine [MORPHINE] AdvReac Mild VOMITING Verified 02/21/24 11:22 hydrocodone AdvReac Nausea Verified 02/21/24 11:22 pentazocine [From Talwin] AdvReac Nausea Verified 02/21/24 11:22 Review of Systems Review of Systems ROS Unobtainable: All systems reviewed & are unremarkable except as noted in HPI and below Patient History Medical History CAD (coronary artery disease) History of acute cor pulmonale Asthma History of COVID-19 (06/2022) Vocal cord paralysis Right foot pain Mass of right foot Right-sided heart failure DVT (deep venous thrombosis) (~09/2019) Weight loss Change in voice Shortness of breath Fatigue Superficial bruising Chronic anticoagulation Pulmonary emboli (~09/2019) Cerumen impaction Trigger finger Abnormal Pap smear of cervix (~2009) Kidney disease Hypertension Hyperlipidemia Rheumatoid arthritis Osteoarthritis Depression Anxiety Measles Herpes Chicken pox (~1949) Diverticular disease Macular degeneration Hearing loss (~11/2014) Foot pain (~2012) Carpal tunnel syndrome (~2006) Surgical History 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) History of femoral hernia repair (03/10/23) Anesthesia History of neck surgery (~1993) History of shoulder surgery (~1993) Left fibular fracture (~2015) Fractures (~1980) History of esophagogastroduodenoscopy (EGD) (12/12/16) Status post breast biopsy (10/02/13) Status post rotator cuff repair (~2007) History of carpal tunnel repair (~2006) Status post bunionectomy (12/18/12) Status post hysterectomy (~1980) Status post arthroscopy (~2007) Status post breast biopsy (10/01/12) Status post breast biopsy (~1993) Family History Brother Age: 81 Hypertension Father Leukemia Pneumonia Mother No problems noted. Grandmother Diabetes mellitus Social History marital status: household members: spouse lives independently: Yes occupational status: previously employed Smoking Status: Former smoker alcohol intake: former substance use type: does not use Smoking Status: Former smoker alcohol intake frequency: holidays/special occasions only Substance Use Type: does not use and marijuana Exam Narrative Exam Narrative: GENERAL: Alert and oriented x three, elderly female in mild distress. HEENT: Head normocephalic, atraumatic, EOMI, pupils reactive, face symmetric, moist mucous membranes NECK: Supple, full range of motion CARDIOVASCULAR: Regular rate and rhythm without murmurs, rubs or gallops. RESPIRATORY: Breath sounds equal bilaterally, no wheezes rales or rhonchi. ABDOMEN: Soft, generalized tenderness. Patient has midline ventral incision that appears to be healing, clean dry and intact with scabbing. Patient does have some ecchymosis surrounding the area. No warmth or erythema. Normoactive bowel sounds all 4 quadrants. No guarding or rebound, rigidity, no mass : No CVA tenderness EXTREMITIES: Normal range of motion, no clubbing or edema. Neurovascularly intact NEUROLOGICAL: Cranial nerves II through XII grossly intact. Moving all extremities SKIN: Warm, dry, no petechiae, no rashes or lesions. Initial Vital Signs Initial Vital Signs: Vital Signs Pulse Rate 87 02/26/24 21:34 Pulse Oximetry 95 02/26/24 21:34 Course Orders Ordered: ED Orders 02/26/24 21:30 Complete Blood Count AUTO DIFF Stat Comprehensive Metabolic Panel Stat Lipase Stat 02/26/24 21:40 EKG-12 Lead Stat 02/26/24 23:02 Urine Microscopic Stat 02/26/24 23:33 CT abdomen pelvis w con Stat 02/27/24 04:50 CT abdomen pelvis w con Stat Ondansetron HCl (Ondansetron 4 Mg/2 Ml Inj) 4 mg IV NOW PRN PRN Reason: Nausea And Vomiting Last Admin: 02/26/24 22:09 Dose: 4 mg Documented By: KEILA Discontinued Medications Sodium Chloride (Normal Saline 0.9%) 1,000 mls @ 1,000 mls/hr IV BOLUS ONE Stop: 02/27/24 02:19 Last Infusion: 02/27/24 02:49 Dose: Infused Documented By: Admin: 02/27/24 01:41 Dose: 1,000 mls/hr Documented By: KEILA Magnesium Citrate (Magnesium Citrate 300 Ml Solution) 150 ml PO NOW ONE Stop: 02/27/24 02:09 Last Admin: 02/27/24 02:30 Dose: 150 ml Documented By: KEILA Mineral Oil (Mineral Oil 1 Each Enema) 1 each FL NOW ONE Stop: 02/27/24 01:24 Last Admin: 02/27/24 01:47 Dose: 1 each Documented By: KEILA Ondansetron HCl (Ondansetron 4 Mg Odt) 4 mg PO NOW PRN PRN Reason: Nausea And Vomiting Ondansetron HCl (Ondansetron 4 Mg/2 Ml Inj) 4 mg IV NOW ONE Stop: 02/27/24 02:56 Last Admin: 02/27/24 02:59 Dose: 4 mg Documented By: KEILA Oxycodone HCl (Oxycodone Ir 5 Mg Tablet) 10 mg PO NOW ONE Stop: 02/26/24 23:35 Last Admin: 02/26/24 23:40 Dose: 10 mg Documented By: KEILA Vital Signs Vital signs: Vital Signs - 8 hr 02/26/24 21:34 02/26/24 21:35 02/26/24 21:35 Temperature Pulse Rate 87 89 Respiratory Rate Blood Pressure 130/78 Pulse Oximetry 95 95 Oxygen Delivery Method Room Air Oxygen Flow Rate 02/26/24 21:36 02/26/24 22:00 02/26/24 22:00 Temperature 97.5 F L Pulse Rate 87 87 Respiratory Rate 20 Blood Pressure 136/78 Pulse Oximetry 95 93 Oxygen Delivery Method Room Air Room Air Oxygen Flow Rate 02/26/24 22:30 02/26/24 22:30 02/26/24 23:00 Temperature Pulse Rate 83 Respiratory Rate Blood Pressure 149/71 H 151/69 H Pulse Oximetry 93 Oxygen Delivery Method Oxygen Flow Rate 02/26/24 23:00 02/26/24 23:30 02/26/24 23:58 Temperature Pulse Rate 85 84 84 Respiratory Rate Blood Pressure Pulse Oximetry 91 91 Oxygen Delivery Method Room Air Room Air Oxygen Flow Rate 02/26/24 23:58 02/27/24 00:00 02/27/24 00:00 Temperature Pulse Rate 84 Respiratory Rate Blood Pressure 161/77 H 168/77 H Pulse Oximetry 91 Oxygen Delivery Method Room Air Oxygen Flow Rate 02/27/24 00:05 02/27/24 00:06 02/27/24 00:34 Temperature Pulse Rate 80 Respiratory Rate Blood Pressure Pulse Oximetry 87 L 93 Oxygen Delivery Method Room Air Nasal Cannula Oxygen Flow Rate 2 02/27/24 01:00 02/27/24 01:30 02/27/24 01:50 Temperature Pulse Rate 81 78 Respiratory Rate 18 Blood Pressure 146/70 H Pulse Oximetry 92 92 Oxygen Delivery Method Nasal Cannula Nasal Cannula Oxygen Flow Rate 2 2 02/27/24 01:50 02/27/24 02:14 02/27/24 03:18 Temperature Pulse Rate 77 88 Respiratory Rate Blood Pressure Pulse Oximetry 92 99 95 Oxygen Delivery Method Nasal Cannula Oxygen Flow Rate 2 02/27/24 03:19 02/27/24 03:19 02/27/24 03:30 Temperature Pulse Rate 86 83 Respiratory Rate 19 Blood Pressure 146/71 H Pulse Oximetry 95 97 Oxygen Delivery Method Nasal Cannula Nasal Cannula Oxygen Flow Rate 2 2 02/27/24 03:30 02/27/24 04:00 02/27/24 04:00 Temperature Pulse Rate 80 Respiratory Rate Blood Pressure 163/77 H 131/67 Pulse Oximetry 94 Oxygen Delivery Method Nasal Cannula Oxygen Flow Rate 2 02/27/24 04:30 02/27/24 04:31 02/27/24 04:31 Temperature Pulse Rate 99 H 95 H Respiratory Rate Blood Pressure 155/83 H Pulse Oximetry 91 87 L Oxygen Delivery Method Room Air Room Air Oxygen Flow Rate 02/27/24 04:33 Temperature Pulse Rate Respiratory Rate Blood Pressure Pulse Oximetry 94 Oxygen Delivery Method Nasal Cannula Oxygen Flow Rate 2 MDM - Nausea/Vomiting/Diarrhea Lab Data 02/26/24 21:30 02/26/24 21:30 Labs: Lab Results 02/26/24 02/26/24 Range/Units 21:30 23:02 WBC 8.7 (4.5-11.0) X10^3/uL RBC 4.79 (4.0-5.2) X10^6/uL Hgb 15.5 (12.0-16.0) g/dL Hct 46.5 H (36-46) % MCV 97.2 (80-100) fL MCH 32.4 (26-34) PG MCHC 33.3 (30-36) % RDW 14.4 (11.6-14.8) % Plt Count 332 (150-400) X10^3/uL Neut % (Auto) 46.4 L (50-75) % Lymph % (Auto) 40.6 H (25-40) % Bacon % (Auto) 8.0 (3-14) % Eos % (Auto) 4.0 (2-4) % Baso % (Auto) 1.0 (0-2) % Neut # (Auto) 4000 (0193-3028) /uL Lymph # (Auto) 3500 (7595-8242) /uL Bacon # (Auto) 700 (0-900) /uL Eos # (Auto) 300 (0-450) /uL Baso # (Auto) 100 (0-100) /uL Sodium 134 L (137-145) mmol/L Potassium 3.7 (3.4-5.1) mmol/L Chloride 99 (98-107) mmol/L Carbon Dioxide 27 (22-32) mmol/L BUN 18 H (7-17) mg/dL Creatinine 0.80 (0.52-1.04) mg/dL Estimated GFR > 60 (>60) mL/min BUN/Creatinine Ratio 22.5 H (6-22) Glucose 107 (80-110) mg/dL Calcium 9.6 (8.4-10.2) mg/dL Total Bilirubin 1.0 (0.2-1.3) mg/dL AST 36 (14-36) IU/L ALT 19 (<35) IU/L Alkaline Phosphatase 55 (38-126) U/L Total Protein 7.8 (6.3-8.2) g/dL Albumin 4.6 (3.5-5.0) g/dL Globulin 3.2 (1.7-4.1) g/dL Albumin/Globulin Ratio 1.4 (1.0-2.8) Lipase 144 (23-300) U/L Urine RBC 0-1/hpf (0-5/HPF) Urine WBC 0-1/hpf (0-5/HPF) Ur Squamous Epith Cells None seen (0-5/HPF) Urine Bacteria Occasional (0-1) (None) Ur Culture Indicated? Cult not indicated Vol Urine Centrifuged 10ml (spun) Urine Dip Bedside Urine Glucose Negative Bedside Urine Bilirubin - Negative Bedside Urine Ketone ++ 40 Urine Specific [place] 1.005 Bedside Urine Occult Blood + Bedside Urine pH 6.0 Bedside Urine Protein - Negative Bedside Urine Urobilinogen - Negative Bedside Urine Nitrite - Negative Bedside Urine Leukocytes - Negative Esterase Imaging Data CT scan - abdomen/pelvis: Radiologist's Impression: Close Abdomen/Pelvis CT (Signed) Veronica Rivera - 02/26/24 Launch?Image [address] [address] [address] Scan Report Signed Patient: Ninfa Oconnor MR#: [id number] : 1945 Acct:[id number] Age/Sex: 78 / F Date of Service: 02/26/24 Loc: ED Accession Number: [id number] Procedure: CT abdomen pelvis w con Ordering Provider: Maricruz Cuenca D.O. PROCEDURE: CT ABDOMEN PELVIS W CON INDICATIONS: hernia repair 02/20, no BM since, vomiting today, increas pa TECHNIQUE: After the administration of intravenous contrast, axial sections acquired from the lung bases to the pubic symphysis. Coronal and sagittal reformats were performed. For radiation dose reduction, the following was used: automated exposure control, adjustment of mA and/or kV according to patient size. COMPARISON: [facility], CT, CT ABDOMEN PELVIS W CON, 05/24/2023, 16:54. FINDINGS: Image quality: Portions of the lower pelvis are suboptimally evaluated secondary to metallic streak artifact from hip arthroplasty. Lower Chest: Minimal patchy right basilar opacity ABDOMEN: Liver: Steatosis with multiple hepatic cysts. Gallbladder: No radiopaque gallstones or wall thickening. Biliary ducts: No biliary dilation. Pancreas: No ductal dilation. Spleen: Size is within normal limits. Adrenal Glands: No adrenal nodules. Kidneys and Ureters: No hydronephrosis. No solid mass. No complex renal cystic lesion which requires follow up. Stomach and Bowel: Normal colonic caliber, without significant wall thickening. Mild to moderate colonic stool without obstruction. Colonic diverticula without inflammatory change. Peritoneum: No abnormal intraperitoneal fluid. No free air. Ventral Wall: Ventral wall hernia repair changes. Abdominal Nodes: No retroperitoneal or mesenteric adenopathy by size criteria. Vessels: Aorta and inferior vena cava are normal in size. PELVIS: Pelvic Organs: Unremarkable. Bladder: No bladder wall thickening, accounting for underdistention. Pelvic Nodes: No enlarged lymph nodes. Miscellaneous: No inguinal hernias are seen. Bones: No aggressive osseous abnormality. Left hip arthroplasty. IMPRESSION: Postsurgical ventral wall changes consistent with recent surgery. No abscess or organized fluid collection. Mild to moderate colonic stool without obstruction. Diverticulosis. Dictated by: Veronica Rivera M.D. on 02/27/2024 at 0:18 Approved by: Veronica Rivera M.D. on 02/27/2024 at 0:21 MDM Narrative Medical decision making narrative: 78-year-old female 5 days postop open ventral hernia repair with symptoms concerning for obstruction. Labs and CT abdomen pelvis obtained Labs show white count 8.7 hemoglobin of 15.5 platelets of 332 predominance of lymphocytes. Sodium 134 potassium 3.1 chloride 99 CO2 of 27 BUN 18 creatinine 0.8 glucose of 107 LFTs are negative lipase is normal at 144. Urine 1 red cell 1 white cell no squamous, no bacteria. Point of care urine is negative for nitrates and leukocyte esterase. CT abdomen and pelvis postsurgical ventral wall changes consistent with recent surgery no abscess or organized fluid collection [id number] colonic stool without obstruction. Steatosis with multiple hepatic cysts. Patient received Zofran, oxycodone. Patient's O2 sat did drop about 30 minutes after oxycodone. Patient is awake but sleepy. Spoke with Dr. Campbell suspect ileus he would like for us to give patient fluids, enema reassess after several hours patient has bowel movement and tolerating orals could discharge home if she is not to re-contact. Patient had enema with no output. Did drink bottle of magnesium citrate. Patient had not had bowel movement. Had additional dose of antinausea medication but started vomiting here in the department. Re-contact Dr. Campbell, general surgery: Accepts for admission. Would like CT abdomen pelvis with oral contrast as patient has been vomiting he would like NG tube placed with contrast down NG tube. Nasogastric tube was placed, appears to have good placement on xray. Discharge Plan Departure Patient Disposition: Admitted as Observation Clinical Impression: Ileus, Vomiting Admit Date/Time: 02/27/24 04:51 Admit Provider: Eduardo Campbell
--- NOTE | 2024-02-26 23:33 | DI.CT.S_ITS ---
PROCEDURE: CT ABDOMEN PELVIS W CON INDICATIONS: hernia repair 02/20, no BM since, vomiting today, increas pa TECHNIQUE: After the administration of intravenous contrast, axial sections acquired from the lung bases to the pubic symphysis. Coronal and sagittal reformats were performed. For radiation dose reduction, the following was used: automated exposure control, adjustment of mA and/or kV according to patient size. COMPARISON: [facility], CT, CT ABDOMEN PELVIS W CON, 05/24/2023, 16:54. FINDINGS: Image quality: Portions of the lower pelvis are suboptimally evaluated secondary to metallic streak artifact from hip arthroplasty. Lower Chest: Minimal patchy right basilar opacity ABDOMEN: Liver: Steatosis with multiple hepatic cysts. Gallbladder: No radiopaque gallstones or wall thickening. Biliary ducts: No biliary dilation. Pancreas: No ductal dilation. Spleen: Size is within normal limits. Adrenal Glands: No adrenal nodules. Kidneys and Ureters: No hydronephrosis. No solid mass. No complex renal cystic lesion which requires follow up. Stomach and Bowel: Normal colonic caliber, without significant wall thickening. Mild to moderate colonic stool without obstruction. Colonic diverticula without inflammatory change. Peritoneum: No abnormal intraperitoneal fluid. No free air. Ventral Wall: Ventral wall hernia repair changes. Abdominal Nodes: No retroperitoneal or mesenteric adenopathy by size criteria. Vessels: Aorta and inferior vena cava are normal in size. PELVIS: Pelvic Organs: Unremarkable. Bladder: No bladder wall thickening, accounting for underdistention. Pelvic Nodes: No enlarged lymph nodes. Miscellaneous: No inguinal hernias are seen. Bones: No aggressive osseous abnormality. Left hip arthroplasty. IMPRESSION: Postsurgical ventral wall changes consistent with recent surgery. No abscess or organized fluid collection. Mild to moderate colonic stool without obstruction. Diverticulosis. Dictated by: Veronica Rivera M.D. on 02/27/2024 at 0:18 Approved by: Veronica Rivera M.D. on 02/27/2024 at 0:21
[2024-02-26] MEDS: OXYCODONE IR 5 MG TABLET 10 MG PO (23:40)
[2024-02-27] VITALS (27 sets, daily range): BP systolic 131–168; BP diastolic 67–94; PULSE 77–99; RESP 17–19; TEMP 35.7; O2SAT 87–99; BMI 30.9
[2024-02-27 00:09] LABS: Bacteria Urine Occasional (0-1); Culture Indicated Urine Cult Not Indicated; RBC Urine 0-1/HPF (0-5/HPF); Squamous Epithelial Cell Urine None Seen (0-5/HPF); Urine Volume 10mL (spun); WBC Urine 0-1/HPF (0-5/HPF)
--- NOTE | 2024-02-27 00:37 | PC.NURSE ---
Patient used the restroom 3x so far during her stay. States she doesn't feel like she emptied her bladder. Post void bladder scan showed 4ml.
[2024-02-27] MEDS: SODIUM CHLORIDE 0.9% 1,000 ML 1000 ML IV (01:41)
[2024-02-27] MEDS: MINERAL OIL 1 EACH ENEMA PR (01:47)
[2024-02-27] MEDS: MAGNESIUM CITRATE 300 ML SOLUTION 150 ML PO (02:30)
[2024-02-27] MEDS: ONDANSETRON 4 MG/2 ML INJ IV (02:59)
--- NOTE | 2024-02-27 04:50 | DI.CT.S_ITS ---
PROCEDURE: CT ABDOMEN PELVIS W CON INDICATIONS: concern for obstruction ngt w/ oral contrast TECHNIQUE: After the administration of intravenous contrast, axial sections acquired from the lung bases to the pubic symphysis. Coronal and sagittal reformats were performed. For radiation dose reduction, the following was used: automated exposure control, adjustment of mA and/or kV according to patient size. COMPARISON: [facility], CT, CT ABDOMEN PELVIS W CON, 02/26/2024, 23:42. FINDINGS: Image quality: Diagnostic Lower chest: Bibasilar atelectasis/scarring. Coronary calcifications. Liver: There are numerous hypoattenuating liver lesions favored to be cysts. Subcentimeter lesions are too small to characterize however these are usually also cysts. Gallbladder and biliary system: Gallbladder is mildly distended. No pathologic biliary ductal dilation Pancreas: No ductal dilation Spleen: Nonenlarged Adrenals: No discrete nodules Kidneys: No solid mass or hydronephrosis. Vessels and lymph nodes: The main portal vein is patent. No abdominal aortic aneurysm. No pathologic lymph nodes by size criteria. Bowel and peritoneum: Enteric tube is seen, with tip at the gastric outlet. The stomach is filled with ingested contrast, with transit into the small bowel. No evidence of acute obstruction. No pneumoperitoneum. No abdominal free fluid. There are colonic diverticula, without evidence of cysts acute inflammation by CT. No drainable abscess. Body wall: Postsurgical changes in the anterior body wall Pelvis: Partially obscured by metallic artifact. The uterus is absent. Bladder has excreted contrast. Bones: Left hip arthroplasty. Degenerative changes. IMPRESSION: Injected contrast is seen in the stomach transiting into the small bowel, without evidence of acute obstruction. Enteric tube terminates at the gastric outlet. No pneumoperitoneum or ascites identified. Abdominal wall postsurgical changes are present. Other findings as above. Dictated by: Kemar Wilkerson M.D. on 02/27/2024 at 7:20 Approved by: Kemar Wilkerson M.D. on 02/27/2024 at 7:26
--- NOTE | 2024-02-27 04:52 | PC.NURSE ---
back chartin per JUN admin mineral enema---patient attempted BM on the commode at 0150, no success. 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 0230 per JUN admin mag citrate--- patient attempted BM x2 with no results, feeling nauseated. Dr. Cuenca aware 0259- per JUN admin zofran 4mg 0350- patient attempted BM no success, nauseated. Dr. Cuenca aware 0400--pt had small amount of emesis, 100ml. Shay tinged. Dr. Cuenca aware.
--- NOTE | 2024-02-27 05:16 | DI.RAD.S_ITS ---
PROCEDURE: XR CHEST 1V INDICATIONS: post NG tube TECHNIQUE: One view of the chest was acquired. COMPARISON: [facility], CR, XR CHEST 1V, 11/16/2022, 6:09. [facility], CR, XR CHEST 2V, 06/18/2022, 12:00. FINDINGS: Surgical changes and devices: Enteric tube with tip and side port projecting below the diaphragm. Lungs and pleura: Low lung volumes with likely bibasilar atelectasis. No pleural effusions or pneumothorax. Mediastinum: Mediastinal contours appear normal. Heart size is normal. Bones and chest wall: No suspicious bony lesions. Overlying soft tissues appear unremarkable. IMPRESSION: Enteric tube with tip and side port projecting below the diaphragm. Low lung volumes with likely bibasilar atelectasis. Dictated by: Kings Perkins M.D. on 02/27/2024 at 8:32 Approved by: Kings Perkins M.D. on 02/27/2024 at 8:33
[2024-02-27] MEDS: ACETAMINOPHEN IV 1,000 MG/100 ML VIAL 400 MG IV (06:46)
--- NOTE | 2024-02-27 06:53 | PC.NURSE ---
0630: patient called and reports left shoulder blade pain. Reported to Dr. Cuenca, awaiting new orders. 0636: IV tylenol ordered
--- NOTE | 2024-02-27 10:10 | PT.IIE ---
Current Diagnoses Ileus, unspecified (02/27/24) Nausea with vomiting, unspecified (02/27/24) Surgical History (Last Reviewed 02/27/24 @ 12:56 by Eduardo Campbell MD) Anesthesia Fractures (~1980) History of carpal tunnel repair (~2006) History of esophagogastroduodenoscopy (EGD) (12/12/16) History of femoral hernia repair (03/10/23) History of neck surgery (~1993) History of shoulder surgery (~1993) 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) Left fibular fracture (~2015) Status post arthroscopy (~2007) Status post breast biopsy (~1993) Status post breast biopsy (10/01/12) Status post breast biopsy (10/02/13) Status post bunionectomy (12/18/12) Status post hysterectomy (~1980) Status post rotator cuff repair (~2007) Medical History (Last Reviewed 02/27/24 @ 12:56 by Eduardo Campbell MD) Abnormal Pap smear of cervix (~2009) Anxiety Asthma CAD (coronary artery disease) Carpal tunnel syndrome (~2006) Cerumen impaction Change in voice Chicken pox (~1949) Chronic anticoagulation Depression Diverticular disease DVT (deep venous thrombosis) (~09/2019) Fatigue Foot pain (~2012) Hearing loss (~11/2014) Herpes History of acute cor pulmonale History of COVID-19 (06/2022) Hyperlipidemia Hypertension Kidney disease Macular degeneration Mass of right foot Measles Osteoarthritis Pulmonary emboli (~09/2019) Rheumatoid arthritis Right foot pain Right-sided heart failure Shortness of breath Superficial bruising Trigger finger Vocal cord paralysis Weight loss Physical Therapy Inpatient Evaluation/Re-Eval M1 PT/OT-IP Prior Functional Status Start: 02/27/24 13:11 Freq: NEEDED Status: Active Protocol: Document 02/27/24 10:10 AB (Rec: 02/27/24 13:25 AB [id number]) Medical Review Prior Functional Status Medical History Reviewed Yes Communication able to make needs known Mobility and Gait pt stated that she was modified independent with all mobilities and ambulation without AD but has been using a FWW since after ventral hernia repair last 02/21/24 Social History Household Members spouse Living Arrangements House Number of Floors (Floors) One Floor Number of Stairs To Enter/Railing? 2 steps L rail ascending to enter the house Home Environment Standard Height Toilet,Walk in Shower,Bidet Home Equipment Front Wheel Walker,Shower Seat with Backrest,Hand Held Shower,Grab Bars Near Toilet, Grab Bars In Shower M2 PT-IP Current Condition Start: 02/27/24 13:11 Freq: NEEDED Status: Active Protocol: Document 02/27/24 10:10 AB (Rec: 02/27/24 13:25 AB [id number]) Physical Therapy Current Condition Current Condition Evaluation Date 02/27/24 Treatment Diagnosis ileus; s/p open ventral hernia repair ; difficulty in walking Onset Date 02/27/24 M3 PT-IP Subjective Start: 02/27/24 13:11 Freq: NEEDED Status: Active Protocol: Document 02/27/24 10:10 AB (Rec: 02/27/24 13:25 AB [id number]) Subjective Physical Therapy Visit Type Type Initial Evaluation Visit Start Time 10:10 Visit Stop Time 10:45 Number of [employer]DITIONING Visits 0 Physical Therapy Visit Comments Patient Comments agreeable to do PT Therapy Pain Assessment Pain When Pain Assessed At Rest Pain Present Pain Present Pain Reported Location Abdomen Intensity 5 Scale Used Numeric (0 - 10) Pain Management Techniques Distraction,Modification of Treatment,Re-positioning, Timing of Activity with Medications M4 PT-IP Mobility and Gait Start: 02/27/24 13:11 Freq: NEEDED Status: Active Protocol: Document 02/27/24 10:10 AB (Rec: 02/27/24 13:25 AB [id number]) PT-Bed Mobility Assessment Rolling Type of Rolling Log Rolling Level of Assist Moderate Assistance Supine to Sit Supine to Sit Moderate Assistance PT-Transfer Assessment Sit to and From Stand Sit to and from Stand Contact Guard Assistance Equipment Transfer Assistive Device Gait Belt,Front Wheeled Walker Orthotic/Prosthetic Devices or Brace: No Transfers Transfer Destination Chair Transfer Technique ambulated Transfer Ability Level of Assist Contact Guard Assistance,1 Person Assistance,Use of Upper Extremities Comments Mobility Comments pt supine in bed and agreeable to do PT. obtained PLOF and home setup. post-op handout provided to pt. educated pt on abdominal precautions and log roll bed mobility. BP in supine: 146/78 O2 sat with 2L /min O2: 97%. at RA 95%. pt completed supine to sit mod A and max cues. able to sit on EOB SBA. O2 sat: 95%. completed sit to stand CGA and ambulated in room using FWW SBA to CGA ~ 80 ft. pt agreed to sit on the chair. positioned pt on the chair. call light and table placed within reach. Gait Assessment Gait Gait Assistance Required: Standby Assistance,Contact Guard Assist,1 Person Assist Distance (Feet) 80 Able to Maintain Weight Bearing Status Yes During Gait Assistive Devices Assistive Device Gait Belt,Front Wheeled Walker Orthotic/Prosthetic Devices or Brace: No Gait Deviations General Gait Pattern Decreased Stride Length, Decreased Feet Clearance Factors Limiting Gait Function Factors Limiting Gait Function Decreased Activity Tolerance, Decreased Strength,Limited Range of Motion,Pain,Poor Balance,Poor Safety Awareness PT-Balance Assessment Sitting Balance and Reactions Static Sitting Balance Ability Normal Dynamic Sitting Balance Ability Good Standing Balance and Reactions Static Standing Balance Ability Fair Dynamic Standing Balance Ability Fair Device Used FWW M5 PT-IP Objective Assessments Start: 02/27/24 13:11 Freq: NEEDED Status: Active Protocol: Document 02/27/24 10:10 AB (Rec: 02/27/24 13:25 AB [id number]) Orientation Orientation/Cognition Level of Alertness Alert Orientation Name,Place,Situation Language Function Ability Hard of Hearing Safety Awareness Decreased Safety Awareness Memory Description No Deficits Noted Gross Range of Motion Lower Extremity ROM Assessment Within Functional Limits Strength Lower Extremity Strength Assessment Within Functional Limits Coordination Assessment Gross Coordination Gross Coordination WNL Sensation Assessment Sensation Gross Sensation WNL Muscle Tone Muscle Tone WNL Yes M6 PT-IP Treatment Start: 02/27/24 13:11 Freq: NEEDED Status: Active Protocol: Document 02/27/24 10:10 AB (Rec: 02/27/24 13:25 AB [id number]) Physical Therapy Treatment Education Education Provided Precautions,Post-Op Packet, Safety M7 PT-IP Assessment and Plan Start: 02/27/24 13:11 Freq: NEEDED Status: Active Protocol: Document 02/27/24 10:10 AB (Rec: 02/27/24 13:25 AB [id number]) PT Summary Assessment and Plan Potential Rehabilitation Potential Good Status of Condition at Evaluation Evolving Summary Impairments Pain,ROM,Strength,Balance, Coordination,Sensation,Tone, Cognition,Bed Mobility, Transfers,Gait,Activity Tolerance Assessment Summary pt is a 78 y/o F who had an open ventral hernia repair last 02/21/24. pt now admitted for ileus. pt requiring mod A for log roll bed mobility, SBA to CGA for ambulation using FWW. presents with decrease activity tolerance affecting mobility. pt lives with spouse and spouse will be able to assist. will continue to assess progress. pt may benefit from HHPT. Goals Bed Mobility Goal Independent Transfer Goal Independent,Front Wheeled Walker Gait Goal Independent,Front Wheel Walker Gait Distance 200 Other Goals up/down 2 steps L rail ascending mod I Days to Meet Goals 10 Frequency of Treatment Frequency Of Treatment Once a Day Treatment Plan Physical Therapy Treatment Plan Bed Mobility Training,Transfer Training,Gait Training, Therapeutic Exercise,Balance Retraining,Post Op Education, Discharge Planning,Hot or Cold Pack,Neuromuscular Re-ed, Coordination Retraining,Manual Therapy Precautions Abdominal Surgery Precautions Log Roll,Lifting Restrictions, Gait Belt above Incisional Area Other Precautions NG tube Recommendations To Nursing Amount of Assist Needed 1 Person Assist Discharge Recommendations PT Discharge Recommendations Home with Assistance,Home Health Transportation Needs at Discharge Private Vehicle
[2024-02-27] MEDS: LACTATED RINGERS 1,000 ML 125 ML IV (10:30)
[2024-02-27 11:28] LABS: Add Manual Diff / Slide Review NO; Basophils Absolute Auto 100 /uL (0-100); Basophils Percent Auto 0.7 % (0-2); Eosinophils Absolute Auto 100 /uL (0-450); Eosinophils Percent Auto 1.4 % (2-4); Hematocrit 45.7 % (36-46); Hemoglobin 15.4 g/dL (12.0-16.0); Lymphocytes Absolute Auto 2000 /uL (1100-4500); Lymphocytes Percent Auto 24.3 % (25-40); Mean Corpuscular HGB Conc 33.7 % (30-36); Mean Corpuscular Hemoglobin 32.7 PG (26-34); Mean Corpuscular Volume 97.1 fL (80-100); Monocytes Absolute Auto 600 /uL (0-900); Monocytes Percent Auto 7.6 % (3-14); Neutrophils Absolute Auto 5400 /uL (1500-7000); Platelet Count 299 X10^3/uL (150-400); Red Cell Distribution Width 14.5 % (11.6-14.8); White Blood Cell Count 8.2 X10^3/uL (4.5-11.0)
[2024-02-27 12:31] LABS: Magnesium 2.1 mg/dL (1.6-2.3)
[2024-02-27 12:32] LABS: Alanine Aminotransferase 13 IU/L (<35); Albumin 4.1 g/dL (3.5-5.0); Albumin Globulin Ratio 1.5 (1.0-2.8); Alkaline Phosphatase 54 U/L (38-126); Aspartate Aminotransferase 30 IU/L (14-36); BUN Creatinine Ratio 17.6 (6-22); Bilirubin Total 0.7 mg/dL (0.2-1.3); Blood Urea Nitrogen 12 mg/dL (7-17); Calcium 9.2 mg/dL (8.4-10.2); Carbon Dioxide 24 mmol/L (22-32); Chloride 104 mmol/L (98-107); Estimated Glomerular Filt Rate > 60 mL/min (>60); Globulin 2.7 g/dL (1.7-4.1); Glucose 82 mg/dL (80-110); Potassium 4.2 mmol/L (3.4-5.1); Sodium 139 mmol/L (137-145); Total Protein 6.8 g/dL (6.3-8.2)
[2024-02-27 12:35] LABS: HEMOLYSIS 53 (0-50)
--- NOTE | 2024-02-27 12:54 | PM.HP.1 ---
History of Present Illness History of Present Illness Date Patient Seen: 02/27/24 Time Patient Seen: 12:55 Chief complaint: Vomiting Narrative: 78-year-old white female who underwent a laparoscopic small umbilical hernia repair a few days ago called the office for increased pain complaints was prescribed narcotic. After taking the narcotic she developed intractable vomiting and presented to the ER. CT scan initially performed showed no evidence of complication or bowel obstruction. I repeated the scan with oral contrast, again no evidence of complication. She is feeling better this morning after changing her pain regimen. She is ready to have the nasogastric tube removed and attempted diet. [facility] Medical History CAD (coronary artery disease) History of acute cor pulmonale Asthma History of COVID-19 (06/2022) Vocal cord paralysis Right foot pain Mass of right foot Right-sided heart failure DVT (deep venous thrombosis) (~09/2019) Weight loss Change in voice Shortness of breath Fatigue Superficial bruising Chronic anticoagulation Pulmonary emboli (~09/2019) Cerumen impaction Trigger finger Abnormal Pap smear of cervix (~2009) Kidney disease Hypertension Hyperlipidemia Rheumatoid arthritis Osteoarthritis Depression Anxiety Measles Herpes Chicken pox (~1949) Diverticular disease Macular degeneration Hearing loss (~11/2014) Foot pain (~2012) Carpal tunnel syndrome (~2006) Surgical History 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) History of femoral hernia repair (03/10/23) Anesthesia History of neck surgery (~1993) History of shoulder surgery (~1993) Left fibular fracture (~2015) Fractures (~1980) History of esophagogastroduodenoscopy (EGD) (12/12/16) Status post breast biopsy (10/02/13) Status post rotator cuff repair (~2007) History of carpal tunnel repair (~2006) Status post bunionectomy (12/18/12) Status post hysterectomy (~1980) Status post arthroscopy (~2007) Status post breast biopsy (10/01/12) Status post breast biopsy (~1993) Family History Brother Age: 81 Hypertension Father Leukemia Pneumonia Mother No problems noted. Grandmother Diabetes mellitus Social History marital status: household members: spouse lives independently: Yes occupational status: previously employed Smoking Status: Former smoker alcohol intake: former substance use type: does not use Meds Home Medications and Allergies Home Medications Medication Instructions Recorded Confirmed Type owmewca-lblnypvph-likx tablet 1 tab PO DAILY 02/14/18 02/21/24 History levothyroxine 25 mcg tablet 25 mcg PO DAILY #90 tabs 01/20/20 02/21/24 Rx simvastatin 10 mg tablet (Zocor) 10 mg PO QAM #90 tabs 01/20/20 02/21/24 Rx cholecalciferol (vitamin D3) 25 3,000 unit PO DAILY 07/01/20 02/21/24 History mcg (1,000 unit) capsule aspirin 81 mg capsule 81 mg PO DAILY ##0 02/05/21 02/21/24 History albuterol sulfate 90 mcg/actuation 2 puff inhalation Q4-6H PRN 11/16/22 02/21/24 Rx aerosol inhaler shortness of breath or wheezing #8.5 grams gabapentin 300 mg capsule 600 mg PO QPM 03/10/23 02/21/24 History valacyclovir 1 gram tablet 500 mg PO Q OTHER DAY HSV 06/15/23 02/21/24 History acetaminophen 325 mg capsule 650 mg (2 x 325 mg) PO QID PRN 02/21/24 Rx (Tylenol) pain #60 caps docusate sodium 100 mg capsule 100 mg PO BID #30 caps 02/21/24 Rx (Colace) tramadol 50 mg tablet 50 mg PO Q6H PRN pain #15 tabs 02/21/24 Rx oxycodone 5 mg tablet 5 mg PO Q8H PRN pain #7 tabs 02/26/24 Rx Allergies Allergy/AdvReac Type Severity Reaction Status Date / Time hydromorphone [From Dilaudid] AdvReac Severe Nausea Verified 02/21/24 11:22 codeine [CODEINE] AdvReac Mild NAUSEA, Verified 02/21/24 11:22 VOMITING morphine [MORPHINE] AdvReac Mild VOMITING Verified 02/21/24 11:22 hydrocodone AdvReac Nausea Verified 02/21/24 11:22 pentazocine [From Talwin] AdvReac Nausea Verified 02/21/24 11:22 Review of Systems Review of Systems ROS: Yes All systems reviewed with the patient and are negative except as otherwise documented Exam Vital Signs (past 8 hours): - 02/27/24 05:00 02/27/24 05:30 02/27/24 05:32 Temperature Pulse Rate 86 89 Respiratory Rate Blood Pressure 146/73 H Pulse Oximetry 95 94 Oxygen Delivery Method Nasal Cannula Nasal Cannula Oxygen Flow Rate 2 2 02/27/24 05:32 02/27/24 06:00 02/27/24 06:00 Temperature Pulse Rate 90 92 H Respiratory Rate Blood Pressure 151/78 H Pulse Oximetry 93 93 Oxygen Delivery Method Nasal Cannula Nasal Cannula Oxygen Flow Rate 2 2 02/27/24 06:27 02/27/24 06:27 02/27/24 06:30 Temperature Pulse Rate 86 Respiratory Rate 17 Blood Pressure 161/94 H 154/85 H Pulse Oximetry 93 Oxygen Delivery Method Nasal Cannula Oxygen Flow Rate 2 02/27/24 06:30 02/27/24 07:05 02/27/24 07:30 Temperature Pulse Rate 84 91 H 82 Respiratory Rate 18 Blood Pressure Pulse Oximetry 94 92 94 Oxygen Delivery Method Nasal Cannula Oxygen Flow Rate 2 02/27/24 07:54 02/27/24 07:54 02/27/24 08:05 Temperature 96.3 F L Pulse Rate 91 H 83 Respiratory Rate 17 Blood Pressure 142/78 H 147/76 H Pulse Oximetry 95 98 Oxygen Delivery Method Oxygen Flow Rate 2 02/27/24 08:59 02/27/24 09:11 Temperature Pulse Rate Respiratory Rate Blood Pressure Pulse Oximetry 97 Oxygen Delivery Method Nasal Cannula Nasal Cannula Oxygen Flow Rate 2 Oxygen Delivery Method Nasal Cannula Oxygen Flow Rate 2 Narrative Exam Narrative: Gen: NAD, sitting comfortably in bed, appears well HEENT: Sclera are anicteric, head is normocephalic and atraumatic, trachea is midline. CV: RRR, no JVD Resp: clear to auscultation bilaterally, equal chest wall movement bilaterally Abd: soft, nontender, normoactive bowel sounds Ext: no edema, full range of motion Neuro: Cranial nerves II-XII grossly intact, no focal deficits Skin: No erythema or ecchymosis Objective Labs 02/27/24 11:10 02/27/24 12:10 Labs: Laboratory Results - last 24 hr 02/26/24 02/26/24 02/27/24 21:30 23:02 11:10 WBC 8.7 8.2 RBC 4.79 4.70 Hgb 15.5 15.4 Hct 46.5 H 45.7 MCV 97.2 97.1 MCH 32.4 32.7 MCHC 33.3 33.7 RDW 14.4 14.5 Plt Count 332 299 Neut % (Auto) 46.4 L 66.0 Lymph % (Auto) 40.6 H 24.3 L [place] % (Auto) 8.0 7.6 Eos % (Auto) 4.0 1.4 L Baso % (Auto) 1.0 0.7 Neut # (Auto) 4000 5400 Lymph # (Auto) 3500 2000 [place] # (Auto) 700 600 Eos # (Auto) 300 100 Baso # (Auto) 100 100 Sodium 134 L Potassium 3.7 Chloride 99 Carbon Dioxide 27 BUN 18 H Creatinine 0.80 Estimated GFR > 60 BUN/Creatinine Ratio 22.5 H Glucose 107 Calcium 9.6 Magnesium Total Bilirubin 1.0 AST 36 ALT 19 Alkaline Phosphatase 55 Total Protein 7.8 Albumin 4.6 Globulin 3.2 Albumin/Globulin Ratio 1.4 Lipase 144 Urine RBC 0-1/hpf Urine WBC 0-1/hpf Ur Squamous Epith Cells None seen Urine Bacteria Occasional (0-1) Ur Culture Indicated? Cult not indicated Vol Urine Centrifuged 10ml (spun) 02/27/24 12:10 WBC RBC Hgb Hct MCV MCH MCHC RDW Plt Count Neut % (Auto) Lymph % (Auto) [place] % (Auto) Eos % (Auto) Baso % (Auto) Neut # (Auto) Lymph # (Auto) [place] # (Auto) Eos # (Auto) Baso # (Auto) Sodium 139 Potassium 4.2 Chloride 104 Carbon Dioxide 24 BUN 12 Creatinine 0.68 Estimated GFR > 60 BUN/Creatinine Ratio 17.6 Glucose 82 Calcium 9.2 Magnesium 2.1 Total Bilirubin 0.7 AST 30 ALT 13 Alkaline Phosphatase 54 Total Protein 6.8 Albumin 4.1 Globulin 2.7 Albumin/Globulin Ratio 1.5 Lipase Urine RBC Urine WBC Ur Squamous Epith Cells Urine Bacteria Ur Culture Indicated? Vol Urine Centrifuged Assessment & Plan Assessment and plan (1) Ileus: Status: Acute (2) Vomiting: Qualifiers: Vomiting type: unspecified Nausea presence: with nausea Qualified Code(s): R11.2 - Nausea with vomiting, unspecified Status: Acute Assessment & Plan narrative: Avoid narcotics, attempt a diet. Seems to have better pain control with NSAIDs. Likely discharge later today. Time-Based Coding :: [TOTAL MINUTES] spent with patient and on the chart (including review of chart, obtaining history, exam, reviewing outside data, placing orders, documenting exam and treatment plan, and counseling patient) on [DATE].
--- NOTE | 2024-02-27 16:56 | OT.IP.EVAL ---
Current Diagnoses Ileus, unspecified (02/27/24) Nausea with vomiting, unspecified (02/27/24) Past Medical History (Last Reviewed 02/27/24 @ 12:56 by Eduardo Campbell MD) Abnormal Pap smear of cervix (~2009) Anxiety Asthma CAD (coronary artery disease) Carpal tunnel syndrome (~2006) Cerumen impaction Change in voice Chicken pox (~1949) Chronic anticoagulation Depression Diverticular disease DVT (deep venous thrombosis) (~09/2019) Fatigue Foot pain (~2012) Hearing loss (~11/2014) Herpes History of acute cor pulmonale History of COVID-19 (06/2022) Hyperlipidemia Hypertension Kidney disease Macular degeneration Mass of right foot Measles Osteoarthritis Pulmonary emboli (~09/2019) Rheumatoid arthritis Right foot pain Right-sided heart failure Shortness of breath Superficial bruising Trigger finger Vocal cord paralysis Weight loss Surgical History (Last Reviewed 02/27/24 @ 12:56 by dEuardo Campbell MD) Anesthesia Fractures (~1980) History of carpal tunnel repair (~2006) History of esophagogastroduodenoscopy (EGD) (12/12/16) History of femoral hernia repair (03/10/23) History of neck surgery (~1993) History of shoulder surgery (~1993) 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) Left fibular fracture (~2015) Status post arthroscopy (~2007) Status post breast biopsy (~1993) Status post breast biopsy (10/01/12) Status post breast biopsy (10/02/13) Status post bunionectomy (12/18/12) Status post hysterectomy (~1980) Status post rotator cuff repair (~2007) Occupational Therapy Inpatient Evaluation/Re-Eval M1 PT/OT-IP Prior Functional Status Start: 02/27/24 13:11 Freq: NEEDED Status: Active Protocol: Document 02/27/24 10:10 AB (Rec: 02/27/24 13:25 AB [id number]) Medical Review Prior Functional Status Medical History Reviewed Yes Communication able to make needs known Mobility and Gait pt stated that she was modified independent with all mobilities and ambulation without AD but has been using a FWW since after ventral hernia repair last 02/21/24 Social History Household Members spouse Living Arrangements House Number of Floors (Floors) One Floor Number of Stairs To Enter/Railing? 2 steps L rail ascending to enter the house Home Environment Standard Height Toilet,Walk in Shower,Bidet Home Equipment Front Wheel Walker,Shower Seat with Backrest,Hand Held Shower,Grab Bars Near Toilet, Grab Bars In Shower M1 PT/OT-IP Prior Functional Status Start: 02/27/24 16:43 Freq: NEEDED Status: Active Protocol: Document 02/27/24 16:44 CHANDRAKANT (Rec: 02/27/24 16:56 AFTABNHDEE [id number]) Medical Review Prior Functional Status Medical History Reviewed Yes Communication able to make needs known Mobility and Gait pt stated that she was modified independent with all mobilities and ambulation without AD but has been using a FWW since after ventral hernia repair last 02/21/24 Activities of Daily Living and IADL's pt reports being I with BADLs and IADLs prior to recent surgery Social History Household Members spouse Living Arrangements House Number of Floors (Floors) One Floor Number of Stairs To Enter/Railing? rail on L when ascending Home Environment Standard Height Toilet,Walk in Shower,Bidet Home Equipment Front Wheel Walker,Shower Seat with Backrest,Hand Held Shower,Grab Bars Near Toilet, Grab Bars In Shower M2 OT-IP Current Condition Start: 02/27/24 16:43 Freq: Status: Active Protocol: Document 02/27/24 16:44 CHANDRAKANT (Rec: 02/27/24 16:56 CHANDRAKANT [id number]) Occupational Therapy Current Condition Current Condition Evaluation Date 02/27/24 Treatment Diagnosis ileus, s/p open ventral hernia repair, recent vomiting Diagnosis Onset Date 02/26/24 M3 OT- IP Subjective and Pain Start: 02/27/24 16:43 Freq: Status: Active Protocol: Document 02/27/24 16:44 CHANDRAKANT (Rec: 02/27/24 16:56 AFTABNHDEE [id number]) OT- Subjective Occupational Therapy Visit Type Type Initial Evaluation Visit Start Time 16:00 Visit Stop Time 16:20 Notes Pt reclined in chair on entrance of OT. pt agreeable to participating in OT eval. Occupational Therapy Visit Comments Patient Comments pt hopes to d/c home tomorrow OT Pain Assessment Pain When Pain Assessed At Rest Pain Present Pain Present Pain Reported Location Abdomen Intensity 5 M4 OT- IP ADL's Start: 02/27/24 16:43 Freq: Status: Active Protocol: Document 02/27/24 16:44 CHANDRAKANT (Rec: 02/27/24 16:56 AFTABNHDEE [id number]) OT [id number] Comments OT Self-Feeding Comments not observed OT ADL-Grooming General Evaluation Grooming Ability Standby Assistance Comments OT Grooming Comments pt performs sink side grooming OT ADL-Oral Care Comments Oral Care Comments pt declines at this time OT ADL-Dressing General Eval Upper Body Dressing Ability Standby Assistance Lower Body Dressing Ability Contact Guard Assistance Comments OT Dressing Comments pt demonstrates don/doff slippers and socks while sitting EOB. pt has some difficulty with L side and reports this is due to previous hip replacement. pt denies needing education for LB AE for dressing. OT ADL-Toileting General Evaluation Toileting Ability Independent Comments OT Toileting Comments pt manages clothing and hygiene without assistance. pt with good balance and safety awareness OT ADL-Bathing Comments OT Bathing Comments pt declined at this time. M5 OT- IP IADL's Start: 02/27/24 16:43 Freq: Status: Active Protocol: Document 02/27/24 16:44 CHANDRAKANT (Rec: 02/27/24 16:56 AFTABNHDEE [id number]) OT-Instrumental Activities of Daily Living Home Safety Awareness Awareness of Need for Assistance at Home Good Awareness Ability to Problem Solve Emergency Able to Problem Solve Situations Medication Management Medication Management No Deficits Identified Money Management Money Management No Deficits Identified Meal Preparation Meal Preparation No Deficits Identified Mill Manager Mill Manager No Deficits Identified M6 OT- IP Functional Cognition Start: 02/27/24 16:43 Freq: Status: Active Protocol: Document 02/27/24 16:44 CHANDRAKANT (Rec: 02/27/24 16:56 [facility] [id number]) Cognitive Factors Limiting Selfcare Function Cognitive Ability Level of Alertness Alert Patient Orientation Name,Age,Birthday,Month,Date, Year,Day of Week,Place, Situation Attention Span Ability Capable of Focused Attention, Capable of Sustained Attention Ability to Follow Commands Able to Follow Multi-Step Commands Memory Description No Deficits Noted Safety Awareness No Deficits Noted Problem Solving Ability No deficits Noted Executive Function Ability No Deficits Noted Abstract Thinking Ability No Deficits Noted OT- Vision and Hearing OT- Hearing Assessment OT- Hearing Assessment WFL OT- Vision Assessment Visual Acuity WFL,Glasses For Reading M7 OT- IP Mobility and Balance Start: 02/27/24 16:43 Freq: Status: Active Protocol: Document 02/27/24 16:44 CHANDRAKANT (Rec: 02/27/24 16:56 [facility] [id number]) OT-Transfer Assessment Sit to and From Stand Sit to and from Stand Standby Assistance Transfers Transfer Ability Standby Assistance Technique Transfer Destination Chair Transfer Technique Stand Step Pivot Devices Transfer Assistive Devices Gait Belt Comments Mobility Comments pt performs safely and slowly OT- Gait Assessment Gait Gait Assistance Required: Standby Assistance Distance (Feet) 20 Assistive Devices Assistive Device Gait Belt Comments Gait Ability Comments pt amb to bathroom using IV pole with S. pt demonstrates good balance, good safety awareness, and no LOB OT- Balance Assessment Sitting Balance and Reactions Static Sitting Balance Ability Normal Dynamic Sitting Balance Ability Good Standing Balance and Reactions Static Standing Balance Ability Good Dynamic Standing Balance Ability Good M8 OT- IP Objective Assessments Start: 02/27/24 16:43 Freq: Status: Active Protocol: Document 02/27/24 16:44 AFTABHIEUREBECAKARTHIK (Rec: 02/27/24 16:56 [facility] [id number]) OT Gross Range of Motion Upper Extremity Range of Motion Assessment Within Functional Limits OT Strength Upper Extremity Strength Assessment Within Functional Limits Hand Viticulturist Strength Hand Dominance Right Comments Strength Comments MMT not performed due to recent abdominal surgery and pt's stated precautions OT- Coordination Assessment Upper Extremity Finger to Nose Test Within Functional Limits Finger Tapping Test Within Functional Limits M9 OT- IP Assessment and Plan Start: 02/27/24 16:43 Freq: Status: Active Protocol: Document 02/27/24 16:44 AFTABHIEUREBECAKARTHIK (Rec: 02/27/24 16:56 [facility] [id number]) OT Summary Assessment and Plan Potential Rehabilitation Potential Excellent Analytic Complexity at Evaluation Low Summary OT Impairments Pain,Dressing,Bathing,Shower Transfers Progress Towards Goals Safe For Discharge Assessment Summary pt is 78 yo F who had an open ventral hernia repair last . pt now admitted for ileus. pt demonstrated good safety awareness, good balance , S for functional t/fs, and up to contact assist for BADLs . Pt reports that she is performing BADLs at her baseline. pt would benefit from LB AE education for dressing but pt is not interested in learning how to use this equipment. pt does not desire to work on OT related tasks at this time and is safe for d/c with respect to OT related skilled therapy. please re-order if pt declines and would benefit from skilled OT services. Frequency of Treatment Frequency Of Treatment Discharge Discharge Recommendations OT Discharge Recommendations Home,Home with Assistance Transportation Needs at Discharge Private Vehicle,Wheelchair/ Cabulance
--- NOTE | 2024-02-27 17:48 | PM.DS.1 ---
History of Present Illness History of Present Illness Date Patient Seen: 02/27/24 Time Patient Seen: 17:48 Chief complaint: Vomiting Narrative: 78-year-old white female who underwent a laparoscopic small umbilical hernia repair a few days ago called the office for increased pain complaints was prescribed narcotic. After taking the narcotic she developed intractable vomiting and presented to the ER. CT scan initially performed showed no evidence of complication or bowel obstruction. I repeated the scan with oral contrast, again no evidence of complication. She is feeling better this morning after changing her pain regimen. She is ready to have the nasogastric tube removed and attempted diet. Tolerated diet, feels better now. Discharge Providers Provider Date of admission: 02/27/24 04:51 Discharge Date: 02/27/24 Primary care physician: Adam Faria MD Consults: 02/27/24 08:05 Consult to Discharge Planning Routine Comment: Consult to Occupational Therapy Evaluate & Treat Comment: Physician Instructions: Evaluate and treat Consult to Physical Therapy Evaluate & Treat Comment: Physician Instructions: Evaluate and Treat Discharge provider: Eduardo Campbell MD Summary Hospital Course Discharge Diagnosis: intractable vomiting, secondary to oxycodone Hospital Course: held opiates, good pain control with NSAIDs. CT scan without and with contrast did not show any findings to explain her emesis. Status at Discharge Cognitive/behavioral status at discharge: oriented Functional status at discharge: independent ambulation Overall status at discharge: patient is back to baseline Time Spent with Patient Time spent: Less than 30 minutes Exam Vital Signs (past 8 hours): - 02/27/24 13:00 Pulse Oximetry 92 Oxygen Delivery Method Room Air Oxygen Flow Rate 0 Oxygen Delivery Method Room Air Oxygen Flow Rate 0 Narrative Exam Narrative: Gen: NAD, sitting comfortably in bed, appears well HEENT: Sclera are anicteric, head is normocephalic and atraumatic, trachea is midline. CV: RRR, no JVD Resp: clear to auscultation bilaterally, equal chest wall movement bilaterally Abd: soft, nontender, normoactive bowel sounds Ext: no edema, full range of motion Neuro: Cranial nerves II-XII grossly intact, no focal deficits Skin: No erythema or ecchymosis Objective Labs 02/27/24 11:10 02/27/24 12:10 Labs: Laboratory Results - last 24 hr 02/26/24 02/26/24 02/27/24 21:30 23:02 11:10 WBC 8.7 8.2 RBC 4.79 4.70 Hgb 15.5 15.4 Hct 46.5 H 45.7 MCV 97.2 97.1 MCH 32.4 32.7 MCHC 33.3 33.7 RDW 14.4 14.5 Plt Count 332 299 Neut % (Auto) 46.4 L 66.0 Lymph % (Auto) 40.6 H 24.3 L [place] % (Auto) 8.0 7.6 Eos % (Auto) 4.0 1.4 L Baso % (Auto) 1.0 0.7 Neut # (Auto) 4000 5400 Lymph # (Auto) 3500 2000 [place] # (Auto) 700 600 Eos # (Auto) 300 100 Baso # (Auto) 100 100 Sodium 134 L Potassium 3.7 Chloride 99 Carbon Dioxide 27 BUN 18 H Creatinine 0.80 Estimated GFR > 60 BUN/Creatinine Ratio 22.5 H Glucose 107 Calcium 9.6 Magnesium Total Bilirubin 1.0 AST 36 ALT 19 Alkaline Phosphatase 55 Total Protein 7.8 Albumin 4.6 Globulin 3.2 Albumin/Globulin Ratio 1.4 Lipase 144 Urine RBC 0-1/hpf Urine WBC 0-1/hpf Ur Squamous Epith Cells None seen Urine Bacteria Occasional (0-1) Ur Culture Indicated? Cult not indicated Vol Urine Centrifuged 10ml (spun) 02/27/24 12:10 WBC RBC Hgb Hct MCV MCH MCHC RDW Plt Count Neut % (Auto) Lymph % (Auto) [place] % (Auto) Eos % (Auto) Baso % (Auto) Neut # (Auto) Lymph # (Auto) [place] # (Auto) Eos # (Auto) Baso # (Auto) Sodium 139 Potassium 4.2 Chloride 104 Carbon Dioxide 24 BUN 12 Creatinine 0.68 Estimated GFR > 60 BUN/Creatinine Ratio 17.6 Glucose 82 Calcium 9.2 Magnesium 2.1 Total Bilirubin 0.7 AST 30 ALT 13 Alkaline Phosphatase 54 Total Protein 6.8 Albumin 4.1 Globulin 2.7 Albumin/Globulin Ratio 1.5 Lipase Urine RBC Urine WBC Ur Squamous Epith Cells Urine Bacteria Ur Culture Indicated? Vol Urine Centrifuged [facility] Medical History CAD (coronary artery disease) History of acute cor pulmonale Asthma History of COVID-19 (06/2022) Vocal cord paralysis Right foot pain Mass of right foot Right-sided heart failure DVT (deep venous thrombosis) (~09/2019) Weight loss Change in voice Shortness of breath Fatigue Superficial bruising Chronic anticoagulation Pulmonary emboli (~09/2019) Cerumen impaction Trigger finger Abnormal Pap smear of cervix (~2009) Kidney disease Hypertension Hyperlipidemia Rheumatoid arthritis Osteoarthritis Depression Anxiety Measles Herpes Chicken pox (~1949) Diverticular disease Macular degeneration Hearing loss (~11/2014) Foot pain (~2012) Carpal tunnel syndrome (~2006) Surgical History 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) History of femoral hernia repair (03/10/23) Anesthesia History of neck surgery (~1993) History of shoulder surgery (~1993) Left fibular fracture (~2015) Fractures (~1980) History of esophagogastroduodenoscopy (EGD) (12/12/16) Status post breast biopsy (10/02/13) Status post rotator cuff repair (~2007) History of carpal tunnel repair (~2006) Status post bunionectomy (12/18/12) Status post hysterectomy (~1980) Status post arthroscopy (~2007) Status post breast biopsy (10/01/12) Status post breast biopsy (~1993) Family History Brother Age: 81 Hypertension Father Leukemia Pneumonia Mother No problems noted. Grandmother Diabetes mellitus Social History marital status: household members: spouse lives independently: Yes occupational status: previously employed Smoking Status: Former smoker alcohol intake: former substance use type: does not use Discharge Assessment & Plan Assessment and Plan Assessment: opiate induced vomiting Plan of Treatment: multi-modal, non-narcotic pain control Discharge Plan Discharge Plan Patient Disposition: Home Discharge orders & Medications Prescriptions: Continued levothyroxine 25 mcg tablet 25 mcg PO DAILY Qty: 90 3RF Rx Instructions: Take one tablet once a day on an empty stomach 30 minutes before breakfast. simvastatin [Zocor] 10 mg tablet 10 mg PO QAM Qty: 90 3RF iavfsoa-gifvjwzji-ycme tablet 1 tab PO DAILY cholecalciferol (vitamin D3) 25 mcg (1,000 unit) capsule 3,000 unit PO DAILY albuterol sulfate 90 mcg/actuation HFA aerosol inhaler 2 puff INHALATION Q4-6H PRN (Reason: shortness of breath or wheezing) Qty: 8.5 0RF gabapentin 300 mg capsule 600 mg PO QPM docusate sodium [Colace] 100 mg capsule 100 mg PO BID Qty: 30 0RF tramadol 50 mg tablet 50 mg PO Q6H PRN (Reason: pain) Qty: 15 0RF acetaminophen [Tylenol] 325 mg capsule 650 mg PO QID PRN (Reason: pain) Qty: 60 0RF aspirin 81 mg Capsule 81 mg PO DAILY Qty: 0 valacyclovir 1 gram tablet 500 mg PO Q OTHER DAY Patient Comments: takes every other day by choice Discontinued oxycodone 5 mg tablet 5 mg PO Q8H PRN (Reason: pain) Qty: 7 0RF Follow up/Referrals: Adam Faria MD [Primary Care Provider] - Diet/Activity/Treatments Diet: Diet as Tolerated Skin/Wound/Dressing Care Report to your healthcare provider any signs of infection, such as:: chills, fever, night sweats, increased pain, unusual drainage and unusual redness Visit Report/Discharge Packet Stand Alone Forms: Patient Portal/API, Stroke Signs & Symptoms Discharge Data Primary Care Provider: Adam Faria Attending Provider: Eduardo Campbell Admit Date/Time: 02/27/24 04:51 Quality VTE Deep Vein Thrombosis/Pulmonary Embolism Present on Admission: No
--- NOTE | 2024-02-27 18:38 | PC.NURSE ---
Discharge: Surgeon in to see patient. She is feeling well. Amb two loops of the hallway. Tolerated clear liquids w/out problems. Her nausea earlier has resolved. Vds w/out diff. Reviewed discharge packet, questions answered. SO is here at bedside. Pt wants to go home. Pt discharged home via auto with SO. She voiced no concerns.
--- NOTE | 2024-02-28 10:32 | CM.DANOTE ---
Initial DCP Assessment Visit Note Late Entry: Reviewed 02/27/24 Reviewed EMR and team rounds for status updates. [employer] was unable to meet with pt f/f due to triage needs on the floor, and she discharged later that evening. Pt Lives independently at baseline in her own home w/spouse here in [place]. Her spouse was able to transport her home. Payor: [facility] Adv PCP: Dr. Faria Pt is a 78 year-old F with a hx of diverticulitis and recent open hernia repair on 02/21/24. She states that she hadn't had a BM in 7-days, can only take in minimal amounts of liquids, but was not tolerating solids. CT Abd/Pelvis was neg for bowel obstruction. Pt was started on IV ABO's and pain meds. Surgery was consulted, Judah. Yeek suspected an ileus. She was also started on IV NS, and given an enema. She felt much better by day-2, and was medically cleared for home d/c. No CM needs were identified during this stay.
== END 2024-02-27 18:30 | disposition home or self-care (01) ==
LOC: ED 23:24 → AC 02-27 04:53
PROVIDERS: Admitting Provider Surgery; Emergency Provider Emergency Medicine; Family Provider Registered Nurse; PCP Family Medicine; Referring Provider Emergency Medicine; Visit Provider Surgery
DX: R11.2 Nausea with vomiting, unspecified (principal); Z98.890 Other specified postprocedural states
CPT/HCPCS: 36415; 71045; 74177; 80053; 81003; 81015; 82962; 83690; 83735; 85025; 96361; 96365; 96375; 96376; 97162; 97165; 97530; 99234; 99285; G0378; J0134; J2405; Q9967

== ENCOUNTER → 2024-08-12 07:40 | Outpatient (CLI) | payer OTHER, SELFPAY ==
[2024-02-27 13:34] VITALS: BMI 30.9
--- NOTE | 2024-08-12 07:42 | DI.MG.S_ITS ---
MM screening mammo BI: 08/12/2024. BI-RADS: 2 CLINICAL: 78-year old female for bilateral screening mammogram. Tyrer-Cuzick lifetime risk of 2.4%. No personal or first-degree family history of breast cancer. The patient had a prior left breast biopsy. PRIOR EXAMS: 08/08/2023, 07/06/2022, 07/02/2021, 07/20/2020, 06/11/2020, 05/27/2020, 04/05/2019, 03/28/2018. MAMMOGRAPHY TECHNIQUE: 2D and 3D (tomosynthesis) digital mammographic views obtained, with additional images as needed for full coverage. Current study was also evaluated with a Computer Aided Detection (CAD) system. DENSITY C. The breasts are heterogeneously dense, which may obscure small masses. MAMMOGRAPHY FINDINGS Right: Biopsy marker present on the right. Typically-benign vascular calcifications noted. Left: Benign-appearing post-surgical changes noted on the left. Typically-benign vascular calcifications also noted. IMPRESSION: * No evidence of malignancy with benign findings. RECOMMENDATIONS Bilateral * Annual screening mammography. OVERALL ASSESSMENT CATEGORY BI-RADS-2: Benign. The [employer] recommends annual screening mammography beginning at age 40 for women with average risk of breast cancer. ELECTRONICALLY SIGNED: Dorian Almanza M.D. on 08/16/2024 at 08:17:55 AM PT Interpreting Station ID: [id number]
== END ==
LOC: MAMMO 07:41
PROVIDERS: Family Provider Registered Nurse; PCP Family Medicine; Referring Provider Family Medicine; Visit Provider Family Medicine
DX: Z12.31 Encounter for screening mammogram for malignant neoplasm of breast (principal); R92.333 Mammographic heterogeneous density, bilateral breasts; R92.1 Mammographic calcification found on diagnostic imaging of breast
CPT/HCPCS: 77063; 77067

== ENCOUNTER → 2025-01-06 16:33 | Outpatient (ROUT) | payer OTHER, SELFPAY ==
[2024-02-27 13:34] VITALS: BMI 30.9
[2025-01-06 17:13] LABS: Influenza A - CEPHEID Flu A NEGATIVE (NEGATIVE); Influenza B - CEPHEID Flu B NEGATIVE (NEGATIVE)
[2025-01-06 17:35] LABS: COVID-19 CEPHEID 4-PLEX PCR Negative (Negative)
== END ==
PROVIDERS: Family Provider Registered Nurse; PCP Family Medicine; Visit Provider Family Medicine
DX: R06.02 Shortness of breath (principal); R09.89 Other specified symptoms and signs involving the circulatory and respiratory systems
CPT/HCPCS: 87637

== ENCOUNTER → 2025-02-04 10:16 | Outpatient (ROUT) | payer OTHER, SELFPAY ==
[2024-02-27 13:34] VITALS: BMI 30.9
[2025-02-04 10:57] LABS: COVID-19 CEPHEID 4-PLEX PCR Negative (Negative); Influenza A - CEPHEID Flu A NEGATIVE (NEGATIVE); Influenza B - CEPHEID Flu B NEGATIVE (NEGATIVE)
== END ==
PROVIDERS: Family Provider Registered Nurse; PCP Family Medicine; Visit Provider Family Medicine
DX: R50.9 Fever, unspecified (principal); R05.9 Cough, unspecified
CPT/HCPCS: 87637